=== PATIENT | male | born 1935 | race Caucasian/White ===

== ENCOUNTER 2017-02-01 16:59 | Inpatient (IN) | payer OTHER, MEDICARE ==
[~2017-02-01] VITALS: Ht 172.7 cm; Wt 64.2 kg
[~2017-02-01 16:59] MED LIST: ALPR2TAB3 PO; ASPI81TA82 PO; ESCI10TA PO; HYDR12.56 PO; LISI2.5T55 PO; LOVA40TA PO; OMEG5CAP PO; PANT40IN3 PO; TAB-TAB PO; XALA0.00 EACH EYE
[2017-02-01 17:02] VITALS: BP 124/71; PULSE 69; RESP 16; TEMP 98.2; O2SAT 98
[2017-02-01] MEDS ORDERED: LISI2.5T3 PO (17:36)
[2017-02-01] MEDS ORDERED: LOVA40TA PO (17:36)
[2017-02-01] MEDS ORDERED: METO25TA3 PO (17:36)
[2017-02-01] MEDS ORDERED: PANT40TA3 PO (17:36)
[2017-02-01 17:37] VITALS: RESP 18; O2SAT 98
[2017-02-01] MEDS ORDERED: SODIUM CHLORIDE 0.9% FLUSH 10 ML FLUSH IVF PRN (17:45)
--- NOTE | 2017-02-01 17:55 | PD ---
HPI Chief Complaint: Chest Pain Time Seen by Provider: 17:34 Travel History International Travel<30 days: No Contact w/Intl Traveler<30days: No Traveled to known affect area: No History of Present Illness HPI 82-year-old male patient with history of CAD status post stenting, hypertension , presents to the ER today with 4 days history of intermittent chest pains which she currently rates at a 10 out of 10. He also states that he is having some abdominal pains as well. He denies any nausea, vomiting, shortness of breath, or other symptoms. He is very hard of hearing and history is as per daughter. According to her, every time he had complained of chest pain in the past he also gets abdominal pain as well. Modifying Factors: None Associated Signs & Symptoms: Intermittent chest pains Risk Factors: Cardiac history PFSH Past Medical History Blood Disorders: No Anxiety: Yes Depression: Yes Heart Rhythm Problems: No Cancer: No Cardiac Catheterization: Yes Cardiovascular Problems: Yes High Cholesterol: Yes Chest Pain: Yes Congestive Heart Failure: Yes Diabetes: No Diminished Hearing: No Endocrine: No Gastrointestinal Disorders: Yes (acid reflux) GERD: Yes Genitourinary: No Hypertension: Yes Immune Disorder: No Musculoskeletal: Yes (arthritis) Neurologic: No Psychiatric: Yes Reproductive: No Respiratory: No Myocardial Infarction: Yes (X2) Tetanus Vaccination: > 5 Years Influenza Vaccination: Yes Past Surgical History Coronary Stent: Yes (X4 STENTS) Other Surgery: Yes Social History Alcohol Use: Yes (1-2 BEER ONCE IN A WHILE) Tobacco Use: Yes (PIPE SMOKER/ QUIT IN 1980) Substance Use: No Allergies-Medications (Allergen,Severity, Reaction): Coded Allergies: No Known Allergies (Unverified , 02/01/17) Reported Meds & Prescriptions Reported Meds & Active Scripts Active Reported Lovastatin 40 Mg Tab 40 Mg PO HS Metoprolol Tartrate 25 Mg Tab 25 Mg PO DAILY Pantoprazole (Pantoprazole Sodium) 40 Mg Tab 40 Mg PO DAILY Lisinopril 2.5 Mg Tab 2.5 Mg PO DAILY Review of Systems Except as stated in HPI: all other systems reviewed are Neg Physical Exam Narrative GENERAL: Well-developed elderly white male patient currently in mild distress at awake and oriented 3. SKIN: Focused skin assessment warm/dry. HEAD: Atraumatic. Normocephalic. EYES: Pupils equal and round. No scleral icterus. No injection or drainage. ENT: No nasal bleeding or discharge. Mucous membranes pink and moist. NECK: Trachea midline. No JVD. CARDIOVASCULAR: Regular rate and rhythm. No murmur appreciated. Pulses are present and equal bilaterally. RESPIRATORY: No accessory muscle use. Clear to auscultation. Breath sounds equal bilaterally. GASTROINTESTINAL: Abdomen soft, epigastric and periumbilical tenderness without guarding or rebound, nondistended. Hepatic and splenic margins not palpable. MUSCULOSKELETAL: No obvious deformities. No clubbing. No cyanosis. No edema. NEUROLOGICAL: Awake and alert. No obvious cranial nerve deficits. Motor grossly within normal limits. Normal speech. PSYCHIATRIC: Appropriate mood and affect; insight and judgment normal. Data Data Last Documented VS Vital Signs Date Time Temp Pulse Resp B/P (MAP) Pulse Ox O2 Delivery O2 Flow Rate FiO2 02/01/17 17:37 18 98 Room Air 02/01/17 17:30 70 02/01/17 17:02 98.2 Orders Orders Electrocardiogram (02/01/17 17:34) Ckmb (Isoenzyme) Profile (02/01/17 17:34) Complete Blood Count With Diff (02/01/17 17:34) Comprehensive Metabolic Panel (02/01/17 17:34) Magnesium (Mg) (02/01/17 17:34) Prothrombin Time / Inr (Pt) (02/01/17 17:34) Act Partial Throm Time (Ptt) (02/01/17 17:34) Troponin I (02/01/17 17:34) Lipase (02/01/17 17:34) Chest, Single Ap (02/01/17 17:34) Ecg Monitoring (02/01/17 17:34) Bilateral Bp Monitoring (02/01/17 17:34) Iv Access Insert/Monitor (02/01/17 17:34) Oximetry (02/01/17 17:34) Oxygen Administration (02/01/17 17:34) Sodium Chloride 0.9% Flush (Ns Flush) (02/01/17 17:45) Cta Thor Abd Aorta W Iv C W3d (02/01/17 17:34) Morphine Inj (Morphine Inj) (02/01/17 18:00) Ondansetron Inj (Zofran Inj) (02/01/17 18:00) CKMB (02/01/17 17:44) CKMB% (02/01/17 17:44) Urinalysis - C+S If Indicated (02/01/17 19:05) Labs Laboratory Tests Test 02/01/17 17:44 White Blood Count 16.1 TH/MM3 Red Blood Count 3.73 MIL/MM3 Hemoglobin 12.2 GM/DL Hematocrit 36.0 % Mean Corpuscular Volume 96.4 FL Mean Corpuscular Hemoglobin 32.7 PG Mean Corpuscular Hemoglobin Concent 33.9 % Red Cell Distribution Width 13.9 % Platelet Count 273 TH/MM3 Mean Platelet Volume 7.9 FL Neutrophils (%) (Auto) 84.6 % Lymphocytes (%) (Auto) 7.4 % Monocytes (%) (Auto) 7.0 % Eosinophils (%) (Auto) 0.4 % Basophils (%) (Auto) 0.6 % Neutrophils # (Auto) 13.6 TH/MM3 Lymphocytes # (Auto) 1.2 TH/MM3 Monocytes # (Auto) 1.1 TH/MM3 Eosinophils # (Auto) 0.1 TH/MM3 Basophils # (Auto) 0.1 TH/MM3 CBC Comment DIFF FINAL Differential Comment Prothrombin Time 11.4 SEC Prothromb Time International Ratio 1.0 RATIO Activated Partial Thromboplast Time 29.7 SEC Blood Urea Nitrogen 18 MG/DL Creatinine 1.23 MG/DL Random Glucose 108 MG/DL Total Protein 7.9 GM/DL Albumin 3.3 GM/DL Calcium Level 9.5 MG/DL Magnesium Level 2.7 MG/DL Alkaline Phosphatase 343 U/L Aspartate Amino Transf (AST/SGOT) 128 U/L Alanine Aminotransferase (ALT/SGPT) 129 U/L Total Bilirubin 2.7 MG/DL Sodium Level 136 MEQ/L Potassium Level 4.4 MEQ/L Chloride Level 101 MEQ/L Carbon Dioxide Level 26.5 MEQ/L Anion Gap 9 MEQ/L Estimat Glomerular Filtration Rate 56 ML/MIN Total Creatine Kinase 205 U/L Creatine Kinase MB 4.8 NG/ML Troponin I 0.08 NG/ML Lipase 105 U/L MDM Medical Decision Making Medical Screen Exam Complete: Yes Emergency Medical Condition: Yes Medical Record Reviewed: Yes Interpretation(s) EKG shows NSR with a first-degree AV block, no ST elevation or depression, and no arrhythmias. No significant T-wave inversions. Laboratory Tests Test 02/01/17 17:44 White Blood Count 16.1 TH/MM3 (4.0-11.0) Red Blood Count 3.73 MIL/MM3 (4.50-5.90) Hemoglobin 12.2 GM/DL (13.0-17.0) Hematocrit 36.0 % (39.0-51.0) Neutrophils (%) (Auto) 84.6 % (16.0-70.0) Lymphocytes (%) (Auto) 7.4 % (9.0-44.0) Neutrophils # (Auto) 13.6 TH/MM3 (1.8-7.7) Monocytes # (Auto) 1.1 TH/MM3 (0-0.9) Random Glucose 108 MG/DL (74-106) Albumin 3.3 GM/DL (3.4-5.0) Magnesium Level 2.7 MG/DL (1.5-2.5) Alkaline Phosphatase 343 U/L (45-117) Aspartate Amino Transf (AST/SGOT) 128 U/L (15-37) Alanine Aminotransferase (ALT/SGPT) 129 U/L (12-78) Total Bilirubin 2.7 MG/DL (0.2-1.0) Estimat Glomerular Filtration Rate 56 ML/MIN (>89) Creatine Kinase MB 4.8 NG/ML (0.5-3.6) Troponin I 0.08 NG/ML (0.02-0.05) Differential Diagnosis Chest pains and abdominal pains: ACS versus dissection versus aortic aneurysm versus gastritis/GERD Narrative Course Lab work and CAT scan was ordered for the patient. Initial chest x-ray shows interstitial lung disease but did not show any signs of other acute processes. His lab work shows a leukocytosis of uncertain etiology. CTA was ordered for further evaluation of chest and abdominal pain to rule out dissection or other acute processes. Physician Communication Physician Communication Case is signed out to Dr. Henriquez at 7 PM pending CTA with plans for admission. Disposition based on CTA. Diagnosis Primary Impression: Chest pain Admitting Information Admitting Physician Requests: Admit Ivory Fall MD Feb 01, 2017 17:55
[2017-02-01] MEDS ORDERED: MORPHINE SULFATE 4 MG/ML INJ IV PUSH ONE (18:00)
[2017-02-01] MEDS ORDERED: ONDANSETRON HCL 4 MG/2 ML VIAL IV PUSH ONE (18:00)
[2017-02-01 18:04] LABS: AUTOMATED NEUTROPHIL # 13.6 TH/MM3 (1.8-7.7); BASOPHIL # 0.1 TH/MM3 (0-0.2); BASOPHIL % 0.6 % (0.0-2.0); EOSINOPHIL # 0.1 TH/MM3 (0-0.4); EOSINOPHIL % 0.4 % (0.0-4.0); HEMO FLAGS DIFF FINAL; LYMPH % 7.4 % (9.0-44.0); LYMPHOCYTE # 1.2 TH/MM3 (1.0-4.8); MEAN CELL VOLUME 96.4 FL (80.0-100.0); MEAN CORPUSCULAR HEMOGLOBIN 32.7 PG (27.0-34.0); MEAN CORPUSCULAR HGB CONC 33.9 % (32.0-36.0); NEUT % 84.6 % (16.0-70.0); PLATELET COUNT 273 TH/MM3 (150-450); RED BLOOD COUNT 3.73 MIL/MM3 (4.50-5.90); RED CELL DISTRIBUTION WIDTH 13.9 % (11.6-17.2); WHITE BLOOD COUNT 16.1 TH/MM3 (4.0-11.0)
--- NOTE | 2017-02-01 18:08 | RADRPT ---
EXAM DATE/TIME: 02/01/2017 17:56 [facility] COMPARISON: CHEST SINGLE AP, May 03, 2016, 15:05. INDICATIONS : Chest pain. MEDICAL HISTORY : Hypertension. SURGICAL HISTORY : Cardiac stents. ENCOUNTER: Initial ACUITY: 1 day PAIN SCORE: 2/10 LOCATION: Bilateral chest FINDINGS: Chronic interstitial opacities are again seen diffusely in both lungs. There is some associated volum e loss on the right, unchanged. No acute infiltrates seen. No pleural effusion or pneumothorax. Heart size stable, within normal limits. Tortuous thoracic aorta again seen. CONCLUSION: Chronic interstitial lung disease. No acute process demonstrated. Dom Lemus MD on February 01, 2017 at 18:06 Board Certified Radiologist. This report was verified electronically.
[2017-02-01 18:14] LABS: APTT (PATIENT) 29.7 SEC (24.3-30.1); PROTHROMBIN TIME - PATIENT 11.4 SEC (9.8-11.6)
[2017-02-01 18:32] LABS: ALT (GPT) 129 U/L (12-78); ANION GAP 9 MEQ/L (5-15); AST (GOT) 128 U/L (15-37); BICARBONATE 26.5 MEQ/L (21.0-32.0); BLOOD UREA NITROGEN 18 MG/DL (7-18); CHLORIDE 101 MEQ/L (98-107); GLOMERULAR FILTRATION RATE 56 ML/MIN (>89); MAGNESIUM 2.7 MG/DL (1.5-2.5); POTASSIUM 4.4 MEQ/L (3.5-5.1); SODIUM (NA) 136 MEQ/L (136-145)
[2017-02-01 18:35] LABS: ALKALINE PHOSPHATASE 343 U/L (45-117); CREATINE KINASE 205 U/L (39-308); TOTAL BILIRUBIN ADULT 2.7 MG/DL (0.2-1.0)
[2017-02-01 18:47] LABS: CKMB 4.8 NG/ML (0.5-3.6)
[2017-02-01] MEDS ORDERED: IOHEXOL 350 MG/ML 10 ML VIAL (for RAD DIAG) IVCONTRAST ONE (19:00)
--- NOTE | 2017-02-01 19:19 | PD ---
Physical Exam Narrative General: The patient is a well-developed, thin appearing male in no acute distress. Head and Neck exam: Head is normocephalic atraumatic. Eyes: EOMI, pupils are equal round and reactive to light. Nose: Midline septum with pink mucous membranes Mouth: Dentition unremarkable. Moist mucus membranes. Posterior oropharynx is not erythematous. No tonsillar hypertrophy. Uvula midline. Airway patent. Neck: No palpable lymphadenopathy. No nuchal rigidity. No thyromegaly. Cardiovascular: Regular rate and rhythm without murmurs, gallops, or rubs. Lungs: Clear to auscultation bilaterally. No wheezes, rhonchi, or rales. Abdomen: Soft, with midepigastric abdominal discomfort on palpation, no other tenderness on palpation of the other quadrants of the abdomen. No tenderness on palpation of McBurney's point. No guarding, rebound, or rigidity. Negative Post's sign. Extremities: No clubbing, cyanosis, or edema. 2+ pulses in all 4 extremities. No calf tenderness on palpation. Neurologic Exam: Grossly nonfocal Skin Exam: No rash noted. Intact skin that is warm and dry. The patient is slightly jaundiced appearing. Data Data Last Documented VS Vital Signs Date Time Temp Pulse Resp B/P (MAP) Pulse Ox O2 Delivery O2 Flow Rate FiO2 02/01/17 19:45 66 18 159/66 (97) 99 Room Air 02/01/17 17:02 98.2 Orders Orders Electrocardiogram (02/01/17 17:34) Ckmb (Isoenzyme) Profile (02/01/17 17:34) Complete Blood Count With Diff (02/01/17 17:34) Comprehensive Metabolic Panel (02/01/17 17:34) Magnesium (Mg) (02/01/17 17:34) Prothrombin Time / Inr (Pt) (02/01/17 17:34) Act Partial Throm Time (Ptt) (02/01/17 17:34) Troponin I (02/01/17 17:34) Lipase (02/01/17 17:34) Chest, Single Ap (02/01/17 17:34) Ecg Monitoring (02/01/17 17:34) Bilateral Bp Monitoring (02/01/17 17:34) Iv Access Insert/Monitor (02/01/17 17:34) Oximetry (02/01/17 17:34) Oxygen Administration (02/01/17 17:34) Sodium Chloride 0.9% Flush (Ns Flush) (02/01/17 17:45) Cta Thor Abd Aorta W Iv C W3d (02/01/17 17:34) Morphine Inj (Morphine Inj) (02/01/17 18:00) Ondansetron Inj (Zofran Inj) (02/01/17 18:00) CKMB (02/01/17 17:44) CKMB% (02/01/17 17:44) Urinalysis - C+S If Indicated (02/01/17 19:05) Us Abdomen Gallbladder (02/01/17 19:40) Lactic Acid Sepsis Protocol (02/01/17 19:41) Blood Culture (02/01/17 19:41) Piperacil-Tazo 3.375 Gm Premix (Zosyn 3. (02/01/17 19:45) Vancomycin Inj (Vancomycin Inj) (02/01/17 19:45) Aspirin Chew (Aspirin Chew) (02/01/17 19:45) Nitroglycerin 2% Oint (Nitroglycerin 2% (02/01/17 19:45) B-Type Natriuretic Peptide (02/01/17 19:41) Sodium Chlorid 0.9% 500 Ml Inj (Ns 500 M (02/01/17 19:45) Iohexol 350 Inj (Omnipaque 350 Inj) (02/01/17 19:00) Admit Order (Ed Use Only) (02/01/17 20:08) Labs Laboratory Tests Test 02/01/17 17:44 02/01/17 20:10 White Blood Count 16.1 TH/MM3 Red Blood Count 3.73 MIL/MM3 Hemoglobin 12.2 GM/DL Hematocrit 36.0 % Mean Corpuscular Volume 96.4 FL Mean Corpuscular Hemoglobin 32.7 PG Mean Corpuscular Hemoglobin Concent 33.9 % Red Cell Distribution Width 13.9 % Platelet Count 273 TH/MM3 Mean Platelet Volume 7.9 FL Neutrophils (%) (Auto) 84.6 % Lymphocytes (%) (Auto) 7.4 % Monocytes (%) (Auto) 7.0 % Eosinophils (%) (Auto) 0.4 % Basophils (%) (Auto) 0.6 % Neutrophils # (Auto) 13.6 TH/MM3 Lymphocytes # (Auto) 1.2 TH/MM3 Monocytes # (Auto) 1.1 TH/MM3 Eosinophils # (Auto) 0.1 TH/MM3 Basophils # (Auto) 0.1 TH/MM3 CBC Comment DIFF FINAL Differential Comment Prothrombin Time 11.4 SEC Prothromb Time International Ratio 1.0 RATIO Activated Partial Thromboplast Time 29.7 SEC Blood Urea Nitrogen 18 MG/DL Creatinine 1.23 MG/DL Random Glucose 108 MG/DL Total Protein 7.9 GM/DL Albumin 3.3 GM/DL Calcium Level 9.5 MG/DL Magnesium Level 2.7 MG/DL Alkaline Phosphatase 343 U/L Aspartate Amino Transf (AST/SGOT) 128 U/L Alanine Aminotransferase (ALT/SGPT) 129 U/L Total Bilirubin 2.7 MG/DL Sodium Level 136 MEQ/L Potassium Level 4.4 MEQ/L Chloride Level 101 MEQ/L Carbon Dioxide Level 26.5 MEQ/L Anion Gap 9 MEQ/L Estimat Glomerular Filtration Rate 56 ML/MIN Total Creatine Kinase 205 U/L Creatine Kinase MB 4.8 NG/ML Troponin I 0.08 NG/ML B-Type Natriuretic Peptide 246 PG/ML Lipase 105 U/L Lactic Acid Level 1.5 mmol/L [facility] Medical Record Reviewed: Yes Supervised Visit with CIARA: No Interpretation(s) Last Impressions Gall Bladder Ultrasound 02/01/171939 Signed Impressions: Service Date/Time: Wednesday, February 01, 2017 20:02 - CONCLUSION: 1. Dilated common bile duct. Distal common duct not well visualized. No stones identified within the gallbladder. Jason Yu MD Chest X-Ray 02/01/[id number] Signed Impressions: Service Date/Time: Wednesday, February 01, 2017 17:56 - CONCLUSION: Chronic interstitial lung disease. No acute process demonstrated. Dom Lemus MD Aorta CTA 02/01/[id number] Signed Impressions: Service Date/Time: Wednesday, February 01, 2017 19:31 - CONCLUSION: 1. Negative for aortic dissection or aneurysm. 2. Gallstone in distal common duct measured up to 14 mm in diameter with biliary ductal dilatation up to about 2 cm. Jason Yu MD Narrative Course During the course of the patients emergency department visit, the patients history, examination, and differential diagnosis were reviewed with the patient. The patient had IV access obtained and blood work sent for analysis. The patient was placed on a clean up person with oximetry and blood pressure monitoring. The patient was initially provided morphine 2 mg IV for pain, Zofran 4 mg IV. The patients laboratory studies were reviewed and remarkable for a white count of 16.1, hemoglobin 12.2, platelets 273 with 84.6 neutrophils, lymphocytes 7.4. CMP is remarkable for glucose of 108, magnesium 2.7, total bilirubin 2.7, AST 128, ALT 129, alkaline phosphatase 343, CPK 205, CK-MB 4.8, troponin I 0.08, lipase 105. PT 11.4, PTT 29.7. Radiology studies were reviewed and remarkable for a chest x-ray that shows chronic interstitial lung disease, no acute process otherwise demonstrated. A urinalysis was added to his blood work given his elevated white blood cell count. An ultrasound was added to his evaluation due to his elevated liver function tests which is new since November. He denies drinking alcohol on a regular basis. He has not reportedly had a cholecystectomy. Due to the elevated white blood cell count blood cultures 2 were added, lactic acid was added to his workup. The patient was started on broad-spectrum antibiotic given his abdominal pain to include Zosyn 3.375 g IV, vancomycin 1 g IV. Given the patient's slightly elevated troponin the patient was given nitroglycerin 1 inch the chest wall, aspirin 162 mg by mouth 1. A BNP was added to his blood work. The patient was gently hydrated with normal saline a 500 mL bolus. CTA of the aorta shows no evidence of aortic dissection, however the patient is noted to have a common bile duct stone with biliary duct dilatation. A call was placed out to the GI specialist injection molding operator. I spoke to Dr. Ruiz regarding this patient's case. He will be seeing the patient in consultation. The patients results were discussed with the patient, including the plan of care. I explained that further testing and/ or monitoring is indicated based on the patients history, examination, and/ or laboratory findings. Therefore, I recommended admission for additional evaluation. The patient expressed understanding and was agreeable with this plan. The patient was admitted to the hospital in stable condition and sent to a bed under the care of the [facility] service. Sepsis Criteria SIRS Criteria (2 or more): WBC > 46867, < 4000 or > 10% bands Physician Communication Physician Communication The patient's case will be discussed with the [facility] service for admission. I spoke to Dr. العراقي regarding this patient's case. She did agree to admit the patient for further evaluation and treatment at this time. I spoke to Dr. Ruiz regarding this patient's case, the radioisotope technician on-call. He did agree to see this patient in consultation. Diagnosis Primary Impression: Abdominal pain Qualified Codes: R10.13 - Epigastric pain Additional Impressions: Elevated liver function tests Choledocholithiasis Chest pain, rule out acute myocardial infarction Admitting Information Admitting Physician Requests: Admit Natasha Henriquez MD Feb 01, 2017 19:19
[2017-02-01 19:45] VITALS: BP 159/66; PULSE 66; RESP 18; O2SAT 99
[2017-02-01] MEDS ORDERED: ASPIRIN 81 MG CHEW TAB CHEW ONE (19:45)
[2017-02-01] MEDS ORDERED: SODIUM CHLORID 0.9% 500 ML INJ 500 ML IV ONE (19:45)
[2017-02-01] MEDS ORDERED: NITROGLYCERIN 2% OINT 1 GM PACKET TOPICAL ONE (19:45)
[2017-02-01] MEDS ORDERED: VANCOMYCIN INJ 1,000 MG in SODIUM CHLOR 0.9% 250 ML INJ 250 ML IV ONE (19:45)
[2017-02-01] MEDS ORDERED: PIPERACIL-TAZO 3.375 GM PREMIX 50 ML IV ONE (19:45)
--- NOTE | 2017-02-01 20:23 | RADRPT ---
EXAM DATE/TIME: 02/01/2017 19:31 [facility] COMPARISON: No previous studies available for comparison. INDICATIONS : Chest and back pain. Evaluate for dissection. IV CONTRAST: 75 cc Omnipaque 350 (iohexol) IV RADIATION DOSE: 22.27 CTDIvol (mGy) MEDICAL HISTORY : Cardiovascular disease. Hypertension. SURGICAL HISTORY : IVC Filter placement. Coronary artery stent. ENCOUNTER: initial ACUITY: Acute PAIN SCALE: Unknown LOCATION: Abdominal TECHNIQUE: Volumetric scanning was performed using a multi-row detector CT scanner. The data was post processed with a variety of visualization algorithms including full volume maximum intensity projection, multi -planar sliding thin slab reformation, curved planar reformation, and surface rendering techniques. Using automated exposure control and adjustment of the mA and/or kV according to patient size, radiat ion dose was kept as low as reasonably achievable to obtain optimal diagnostic quality images. DICOM format image data is available electronically for review and comparison. FINDINGS: There is no aortic dissection or aneurysm. There is moderate atherosclerotic change in the aorta. There is intrahepatic and extra hepatic ductal dilatation with common bile duct measuring up to about 2 cm in diameter. There is a gallstone the distal common bile duct that measures up to about 14 mm i n diameter. Spleen, adrenals, kidneys and pancreas demonstrate no acute findings. Inferior vena cava filter is pr esent. Mild constipation. No free air or free fluid. CONCLUSION: 1. Negative for aortic dissection or aneurysm. 2. Gallstone in distal common duct measured up to 14 mm in diameter with biliary ductal dilatation up to about 2 cm. Jason Yu MD on February 01, 2017 at 20:16 Board Certified Radiologist. This report was verified electronically.
[2017-02-01 20:54] VITALS: BP 136/63; PULSE 73; RESP 20; O2SAT 95
[2017-02-01] MEDS: SODIUM CHLORIDE 0.9% FLUSH 10 ML FLUSH IV FLUSH SCH (21:00)
[2017-02-01] MEDS ORDERED: NALOXONE HCL 0.4 MG/ML AMP IV PRN (21:00)
[2017-02-01] MEDS ORDERED: SODIUM CHLORIDE 0.9% FLUSH 10 ML FLUSH IV FLUSH PRN (21:00)
--- NOTE | 2017-02-01 21:01 | RADRPT ---
EXAM DATE/TIME: 02/01/2017 20:02 [facility] COMPARISON: No previous studies available for comparison. INDICATIONS : Right upper quadrant pain. MEDICAL HISTORY : Hypercholesterolemia. Gastroesophageal reflux disease. Hypertension. Myocardial infarction. Congestiv e heart failure. Arthritis. Depression. Anxiety. Blood transfusion. SURGICAL HISTORY : Coronary stent. Right leg compoud fracture repair. ENCOUNTER: Initial ACUITY: 1 day PAIN SCORE: 4/10 LOCATION: Right upper quadrant MEASUREMENTS: LIVER: 12.9 cm length COMMON DUCT: 12 mm RIGHT KIDNEY: 10.0 x 5.1 x 4.3 cm FINDINGS: Common bile duct is enlarged, of a 12 mm. Liver normal in size. Portal venous flow normal direction. Pancreas not well-visualized. No gallstones identified within the abdomen. CONCLUSION: 1. Dilated common bile duct. Distal common duct not well visualized. No stones identified within the gallbladder. Jason Yu MD on February 01, 2017 at 20:58 Board Certified Radiologist. This report was verified electronically.
[2017-02-01 21:41] LABS: BLOOD, URINE NEG (NEG); COMMENT (UR) CULT NOT INDICATED; CULTURE IF INDICATED CULT NOT INDICATED; GLUCOSE,URINE NEG (NEG); KETONE, URINE 10 mg/dL (NEG); MUCUS URINE FEW /lpf (OCC); NITRITE,URINE NEG (NEG); SQUAMOUS EPITHELIAL CELL URINE <1 /hpf (0-5); URINE COLOR DARK-YELLOW (YELLW/STRAW)
--- NOTE | 2017-02-01 22:09 | PD.CONS ---
HPI History of Present Illness This is a 82 year old male patient with one year of off and on chest and abdominal pain. The pain is at times severe, sharp and dull. No associated SOB. No fever reported. last few days he has been worse and has not eaten anything. He also suffers from constipation and uses warm water enemas at times. Never had colonoscopy. History of CAD with stents. Workup in ED showed CBD stone and dilated CBD. LFTs are also elevated. Bilirubin is elevated. US shows no stones in gallbladder. He reports having metal shard in his thumb ad a young man. He has never had an MRI. ROS: denies headache earache, sore throat, vomiting. No hematemesis or melena. No brbpr. Otherwise complete ros is negative. PFSH Past Medical History CAD stents [place] x 2 HTN Past Surgical History Never had colonoscopy Coded Allergies: No Known Allergies (Unverified , 02/01/17) Medications Current Medications Medications (Trade) Dose Ordered Sig/Radha Route Start Time Stop Time Status Last Admin (NS Flush) 2 ml UNSCH PRN IV FLUSH 02/01/17 21:00 (NS Flush) 2 ml BID IV FLUSH 02/01/17 21:00 (Narcan Inj) 0.4 mg UNSCH PRN IV 02/01/17 21:00 Piperacillin Sod/ Tazobactam Sod 100 ml @ 200 mls/hr Q6H IV 02/02/17 02:00 Family History Non contributory Social History Smoked a pipe No alcohol or drugs GI Exam Vitals I&O Vital Signs Date Time Temp Pulse Resp B/P (MAP) Pulse Ox O2 Delivery O2 Flow Rate FiO2 02/01/17 20:54 73 20 136/63 (87) 95 Room Air 02/01/17 19:45 66 18 159/66 (97) 99 Room Air 02/01/17 17:37 18 98 Room Air 02/01/17 17:37 98 Room Air 02/01/17 17:30 70 20 98 Room Air 02/01/17 17:02 98.2 69 16 124/71 (88) 98 Laboratory Test 02/01/17 17:44 02/01/17 20:10 02/01/17 20:52 White Blood Count 16.1 TH/MM3 Red Blood Count 3.73 MIL/MM3 Hemoglobin 12.2 GM/DL Hematocrit 36.0 % Mean Corpuscular Volume 96.4 FL Mean Corpuscular Hemoglobin 32.7 PG Mean Corpuscular Hemoglobin Concent 33.9 % Red Cell Distribution Width 13.9 % Platelet Count 273 TH/MM3 Mean Platelet Volume 7.9 FL Neutrophils (%) (Auto) 84.6 % Lymphocytes (%) (Auto) 7.4 % Monocytes (%) (Auto) 7.0 % Eosinophils (%) (Auto) 0.4 % Basophils (%) (Auto) 0.6 % Neutrophils # (Auto) 13.6 TH/MM3 Lymphocytes # (Auto) 1.2 TH/MM3 Monocytes # (Auto) 1.1 TH/MM3 Eosinophils # (Auto) 0.1 TH/MM3 Basophils # (Auto) 0.1 TH/MM3 CBC Comment DIFF FINAL Differential Comment Prothrombin Time 11.4 SEC Prothromb Time International Ratio 1.0 RATIO Activated Partial Thromboplast Time 29.7 SEC Blood Urea Nitrogen 18 MG/DL Creatinine 1.23 MG/DL Random Glucose 108 MG/DL Total Protein 7.9 GM/DL Albumin 3.3 GM/DL Calcium Level 9.5 MG/DL Magnesium Level 2.7 MG/DL Alkaline Phosphatase 343 U/L Aspartate Amino Transf (AST/SGOT) 128 U/L Alanine Aminotransferase (ALT/SGPT) 129 U/L Total Bilirubin 2.7 MG/DL Sodium Level 136 MEQ/L Potassium Level 4.4 MEQ/L Chloride Level 101 MEQ/L Carbon Dioxide Level 26.5 MEQ/L Anion Gap 9 MEQ/L Estimat Glomerular Filtration Rate 56 ML/MIN Total Creatine Kinase 205 U/L Creatine Kinase MB 4.8 NG/ML Troponin I 0.08 NG/ML Lipase 105 U/L Lactic Acid Level 1.5 mmol/L Urine Color DARK-YELLOW Urine Turbidity CLEAR Urine pH 6.0 Urine Specific [place] GREATER THAN 1.050 Urine Protein TRACE mg/dL Urine Glucose (UA) NEG mg/dL Urine Ketones 10 mg/dL Urine Occult Blood NEG Urine Nitrite NEG Urine Bilirubin SMALL Urine Urobilinogen 2.0 MG/DL Urine Leukocyte Esterase NEG Urine RBC 2 /hpf Urine WBC 4 /hpf Urine Squamous Epithelial Cells <1 /hpf Urine Mucus FEW /lpf Microscopic Urinalysis Comment CULT NOT INDICATED Date/Time Source Procedure Growth Status 02/01/17 20:10 Blood Peripheral Aerobic Blood Culture Pending Received 02/01/17 20:10 Blood Peripheral Anaerobic Blood Culture Pending Received Physical Examination HEENT: Pupils round and reactive to light; normocephalic; atraumatic; mild jaundice Throat is clear. He is thin NECK: Neck is supple, no JVD, no lymphadenopathy. CHEST: Chest is clear to auscultation and percussion. CARDIAC: Regular rate and rhythm with no murmur gallop or rubs. ABDOMEN: Soft, nondistended, nontender; no hepatosplenomegaly; bowel sounds are present in all four quadrants. EXTREMITIES: No clubbing, cyanosis, or edema. SKIN: dry and warm REVENUE FIELD AUDITOR: No focal deficits; alert and oriented times three. Assessment and Plan Plan Imp: Epigastric and abdominal pain consistent with biliary colic Elevated WBC count Weight loss probably from not eating due to the pain Constipation, never had colonoscopy and does not want one. CBD stone with bile duct dilatation seen on CT for chest Plan: ERCP will be done tomorrow. IV antibiotics Miralax 17gm po bid for constipation NPO after midnight. Further recommendation as the case develops Brandon Ruiz MD Feb 01, 2017 22:09
[2017-02-01 22:23] VITALS: BP 105/57; PULSE 75; RESP 19; O2SAT 96
--- NOTE | 2017-02-01 23:01 | HHI.HP ---
[facility] Jethro Mckoy MD Admission Diagnosis Chest pain, h/o CAD, abdominal pain, elevated lfts, leukocytosis Diagnoses: Chief Complaint: cough with body aches Travel History International Travel<30 Days: No Contact w/Intl Traveler <30 Da: No Traveled to Known Affected Are: No History of Present Illness Written by Sheri Wyman, acting as scribe for Dr. العراقي on 02/01/17 at 22:49. Frequent cough with heavy, dwyer sputum accompanied by all over body aches. Symptom duration: 2 weeks. Reports poor appetite over the past couple of days. Complains of abdominal and back pain without nausea or vomiting but with constipation. Denies diarrhea. Uses a warm water enema for constipation at home. Denies fever, chills, black or red stool, hematuria, falls, chest pain, or shortness of breath. (chest pain reported to ED physician) Review of Systems Except as stated in HPI: all other systems reviewed are Neg Past Family Social History Past Medical History CAD stents x 4 [place] x 2 Previous right lower leg compound fracture Denies hypertension, diabetes mellitus, CHF, irregular heart rhythms including atrial fibrillation, COPD, asthma, emphysema, liver problems, kidney problems, DVT, PE, CVA, seizures, cancer, prostate problems, or thyroid problems. Past Surgical History Right lower extremity fracture repair 1993 Cardiac catheterization with stent placement . Reported Medications Reported Meds & Active Scripts Active Reported Lovastatin 40 Mg Tab 40 Mg PO HS Metoprolol Tartrate 25 Mg Tab 25 Mg PO DAILY Pantoprazole (Pantoprazole Sodium) 40 Mg Tab 40 Mg PO DAILY Lisinopril 2.5 Mg Tab 2.5 Mg PO DAILY . Allergies: Coded Allergies: No Known Allergies (Unverified , 02/01/17) Active Ordered Medications Current Medications Sodium Chloride (NS Flush) 2 ml UNSCH PRN IVF FLUSH AFTER USING IV ACCESS; Start 02/01/17 at 17:45; Stop 02/01/17 at 21:22; Status DC Morphine Sulfate (Morphine Inj) 2 mg ONCE ONCE IV PUSH Last administered on t 18:01; Start 02/01/17 at 18:00; Stop 02/01/17 at 18:01; Status DC Ondansetron HCl (Zofran Inj) 4 mg ONCE ONCE IV PUSH Last administered on 18:01; Start 02/01/17 at 18:00; Stop 02/01/17 at 18:01; Status DC Piperacillin Sod/ Tazobactam Sod 50 ml @ 100 mls/hr ONCE ONCE IV Last administered on 02/01/17 20:35; Start 02/01/17 at 19:45; Stop 02/01/17 at 20:14; Status DC Vancomycin HCl 1000 mg/Sodium Chloride 250 ml @ 250 mls/hr ONCE ONCE IV Last administered on 02/01/17 20:57; Start 02/01/17 at 19:45; Stop 02/01/17 at 20:44; Status DC Aspirin (Aspirin Chew) 162 mg ONCE ONCE CHEW Last administered on 02/01/17 20: 34; Start 02/01/17 at 19:45; Stop 02/01/17 at 19:46; Status DC Nitroglycerin (Nitroglycerin 2% Oint) 1 inch ONCE ONCE TOPICAL Last administered on 02/01/17 20:35; Start 02/01/17 at 19:45; Stop 02/01/17 at 19:46; Status DC Sodium Chloride 500 ml @ 500 mls/hr BOLUS ONCE IV Last administered on 20:34; Start 02/01/17 at 19:45; Stop 02/01/17 at 20:44; Status DC Iohexol (Omnipaque 350 Inj) 75 ml STK-MED ONCE IVCONTRAST Last administered on 02/01/17 19:00; Start 02/01/17 at 19:00; Stop 02/01/17 at 20:00; Status DC Sodium Chloride (NS Flush) 2 ml UNSCH PRN IV FLUSH FLUSH AFTER USING IV ACCESS ; Start 02/01/17 at 21:00 Sodium Chloride (NS Flush) 2 ml BID IV FLUSH ; Start 02/01/17 at 21:00 Naloxone HCl (Narcan Inj) 0.4 mg UNSCH PRN IV SEE LABEL COMMENTS; Start at 21:00 Piperacillin Sod/ Tazobactam Sod 100 ml @ 200 mls/hr Q6H IV ; Start 02/02/17 at 02:00 . Family History Mother from [place] age 74 y/o Father lived until age 87 y/o - from complications related to aging Youngest child of 15, only surviving sibling Has two daughters . Social History Tobacco: Smoked a pipe; quit 1980 Alcohol: denies Illicit Drugs: denies Lives with son-in-law Uses a cane at times for ambulation Still drives Physical Exam Vital Signs Vital Signs Date Time Temp Pulse Resp B/P (MAP) Pulse Ox O2 Delivery O2 Flow Rate FiO2 02/01/17 22:23 75 19 105/57 (73) 96 Room Air 02/01/17 20:54 73 20 136/63 (87) 95 Room Air 02/01/17 19:45 66 18 159/66 (97) 99 Room Air 02/01/17 17:37 18 98 Room Air 02/01/17 17:37 98 Room Air 02/01/17 17:30 70 20 98 Room Air 02/01/17 17:02 98.2 69 16 124/71 (88) 98 Physical Exam GENERAL: This is a pale elderly male patient, in no apparent distress. SKIN: No rashes, ecchymoses or lesions. Cool and dry. HEAD: Atraumatic. Normocephalic. EYES: Pupils equal round and reactive. No injection or drainage. ENT: Nose without bleeding, purulent drainage or septal hematoma. NECK: Trachea midline. No JVD. CARDIOVASCULAR: Regular rate and rhythm without murmurs, gallops, or rubs. RESPIRATORY: Clear to auscultation. Breath sounds equal bilaterally. No wheezes , rales, or rhonchi. GASTROINTESTINAL: Abdomen soft, non-tender, nondistended. No guarding. MUSCULOSKELETAL: Extremities without clubbing, cyanosis, or edema. No calf tenderness. NEUROLOGICAL: Awake and alert. Motor and sensory grossly within normal limits. Normal speech. Mild memory impairment. . Laboratory Laboratory Tests Test 02/01/17 17:44 02/01/17 20:10 02/01/17 20:52 White Blood Count 16.1 Red Blood Count 3.73 Hemoglobin 12.2 Hematocrit 36.0 Mean Corpuscular Volume 96.4 Mean Corpuscular Hemoglobin 32.7 Mean Corpuscular Hemoglobin Concent 33.9 Red Cell Distribution Width 13.9 Platelet Count 273 Mean Platelet Volume 7.9 Neutrophils (%) (Auto) 84.6 Lymphocytes (%) (Auto) 7.4 Monocytes (%) (Auto) 7.0 Eosinophils (%) (Auto) 0.4 Basophils (%) (Auto) 0.6 Neutrophils # (Auto) 13.6 Lymphocytes # (Auto) 1.2 Monocytes # (Auto) 1.1 Eosinophils # (Auto) 0.1 Basophils # (Auto) 0.1 CBC Comment DIFF FINAL Differential Comment Prothrombin Time 11.4 Prothromb Time International Ratio 1.0 Activated Partial Thromboplast Time 29.7 Blood Urea Nitrogen 18 Creatinine 1.23 Random Glucose 108 Total Protein 7.9 Albumin 3.3 Calcium Level 9.5 Magnesium Level 2.7 Alkaline Phosphatase 343 Aspartate Amino Transf (AST/SGOT) 128 Alanine Aminotransferase (ALT/SGPT) 129 Total Bilirubin 2.7 Sodium Level 136 Potassium Level 4.4 Chloride Level 101 Carbon Dioxide Level 26.5 Anion Gap 9 Estimat Glomerular Filtration Rate 56 Total Creatine Kinase 205 Creatine Kinase MB 4.8 Troponin I 0.08 B-Type Natriuretic Peptide 246 Lipase 105 Lactic Acid Level 1.5 Urine Color DARK-YELLOW Urine Turbidity CLEAR Urine pH 6.0 Urine Specific [place] GREATER THAN 1.050 Urine Protein TRACE Urine Glucose (UA) NEG Urine Ketones 10 Urine Occult Blood NEG Urine Nitrite NEG Urine Bilirubin SMALL Urine Urobilinogen 2.0 Urine Leukocyte Esterase NEG Urine RBC 2 Urine WBC 4 Urine Squamous Epithelial Cells <1 Urine Mucus FEW Microscopic Urinalysis Comment CULT NOT INDICATED Date/Time Source Procedure Growth Status 02/01/17 20:10 Blood Peripheral Aerobic Blood Culture Pending Received 02/01/17 20:10 Blood Peripheral Anaerobic Blood Culture Pending Received Result Diagram: 02/01/17 1744 02/01/171743 Imaging Last Impressions Gall Bladder Ultrasound 02/01/171939 Signed Impressions: Service Date/Time: Wednesday, February 01, 2017 20:02 - CONCLUSION: 1. Dilated common bile duct. Distal common duct not well visualized. No stones identified within the gallbladder. Jason Yu MD Chest X-Ray 02/01/171733 Signed Impressions: Service Date/Time: Wednesday, February 01, 2017 17:56 - CONCLUSION: Chronic interstitial lung disease. No acute process demonstrated. Dom Lemus MD Aorta CTA 02/01/171733 Signed Impressions: Service Date/Time: Wednesday, February 01, 2017 19:31 - CONCLUSION: 1. Negative for aortic dissection or aneurysm. 2. Gallstone in distal common duct measured up to 14 mm in diameter with biliary ductal dilatation up to about 2 cm. Jason Yu MD . [place] VTE Risk Assessment [place] VTE Risk Assessment: Mod/High Risk (score >= 2) VTE Pharm Contraindication: ERCP in a.m. Caprini Risk Assessment Model Point Value = 1 Point Value = 2 Point Value = 3 Point Value = 5 Age 41-60 Minor surgery BMI > 25 kg/m2 Swollen legs Varicose veins or History of unexplained or recurrent spontaneous Oral contraceptives or hormone replacement Sepsis (< 1 month) Serious lung disease, including pneumonia (< 1 month) Abnormal pulmonary function Acute myocardial infarction Congestive heart failure (< 1 month) History of inflammatory bowel disease Medical patient at bed rest Age 61-74 Arthroscopic surgery Major open surgery (> 45 min) Laparoscopic surgery (> 45 min) Malignancy Confined to bed (> 72 hours) Immobilizing plaster cast Central venous access Age >= 75 History of VTE Family history of VTE Factor V Leiden Prothrombin [id number] Lupus anticoagulant Anticardiolipin antibodies Elevated serum homocysteine Heparin-induced thrombocytopenia Other congenital or acquired thrombophilia Stroke (< 1 month) Elective arthroplasty Hip, pelvis, or leg fracture Acute spinal cord injury (< 1 month) Prophylaxis Regimen Total Risk Factor Score Risk Level Prophylaxis Regimen 0-1 Low Early ambulation 2 Moderate Order ONE of the following: *Sequential Compression Device (SCD) *Heparin 5000 units SQ BID 3-4 Higher Order ONE of the following medications: *Heparin 5000 units SQ TID *Enoxaparin/Lovenox 40 mg SQ daily (WT < 150 kg, CrCl > 30 mL/min) *Enoxaparin/Lovenox 30 mg SQ daily (WT < 150 kg, CrCl > 10-29 mL/min) *Enoxaparin/Lovenox 30 mg SQ BID (WT < 150 kg, CrCl > 30 mL/min) AND/OR *Sequential Compression Device (SCD) 5 or more Highest Order ONE of the following medications: *Heparin 5000 units SQ TID (Preferred with Epidurals) *Enoxaparin/Lovenox 40 mg SQ daily (WT < 150 kg, CrCl > 30 mL/min) *Enoxaparin/Lovenox 30 mg SQ daily (WT < 150 kg, CrCl > 10-29 mL/min) *Enoxaparin/Lovenox 30 mg SQ BID (WT < 150 kg, CrCl > 30 mL/min) AND *Sequential Compression Device (SCD) Assessment and Plan Problem List: (1) Common bile duct dilation ICD Code: K83.8 - Other specified diseases of biliary tract (2) Elevated liver function tests ICD Code: R79.89 - Other specified abnormal findings of blood chemistry Status: Acute (3) Chest pain ICD Code: R07.9 - Chest pain, unspecified Status: Acute (4) Leukocytosis ICD Code: D72.829 - Elevated white blood cell count, unspecified Assessment and Plan 82 y/o male presented with productive cough and reporting chest pain to ER physician on 02/01/17: Choledocholithiasis - Dilated common bile duct with stone on imaging with elevated liver enzymes - Gastroenterology consulted - ERCP planned in a.m. - NPO after midnight - Morphine 2 mg IV q6h PRN pain Chest pain reported to ED physician - serial cardiac enzymes and EKGs to r/o ACS - initial troponin I 0.08, will trend - continuous cardiac telemetry to monitor for arrhythmias Leukocytosis choledocholithiasis vs pneumonia - WBC 16.1 with neutrophilia - Antibiotic: Zosyn 4.5 gm every 6 hours IV - repeat CBC in a.m. and follow results DVT prophylaxis - SCDs/TEDs . This note was transcribed by mikaela [Sheri Wyman]. I, Dr. Claudine العراقي personally performed the history, physical exam, and medical decision making; and confirmed the accuracy of the information in the transcribed note. Authenticated by Dr. Claudine العراقي on 02/01/17 at 22:49. Discussed Condition With ER physician and patient . Physician Certification 2 Midnight Certification Type: Admission for Inpatient Services Order for Inpatient Services The services are ordered in accordance with Medicare regulations or non- Medicare payer requirements, as applicable. In the case of services not specified as inpatient-only, they are appropriately provided as inpatient services in accordance with the 2-midnight benchmark. Estimated LOS (days): 3 days is the estimated time the patient will need to remain in the hospital, assuming treatment plan goals are met and no additional complications. Post-Hospital Plan: Not yet determined Problem Qualifiers (1) Chest pain: Qualified Codes: R07.9 - Chest pain, unspecified Sheri Wyman Feb 01, 2017 23:01 Claudine العراقي MD Feb 02, 2017 00:48
[2017-02-01] MEDS ORDERED: MORPHINE SULFATE 4 MG/ML INJ IV PUSH PRN (23:15)
[2017-02-02] VITALS (20 sets, daily range): BP systolic 110–134; BP diastolic 54–94; PULSE 40–70; RESP 18–20; TEMP 97.6–98.2; O2SAT 96–100
[2017-02-02] MEDS: PIPERACIL-TAZO 4.5 GM PREMIX 100 ML IV SCH ×3 (02:51→20:04)
[2017-02-02 07:10] LABS: AUTOMATED NEUTROPHIL # 6.5 TH/MM3 (1.8-7.7); BASOPHIL % 0.3 % (0.0-2.0); EOSINOPHIL % 0.4 % (0.0-4.0); HEMATOCRIT 29.3 % (39.0-51.0); HEMO FLAGS DIFF FINAL; LYMPH % 15.6 % (9.0-44.0); LYMPHOCYTE # 1.4 TH/MM3 (1.0-4.8); MEAN CELL VOLUME 95.7 FL (80.0-100.0); MEAN CORPUSCULAR HEMOGLOBIN 32.3 PG (27.0-34.0); MEAN CORPUSCULAR HGB CONC 33.7 % (32.0-36.0); MONO % 10.7 % (0.0-8.0); PLATELET COUNT 240 TH/MM3 (150-450); RED BLOOD COUNT 3.06 MIL/MM3 (4.50-5.90); RED CELL DISTRIBUTION WIDTH 13.6 % (11.6-17.2); WHITE BLOOD COUNT 8.9 TH/MM3 (4.0-11.0)
[2017-02-02 07:40] LABS: BICARBONATE 30.5 MEQ/L (21.0-32.0); POTASSIUM 4.8 MEQ/L (3.5-5.1)
--- NOTE | 2017-02-02 08:25 | HHI.GIFU ---
Subjective Remarks Resting in bed. Denies any nausea/vomiting/abdominal pain. Denies any fevers. Objective Vitals I&O Vital Signs Date Time Temp Pulse Resp B/P (MAP) Pulse Ox O2 Delivery O2 Flow Rate FiO2 02/02/17 06:16 53 18 120/56 (77) 99 Room Air 02/02/17 03:50 70 19 118/78 (91) 96 Room Air 02/02/17 01:40 59 18 110/61 (77) 98 Room Air 02/02/17 00:03 68 19 115/56 (75) 98 Room Air 02/01/17 22:23 75 19 105/57 (73) 96 Room Air 02/01/17 20:54 73 20 136/63 (87) 95 Room Air 02/01/17 19:45 66 18 159/66 (97) 99 Room Air 02/01/17 19:30 18 02/01/17 17:37 18 98 Room Air 02/01/17 17:37 98 Room Air 02/01/17 17:30 70 20 98 Room Air 02/01/17 17:02 98.2 69 16 124/71 (88) 98 Laboratory Laboratory Tests Test 02/01/17 17:44 02/01/17 20:10 02/01/17 20:52 02/01/17 23:59 White Blood Count 16.1 Red Blood Count 3.73 Hemoglobin 12.2 Hematocrit 36.0 Mean Corpuscular Volume 96.4 Mean Corpuscular Hemoglobin 32.7 Mean Corpuscular Hemoglobin Concent 33.9 Red Cell Distribution Width 13.9 Platelet Count 273 Mean Platelet Volume 7.9 Neutrophils (%) (Auto) 84.6 Lymphocytes (%) (Auto) 7.4 Monocytes (%) (Auto) 7.0 Eosinophils (%) (Auto) 0.4 Basophils (%) (Auto) 0.6 Neutrophils # (Auto) 13.6 Lymphocytes # (Auto) 1.2 Monocytes # (Auto) 1.1 Eosinophils # (Auto) 0.1 Basophils # (Auto) 0.1 CBC Comment DIFF FINAL Differential Comment Prothrombin Time 11.4 Prothromb Time International Ratio 1.0 Activated Partial Thromboplast Time 29.7 Blood Urea Nitrogen 18 Creatinine 1.23 Random Glucose 108 Total Protein 7.9 Albumin 3.3 Calcium Level 9.5 Magnesium Level 2.7 Alkaline Phosphatase 343 Aspartate Amino Transf (AST/SGOT) 128 Alanine Aminotransferase (ALT/SGPT) 129 Total Bilirubin 2.7 Sodium Level 136 Potassium Level 4.4 Chloride Level 101 Carbon Dioxide Level 26.5 Anion Gap 9 Estimat Glomerular Filtration Rate 56 Total Creatine Kinase 205 115 Creatine Kinase MB 4.8 Troponin I 0.08 0.09 B-Type Natriuretic Peptide 246 Lipase 105 Lactic Acid Level 1.5 Urine Color DARK-YELLOW Urine Turbidity CLEAR Urine pH 6.0 Urine Specific [place] GREATER THAN 1.050 Urine Protein TRACE Urine Glucose (UA) NEG Urine Ketones 10 Urine Occult Blood NEG Urine Nitrite NEG Urine Bilirubin SMALL Urine Urobilinogen 2.0 Urine Leukocyte Esterase NEG Urine RBC 2 Urine WBC 4 Urine Squamous Epithelial Cells <1 Urine Mucus FEW Microscopic Urinalysis Comment CULT NOT INDICATED Test 02/02/17 06:05 White Blood Count 8.9 Red Blood Count 3.06 Hemoglobin 9.9 Hematocrit 29.3 Mean Corpuscular Volume 95.7 Mean Corpuscular Hemoglobin 32.3 Mean Corpuscular Hemoglobin Concent 33.7 Red Cell Distribution Width 13.6 Platelet Count 240 Mean Platelet Volume 7.7 Neutrophils (%) (Auto) 73.0 Lymphocytes (%) (Auto) 15.6 Monocytes (%) (Auto) 10.7 Eosinophils (%) (Auto) 0.4 Basophils (%) (Auto) 0.3 Neutrophils # (Auto) 6.5 Lymphocytes # (Auto) 1.4 Monocytes # (Auto) 0.9 Eosinophils # (Auto) 0.0 Basophils # (Auto) 0.0 CBC Comment DIFF FINAL Differential Comment Blood Urea Nitrogen 14 Creatinine 0.99 Random Glucose 86 Calcium Level 8.8 Sodium Level 138 Potassium Level 4.8 Chloride Level 102 Carbon Dioxide Level 30.5 Anion Gap 6 Estimat Glomerular Filtration Rate 72 Total Creatine Kinase 92 Troponin I 0.08 Date/Time Source Procedure Growth Status 02/01/17 20:10 Blood Peripheral Aerobic Blood Culture Pending Received 02/01/17 20:10 Blood Peripheral Anaerobic Blood Culture Pending Received Imaging Last Impressions Gall Bladder Ultrasound 02/01/171939 Signed Impressions: Service Date/Time: Wednesday, February 01, 2017 20:02 - CONCLUSION: 1. Dilated common bile duct. Distal common duct not well visualized. No stones identified within the gallbladder. Jason Yu MD Chest X-Ray 02/01/17 [id number] Signed Impressions: Service Date/Time: Wednesday, February 01, 2017 17:56 - CONCLUSION: Chronic interstitial lung disease. No acute process demonstrated. Dom Lemus MD Aorta CTA 02/01/17 1734 Signed Impressions: Service Date/Time: Wednesday, February 01, 2017 19:31 - CONCLUSION: 1. Negative for aortic dissection or aneurysm. 2. Gallstone in distal common duct measured up to 14 mm in diameter with biliary ductal dilatation up to about 2 cm. Jason Yu MD Physical Exam HEENT: Normocephalic; atraumatic; no jaundice. CHEST: CTA CARDIAC: RRR ABDOMEN: Soft, nondistended, nontender; no hepatosplenomegaly; bowel sounds are present in all four quadrants. EXTREMITIES: No clubbing, cyanosis, or edema. SKIN: Normal; no rash; no jaundice. MEDIA EXECUTIVE: No focal deficits; alert and oriented times three. Assessment and Plan Plan ASSESSMENT: - Abdominal pain with elevated LFTs and dilated CBD on US. GB US (02/01/17)----> Dilated common bile duct. Distal common duct not well visualized. No stones identified within the gallbladder. Of note, Aorta CTA (02/01/17)---- -> negative for aortic dissection. Gallstone in distal common duct measured up to 14 mm in diameter with biliary ductal dilatation up to 2cm. Zosyn. - Leukocytosis. Zosyn. - Anemia. 9.9/29.3. - Abnormal weight loss. Never had colonoscopy, does not want one. - Constipation. Add Miralax - CAD, HTN per attending. Plan: - NPO - LFT today - Miralax - MRCP vs. ERCP- will d/w Dr. Terrazas - Supportive care - Further recommendations to follow based on results of above - Pt seen and examined by Dr. Ruiz and myself and this note is written on his behalf Aggie Crowe Feb 02, 2017 08:25
--- NOTE | 2017-02-02 08:46 | HHI.PR ---
Subjective Remarks Primary Care Physician Jethro Mckoy MD Admission Diagnosis Chest pain, h/o CAD, abdominal pain, elevated LFTs and Leukocytosis This is a pleasant 82 y/o Male who came to ER with productive cough, for the last two weeks, abdominal pain no nausea, vomit or diarrhea, but has Constipation, he uses a warm water enema for constipation, he has CAD status post PCI with stent placement x 4, status post two previous SC, Hypertension, Hyperlipidemia, found with dilated CBD on US from 02/01/17, Dilated common bile duct, Distal common duct not well visualized , No stones identified, No stones identified within the gallbladder. Of note, Aorta CTA (02/01/17)-----> negative for aortic dissection. Gallstone in distal common duct measured up to 14 mm in diameter with biliary ductal dilatation up to 2cm. Zosyn. recommended to continue NPO, follow LFTs today, MRCP vs ERCP today. on Empiric management with Zosyn due to Leukocytosis now improved. following anemia, seen in his bedroom in the presence of nurse Miss Julian and with his Daughter Miss Alexa Henriquez. No nausea, vomit or diarrhea, no pain Objective Vital Signs Date Time Temp Pulse Resp B/P (MAP) Pulse Ox O2 Delivery O2 Flow Rate FiO2 02/02/17 06:16 53 18 120/56 (77) 99 Room Air 02/02/17 03:50 70 19 118/78 (91) 96 Room Air 02/02/17 01:40 59 18 110/61 (77) 98 Room Air 02/02/17 00:03 68 19 115/56 (75) 98 Room Air 02/01/17 22:23 75 19 105/57 (73) 96 Room Air 02/01/17 20:54 73 20 136/63 (87) 95 Room Air 02/01/17 19:45 66 18 159/66 (97) 99 Room Air 02/01/17 19:30 18 02/01/17 17:37 18 98 Room Air 02/01/17 17:37 98 Room Air 02/01/17 17:30 70 20 98 Room Air 02/01/17 17:02 98.2 69 16 124/71 (88) 98 Result Diagram: 02/02/1760402/02/17604 Imaging Last Impressions Gall Bladder Ultrasound 02/01/171939 Signed Impressions: Service Date/Time: Wednesday, February 01, 2017 20:02 - CONCLUSION: 1. Dilated common bile duct. Distal common duct not well visualized. No stones identified within the gallbladder. Jason Yu MD Chest X-Ray 02/01/171733 Signed Impressions: Service Date/Time: Wednesday, February 01, 2017 17:56 - CONCLUSION: Chronic interstitial lung disease. No acute process demonstrated. Dom Lemus MD Aorta CTA 02/01/171733 Signed Impressions: Service Date/Time: Wednesday, February 01, 2017 19:31 - CONCLUSION: 1. Negative for aortic dissection or aneurysm. 2. Gallstone in distal common duct measured up to 14 mm in diameter with biliary ductal dilatation up to about 2 cm. Jason Yu MD Procedures None Other Results Laboratory Tests Test 02/01/17 17:44 02/01/17 20:10 02/01/17 20:52 02/02/17 06:05 Prothrombin Time 11.4 SEC Prothromb Time International Ratio 1.0 RATIO Activated Partial Thromboplast Time 29.7 SEC Blood Urea Nitrogen 18 MG/DL 14 MG/DL Creatinine 1.23 MG/DL 0.99 MG/DL Random Glucose 108 MG/DL 86 MG/DL Total Protein 7.9 GM/DL Albumin 3.3 GM/DL Calcium Level 9.5 MG/DL 8.8 MG/DL Magnesium Level 2.7 MG/DL Alkaline Phosphatase 343 U/L Aspartate Amino Transf (AST/SGOT) 128 U/L Alanine Aminotransferase (ALT/SGPT) 129 U/L Total Bilirubin 2.7 MG/DL Sodium Level 136 MEQ/L 138 MEQ/L Potassium Level 4.4 MEQ/L 4.8 MEQ/L Chloride Level 101 MEQ/L 102 MEQ/L Carbon Dioxide Level 26.5 MEQ/L 30.5 MEQ/L Creatine Kinase MB 4.8 NG/ML B-Type Natriuretic Peptide 246 PG/ML Lipase 105 U/L Lactic Acid Level 1.5 mmol/L Urine Color DARK-YELLOW Urine Turbidity CLEAR Urine pH 6.0 Urine Specific [place] GREATER THAN 1.050 Urine Protein TRACE mg/dL Urine Glucose (UA) NEG mg/dL Urine Ketones 10 mg/dL Urine Occult Blood NEG Urine Nitrite NEG Urine Bilirubin SMALL Urine Urobilinogen 2.0 MG/DL Urine Leukocyte Esterase NEG Urine RBC 2 /hpf Urine WBC 4 /hpf Urine Squamous Epithelial Cells <1 /hpf Urine Mucus FEW /lpf Microscopic Urinalysis Comment CULT NOT INDICATED White Blood Count 8.9 TH/MM3 Red Blood Count 3.06 MIL/MM3 Hemoglobin 9.9 GM/DL Hematocrit 29.3 % Mean Corpuscular Volume 95.7 FL Mean Corpuscular Hemoglobin 32.3 PG Mean Corpuscular Hemoglobin Concent 33.7 % Red Cell Distribution Width 13.6 % Platelet Count 240 TH/MM3 Mean Platelet Volume 7.7 FL Neutrophils (%) (Auto) 73.0 % Lymphocytes (%) (Auto) 15.6 % Monocytes (%) (Auto) 10.7 % Eosinophils (%) (Auto) 0.4 % Basophils (%) (Auto) 0.3 % Neutrophils # (Auto) 6.5 TH/MM3 Lymphocytes # (Auto) 1.4 TH/MM3 Monocytes # (Auto) 0.9 TH/MM3 Eosinophils # (Auto) 0.0 TH/MM3 Basophils # (Auto) 0.0 TH/MM3 CBC Comment DIFF FINAL Differential Comment Anion Gap 6 MEQ/L Estimat Glomerular Filtration Rate 72 ML/MIN Total Creatine Kinase 92 U/L Troponin I 0.08 NG/ML Objective Remarks GENERAL: This is a pale elderly male patient, in no apparent distress. SKIN: No rashes, ecchymoses or lesions. Cool and dry. HEAD: Atraumatic. Normocephalic. EYES: Pupils equal round and reactive. No injection or drainage. ENT: Nose without bleeding, purulent drainage or septal hematoma. NECK: Trachea midline. No JVD. CARDIOVASCULAR: Regular rate and rhythm without murmurs, gallops, or rubs. RESPIRATORY: Clear to auscultation. Breath sounds equal bilaterally. No wheezes , rales, or rhonchi. GASTROINTESTINAL: Abdomen soft, non-tender, nondistended. No guarding. MUSCULOSKELETAL: Extremities without clubbing, cyanosis, or edema. No calf tenderness. NEUROLOGICAL: Awake and alert. Motor and sensory grossly within normal limits. Normal speech. Mild memory impairment. Medications and IVs Current Medications Medications (Trade) Dose Ordered Sig/Radha Route Start Time Stop Time Status Last Admin (NS Flush) 2 ml UNSCH PRN IV FLUSH 02/01/17 21:00 (NS Flush) 2 ml BID IV FLUSH 02/01/17 21:00 9/5/17 21:00 (Narcan Inj) 0.4 mg UNSCH PRN IV 02/01/17 21:00 Piperacillin Sod/ Tazobactam Sod 100 ml @ 200 mls/hr Q6H IV 02/02/17 02:00 02/02/17 02:51 (Morphine Inj) 2 mg Q6H PRN IV PUSH 02/01/17 23:15 A/P Assessment and Plan 82 y/o male presented with productive cough and reporting chest pain to ER physician on 02/01/17: Choledocholithiasis - Dilated common bile duct with stone on imaging with elevated liver enzymes - Gastroenterology consulted - ERCP vs MRCP not yet performed by GI - continue Pain medicine and started on Liquid diet by GI specialist. Chest pain reported to ED physician - serial cardiac enzymes and EKGs to r/o ACS - initial troponin I 0.08, will trend - continuous cardiac telemetry to monitor for arrhythmias -found with some Bradycardia asked for Cardiology consult, giving I Fluids. Leukocytosis choledocholithiasis vs pneumonia - Improved. will continue Empiric Zosyn but no signs of infection so far following blood cultures. Hypertension on hold antihypertensives due to Bradycardia and maintain good blood pressure giving IV fluids and started on Liquid diet by GI specialist Glaucoma started his home medicine Hyperlipidemia on hold Statins DVT prophylaxis - SCDs/TEDs . Discussed Condition With Patient, nurse Miss Julian and with his Daughter Miss Alexa Henriquez, all questions answered to the best of my abilities. Discharge Planning Once cleared by specialists. Julián Atkins MD Feb 02, 2017 08:46
[2017-02-02] MEDS ORDERED: METOPROLOL TARTRATE 25 MG TAB PO SCH (09:00)
[2017-02-02] MEDS ORDERED: LISINOPRIL 5 MG TAB PO SCH (09:00)
[2017-02-02] MEDS ORDERED: PILL SPLITTER OTHER PRN (09:00)
[2017-02-02] MEDS: SODIUM CHLORIDE 0.9% FLUSH 10 ML FLUSH IV FLUSH SCH ×2 (13:12→20:04)
[2017-02-02] MEDS ORDERED: SODIUM CHLOR 0.9% 250 ML INJ 250 ML IV ONE (13:45)
[2017-02-02] MEDS: SODIUM CHLOR 0.9% 1000 ML INJ 1,000 ML IV SCH (13:45)
[2017-02-02 14:03] LABS: INDIRECT BILIRUBIN 0.7 MG/DL (0.0-0.8); TOTAL BILIRUBIN ADULT 3.5 MG/DL (0.2-1.0)
--- NOTE | 2017-02-02 14:33 | EKG ---
Date Performed: 02/01/2017 Time Performed: 17:39:20 PTAGE: 82 years EKG: Sinus rhythm WITH FIRST DEGREE AV BLOCK INTRAVENTRICULAR CONDUCTION DELAY ABNORMAL ECG Compared to prior tracing no significant change PREVIOUS TRACING : 05/03/2016 16.48 DOCTOR: Eligio Henriquez Interpretating Date/Time 02/02/2017 14:30:43
--- NOTE | 2017-02-02 14:33 | EKG ---
Date Performed: 02/01/2017 Time Performed: 23:57:54 PTAGE: 82 years EKG: Sinus rhythm WITH FIRST DEGREE AV BLOCK WITH FREQUENT SUPRAVENTRICULAR PREMATURE COMPLEXES INTRAVENTRICULAR CONDU CTION DELAY ABNORMAL ECG Compared to prior tracing no significant change PREVIOUS TRACING : 02/01/2017 17.39 DOCTOR: Eligio Henriquez Interpretating Date/Time 02/02/2017 14:30:52
--- NOTE | 2017-02-02 14:33 | EKG ---
Date Performed: 02/02/2017 Time Performed: 06:25:31 PTAGE: 82 years EKG: SINUS BRADYCARDIA WITH FIRST DEGREE AV BLOCK INTRAVENTRICULAR CONDUCTION DELAY ABNORMAL ECG Compared to prior tracing no significant change PREVIOUS TRACING : 02/01/2017 23.57 DOCTOR: Eligio Henriquez Interpretating Date/Time 02/02/2017 14:31:00
--- NOTE | 2017-02-02 15:05 | MB ---
cc: TABITHA LOYA DATE OF CONSULTATION: 02/02/2017 DATE OF : 1935 REASON FOR CONSULTATION Bradycardia. HISTORY OF PRESENT ILLNESS 82-year-old male with past medical history of CAD status post PCI x 4, hypertension, hyperlipidemia, that presented to the emergency department with a productive cough for the last 2 weeks, abdominal pain and constipation. He was found to have a dilated common bile on ultrasound. He has been evaluated by GI and started on IV antibiotics. Cardiology has been consulted because of sinus bradycardia in the EKG. The patient denies chest pain, shortness of breath, palpitation, syncope or near syncope. He mostly complains of abdominal pain at times that comes and goes. Denies nausea, vomiting, diarrhea, fever, chills, palpitations, PND, syncope. PAST MEDICAL HISTORY 1. CAD. 2. Hypertension. 3. Hyperlipidemia. ALLERGIES No known drug allergies. MEDICATIONS Home medications: 1. Lisinopril 2.5 mg p.o. daily. 2. Lovastatin 40 mg p.o. daily. 3. Metoprolol 25 mg p.o. daily. 4. Protonix 40 mg p.o. daily. FAMILY HISTORY Noncontributory. SOCIAL HISTORY He denies illicit drug use, alcohol abuse or tobacco abuse. PHYSICAL EXAMINATION VITAL SIGNS: Temperature 97.6, respiratory rate 20, heart rate 50, blood pressure 118/54. O2 sat is 100% on room air. GENERAL: Awake, alert and oriented x3, in no acute distress. NECK: No JVD. No carotid bruits. HEART: Regular rate and rhythm. No murmurs, rubs or gallops. LUNGS: Clear to auscultation bilaterally. ABDOMEN: Benign. EXTREMITIES: No cyanosis or edema. Pulses throughout. LABORATORY Hemoglobin 9.9, hematocrit 29, platelet count 240. INR 1. Sodium 138, potassium 4.8, BUN 14, creatinine 0.99. Total bilirubin 3.5, direct bilirubin 2.8, AST 125, ALT 118, alkaline phosphatase 302. Troponin 0.08, 0.09 and 0.08. BNP 246. IMAGING Gallbladder ultrasound with dilated common bile duct. CTA negative for aortic dissection. Chest x-ray with chronic interstitial lung disease. No acute cardiopulmonary process. EKG sinus rhythm with intraventricular conduction delay, nonspecific ST changes. ASSESSMENT 82-year-old male with known coronary artery disease status post stents admitted with abdominal pain, found to have a dilated common bile duct, being followed by GI, awaiting an ERCP in the next couple of days. He remains fairly hemodynamically stable. Leukocytosis is trending down. He denies any cardiovascular complaints such as chest pain, shortness of breath on exertion, PND, syncope or edema. He is not followed by a soil checker. Troponins are barely elevated, however, not suggestive of an acute coronary syndrome. At this point I would not recommend an ischemic cardiac work-up. Chest pain atypical. His main complaint is abdominal pain that can be explained with dilated common bile duct. 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 RECOMMENDATIONS 1. Continue telemetry monitoring. 2. Hold metoprolol for heart rate less than 50. 3. Will get a 2-D echocardiogram to assess LV systolic function. 4. Continue lisinopril and statin. Thank you for the opportunity to take part in the care of this patient. Will be available on a p.r.n. basis for any other questions or concerns. MD JANINA Dexter/MAXIMINO /2:36 PM /2:47 PM [email or web address]
[2017-02-02] MEDS: LATANOPROST 0.005% OPHT SOLN 2.5 ML BTL EACH EYE SCH (20:04)
[2017-02-03] VITALS (22 sets, daily range): BP systolic 110–158; BP diastolic 53–73; PULSE 48–83; RESP 18–19; TEMP 98.1–98.3; O2SAT 93–97
[2017-02-03] MEDS: PIPERACIL-TAZO 4.5 GM PREMIX 100 ML IV SCH ×4 (02:26→21:06)
[2017-02-03] MEDS: SODIUM CHLOR 0.9% 1000 ML INJ 1,000 ML IV SCH ×2 (02:26→13:35)
[2017-02-03] MEDS: SODIUM CHLORIDE 0.9% FLUSH 10 ML FLUSH IV FLUSH SCH ×2 (10:00→21:06)
[2017-02-03] MEDS ORDERED: GLUCAGON 1 MG/ML VIAL IV ONE (12:00)
[2017-02-03] MEDS ORDERED: IOHEXOL 300 MG/ML 100 ML BTL (for Rad CT) OTHER ONE (12:00)
[2017-02-03] MEDS ORDERED: SODIUM CHLORID 0.9% 500 ML INJ 500 ML IV ONE (12:00)
[2017-02-03] MEDS ORDERED: PROPOFOL 200 MG/20 ML AMP IV ONE (12:46)
--- NOTE | 2017-02-03 12:59 | HHI.GIFU ---
Subjective Remarks Patient laying in bed comfortably, cleared by cardiology for ERCP, MRCP showed large common bile duct stone Objective Vitals I&O Vital Signs Date Time Temp Pulse Resp B/P (MAP) Pulse Ox O2 Delivery O2 Flow Rate FiO2 02/03/17 11:00 55 02/03/17 10:00 50 02/03/17 09:00 68 02/03/17 08:00 48 02/03/17 07:00 50 18 124/61 (82) 97 02/03/17 07:00 52 02/03/17 06:00 50 02/03/17 05:00 56 02/03/17 04:00 50 02/03/17 04:00 98.2 68 18 110/53 (72) 93 02/03/17 03:00 49 02/03/17 02:00 50 02/03/17 01:00 54 02/03/17 00:00 50 02/03/17 00:00 98.2 63 18 133/63 (86) 94 02/02/17 23:00 52 02/02/17 22:00 56 02/02/17 21:00 60 02/02/17 20:00 64 02/02/17 20:00 98.2 70 20 134/94 (107) 99 02/02/17 19:00 58 02/02/17 18:00 64 02/02/17 17:00 52 02/02/17 16:00 54 02/02/17 15:00 60 02/02/17 15:00 97.9 60 20 128/65 (86) 100 02/02/17 15:00 97.7 60 20 128/65 (86) 100 02/02/17 14:00 64 02/02/17 13:00 60 I/O 02/02/17 02/02/17 02/02/17 02/03/17 02/03/17 02/03/17 07:00 15:00 23:00 07:00 15:00 23:00 Intake Total 420 ml 300 ml Output Total 500 ml 300 ml Balance -80 ml 0 ml Intake Oral 420 ml 300 ml Output Urine Total 500 ml 300 ml # Bowel Movements 2 Laboratory Laboratory Tests Test 02/02/17 13:32 Total Bilirubin 3.5 Direct Bilirubin 2.8 Indirect Bilirubin 0.7 Aspartate Amino Transf (AST/SGOT) 125 Alanine Aminotransferase (ALT/SGPT) 118 Alkaline Phosphatase 302 Total Protein 6.4 Albumin 2.6 Date/Time Source Procedure Growth Status 02/01/17 20:10 Blood Peripheral Aerobic Blood Culture - Preliminary NO GROWTH IN 2 DAYS Resulted 02/01/17 20:10 Blood Peripheral Anaerobic Blood Culture - Preliminary NO GROWTH IN 2 DAYS Resulted Physical Exam HEENT: Normocephalic; atraumatic; no jaundice. CHEST: CTA CARDIAC: RRR ABDOMEN: Soft, nondistended, nontender; no hepatosplenomegaly; bowel sounds are present in all four quadrants. EXTREMITIES: No clubbing, cyanosis, or edema. SKIN: Normal; no rash; no jaundice. INVENTORY AND PRICING ASSOCIATE: No focal deficits; alert and oriented times three. Assessment and Plan Plan ASSESSMENT: - Abdominal pain with elevated LFTs and dilated CBD on US. GB US (02/01/17)----> Dilated common bile duct. Distal common duct not well visualized. No stones identified within the gallbladder. Of note, Aorta CTA (02/01/17)---- -> negative for aortic dissection. Gallstone in distal common duct measured up to 14 mm in diameter with biliary ductal dilatation up to 2cm. Zosyn. - Leukocytosis. Zosyn. - Anemia. 9.9/29.3. - Abnormal weight loss. Never had colonoscopy, does not want one. - Constipation. Add Miralax - CAD, HTN per attending. 02/03/2017 patient had cardiac evaluation he was cleared for ERCP, ERCP was performed which showed dilated common bile duct with large filling defect consistent with stone, sphincterotomy was performed and sweeping of the duct revealed a stone and which was removed, also sweeping the duct with basket did not reveal any stone, common bile duct was emptying freely at the end of the case Plan: - NPO until a.m. then advance diet as tolerated - LFT in a.m. - Miralax - Supportive care - Further recommendations to follow based on results of above - Pt seen and examined by Dr. Ruiz and myself and this note is written on his behalf Melisa Terrazas MD Feb 03, 2017 12:59
--- NOTE | 2017-02-03 13:31 | RADRPT ---
EXAM DATE/TIME: 02/03/2017 12:40 [facility] COMPARISON: No previous studies available for comparison. INDICATIONS : Obstruction, sphicterotomy. FLUORO TIME: 3.24 minutes IMAGE COUNT: 2 CONTRAST: Instilled by Ordering Physician MEDICAL HISTORY : Hypercholesterolemia. Gastroesophageal reflux disease. Hypertension. Myocardial SURGICAL HISTORY : Coronary artery stent. ENCOUNTER: Initial ACUITY: 1 day PAIN SCORE: Non-responsive. LOCATION: Right lower quadrant FINDINGS: An ERCP was performed by the ordering physician. The images demonstrate wire in place and partial visualization of the common bile duct. CONCLUSION: ERCP as above. Alice Zeng MD on February 03, 2017 at 13:29 Board Certified Radiologist. This report was verified electronically.
[2017-02-03] MEDS ORDERED: DO NOT ADM ANY ANTICOAGULANT DRUGS PRN (14:15)
--- NOTE | 2017-02-03 14:37 | HHI.PR ---
Subjective Remarks Primary Care Physician Jethro Mckoy MD Admission Diagnosis Chest pain, h/o CAD, abdominal pain, elevated LFTs and Leukocytosis This is a pleasant 82 y/o Male who came to ER with productive cough, for the last two weeks, abdominal pain no nausea, vomit or diarrhea, but has Constipation, he uses a warm water enema for constipation, he has CAD status post PCI with stent placement x 4, status post two previous [place], Hypertension, Hyperlipidemia, found with dilated CBD on US from 02/01/17, Dilated common bile duct, Distal common duct not well visualized , No stones identified, No stones identified within the gallbladder. Of note, Aorta CTA (02/01/17)-----> negative for aortic dissection. Gallstone in distal common duct measured up to 14 mm in diameter with biliary ductal dilatation up to 2cm. Zosyn. recommended to continue NPO, follow LFTs today, MRCP vs ERCP today. on Empiric management with Zosyn due to Leukocytosis now improved. following anemia, seen in his bedroom in the presence of nurse Miss Julian and with his Daughter Miss Alexa Henriquez. No nausea, vomit or diarrhea, no pain 02/03: Seen in his bedroom in the presence of nurse Miss Camejo and his Daughter in the room Miss Alexa Henriquez patient stable no complain, status post ERCP and stone extraction, no nausea, vomit or diarrhea. Objective Vital Signs Date Time Temp Pulse Resp B/P (MAP) Pulse Ox O2 Delivery O2 Flow Rate FiO2 02/03/17 13:45 64 20 152/76 (101) 100 Nasal Cannula 2 02/03/17 13:30 67 20 142/68 (92) 100 Nasal Cannula 2 02/03/17 13:15 71 20 129/64 (85) 99 Nasal Cannula 2 02/03/17 13:03 98.1 80 20 121/60 (80) 94 Nasal Cannula 2 02/03/17 11:00 55 02/03/17 10:00 50 02/03/17 09:00 68 02/03/17 08:00 48 02/03/17 07:00 50 18 124/61 (82) 97 02/03/17 07:00 52 02/03/17 06:00 50 02/03/17 05:00 56 02/03/17 04:00 50 02/03/17 04:00 98.2 68 18 110/53 (72) 93 02/03/17 03:00 49 02/03/17 02:00 50 02/03/17 01:00 54 02/03/17 00:00 50 02/03/17 00:00 98.2 63 18 133/63 (86) 94 02/02/17 23:00 52 02/02/17 22:00 56 02/02/17 21:00 60 02/02/17 20:00 64 02/02/17 20:00 98.2 70 20 134/94 (107) 99 02/02/17 19:00 58 02/02/17 18:00 64 02/02/17 17:00 52 02/02/17 16:00 54 02/02/17 15:00 60 02/02/17 15:00 97.9 60 20 128/65 (86) 100 02/02/17 15:00 97.7 60 20 128/65 (86) 100 I/O 02/02/17 02/02/17 02/02/17 02/03/17 02/03/17 02/03/17 06:59 14:59 22:59 06:59 14:59 22:59 Intake Total 420 ml 300 ml Output Total 500 ml 300 ml Balance -80 ml 0 ml Intake Oral 420 ml 300 ml Output Urine Total 500 ml 300 ml # Bowel Movements 2 Result Diagram: 02/02/17 0605 02/02/17 0605 Imaging Last Impressions GI Procedure 02/03/17 0000 Signed Impressions: Service Date/Time: January 12:40 - CONCLUSION: ERCP as above. K. Raj Zeng MD Gall Bladder Ultrasound 02/01/171939 Signed Impressions: Service Date/Time: Wednesday, February 01, 2017 20:02 - CONCLUSION: 1. Dilated common bile duct. Distal common duct not well visualized. No stones identified within the gallbladder. Jason Yu MD Chest X-Ray 02/01/[id number] Signed Impressions: Service Date/Time: Wednesday, February 01, 2017 17:56 - CONCLUSION: Chronic interstitial lung disease. No acute process demonstrated. Dom Lemus MD Aorta CTA [id number]/01/[id number] Signed Impressions: Service Date/Time: Wednesday, February 01, 2017 19:31 - CONCLUSION: 1. Negative for aortic dissection or aneurysm. 2. Gallstone in distal common duct measured up to 14 mm in diameter with biliary ductal dilatation up to about 2 cm. Jason Yu MD Procedures ERCP 02/03/17 Other Results Laboratory Tests Test 02/01/17 17:44 02/01/17 20:10 02/01/17 20:52 02/02/17 06:05 Prothrombin Time 11.4 SEC Prothromb Time International Ratio 1.0 RATIO Activated Partial Thromboplast Time 29.7 SEC Blood Urea Nitrogen 18 MG/DL 14 MG/DL Creatinine 1.23 MG/DL 0.99 MG/DL Random Glucose 108 MG/DL 86 MG/DL Total Protein 7.9 GM/DL Albumin 3.3 GM/DL Calcium Level 9.5 MG/DL 8.8 MG/DL Magnesium Level 2.7 MG/DL Alkaline Phosphatase 343 U/L Aspartate Amino Transf (AST/SGOT) 128 U/L Alanine Aminotransferase (ALT/SGPT) 129 U/L Total Bilirubin 2.7 MG/DL Sodium Level 136 MEQ/L 138 MEQ/L Potassium Level 4.4 MEQ/L 4.8 MEQ/L Chloride Level 101 MEQ/L 102 MEQ/L Carbon Dioxide Level 26.5 MEQ/L 30.5 MEQ/L Creatine Kinase MB 4.8 NG/ML B-Type Natriuretic Peptide 246 PG/ML Lipase 105 U/L Lactic Acid Level 1.5 mmol/L Urine Color DARK-YELLOW Urine Turbidity CLEAR Urine pH 6.0 Urine Specific [place] GREATER THAN 1.050 Urine Protein TRACE mg/dL Urine Glucose (UA) NEG mg/dL Urine Ketones 10 mg/dL Urine Occult Blood NEG Urine Nitrite NEG Urine Bilirubin SMALL Urine Urobilinogen 2.0 MG/DL Urine Leukocyte Esterase NEG Urine RBC 2 /hpf Urine WBC 4 /hpf Urine Squamous Epithelial Cells <1 /hpf Urine Mucus FEW /lpf Microscopic Urinalysis Comment CULT NOT INDICATED White Blood Count 8.9 TH/MM3 Red Blood Count 3.06 MIL/MM3 Hemoglobin 9.9 GM/DL Hematocrit 29.3 % Mean Corpuscular Volume 95.7 FL Mean Corpuscular Hemoglobin 32.3 PG Mean Corpuscular Hemoglobin Concent 33.7 % Red Cell Distribution Width 13.6 % Platelet Count 240 TH/MM3 Mean Platelet Volume 7.7 FL Neutrophils (%) (Auto) 73.0 % Lymphocytes (%) (Auto) 15.6 % Monocytes (%) (Auto) 10.7 % Eosinophils (%) (Auto) 0.4 % Basophils (%) (Auto) 0.3 % Neutrophils # (Auto) 6.5 TH/MM3 Lymphocytes # (Auto) 1.4 TH/MM3 Monocytes # (Auto) 0.9 TH/MM3 Eosinophils # (Auto) 0.0 TH/MM3 Basophils # (Auto) 0.0 TH/MM3 CBC Comment DIFF FINAL Differential Comment Anion Gap 6 MEQ/L Estimat Glomerular Filtration Rate 72 ML/MIN Total Creatine Kinase 92 U/L Troponin I 0.08 NG/ML Test 02/02/17 13:32 Total Bilirubin 3.5 MG/DL Direct Bilirubin 2.8 MG/DL Indirect Bilirubin 0.7 MG/DL Aspartate Amino Transf (AST/SGOT) 125 U/L Alanine Aminotransferase (ALT/SGPT) 118 U/L Alkaline Phosphatase 302 U/L Total Protein 6.4 GM/DL Albumin 2.6 GM/DL Objective Remarks GENERAL: This is a pale elderly male patient, in no apparent distress. SKIN: No rashes, ecchymoses or lesions. Cool and dry. HEAD: Atraumatic. Normocephalic. EYES: Pupils equal round and reactive. No injection or drainage. ENT: Nose without bleeding, purulent drainage or septal hematoma. NECK: Trachea midline. No JVD. CARDIOVASCULAR: Regular rate and rhythm without murmurs, gallops, or rubs. RESPIRATORY: Clear to auscultation. Breath sounds equal bilaterally. No wheezes , rales, or rhonchi. GASTROINTESTINAL: Abdomen soft, non-tender, nondistended. No guarding. MUSCULOSKELETAL: Extremities without clubbing, cyanosis, or edema. No calf tenderness. NEUROLOGICAL: Awake and alert. Motor and sensory grossly within normal limits. Normal speech. Mild memory impairment. Medications and IVs Current Medications Medications (Trade) Dose Ordered Sig/Radha Route Start Time Stop Time Status Last Admin (NS Flush) 2 ml UNSCH PRN IV FLUSH 02/01/17 21:00 (NS Flush) 2 ml BID IV FLUSH 02/01/17 21:00 02/02/17 20:04 (Narcan Inj) 0.4 mg UNSCH PRN IV 02/01/17 21:00 Piperacillin Sod/ Tazobactam Sod 100 ml @ 200 mls/hr Q6H IV 02/02/17 02:00 02/03/17 14:23 (Morphine Inj) 2 mg Q6H PRN IV PUSH 02/01/17 23:15 (Lopressor) 25 mg DAILY PO 02/02/17 09:00 Future Hold (Prinivil) 2.5 mg DAILY PO 02/02/17 09:00 Future Hold (Pill Splitter) 1 ea UNSCH PRN OTHER 02/02/17 09:00 Sodium Chloride 1,000 ml @ 84 mls/hr [id number] IV 02/02/17 13:45 02/03/17 13:35 (Xalatan 0.005% Opth Soln) 1 drop HS EACH EYE 02/02/17 21:00 02/02/17 20:04 Miscellaneous Information ALL NURSING DEPARTME... UNSCH PRN .XX 02/03/17 14:15 02/04/17 14:14 A/P Assessment and Plan 82 y/o male presented with productive cough and reporting chest pain to ER physician on 02/01/17: Choledocholithiasis - Dilated common bile duct with stone on imaging with elevated liver enzymes - GI specialist following, status post ERCP and Stone extraction. started Liquid diet by specialist. Chest pain reported to ED physician - serial cardiac enzymes and EKGs to r/o ACS - initial troponin I 0.08, will trend - continuous cardiac telemetry to monitor for arrhythmias -found with some Bradycardia, Cardiology following on hold Beta Blockers. Leukocytosis choledocholithiasis vs pneumonia - Improved. will continue Empiric Zosyn but no signs of infection so far following blood cultures. Hypertension continue antihypertensives on hold. Glaucoma started his home medicine Hyperlipidemia on hold Statins DVT prophylaxis - SCDs/TEDs . Discussed Condition With Patient, nurse Miss Camejo and with his Daughter Miss Alexa Henriquez, all questions answered to the best of my abilities. Discharge Planning Once cleared by specialists. Julián Atkins MD Feb 03, 2017 14:37
--- NOTE | 2017-02-03 17:57 | MR ---
cc: DIANA VERGARA M.D. DATE: 02/03/2017 DATE OF : [birth year] [address] Watson PROCEDURE ERCP with sphincterotomy and stone removal. INDICATION 82-year-old male who had common bile duct stone on Imaging studies. PROCEDURE After informing the patient of procedure and complication consent was signed. The patient was placed on his abdomen in a prone position. Next, adequate sedation was achieved by propofol administered by anesthesia. The scope was placed in the mouth advanced under video guidance down the second portion of the duodenum. The ampulla was identified which was prominent next cannulation was performed. Next, angiogram showed large filling defect in the distal duct consistent with common bile duct stone, sphincterotomy was performed and sweeping the duct with balloon size 15 meters revealed a stone with significant amount of sludge. The common bile duct with a large so I swept the duct also with basket that did not reveal any stones. The bile duct was draining completely at the end of the case without any filling defect scope drawn back without immediate complication. FINDINGS 1. Esophagogastroduodenoscopy limited exam normal. 2. The common bile duct negative for stone at the end of the procedure, the stone was removed as above. 3. Pancreatic duct was not seen. 4. The patient tolerated procedure well without immediate complication. RECOMMENDATIONS 1. N.p.o. Until a.m. except sips of water 2. Liver function tests in the morning. 3. We will follow up with you. MD KEYONNA Augustin/kelton /1:01 PM /5:48 PM
[2017-02-03] MEDS: LATANOPROST 0.005% OPHT SOLN 2.5 ML BTL EACH EYE SCH (21:06)
[2017-02-04] VITALS (21 sets, daily range): BP systolic 110–156; BP diastolic 54–70; PULSE 51–101; RESP 18–20; TEMP 98–98.5; O2SAT 93–97
[2017-02-04] MEDS: SODIUM CHLOR 0.9% 1000 ML INJ 1,000 ML IV SCH ×3 (01:30→21:35)
[2017-02-04] MEDS: PIPERACIL-TAZO 4.5 GM PREMIX 100 ML IV SCH ×4 (01:41→21:32)
[2017-02-04 08:01] LABS: INDIRECT BILIRUBIN 0.6 MG/DL (0.0-0.8); TOTAL BILIRUBIN ADULT 1.5 MG/DL (0.2-1.0)
[2017-02-04] MEDS: SODIUM CHLORIDE 0.9% FLUSH 10 ML FLUSH IV FLUSH SCH ×2 (08:48→21:35)
--- NOTE | 2017-02-04 10:53 | HHI.PR ---
Subjective Remarks Primary Care Physician Jethro Mckoy MD Admission Diagnosis Chest pain, h/o CAD, abdominal pain, elevated LFTs and Leukocytosis This is a pleasant 82 y/o Male who came to ER with productive cough, for the last two weeks, abdominal pain no nausea, vomit or diarrhea, but has Constipation, he uses a warm water enema for constipation, he has CAD status post PCI with stent placement x 4, status post two previous [place], Hypertension, Hyperlipidemia, found with dilated CBD on US from 02/01/17, Dilated common bile duct, Distal common duct not well visualized , No stones identified, No stones identified within the gallbladder. Of note, Aorta CTA (02/01/17)-----> negative for aortic dissection. Gallstone in distal common duct measured up to 14 mm in diameter with biliary ductal dilatation up to 2cm. Zosyn. recommended to continue NPO, follow LFTs today, MRCP vs ERCP today. on Empiric management with Zosyn due to Leukocytosis now improved. following anemia, seen in his bedroom in the presence of nurse Miss Julian and with his Daughter Miss Alexa Henriquez. No nausea, vomit or diarrhea, no pain 02/03: Seen in his bedroom in the presence of nurse Miss Camejo and his Daughter in the room Miss Alexa Henriquez patient stable no complain, status post ERCP and stone extraction, no nausea, vomit or diarrhea. 02/04: Stable seen in his bedroom, at this time no complaint, discussed with nurse Miss Camejo she states the patient had Nausea and vomited during the night but now stable, Objective Vital Signs Date Time Temp Pulse Resp B/P (MAP) Pulse Ox O2 Delivery O2 Flow Rate FiO2 02/04/17 07:15 98.2 64 19 110/54 (72) 94 02/04/17 07:15 60 02/04/17 06:00 75 02/04/17 05:00 59 02/04/17 04:00 76 02/04/17 03:00 98.5 63 18 145/70 (95) 97 02/04/17 03:00 68 02/04/17 02:00 65 02/04/17 01:00 59 02/04/17 00:00 58 02/03/17 23:14 98.3 63 18 148/66 (93) 97 02/03/17 23:00 83 02/03/17 22:00 68 02/03/17 21:00 64 02/03/17 20:00 98.1 64 18 158/73 (101) 93 02/03/17 20:00 64 02/03/17 19:00 68 02/03/17 18:00 61 02/03/17 17:00 62 02/03/17 16:00 59 02/03/17 15:00 60 02/03/17 15:00 61 19 121/72 (88) 97 02/03/17 13:45 64 20 152/76 (101) 100 Nasal Cannula 2 02/03/17 13:30 67 20 142/68 (92) 100 Nasal Cannula 2 02/03/17 13:15 71 20 129/64 (85) 99 Nasal Cannula 2 02/03/17 13:03 98.1 80 20 121/60 (80) 94 Nasal Cannula 2 02/03/17 11:00 55 I/O 02/03/17 02/03/17 02/03/17 02/04/17 02/04/17 02/04/17 07:00 15:00 23:00 07:00 15:00 23:00 Intake Total 300 ml 400 ml 340 ml 240 ml Output Total 300 ml 200 ml 450 ml Balance 0 ml 400 ml 140 ml -210 ml Intake Oral 300 ml 240 ml 240 ml IV Total 100 ml Other 400 ml Output Urine Total 300 ml 200 ml 350 ml Emesis 100 ml # Voids 3 # Bowel Movements 2 Result Diagram: 02/02/17 0605 02/02/17 0605 Imaging Last Impressions GI Procedure 02/03/17 0000 Signed Impressions: Service Date/Time: January 12:40 - CONCLUSION: ERCP as above. Alice Zeng MD Gall Bladder Ultrasound 02/01/17 194 Signed Impressions: Service Date/Time: Wednesday, February 01, 2017 20:02 - CONCLUSION: 1. Dilated common bile duct. Distal common duct not well visualized. No stones identified within the gallbladder. Jason Yu MD Chest X-Ray 02/01/17 840 Signed Impressions: Service Date/Time: Wednesday, February 01, 2017 17:56 - CONCLUSION: Chronic interstitial lung disease. No acute process demonstrated. Dom Lemus MD Aorta CTA 02/01/17 486 Signed Impressions: Service Date/Time: Wednesday, February 01, 2017 19:31 - CONCLUSION: 1. Negative for aortic dissection or aneurysm. 2. Gallstone in distal common duct measured up to 14 mm in diameter with biliary ductal dilatation up to about 2 cm. Jason Yu MD Procedures ERCP 02/03/17 Other Results Laboratory Tests Test 02/01/17 17:44 02/01/17 20:10 02/01/17 20:52 02/02/17 06:05 Prothrombin Time 11.4 SEC Prothromb Time International Ratio 1.0 RATIO Activated Partial Thromboplast Time 29.7 SEC Blood Urea Nitrogen 18 MG/DL 14 MG/DL Creatinine 1.23 MG/DL 0.99 MG/DL Random Glucose 108 MG/DL 86 MG/DL Total Protein 7.9 GM/DL Albumin 3.3 GM/DL Calcium Level 9.5 MG/DL 8.8 MG/DL Magnesium Level 2.7 MG/DL Alkaline Phosphatase 343 U/L Aspartate Amino Transf (AST/SGOT) 128 U/L Alanine Aminotransferase (ALT/SGPT) 129 U/L Total Bilirubin 2.7 MG/DL Sodium Level 136 MEQ/L 138 MEQ/L Potassium Level 4.4 MEQ/L 4.8 MEQ/L Chloride Level 101 MEQ/L 102 MEQ/L Carbon Dioxide Level 26.5 MEQ/L 30.5 MEQ/L Creatine Kinase MB 4.8 NG/ML B-Type Natriuretic Peptide 246 PG/ML Lipase 105 U/L Lactic Acid Level 1.5 mmol/L Urine Color DARK-YELLOW Urine Turbidity CLEAR Urine pH 6.0 Urine Specific [place] GREATER THAN 1.050 Urine Protein TRACE mg/dL Urine Glucose (UA) NEG mg/dL Urine Ketones 10 mg/dL Urine Occult Blood NEG Urine Nitrite NEG Urine Bilirubin SMALL Urine Urobilinogen 2.0 MG/DL Urine Leukocyte Esterase NEG Urine RBC 2 /hpf Urine WBC 4 /hpf Urine Squamous Epithelial Cells <1 /hpf Urine Mucus FEW /lpf Microscopic Urinalysis Comment CULT NOT INDICATED White Blood Count 8.9 TH/MM3 Red Blood Count 3.06 MIL/MM3 Hemoglobin 9.9 GM/DL Hematocrit 29.3 % Mean Corpuscular Volume 95.7 FL Mean Corpuscular Hemoglobin 32.3 PG Mean Corpuscular Hemoglobin Concent 33.7 % Red Cell Distribution Width 13.6 % Platelet Count 240 TH/MM3 Mean Platelet Volume 7.7 FL Neutrophils (%) (Auto) 73.0 % Lymphocytes (%) (Auto) 15.6 % Monocytes (%) (Auto) 10.7 % Eosinophils (%) (Auto) 0.4 % Basophils (%) (Auto) 0.3 % Neutrophils # (Auto) 6.5 TH/MM3 Lymphocytes # (Auto) 1.4 TH/MM3 Monocytes # (Auto) 0.9 TH/MM3 Eosinophils # (Auto) 0.0 TH/MM3 Basophils # (Auto) 0.0 TH/MM3 CBC Comment DIFF FINAL Differential Comment Anion Gap 6 MEQ/L Estimat Glomerular Filtration Rate 72 ML/MIN Total Creatine Kinase 92 U/L Troponin I 0.08 NG/ML Test 02/04/17 05:24 Total Bilirubin 1.5 MG/DL Direct Bilirubin 0.9 MG/DL Indirect Bilirubin 0.6 MG/DL Aspartate Amino Transf (AST/SGOT) 77 U/L Alanine Aminotransferase (ALT/SGPT) 95 U/L Alkaline Phosphatase 273 U/L Total Protein 7.1 GM/DL Albumin 2.7 GM/DL Objective Remarks GENERAL: This is a pale elderly male patient, in no apparent distress. SKIN: No rashes, ecchymoses or lesions. Cool and dry. HEAD: Atraumatic. Normocephalic. EYES: Pupils equal round and reactive. No injection or drainage. ENT: Nose without bleeding, purulent drainage or septal hematoma. NECK: Trachea midline. No JVD. CARDIOVASCULAR: Regular rate and rhythm without murmurs, gallops, or rubs. RESPIRATORY: Clear to auscultation. Breath sounds equal bilaterally. No wheezes , rales, or rhonchi. GASTROINTESTINAL: Abdomen soft, non-tender, nondistended. No guarding. MUSCULOSKELETAL: Extremities without clubbing, cyanosis, or edema. No calf tenderness. NEUROLOGICAL: Awake and alert. Motor and sensory grossly within normal limits. Normal speech. Mild memory impairment. Medications and IVs Current Medications Medications (Trade) Dose Ordered Sig/Radha Route Start Time Stop Time Status Last Admin (NS Flush) 2 ml UNSCH PRN IV FLUSH 02/01/17 21:00 (NS Flush) 2 ml BID IV FLUSH 02/01/17 21:00 02/03/17 21:06 (Narcan Inj) 0.4 mg UNSCH PRN IV 02/01/17 21:00 Piperacillin Sod/ Tazobactam Sod 100 ml @ 200 mls/hr Q6H IV 02/02/17 02:00 02/04/17 07:40 (Morphine Inj) 2 mg Q6H PRN IV PUSH 02/01/17 23:15 (Lopressor) 25 mg DAILY PO 02/02/17 09:00 Future Hold (Prinivil) 2.5 mg DAILY PO 02/02/17 09:00 Future Hold (Pill Splitter) 1 ea UNSCH PRN OTHER 02/02/17 09:00 Sodium Chloride 1,000 ml @ 84 mls/hr [id number] IV 02/02/17 13:45 02/04/17 07:40 (Xalatan 0.005% Opth Soln) 1 drop HS EACH EYE 02/02/17 21:00 02/03/17 21:06 Miscellaneous Information ALL NURSING DEPARTME... UNSCH PRN .XX 02/03/17 14:15 02/04/17 14:14 A/P Assessment and Plan 82 y/o male presented with productive cough and reporting chest pain to ER physician on 02/01/17: Choledocholithiasis - Dilated common bile duct with stone on imaging with elevated liver enzymes - GI specialist following, status post ERCP and Stone extraction. started Liquid diet by specialist. had an episode of Nausea and vomit during the night, improving Liver enzymes after procedure. Chest pain reported to ED physician - serial cardiac enzymes and EKGs to r/o ACS - initial troponin I 0.08, will trend - continuous cardiac telemetry to monitor for arrhythmias -found with some Bradycardia, Cardiology following on hold Beta Blockers. Leukocytosis choledocholithiasis vs pneumonia - Improved. will continue Empiric Zosyn but no signs of infection, Negative blood cultures Hypertension controlled. Glaucoma started his home medicine Hyperlipidemia on hold Statins DVT prophylaxis - SCDs/TEDs . Discussed Condition With Patient, nurse Miss Camejo, all questions answered to the best of my abilities. Discharge Planning Once cleared by specialists. Julián Atkins MD Feb 04, 2017 10:53
--- NOTE | 2017-02-04 16:35 | HHI.GIFU ---
Subjective Remarks Pt resting at bed, family at bedside. Had some n/v last night but none today. Says he is a little tender in epigastric region but less than before. Ordering dinner. (Kelly Clement) Objective Vitals I&O Vital Signs Date Time Temp Pulse Resp B/P (MAP) Pulse Ox O2 Delivery O2 Flow Rate FiO2 02/04/17 16:00 78 02/04/17 15:00 69 02/04/17 15:00 76 18 120/63 (82) 93 02/04/17 14:00 51 02/04/17 13:00 60 02/04/17 12:00 63 02/04/17 11:00 98.0 51 20 127/68 (87) 95 02/04/17 11:00 57 02/04/17 10:00 72 02/04/17 09:00 66 02/04/17 08:00 68 02/04/17 07:15 98.2 64 19 110/54 (72) 94 02/04/17 07:15 60 02/04/17 06:00 75 02/04/17 05:00 59 02/04/17 04:00 76 02/04/17 03:00 98.5 63 18 145/70 (95) 97 02/04/17 03:00 68 02/04/17 02:00 65 02/04/17 01:00 59 02/04/17 00:00 58 02/03/17 23:14 98.3 63 18 148/66 (93) 97 02/03/17 23:00 83 02/03/17 22:00 68 02/03/17 21:00 64 02/03/17 20:00 98.1 64 18 158/73 (101) 93 02/03/17 20:00 64 02/03/17 19:00 68 02/03/17 18:00 61 02/03/17 17:00 62 I/O 02/03/17 02/03/17 02/03/17 02/04/17 02/04/17 02/04/17 07:00 15:00 23:00 07:00 15:00 23:00 Intake Total 300 ml 400 ml 340 ml 240 ml Output Total 300 ml 200 ml 450 ml Balance 0 ml 400 ml 140 ml -210 ml Intake Oral 300 ml 240 ml 240 ml IV Total 100 ml Other 400 ml Output Urine Total 300 ml 200 ml 350 ml Emesis 100 ml # Voids 3 # Bowel Movements 2 Laboratory Laboratory Tests Test 02/04/17 05:24 Total Bilirubin 1.5 Direct Bilirubin 0.9 Indirect Bilirubin 0.6 Aspartate Amino Transf (AST/SGOT) 77 Alanine Aminotransferase (ALT/SGPT) 95 Alkaline Phosphatase 273 Total Protein 7.1 Albumin 2.7 Date/Time Source Procedure Growth Status 02/01/17 20:10 Blood Peripheral Aerobic Blood Culture - Preliminary NO GROWTH IN 3 DAYS Resulted 02/01/17 20:10 Blood Peripheral Anaerobic Blood Culture - Preliminary NO GROWTH IN 3 DAYS Resulted Physical Exam HEENT: Normocephalic; atraumatic; no jaundice. CHEST: CTA CARDIAC: RRR ABDOMEN: Soft, nondistended, nontender; no hepatosplenomegaly; bowel sounds are present in all four quadrants. EXTREMITIES: No clubbing, cyanosis, or edema. SKIN: Normal; no rash; no jaundice. [employer]ING [employer]ER: No focal deficits; alert and oriented times three. (Kelly Clement) Assessment and Plan Plan ASSESSMENT: - Abdominal pain with elevated LFTs and dilated CBD on US. GB US (02/01/17)----> Dilated common bile duct. Distal common duct not well visualized. No stones identified within the gallbladder. Of note, Aorta CTA (02/01/17)---- -> negative for aortic dissection. Gallstone in distal common duct measured up to 14 mm in diameter with biliary ductal dilatation up to 2cm. Zosyn. LFTs down after ERCP - Leukocytosis. Zosyn. - Anemia. 9.9/29.3. on 02/02 - Abnormal weight loss. Never had colonoscopy, does not want one. - Constipation. Add Miralax - CAD, HTN per attending. 02/03/2017 patient had cardiac evaluation he was cleared for ERCP, ERCP was performed which showed dilated common bile duct with large filling defect consistent with stone, sphincterotomy was performed and sweeping of the duct revealed a stone and which was removed, also sweeping the duct with basket did not reveal any stone, common bile duct was emptying freely at the end of the case Plan: - AMANDA - Miralax - Supportive care - Pt seen and examined by Dr. Terrazas and myself and this note is written on his behalf (Kelly Clement) Plan Patient was seen and examined, agree with the above note, status post ERCP with stone removal. Liver function test improved significantly since yesterday, patient tolerating diet, continue current care we will sign off at this time and follow as needed (Melisa Terrazas MD) Kelly Clement Feb 04, 2017 16:35 Melisa Terrazas MD Feb 04, 2017 21:54
[2017-02-04] MEDS: LATANOPROST 0.005% OPHT SOLN 2.5 ML BTL EACH EYE SCH (21:32)
[2017-02-05] VITALS (21 sets, daily range): BP systolic 132–153; BP diastolic 67–78; PULSE 53–77; RESP 17–20; TEMP 97.6–98.5; O2SAT 93–96
[2017-02-05] MEDS: PIPERACIL-TAZO 4.5 GM PREMIX 100 ML IV SCH ×4 (03:07→20:20)
[2017-02-05] MEDS: SODIUM CHLORIDE 0.9% FLUSH 10 ML FLUSH IV FLUSH SCH ×2 (08:48→20:20)
[2017-02-05] MEDS: SODIUM CHLOR 0.9% 1000 ML INJ 1,000 ML IV SCH (13:10)
--- NOTE | 2017-02-05 13:20 | HHI.PR ---
Subjective Remarks Primary Care Physician Jethro Mckoy MD Admission Diagnosis Chest pain, h/o CAD, abdominal pain, elevated LFTs and Leukocytosis This is a pleasant 82 y/o Male who came to ER with productive cough, for the last two weeks, abdominal pain no nausea, vomit or diarrhea, but has Constipation, he uses a warm water enema for constipation, he has CAD status post PCI with stent placement x 4, status post two previous [place], Hypertension, Hyperlipidemia, found with dilated CBD on US from 02/01/17, Dilated common bile duct, Distal common duct not well visualized , No stones identified, No stones identified within the gallbladder. Of note, Aorta CTA (02/01/17)-----> negative for aortic dissection. Gallstone in distal common duct measured up to 14 mm in diameter with biliary ductal dilatation up to 2cm. Zosyn. recommended to continue NPO, follow LFTs today, MRCP vs ERCP today. on Empiric management with Zosyn due to Leukocytosis now improved. following anemia, seen in his bedroom in the presence of nurse Miss Julian and with his Daughter Miss Alexa Henriquez. No nausea, vomit or diarrhea, no pain 02/03: Seen in his bedroom in the presence of nurse Miss Camejo and his Daughter in the room Miss Alexa Henriquez patient stable no complain, status post ERCP and stone extraction, no nausea, vomit or diarrhea. 02/04: Stable seen in his bedroom, at this time no complaint, discussed with nurse Miss Camejo she states the patient had Nausea and vomited during the night but now stable, 02/05: Seen in his bedroom in the presence of nurse Miss Jo, has constipation, at this time Vascular team placing a Peripheral IV line, His daughter present. no nausea, or vomit. Objective Vital Signs Date Time Temp Pulse Resp B/P (MAP) Pulse Ox O2 Delivery O2 Flow Rate FiO2 02/05/17 09:00 60 02/05/17 08:00 56 02/05/17 08:00 98.2 58 20 143/73 (96) 93 02/05/17 07:00 53 02/05/17 06:16 57 02/05/17 05:00 58 02/05/17 04:00 57 02/05/17 04:00 98.5 60 20 145/74 (97) 96 02/05/17 03:00 56 02/05/17 00:00 98.5 63 20 153/74 (100) 96 02/04/17 23:00 56 02/04/17 20:00 98.3 55 18 156/70 (98) 95 02/04/17 18:05 55 02/04/17 17:00 57 02/04/17 16:00 78 02/04/17 15:00 69 02/04/17 15:00 76 18 120/63 (82) 93 02/04/17 14:00 51 I/O 02/04/17 02/04/17 02/04/17 02/05/17 02/05/17 02/05/17 07:00 15:00 23:00 07:00 15:00 23:00 Intake Total 240 ml 1720 ml 360 ml Output Total 450 ml 250 ml 200 ml Balance -210 ml 1470 ml 160 ml Intake Oral 240 ml 720 ml 360 ml IV Total 1000 ml Output Urine Total 350 ml 250 ml 200 ml Emesis 100 ml Result Diagram: 02/02/17 0602/02/17 06 Imaging Last Impressions GI Procedure 02/03/17 0000 Signed Impressions: Service Date/Time: January 12:40 - CONCLUSION: ERCP as above. KKelechi Zeng MD Gall Bladder Ultrasound 02/01/171939 Signed Impressions: Service Date/Time: Wednesday, February 01, 2017 20:02 - CONCLUSION: 1. Dilated common bile duct. Distal common duct not well visualized. No stones identified within the gallbladder. Jason Yu MD Chest X-Ray 02/01/171733 Signed Impressions: Service Date/Time: Wednesday, February 01, 2017 17:56 - CONCLUSION: Chronic interstitial lung disease. No acute process demonstrated. Dom Lemus MD Aorta CTA 02/01/171733 Signed Impressions: Service Date/Time: Wednesday, February 01, 2017 19:31 - CONCLUSION: 1. Negative for aortic dissection or aneurysm. 2. Gallstone in distal common duct measured up to 14 mm in diameter with biliary ductal dilatation up to about 2 cm. Jason Yu MD Procedures ERCP 02/03/17 Other Results Laboratory Tests Test 02/01/17 17:44 02/01/17 20:10 02/01/17 20:52 02/02/17 06:05 Prothrombin Time 11.4 SEC Prothromb Time International Ratio 1.0 RATIO Activated Partial Thromboplast Time 29.7 SEC Blood Urea Nitrogen 18 MG/DL 14 MG/DL Creatinine 1.23 MG/DL 0.99 MG/DL Random Glucose 108 MG/DL 86 MG/DL Total Protein 7.9 GM/DL Albumin 3.3 GM/DL Calcium Level 9.5 MG/DL 8.8 MG/DL Magnesium Level 2.7 MG/DL Alkaline Phosphatase 343 U/L Aspartate Amino Transf (AST/SGOT) 128 U/L Alanine Aminotransferase (ALT/SGPT) 129 U/L Total Bilirubin 2.7 MG/DL Sodium Level 136 MEQ/L 138 MEQ/L Potassium Level 4.4 MEQ/L 4.8 MEQ/L Chloride Level 101 MEQ/L 102 MEQ/L Carbon Dioxide Level 26.5 MEQ/L 30.5 MEQ/L Creatine Kinase MB 4.8 NG/ML B-Type Natriuretic Peptide 246 PG/ML Lipase 105 U/L Lactic Acid Level 1.5 mmol/L Urine Color DARK-YELLOW Urine Turbidity CLEAR Urine pH 6.0 Urine Specific [place] GREATER THAN 1.050 Urine Protein TRACE mg/dL Urine Glucose (UA) NEG mg/dL Urine Ketones 10 mg/dL Urine Occult Blood NEG Urine Nitrite NEG Urine Bilirubin SMALL Urine Urobilinogen 2.0 MG/DL Urine Leukocyte Esterase NEG Urine RBC 2 /hpf Urine WBC 4 /hpf Urine Squamous Epithelial Cells <1 /hpf Urine Mucus FEW /lpf Microscopic Urinalysis Comment CULT NOT INDICATED White Blood Count 8.9 TH/MM3 Red Blood Count 3.06 MIL/MM3 Hemoglobin 9.9 GM/DL Hematocrit 29.3 % Mean Corpuscular Volume 95.7 FL Mean Corpuscular Hemoglobin 32.3 PG Mean Corpuscular Hemoglobin Concent 33.7 % Red Cell Distribution Width 13.6 % Platelet Count 240 TH/MM3 Mean Platelet Volume 7.7 FL Neutrophils (%) (Auto) 73.0 % Lymphocytes (%) (Auto) 15.6 % Monocytes (%) (Auto) 10.7 % Eosinophils (%) (Auto) 0.4 % Basophils (%) (Auto) 0.3 % Neutrophils # (Auto) 6.5 TH/MM3 Lymphocytes # (Auto) 1.4 TH/MM3 Monocytes # (Auto) 0.9 TH/MM3 Eosinophils # (Auto) 0.0 TH/MM3 Basophils # (Auto) 0.0 TH/MM3 CBC Comment DIFF FINAL Differential Comment Anion Gap 6 MEQ/L Estimat Glomerular Filtration Rate 72 ML/MIN Total Creatine Kinase 92 U/L Troponin I 0.08 NG/ML Test 02/04/17 05:24 Total Bilirubin 1.5 MG/DL Direct Bilirubin 0.9 MG/DL Indirect Bilirubin 0.6 MG/DL Aspartate Amino Transf (AST/SGOT) 77 U/L Alanine Aminotransferase (ALT/SGPT) 95 U/L Alkaline Phosphatase 273 U/L Total Protein 7.1 GM/DL Albumin 2.7 GM/DL Objective Remarks GENERAL: This is a pale elderly male patient, in no apparent distress. SKIN: No rashes, ecchymoses or lesions. Cool and dry. HEAD: Atraumatic. Normocephalic. EYES: Pupils equal round and reactive. No injection or drainage. ENT: Nose without bleeding, purulent drainage or septal hematoma. NECK: Trachea midline. No JVD. CARDIOVASCULAR: Regular rate and rhythm without murmurs, gallops, or rubs. RESPIRATORY: Clear to auscultation. Breath sounds equal bilaterally. No wheezes , rales, or rhonchi. GASTROINTESTINAL: Abdomen soft, non-tender, nondistended. No guarding. MUSCULOSKELETAL: Extremities without clubbing, cyanosis, or edema. No calf tenderness. NEUROLOGICAL: Awake and alert. Motor and sensory grossly within normal limits. Normal speech. Mild memory impairment. Medications and IVs Current Medications Medications (Trade) Dose Ordered Sig/Radha Route Start Time Stop Time Status Last Admin (NS Flush) 2 ml UNSCH PRN IV FLUSH 02/01/17 21:00 (NS Flush) 2 ml BID IV FLUSH 02/01/17 21:00 02/05/17 08:48 (Narcan Inj) 0.4 mg UNSCH PRN IV 02/01/17 21:00 Piperacillin Sod/ Tazobactam Sod 100 ml @ 200 mls/hr Q6H IV 02/02/17 02:00 02/05/17 08:47 (Morphine Inj) 2 mg Q6H PRN IV PUSH 02/01/17 23:15 (Lopressor) 25 mg DAILY PO 02/02/17 09:00 Future Hold (Prinivil) 2.5 mg DAILY PO 02/02/17 09:00 Future Hold (Pill Splitter) 1 ea UNSCH PRN OTHER 02/02/17 09:00 Sodium Chloride 1,000 ml @ 84 mls/hr [id number] IV 02/02/17 13:45 02/05/17 13:10 (Xalatan 0.005% Opth Soln) 1 drop HS EACH EYE 02/02/17 21:00 02/04/17 21:32 A/P Assessment and Plan 82 y/o male presented with productive cough and reporting chest pain to ER physician on 02/01/17: Choledocholithiasis - Dilated common bile duct with stone on imaging with elevated liver enzymes - GI specialist following, status post ERCP and Stone extraction. started Liquid diet by specialist. had an episode of Nausea and vomit during the night, improving Liver enzymes after procedure. Chest pain reported to ED physician - serial cardiac enzymes and EKGs to r/o ACS - initial troponin I 0.08, will trend - continuous cardiac telemetry to monitor for arrhythmias -found with some Bradycardia, Cardiology following on hold Beta Blockers. Leukocytosis choledocholithiasis vs pneumonia - Improved. will continue Empiric Zosyn but no signs of infection, Negative blood cultures Hypertension controlled. Glaucoma started his home medicine Hyperlipidemia on hold Statins Constipation added Lactulose. DVT prophylaxis - SCDs/TEDs . Discussed Condition With Patient his Daughter Mrs. Alexa Henriquez with nurse Miss Jo, all questions answered to the best of my abilities. Discharge Planning Once cleared by specialists. Julián Atkins MD Feb 05, 2017 1:20 pm
[2017-02-05] MEDS ORDERED: LACTULOSE SYRUP 20 GM/30 ML CUP PO ONE (13:30)
--- NOTE | 2017-02-05 14:03 | RADRPT ---
EXAM DATE/TIME: 02/05/2017 13:18 [facility] COMPARISON: No previous studies available for comparison. INDICATIONS : Abdominal pain. MEDICAL HISTORY : Cardiovascular disease. Hypertension SURGICAL HISTORY : IVC filter placement. Coronary artery stent. ENCOUNTER: Subsequent ACUITY: 3 days PAIN SCORE: Non-responsive. LOCATION: Right Abdomen FINDINGS: 2 AP views of the abdomen. Diffuse air-filled colonic distention measuring 11 cm at the proximal cheung sverse colon and 11 cm at the cecum. Gas is seen in the rectum. Moderate bony degenerative findings o f the lumbar spine. No abnormal abdominal calcification. CONCLUSION: Nonspecific gas filled distention of the colon. Ileus is most likely etiology. Shane Thibodeaux MD on February 05, 2017 at 14:01 Board Certified Radiologist. This report was verified electronically.
--- NOTE | 2017-02-05 16:24 | HHI.GIFU ---
GI Follow-up Note Consult Follow-up Subjective: Patient laying in bed comfortably, did not have a bowel movement since admission.States this is normal for him,, usually takes enemas every few days .May agree on a colonoscopy.Abdominal x-ray noted.discussed with daughter bed side Objective: PHYSICAL EXAMINATION: Vitals signs stable No fever Vital Signs Date Time Temp Pulse Resp B/P (MAP) Pulse Ox O2 Delivery O2 Flow Rate FiO2 02/05/17 12:00 98.0 59 20 151/67 (95) 93 02/05/17 09:00 60 HEENT: Pupils round and reactive to light; normocephalic; atraumatic; no jaundice. Throat is clear. NECK: Neck is supple, no JVD, no lymphadenopathy. CHEST: Chest is clear to auscultation and percussion. CARDIAC: Regular rate and rhythm with no murmur gallop or rubs. ABDOMEN: Soft, distended, epigastric tenderness ; no hepatosplenomegaly; bowel sounds are present in all four quadrants. EXTREMITIES: No clubbing, cyanosis, or edema. SKIN: Normal; no rash; no jaundice. PSYCHOLOGIST CLINICAL: No focal deficits; alert and oriented times three. Available Data (labs, X- Rays, Procedues) : Laboratory Tests Test 02/04/17 05:24 Total Bilirubin 1.5 MG/DL Direct Bilirubin 0.9 MG/DL Indirect Bilirubin 0.6 MG/DL Aspartate Amino Transf (AST/SGOT) 77 U/L Alanine Aminotransferase (ALT/SGPT) 95 U/L Alkaline Phosphatase 273 U/L Total Protein 7.1 GM/DL Albumin 2.7 GM/DL ASSESSMENT/PLAN: cbd stone s/p ercp with stone removal-clinically better , lfts improving constipation, ileus weight loss -discussed about colonoscopy-will think about it Recommendations Dulcolax supp/fleet enema continue Lactulose clear liquid diet if agrees consider colonoscopy before dc It was a pleasure seeing Nilay Tyler Thank you for this consult. Entered by: Sophie Smith MD Feb 05, 2017 16:24
[2017-02-05] MEDS ORDERED: BISACODYL 10 MG SUPP RECTAL ONE ×2 (16:30→22:45)
[2017-02-05] MEDS ORDERED: SOD PHOSPHATE/SOD BIPHOSPHATE (ADULT) ENEMA 133ML RECTAL ONE (16:30)
[2017-02-05] MEDS: LATANOPROST 0.005% OPHT SOLN 2.5 ML BTL EACH EYE SCH (20:20)
[2017-02-06] VITALS (26 sets, daily range): BP systolic 119–149; BP diastolic 64–78; PULSE 60–88; RESP 17–20; TEMP 97.9–98.7; O2SAT 93–95
[2017-02-06] MEDS: SODIUM CHLOR 0.9% 1000 ML INJ 1,000 ML IV SCH (01:56)
[2017-02-06] MEDS: PIPERACIL-TAZO 4.5 GM PREMIX 100 ML IV SCH ×4 (01:56→20:44)
[2017-02-06] MEDS: ONDANSETRON HCL 4 MG/2 ML VIAL IV PUSH PRN (05:36)
[2017-02-06 08:23] LABS: AUTOMATED NEUTROPHIL # 10.9 TH/MM3 (1.8-7.7); BASOPHIL # 0.1 TH/MM3 (0-0.2); BASOPHIL % 0.4 % (0.0-2.0); EOSINOPHIL % 0.1 % (0.0-4.0); HEMATOCRIT 32.7 % (39.0-51.0); HEMO FLAGS DIFF FINAL; MEAN CELL VOLUME 95.5 FL (80.0-100.0); MEAN CORPUSCULAR HGB CONC 34.5 % (32.0-36.0); MONO % 7.4 % (0.0-8.0); NEUT % 84.1 % (16.0-70.0); PLATELET COUNT 271 TH/MM3 (150-450); RED BLOOD COUNT 3.43 MIL/MM3 (4.50-5.90); RED CELL DISTRIBUTION WIDTH 13.8 % (11.6-17.2); WHITE BLOOD COUNT 12.9 TH/MM3 (4.0-11.0)
[2017-02-06] MEDS: SODIUM CHLORIDE 0.9% FLUSH 10 ML FLUSH IV FLUSH SCH ×2 (08:45→21:08)
[2017-02-06 08:50] LABS: ALT (GPT) 58 U/L (12-78); ANION GAP 9 MEQ/L (5-15); AST (GOT) 43 U/L (15-37); BICARBONATE 27.9 MEQ/L (21.0-32.0); BLOOD UREA NITROGEN 14 MG/DL (7-18); CHLORIDE 104 MEQ/L (98-107); GLOMERULAR FILTRATION RATE 80 ML/MIN (>89); MAGNESIUM 2.3 MG/DL (1.5-2.5); POTASSIUM 3.3 MEQ/L (3.5-5.1); SODIUM (NA) 141 MEQ/L (136-145)
[2017-02-06 08:53] LABS: ALKALINE PHOSPHATASE 166 U/L (45-117); TOTAL BILIRUBIN ADULT 0.9 MG/DL (0.2-1.0)
--- NOTE | 2017-02-06 09:05 | RADRPT ---
EXAM DATE/TIME: 02/06/2017 08:35 [facility] COMPARISON: CTA THORACIC ABDOMINAL AORTA W 3D RECON, February 01, 2017, 19:31. ABDOMEN SINGLE VIEW, January, 13:18. INDICATIONS : Abdominal Distention and Pain MEDICAL HISTORY : Cardiovascular disease. Hypertension SURGICAL HISTORY : IVC filter placement. Coronary artery stent. ENCOUNTER: Subsequent ACUITY: 2 days PAIN SCORE: 5/10 LOCATION: Bilateral abdomen FINDINGS: Single supine frontal view of the abdomen demonstrates dilated air-filled small bowel and colon exten ding to the distal transverse colon region. There is minimal gas in the descending and sigmoid colon. Small bowel dilatation is increased from yesterday's study. No abnormal mass effect is appreciated. IVC filter is present. Bones demonstrate no acute finding. There is facet or calcification. CONCLUSION: Dilatation of the small bowel and colon in a pattern favoring ileus. Although the transition point is at the splenic flexure, no mass or obstructing process was visualized in this area on CT from 5 days ago again favoring ileus as etiology. Since the small bowel distention has increased, suggest contin ued attention to this on followup imaging. Dom Guthrie MD on February 06, 2017 at 9:01 Board Certified Radiologist. This report was verified electronically.
[2017-02-06] MEDS ORDERED: POTASSIUM CHLORIDE 25 MEQ EFFERVESCENT TAB PO ONE (10:30)
[2017-02-06] MEDS ORDERED: SOD PHOSPHATE/SOD BIPHOSPHATE (ADULT) ENEMA 133ML RECTAL ONE (10:45)
--- NOTE | 2017-02-06 10:50 | HHI.PR ---
Subjective Remarks The patient's family was at the bedside. The patient was not interested in having an NG tube placed. He has not been passing gas, but has been burping. He complains of itching in his right lower leg, an area where he had a chronic injury. Objective Vitals Vital Signs Date Time Temp Pulse Resp B/P (MAP) Pulse Ox O2 Delivery O2 Flow Rate FiO2 02/06/17 09:00 64 02/06/17 08:00 98.5 64 20 119/64 (82) 93 02/06/17 08:00 60 02/06/17 07:00 63 02/06/17 06:17 75 02/06/17 05:52 79 02/06/17 04:26 75 02/06/17 03:30 98.2 63 19 133/71 (91) 93 02/06/17 03:17 69 02/06/17 02:15 87 02/06/17 01:17 71 02/06/17 00:00 75 02/05/17 23:56 97.6 77 18 132/74 (93) 94 02/05/17 23:56 71 02/05/17 21:59 70 02/05/17 20:20 69 02/05/17 19:30 97.9 59 17 149/78 (101) 94 02/05/17 19:30 64 02/05/17 18:00 64 02/05/17 17:00 62 02/05/17 16:00 62 02/05/17 15:00 98.4 62 20 139/74 (95) 93 02/05/17 15:00 62 02/05/17 14:00 56 02/05/17 13:00 60 02/05/17 12:00 60 02/05/17 12:00 98.0 59 20 151/67 (95) 93 02/05/17 11:00 70 I/O 02/05/17 02/05/17 02/05/17 02/06/17 02/06/17 02/06/17 07:00 15:00 23:00 07:00 15:00 23:00 Intake Total 360 ml 1100 ml 1454 ml Output Total 200 ml 225 ml Balance 160 ml 1100 ml 1229 ml Intake Oral 360 ml 600 ml 480 ml IV Total 500 ml 974 ml Output Urine Total 200 ml Emesis 225 ml # Voids 3 2 # Bowel Movements 1 2 Result Diagram: 02/06/17 0800 02/06/17 0800 Imaging Last Impressions Abdomen X-Ray 02/06/17819 Signed Impressions: Service Date/Time: Monday, February 06, 2017 08:35 - CONCLUSION: Dilatation of the small bowel and colon in a pattern favoring ileus. Although the transition point is at the splenic flexure, no mass or obstructing process was visualized in this area on CT from 5 days ago again favoring ileus as etiology. Since the small bowel distention has increased, suggest continued attention to this on followup imaging. Dom Guthrie MD GI Procedure 02/03/17 0000 Signed Impressions: Service Date/Time: January 12:40 - CONCLUSION: ERCP as above. Alice Zeng MD Gall Bladder Ultrasound 02/01/171939 Signed Impressions: Service Date/Time: Wednesday, February 01, 2017 20:02 - CONCLUSION: 1. Dilated common bile duct. Distal common duct not well visualized. No stones identified within the gallbladder. Jason Yu MD Chest X-Ray 02/01/171733 Signed Impressions: Service Date/Time: Wednesday, February 01, 2017 17:56 - CONCLUSION: Chronic interstitial lung disease. No acute process demonstrated. Dom Lemus MD Aorta CTA 02/01/171733 Signed Impressions: Service Date/Time: Wednesday, February 01, 2017 19:31 - CONCLUSION: 1. Negative for aortic dissection or aneurysm. 2. Gallstone in distal common duct measured up to 14 mm in diameter with biliary ductal dilatation up to about 2 cm. Jason Yu MD Objective Remarks GENERAL: This is a pale elderly male patient, in no apparent distress. SKIN: No rashes, ecchymoses or lesions. Cool and dry. HEAD: Atraumatic. Normocephalic. EYES: Pupils equal round and reactive. No injection or drainage. ENT: Nose without bleeding, purulent drainage or septal hematoma. NECK: Trachea midline. No JVD. CARDIOVASCULAR: Regular rate and rhythm with grade 2 systolic murmur appreciated. RESPIRATORY: Clear to auscultation. Breath sounds equal bilaterally. No wheezes , rales, or rhonchi. GASTROINTESTINAL: Abdomen soft, non-tender, nondistended. No guarding. No bowel sounds appreciated. MUSCULOSKELETAL: Extremities without clubbing, cyanosis, or edema. No calf tenderness. NEUROLOGICAL: Awake and alert. Motor and sensory grossly within normal limits. Normal speech. Medications and IVs Current Medications Medications (Trade) Dose Ordered Sig/Radha Route Start Time Stop Time Status Last Admin (NS Flush) 2 ml UNSCH PRN IV FLUSH 02/01/17 21:00 (NS Flush) 2 ml BID IV FLUSH 02/01/17 21:00 02/06/17 08:45 (Narcan Inj) 0.4 mg UNSCH PRN IV 02/01/17 21:00 Piperacillin Sod/ Tazobactam Sod 100 ml @ 200 mls/hr Q6H IV 02/02/17 02:00 02/06/17 08:00 (Morphine Inj) 2 mg Q6H PRN IV PUSH 02/01/17 23:15 (Lopressor) 25 mg DAILY PO 02/02/17 09:00 Future Hold (Prinivil) 2.5 mg DAILY PO 02/02/17 09:00 Future Hold (Pill Splitter) 1 ea UNSCH PRN OTHER 02/02/17 09:00 (Xalatan 0.005% Opth Soln) 1 drop HS EACH EYE 02/02/17 21:00 02/05/17 20:20 (Zofran Inj) 4 mg Q6HR PRN IV PUSH 02/05/17 22:45 02/06/17 05:36 (Fleets Enema (Adult)) 133 ml ONCE ONCE RECTAL 02/06/17 10:45 02/06/17 10:46 (Reglan Inj) 5 mg Q8HR IM 02/06/17 14:00 (Benadryl 2% Cream) 1 applic TID PRN TOPICAL 02/06/17 10:45 UNV (Benadryl 2% Cream) 1 applic ONCE ONCE TOPICAL 02/06/17 10:45 02/06/17 10:46 UNV A/P Problem List: (1) Common bile duct dilation ICD Code: K83.8 - Other specified diseases of biliary tract (2) Elevated liver function tests ICD Code: R79.89 - Other specified abnormal findings of blood chemistry Status: Acute (3) Chest pain ICD Code: R07.9 - Chest pain, unspecified Status: Acute (4) Leukocytosis ICD Code: D72.829 - Elevated white blood cell count, unspecified Assessment and Plan 82 y/o male presented with productive cough and reporting chest pain to ER physician on 02/01/17: Choledocholithiasis Dilated common bile duct with stone on imaging with elevated liver enzymes - GI specialist following, status post ERCP and Stone extraction. Started Liquid diet by specialist. - s/p Zosyn. Chest pain reported to ED physician - serial cardiac enzymes and EKGs to r/o ACS - initial troponin I 0.08, will trend - continuous cardiac telemetry to monitor for arrhythmias -found with some Bradycardia, Cardiology following. Hold Beta Blockers. Ileus The pt has been constipated and nauseous. CT indicative of ileus. - NGT recommended by GI. Pt refusing. - bowel regimen per GI. Right leg itching Chronic. - Benadryl cream added. Leukocytosis Associated fever. - Continue to monitor. - Status post Zosyn. Weight loss The patient is not interested in colonoscopy at this point. - Follow up with GI. Hypokalemia Likely secondary to ileus. - Replete and monitor. DVT prophylaxis: SCDs/TEDs Problem Qualifiers (1) Chest pain: Qualified Codes: R07.9 - Chest pain, unspecified Sunil Hanks DO Feb 06, 2017 10:50
--- NOTE | 2017-02-06 11:18 | HHI.GIFU ---
Subjective Remarks Resting in bed. Had nausea/vomiting- 300cc bilious material. Refusing NGT. Pt c/o abdominal pain. Had small partially formed stool with liquid stool after enema. Daughter at bedside. Long discussion regarding today's Xray findings, plans for reglan, enemas, encourage mobility and ngt to liws if further nausea/ vomiting. She is hoping that this will get him going to the bathroom and that he will be able to undergo colonoscopy on Tuesday. (Aggie Crowe) Objective Vitals I&O Vital Signs Date Time Temp Pulse Resp B/P (MAP) Pulse Ox O2 Delivery O2 Flow Rate FiO2 02/06/17 09:00 64 02/06/17 08:00 98.5 64 20 119/64 (82) 93 02/06/17 08:00 60 02/06/17 07:00 63 02/06/17 06:17 75 02/06/17 05:52 79 02/06/17 04:26 75 02/06/17 03:30 98.2 63 19 133/71 (91) 93 02/06/17 03:17 69 02/06/17 02:15 87 02/06/17 01:17 71 02/06/17 00:00 75 02/05/17 23:56 97.6 77 18 132/74 (93) 94 02/05/17 23:56 71 02/05/17 21:59 70 02/05/17 20:20 69 02/05/17 19:30 97.9 59 17 149/78 (101) 94 02/05/17 19:30 64 02/05/17 18:00 64 02/05/17 17:00 62 02/05/17 16:00 62 02/05/17 15:00 98.4 62 20 139/74 (95) 93 02/05/17 15:00 62 02/05/17 14:00 56 02/05/17 13:00 60 02/05/17 12:00 60 02/05/17 12:00 98.0 59 20 151/67 (95) 93 I/O 02/05/17 02/05/17 02/05/17 02/06/17 02/06/17 02/06/17 06:59 14:59 22:59 06:59 14:59 22:59 Intake Total 360 ml 1100 ml 1454 ml Output Total 200 ml 225 ml Balance 160 ml 1100 ml 1229 ml Intake Oral 360 ml 600 ml 480 ml IV Total 500 ml 974 ml Output Urine Total 200 ml Emesis 225 ml # Voids 3 2 # Bowel Movements 1 2 Laboratory Laboratory Tests Test 02/06/17 08:00 White Blood Count 12.9 Red Blood Count 3.43 Hemoglobin 11.3 Hematocrit 32.7 Mean Corpuscular Volume 95.5 Mean Corpuscular Hemoglobin 33.0 Mean Corpuscular Hemoglobin Concent 34.5 Red Cell Distribution Width 13.8 Platelet Count 271 Mean Platelet Volume 7.9 Neutrophils (%) (Auto) 84.1 Lymphocytes (%) (Auto) 8.0 Monocytes (%) (Auto) 7.4 Eosinophils (%) (Auto) 0.1 Basophils (%) (Auto) 0.4 Neutrophils # (Auto) 10.9 Lymphocytes # (Auto) 1.0 Monocytes # (Auto) 1.0 Eosinophils # (Auto) 0.0 Basophils # (Auto) 0.1 CBC Comment DIFF FINAL Differential Comment Blood Urea Nitrogen 14 Creatinine 0.90 Random Glucose 115 Total Protein 5.6 Albumin 2.2 Calcium Level 8.8 Magnesium Level 2.3 Alkaline Phosphatase 166 Aspartate Amino Transf (AST/SGOT) 43 Alanine Aminotransferase (ALT/SGPT) 58 Total Bilirubin 0.9 Sodium Level 141 Potassium Level 3.3 Chloride Level 104 Carbon Dioxide Level 27.9 Anion Gap 9 Estimat Glomerular Filtration Rate 80 Date/Time Source Procedure Growth Status 02/01/17 20:10 Blood Peripheral Aerobic Blood Culture - Final NO GROWTH IN 5 DAYS Complete 02/01/17 20:10 Blood Peripheral Anaerobic Blood Culture - Final NO GROWTH IN 5 DAYS Complete Imaging Last Impressions Abdomen X-Ray 02/06/17 0820 Signed Impressions: Service Date/Time: Monday, February 06, 2017 08:35 - CONCLUSION: Dilatation of the small bowel and colon in a pattern favoring ileus. Although the transition point is at the splenic flexure, no mass or obstructing process was visualized in this area on CT from 5 days ago again favoring ileus as etiology. Since the small bowel distention has increased, suggest continued attention to this on followup imaging. Dom Guthrie MD GI Procedure 02/03/17 0000 Signed Impressions: Service Date/Time: January 12:40 - CONCLUSION: ERCP as above. Alice Zeng MD Gall Bladder Ultrasound 02/01/17 194 Signed Impressions: Service Date/Time: Wednesday, February 01, 2017 20:02 - CONCLUSION: 1. Dilated common bile duct. Distal common duct not well visualized. No stones identified within the gallbladder. Jason Yu MD Chest X-Ray 02/01/174 Signed Impressions: Service Date/Time: Wednesday, February 01, 2017 17:56 - CONCLUSION: Chronic interstitial lung disease. No acute process demonstrated. Dom Lemus MD Aorta CTA 02/01/171733 Signed Impressions: Service Date/Time: Wednesday, February 01, 2017 19:31 - CONCLUSION: 1. Negative for aortic dissection or aneurysm. 2. Gallstone in distal common duct measured up to 14 mm in diameter with biliary ductal dilatation up to about 2 cm. Jason Yu MD Physical Exam HEENT: Normocephalic; atraumatic; no jaundice. CHEST: CTA CARDIAC: RRR ABDOMEN: Soft, distended, diffuse tenderness; no hepatosplenomegaly; bowel sounds are present in all four quadrants. EXTREMITIES: No clubbing, cyanosis, or edema. SKIN: Normal; no rash; no jaundice. AIR POLLUTION ANALYST: No focal deficits; alert and oriented to self and place (Aggie Crowe) Assessment and Plan Plan ASSESSMENT: - Constipation, Ileus. KUB (02/06/17)----> dilatation of the small bowel and colon in a pattern favoring ileus. Although the transition point is at the splenic flexure, no mass or obstructing process was visualized in this area on CT from 5 days ago again favoring ileus as etiology. Since the small bowel distention has increased, suggest continued attention to this on follow-up imaging. S/P enema (small amount of partially formed stool and liquid). N/V with 300cc bilious material. Refusing NGT. Long d/w patient and daughter findings, recommendations. They want to avoid NGT if possible. Will try reglan, enemas, oob to chair to encourage mobility. They are hoping this helps and would like to proceed with colonoscopy on Tuesday if able. D/W patient/daughter need for NGT to LIWS if any further n/v. Possible CT vs. Gastrografin enema if no improvement with above plan. Questions answered. - Choledocholithiasis with elevated LFTs and dilated CBD on US. GB US (02/01/17)- ---> Dilated common bile duct. Distal common duct not well visualized. No stones identified within the gallbladder. Of note, Aorta CTA (02/01/17)---- -> negative for aortic dissection. Gallstone in distal common duct measured up to 14 mm in diameter with biliary ductal dilatation up to 2cm. S /P ERCP with sphincterotomy and stone removal (02/03/17)-----> EGD limited exam normal, common bile duct stone, s/p extraction with balloon sweep, the common bile duct negative for stone at the end of the procedure stone was removed. pancreatic duct was not seen. LFTs improved. T. Bili 0.9, AST 43 , ALT 58, Alk Phosph 166. - Leukocytosis. Zosyn. WBC 12.9. - Anemia. 11.3/32.7. - Abnormal weight loss. Possible colonoscopy Tuesday. - CAD, HTN per attending. Plan: - NPO - Reglan 5mg IV q8h - SSE enema q8h x 2 - OOB to chair - KUB in am - If further n/v, insert NGT to LIWS - If no improvement with above, then consider CT scan abdomen and pelvis - Possible colonoscopy on Tuesday, depending on results of above - Pt seen and examined by Dr. Mars and myself and this note is written on her behalf (Aggie Crowe) Physician Comments seen, examined agree with above (Sophie Mars MD) Aggie Crowe Feb 06, 2017 11:18 Sophie Mars MD Feb 06, 2017 19:56
[2017-02-06] MEDS ORDERED: diphenhydrAMINE HCL 2%/ZINC ACETATE 0.1% CREAM 30 APPLIC/30 GM TUBE TOPICAL ONE (12:00)
[2017-02-06] MEDS: METOCLOPRAMIDE HCL 10 MG/2 ML VIAL IM SCH ×2 (14:16→21:14)
[2017-02-06] MEDS: diphenhydrAMINE HCL 2%/ZINC ACETATE 0.1% CREAM 30 APPLIC/30 GM TUBE TOPICAL PRN (14:17)
[2017-02-06] MEDS: LATANOPROST 0.005% OPHT SOLN 2.5 ML BTL EACH EYE SCH (21:09)
[2017-02-07] VITALS (26 sets, daily range): BP systolic 129–157; BP diastolic 69–84; PULSE 60–80; RESP 17–19; TEMP 97.4–98.2; O2SAT 93–97
[2017-02-07] MEDS: PIPERACIL-TAZO 4.5 GM PREMIX 100 ML IV SCH ×2 (02:45→08:20)
--- NOTE | 2017-02-07 03:57 | RADRPT ---
EXAM DATE/TIME: 02/07/2017 03:16 [facility] COMPARISON: ABDOMEN SINGLE VIEW, February 06, 2017, 8:35. INDICATIONS : Abdominal pain. MEDICAL HISTORY : Cardiovascular disease. Hypertension SURGICAL HISTORY : IVC filter placement. Coronary artery stent. ENCOUNTER: Subsequent ACUITY: 3 days PAIN SCORE: 7/10 LOCATION: Bilateral Abdomen FINDINGS: Supine view of the abdomen was performed. The abdominal bowel gas pattern is distended, but small an d large bowel. Inferior vena cava filter present. No free air. CONCLUSION: 1. Stable gaseous distention of small and large bowel compared with February 06. Jason Yu MD on February 07, 2017 at 3:54 Board Certified Radiologist. This report was verified electronically.
[2017-02-07 05:51] LABS: HEMATOCRIT 34.5 % (39.0-51.0); MEAN CELL VOLUME 96.8 FL (80.0-100.0); MEAN CORPUSCULAR HEMOGLOBIN 32.3 PG (27.0-34.0); MEAN CORPUSCULAR HGB CONC 33.3 % (32.0-36.0); PLATELET COUNT 307 TH/MM3 (150-450); RED BLOOD COUNT 3.57 MIL/MM3 (4.50-5.90); RED CELL DISTRIBUTION WIDTH 13.8 % (11.6-17.2); REVIEW FLAG FINAL; WHITE BLOOD COUNT 16.1 TH/MM3 (4.0-11.0)
[2017-02-07] MEDS: METOCLOPRAMIDE HCL 10 MG/2 ML VIAL IM SCH ×3 (05:57→21:17)
[2017-02-07 06:09] LABS: BICARBONATE 28.8 MEQ/L (21.0-32.0); MAGNESIUM 2.7 MG/DL (1.5-2.5); POTASSIUM 3.4 MEQ/L (3.5-5.1)
[2017-02-07] MEDS: SODIUM CHLORIDE 0.9% FLUSH 10 ML FLUSH IV FLUSH SCH ×2 (08:21→21:00)
--- NOTE | 2017-02-07 10:09 | HHI.PR ---
Subjective Remarks The patient had no complaints. He said he has been passing gas. He has been spitting up some white phlegm. His family was at the bedside and their questions were answered. Discussed with nursing. Objective Vitals Vital Signs Date Time Temp Pulse Resp B/P (MAP) Pulse Ox O2 Delivery O2 Flow Rate FiO2 02/07/17 09:00 66 02/07/17 08:00 70 02/07/17 08:00 98.1 68 18 129/72 (91) 96 02/07/17 07:00 74 02/07/17 06:29 75 02/07/17 05:29 66 02/07/17 04:00 64 02/07/17 03:42 98.0 70 19 138/74 (95) 93 02/07/17 03:07 74 02/07/17 02:08 78 02/07/17 01:13 80 02/07/17 00:59 72 02/06/17 23:31 64 02/06/17 23:29 98.2 70 18 138/77 (97) 94 02/06/17 22:00 88 02/06/17 21:00 68 02/06/17 20:00 88 02/06/17 19:45 98.4 67 17 149/76 (100) 93 02/06/17 19:45 67 02/06/17 18:00 68 02/06/17 17:00 66 02/06/17 16:00 66 02/06/17 16:00 98.7 65 20 139/78 (98) 95 02/06/17 15:00 64 02/06/17 14:00 66 02/06/17 13:00 66 02/06/17 12:00 76 02/06/17 12:00 97.9 73 20 137/76 (96) 94 02/06/17 11:00 69 I/O 02/06/17 02/06/17 02/06/17 02/07/17 02/07/17 02/07/17 07:00 15:00 23:00 07:00 15:00 23:00 Intake Total 1454 ml 1020 ml 190 ml Output Total 225 ml Balance 1229 ml 1020 ml 190 ml Intake Oral 480 ml 120 ml IV Total 974 ml 900 ml 190 ml Emesis 225 ml # Voids 2 3 1 # Bowel Movements 2 1 Result Diagram: 02/07/1751602/07/17 0517 Imaging Last Impressions Abdomen X-Ray 02/07/17 0600 Signed Impressions: Service Date/Time: Tuesday, February 07, 2017 03:16 - CONCLUSION: 1. Stable gaseous distention of small and large bowel compared with February 06. Jason Yu MD GI Procedure 02/03/17 0000 Signed Impressions: Service Date/Time: January 12:40 - CONCLUSION: ERCP as above. Alice Zeng MD Gall Bladder Ultrasound 02/01/17 1940 Signed Impressions: Service Date/Time: Wednesday, February 01, 2017 20:02 - CONCLUSION: 1. Dilated common bile duct. Distal common duct not well visualized. No stones identified within the gallbladder. Jason Yu MD Chest X-Ray 02/01/174 Signed Impressions: Service Date/Time: Wednesday, February 01, 2017 17:56 - CONCLUSION: Chronic interstitial lung disease. No acute process demonstrated. Dom Lemus MD Aorta CTA 02/01/171733 Signed Impressions: Service Date/Time: Wednesday, February 01, 2017 19:31 - CONCLUSION: 1. Negative for aortic dissection or aneurysm. 2. Gallstone in distal common duct measured up to 14 mm in diameter with biliary ductal dilatation up to about 2 cm. Jason Yu MD Objective Remarks GENERAL: This is a pale elderly male patient, in no apparent distress. SKIN: No rashes, ecchymoses or lesions. Cool and dry. HEAD: Atraumatic. Normocephalic. EYES: Pupils equal round and reactive. No injection or drainage. ENT: Nose without bleeding, purulent drainage or septal hematoma. NECK: Trachea midline. No JVD. CARDIOVASCULAR: Regular rate and rhythm with grade 2 systolic murmur appreciated. RESPIRATORY: Clear to auscultation. Breath sounds equal bilaterally. No wheezes , rales, or rhonchi. GASTROINTESTINAL: Abdomen soft, non-tender, nondistended. No guarding. No bowel sounds appreciated. MUSCULOSKELETAL: Extremities without clubbing, cyanosis, or edema. No calf tenderness. NEUROLOGICAL: Awake and alert. Motor and sensory grossly within normal limits. Normal speech. PSYCH: Calm. Medications and IVs Current Medications Medications (Trade) Dose Ordered Sig/Radha Route Start Time Stop Time Status Last Admin (NS Flush) 2 ml UNSCH PRN IV FLUSH 02/01/17 21:00 (NS Flush) 2 ml BID IV FLUSH 02/01/17 21:00 02/07/17 08:21 (Narcan Inj) 0.4 mg UNSCH PRN IV 02/01/17 21:00 Piperacillin Sod/ Tazobactam Sod 100 ml @ 200 mls/hr Q6H IV 02/02/17 02:00 02/07/17 08:20 (Morphine Inj) 2 mg Q6H PRN IV PUSH 02/01/17 23:15 (Lopressor) 25 mg DAILY PO 02/02/17 09:00 Future Hold (Prinivil) 2.5 mg DAILY PO 02/02/17 09:00 Future Hold (Pill Splitter) 1 ea UNSCH PRN OTHER 02/02/17 09:00 (Xalatan 0.005% Opth Soln) 1 drop HS EACH EYE 02/02/17 21:00 02/06/17 21:09 (Zofran Inj) 4 mg Q6HR PRN IV PUSH 02/05/17 22:45 02/06/17 05:36 (Reglan Inj) 5 mg Q8HR IM 02/06/17 14:00 02/07/17 05:57 (Benadryl 2% Cream) 1 applic TID PRN TOPICAL 02/06/17 10:45 (K-Lyte Cl Eff) 50 meq ONCE ONCE PO 02/07/17 09:45 02/07/17 09:46 UNV Dextrose/Sodium Chloride 1,000 ml @ 75 mls/hr [id number] IV 02/07/17 09:45 02/08/17 12:24 UNV A/P Problem List: (1) Common bile duct dilation ICD Code: K83.8 - Other specified diseases of biliary tract (2) Elevated liver function tests ICD Code: R79.89 - Other specified abnormal findings of blood chemistry Status: Acute (3) Chest pain ICD Code: R07.9 - Chest pain, unspecified Status: Acute (4) Leukocytosis ICD Code: D72.829 - Elevated white blood cell count, unspecified Assessment and Plan 82 y/o male presented with productive cough and reporting chest pain to ER physician on 02/01/17: Choledocholithiasis Dilated common bile duct with stone on imaging with elevated liver enzymes - GI specialist following, status post ERCP and Stone extraction. - s/p Zosyn. Chest pain Reported to ED physician. Trop peaked at 0.09. S/p cardiology evaluation. - continuous cardiac telemetry to monitor for arrhythmias. - continue cardiac regimen. - echo recommended by cardiology. Will order. Ileus The pt has been constipated and nauseous. CT indicative of ileus. - NGT recommended by GI. Pt refusing. - bowel regimen per GI. Gastrografin enema pending. Possible colonoscopy in next day or 2. Right leg itching Chronic. - Benadryl cream added. Leukocytosis Status post Zosyn. - Continue to monitor. - Check a UA and chest x-ray. Weight loss Colonoscopy recommended by GI. - Follow up with GI. Hypokalemia Likely secondary to ileus. - Replete and monitor. DVT prophylaxis: SCDs/TEDs Problem Qualifiers (1) Chest pain: Qualified Codes: R07.9 - Chest pain, unspecified Sunil Hanks DO Feb 07, 2017 10:09
[2017-02-07] MEDS: DEXT 5%-NACL 0.9% 1000 ML INJ 1,000 ML IV SCH (10:30)
[2017-02-07] MEDS ORDERED: POTASSIUM CHLORIDE 25 MEQ EFFERVESCENT TAB PO ONE (10:30)
--- NOTE | 2017-02-07 10:48 | RADRPT ---
EXAM DATE/TIME: 02/07/2017 10:30 [facility] COMPARISON: CHEST SINGLE AP, February 01, 2017, 17:56. INDICATIONS : Pneumonia. MEDICAL HISTORY : Cardiovascular disease. Hypertension SURGICAL HISTORY : IVC filter placement. Coronary artery stent. ENCOUNTER: Subsequent ACUITY: 1 week PAIN SCORE: 0/10 LOCATION: Bilateral chest FINDINGS: A single view of the chest demonstrates minimal basilar density most characteristic of atelectasis or scarring. No focal dense consolidation. No significant effusion. Mildly elevated right hemidiaphragm . Mild interstitial prominence likely representing pulmonary fibrosis. CONCLUSION: 1. Basilar and dependent atelectasis with underlying pulmonary fibrotic changes. No focal dense conso lidation or effusion. Jason Yu MD on February 07, 2017 at 10:43 Board Certified Radiologist. This report was verified electronically.
[2017-02-07] MEDS: ONDANSETRON HCL 4 MG/2 ML VIAL IV PUSH PRN (11:36)
--- NOTE | 2017-02-07 11:45 | ECHRPT ---
Indication: CHEST PAIN CONCLUSIONS The left ventricular systolic function is severely reduced with an estimated ejection fraction in th e range of 25-30%. Normal left ventricular size. Wall thickness is normal. There is global left ventricular dysfunction. Moderate mitral annular calcification. Moderate mitral valve regurgitation. The aortic valve is not well visualized. Moderate aortic valve regurgitation. There is mild tricuspid valve regurgitation. The estimated pulmonary arterial pressure is 37 mmHg. The pulmonary valve is not well visualized. A possible moderate left sided pleural effusion is noted. with questionable fibrinous mass No pericardial effusion. BP: / HR: Rhythm: Sinus MEASUREMENTS (Male / Female) Normal Values Technical Quality:Fair 2D ECHO LV Diastolic Diameter PLAX 3.6 cm 4.2 - 5.9 / 3.9 - 5.3 cm LV Systolic Diameter PLAX 3.2 cm IVS Diastolic Thickness 0.9 cm 0.6 - 1.0 / 0.6 - 0.9 cm LVPW Diastolic Thickness 1.0 cm 0.6 - 1.0 / 0.6 - 0.9 cm LV Relative Wall Thickness 0.5 LVOT Diameter 1.9 cm LV Ejection Fraction MOD 4C 37.9 % LV Ejection Fraction 4C AL 35.0 % M-MODE Aortic Root Diameter MM 3.4 cm AV Cusp Separation MM 2.0 cm DOPPLER AV Peak Velocity 162.0 cm/s AV Peak Gradient 10.5 mmHg AI Peak Velocity 390.0 cm/s AI Peak Gradient 60.8 mmHg AI Pressure Half Time 812.0 ms LVOT Peak Velocity 103.0 cm/s LVOT Peak Gradient 4.2 mmHg AV Area Cont Eq pk 1.8 cm MV Area PHT 4.9 cm Mitral E Point Velocity 105.0 cm/s Mitral A Point Velocity 80.0 cm/s Mitral E to A Ratio 1.3 LV E' Lateral Velocity 7.3 cm/s Mitral E to LV E' Lateral Ratio 14.4 TR Peak Velocity 262.0 cm/s TR Peak Gradient 27.5 mmHg FINDINGS LEFT VENTRICLE The left ventricular systolic function is severely reduced with an estimated ejection fraction in th e range of 25-30%. Normal left ventricular size. Wall thickness is normal. There is global left ventricular dysfunction. RIGHT VENTRICLE Normal right ventricular size and systolic function. LEFT ATRIUM The left atrial size is normal. RIGHT ATRIUM The right atrial size is normal. ATRIAL SEPTUM Normal atrial septal thickness without atrial level shunting by limited color doppler interrogation. AORTA The aortic root and proximal ascending aorta are normal in size on limited imaging. MITRAL VALVE Moderate mitral annular calcification. Moderate mitral valve regurgitation. AORTIC VALVE The aortic valve is not well visualized. Moderate aortic valve regurgitation. TRICUSPID VALVE There is mild tricuspid valve regurgitation. The estimated pulmonary arterial pressure is 37 mmHg. PULMONARY VALVE The pulmonary valve is not well visualized. VESSELS The inferior vena cava is normal in size. PERICARDIUM A possible moderate left sided pleural effusion is noted. with questionable fibrinous mass No pericardial effusion. Mohit Celestin MD, FACC, FRCP (Electronically Signed) Final Date:07 February 2017 11:43
--- NOTE | 2017-02-07 13:42 | HHI.GIFU ---
GI Follow-up Note Consult Follow-up Subjective: Patient laying in bed comfortably, passing gas, no further nausea, vomiting . Abdominal X-ray noted . Will agree with a Gastrografin enema , possible colonoscopy if needed . Still refusing NGT Objective: PHYSICAL EXAMINATION: Vitals signs stable No fever HEENT: Pupils round and reactive to light; normocephalic; atraumatic; no jaundice. Throat is clear. NECK: Neck is supple, no JVD, no lymphadenopathy. CHEST: Chest is clear to auscultation and percussion. CARDIAC: Regular rate and rhythm with no murmur gallop or rubs. ABDOMEN: Soft, distended, nontender; no hepatosplenomegaly; bowel sounds are present in all four quadrants. EXTREMITIES: No clubbing, cyanosis, or edema. SKIN: Normal; no rash; no jaundice. [employer] ATTORNEY: No focal deficits; alert and oriented times three. Available Data (labs, X- Rays, Procedues) : Laboratory Tests Test 02/06/17 08:00 02/07/17 05:17 White Blood Count 12.9 TH/MM3 16.1 TH/MM3 Red Blood Count 3.43 MIL/MM3 3.57 MIL/MM3 Hemoglobin 11.3 GM/DL 11.5 GM/DL Hematocrit 32.7 % 34.5 % Mean Corpuscular Volume 95.5 FL 96.8 FL Mean Corpuscular Hemoglobin 33.0 PG 32.3 PG Mean Corpuscular Hemoglobin Concent 34.5 % 33.3 % Red Cell Distribution Width 13.8 % 13.8 % Platelet Count 271 TH/MM3 307 TH/MM3 Mean Platelet Volume 7.9 FL 7.9 FL Neutrophils (%) (Auto) 84.1 % Lymphocytes (%) (Auto) 8.0 % Monocytes (%) (Auto) 7.4 % Eosinophils (%) (Auto) 0.1 % Basophils (%) (Auto) 0.4 % Neutrophils # (Auto) 10.9 TH/MM3 Lymphocytes # (Auto) 1.0 TH/MM3 Monocytes # (Auto) 1.0 TH/MM3 Eosinophils # (Auto) 0.0 TH/MM3 Basophils # (Auto) 0.1 TH/MM3 CBC Comment DIFF FINAL Differential Comment Blood Urea Nitrogen 14 MG/DL 21 MG/DL Creatinine 0.90 MG/DL 1.08 MG/DL Random Glucose 115 MG/DL 104 MG/DL Total Protein 5.6 GM/DL Albumin 2.2 GM/DL Calcium Level 8.8 MG/DL 9.1 MG/DL Magnesium Level 2.3 MG/DL 2.7 MG/DL Alkaline Phosphatase 166 U/L Aspartate Amino Transf (AST/SGOT) 43 U/L Alanine Aminotransferase (ALT/SGPT) 58 U/L Total Bilirubin 0.9 MG/DL Sodium Level 141 MEQ/L 141 MEQ/L Potassium Level 3.3 MEQ/L 3.4 MEQ/L Chloride Level 104 MEQ/L 104 MEQ/L Carbon Dioxide Level 27.9 MEQ/L 28.8 MEQ/L Anion Gap 9 MEQ/L 8 MEQ/L Estimat Glomerular Filtration Rate 80 ML/MIN 65 ML/MIN ASSESSMENT/PLAN: ileus , less likely obstruction- CBD stone s/p ERCP with stent chronic constipation-may need colonoscopy Recommendations Gastrografin enema colonoscopy if agrees ngt if refused continue Reglan It was a pleasure seeing Nilay Tyler Thank you for this consult. Entered by: Sophie Smith MD Feb 07, 2017 13:42
[2017-02-07] MEDS: LATANOPROST 0.005% OPHT SOLN 2.5 ML BTL EACH EYE SCH (21:17)
[2017-02-07] MEDS: diphenhydrAMINE HCL 2%/ZINC ACETATE 0.1% CREAM 30 APPLIC/30 GM TUBE TOPICAL PRN (21:26)
[2017-02-08] VITALS (23 sets, daily range): BP systolic 132–154; BP diastolic 70–85; PULSE 61–100; RESP 16–20; TEMP 97.9–98.7; O2SAT 93–94
[2017-02-08] MEDS: DEXT 5%-NACL 0.9% 1000 ML INJ 1,000 ML IV SCH (00:20)
[2017-02-08] MEDS: METOCLOPRAMIDE HCL 10 MG/2 ML VIAL IM SCH ×2 (06:16→14:00)
[2017-02-08 06:58] LABS: HEMATOCRIT 32.8 % (39.0-51.0); MEAN CELL VOLUME 96.8 FL (80.0-100.0); MEAN CORPUSCULAR HEMOGLOBIN 32.8 PG (27.0-34.0); MEAN CORPUSCULAR HGB CONC 33.9 % (32.0-36.0); PLATELET COUNT 303 TH/MM3 (150-450); RED BLOOD COUNT 3.39 MIL/MM3 (4.50-5.90); RED CELL DISTRIBUTION WIDTH 14.4 % (11.6-17.2); REVIEW FLAG FINAL; WHITE BLOOD COUNT 13.1 TH/MM3 (4.0-11.0)
[2017-02-08] MEDS: SODIUM CHLORIDE 0.9% FLUSH 10 ML FLUSH IV FLUSH SCH ×2 (07:05→21:38)
[2017-02-08 07:08] LABS: BICARBONATE 29.8 MEQ/L (21.0-32.0); MAGNESIUM 2.6 MG/DL (1.5-2.5); POTASSIUM 3.3 MEQ/L (3.5-5.1)
[2017-02-08] MEDS: ONDANSETRON HCL 4 MG/2 ML VIAL IV PUSH PRN (10:24)
[2017-02-08] MEDS ORDERED: POTASSIUM CHLORIDE 25 MEQ EFFERVESCENT TAB PO ONE (10:30)
--- NOTE | 2017-02-08 10:51 | HHI.PR ---
Subjective Remarks The pt says he has worsening abdominal pain. He said he is passing a small amount of gas. He said he was gagging earlier. Will now consider NGT placement after Barium enema. Discussed with nursing. Objective Vitals Vital Signs Date Time Temp Pulse Resp B/P (MAP) Pulse Ox O2 Delivery O2 Flow Rate FiO2 02/08/17 08:00 97.9 66 16 154/77 (102) 94 02/08/17 08:00 69 02/08/17 07:00 72 02/08/17 06:07 65 02/08/17 05:15 68 02/08/17 04:07 67 02/08/17 03:25 98.1 68 16 132/78 (96) 93 02/08/17 03:25 67 02/08/17 02:44 61 02/08/17 01:17 69 02/08/17 00:03 67 02/07/17 23:49 66 02/07/17 23:49 98.2 63 17 150/69 (96) 94 02/07/17 22:13 60 02/07/17 21:55 71 02/07/17 20:00 72 02/07/17 19:30 65 02/07/17 19:30 98.2 64 18 134/72 (92) 94 02/07/17 18:00 62 02/07/17 17:00 60 02/07/17 16:00 66 02/07/17 16:00 98.1 66 18 143/72 (95) 97 02/07/17 15:00 62 02/07/17 14:00 66 02/07/17 13:00 64 02/07/17 12:00 66 02/07/17 11:45 97.4 70 18 157/84 (108) 94 02/07/17 11:00 65 I/O 02/07/17 02/07/17 02/07/17 02/08/17 02/08/17 02/08/17 07:00 15:00 23:00 07:00 15:00 23:00 Intake Total 190 ml 740 ml 829 ml 1000 ml Balance 190 ml 740 ml 829 ml 1000 ml Intake Oral 240 ml IV Total 190 ml 500 ml 829 ml 1000 ml # Voids 1 2 2 Result Diagram: 02/08/1762402/08/17624 Imaging Last Impressions Abdomen X-Ray 02/07/17 0600 Signed Impressions: Service Date/Time: Tuesday, February 07, 2017 03:16 - CONCLUSION: 1. Stable gaseous distention of small and large bowel compared with February 06. Jason Yu MD Chest X-Ray 02/07/17 0000 Signed Impressions: Service Date/Time: Tuesday, February 07, 2017 10:30 - CONCLUSION: 1. Basilar and dependent atelectasis with underlying pulmonary fibrotic changes. No focal dense consolidation or effusion. Jason Yu MD GI Procedure 02/03/17 0000 Signed Impressions: Service Date/Time: January 12:40 - CONCLUSION: ERCP as above. Alice Zeng MD Gall Bladder Ultrasound 02/01/17 1940 Signed Impressions: Service Date/Time: Wednesday, February 01, 2017 20:02 - CONCLUSION: 1. Dilated common bile duct. Distal common duct not well visualized. No stones identified within the gallbladder. Jason Yu MD Aorta CTA 02/01/17 9804 Signed Impressions: Service Date/Time: Wednesday, February 01, 2017 19:31 - CONCLUSION: 1. Negative for aortic dissection or aneurysm. 2. Gallstone in distal common duct measured up to 14 mm in diameter with biliary ductal dilatation up to about 2 cm. Jason Yu MD Objective Remarks GENERAL: This is a pale elderly male patient, in no apparent distress. SKIN: No rashes, ecchymoses or lesions. Cool and dry. HEAD: Atraumatic. Normocephalic. EYES: Pupils equal round and reactive. No injection or drainage. ENT: Nose without bleeding, purulent drainage or septal hematoma. NECK: Trachea midline. No JVD. CARDIOVASCULAR: Regular rate and rhythm with grade 2 systolic murmur appreciated. RESPIRATORY: Clear to auscultation. Breath sounds equal bilaterally. No wheezes , rales, or rhonchi. GASTROINTESTINAL: Abdomen soft, tender, distended. No guarding. No bowel sounds appreciated. MUSCULOSKELETAL: Extremities without clubbing, cyanosis, or edema. No calf tenderness. NEUROLOGICAL: Awake and alert. Motor and sensory grossly within normal limits. Normal speech. PSYCH: Calm. Medications and IVs Current Medications Medications (Trade) Dose Ordered Sig/Radha Route Start Time Stop Time Status Last Admin (NS Flush) 2 ml UNSCH PRN IV FLUSH 02/01/17 21:00 (NS Flush) 2 ml BID IV FLUSH 02/01/17 21:00 02/07/17 08:21 (Narcan Inj) 0.4 mg UNSCH PRN IV 02/01/17 21:00 (Morphine Inj) 2 mg Q6H PRN IV PUSH 02/01/17 23:15 (Lopressor) 25 mg DAILY PO 02/02/17 09:00 Future Hold (Prinivil) 2.5 mg DAILY PO 02/02/17 09:00 Future Hold (Pill Splitter) 1 ea UNSCH PRN OTHER 02/02/17 09:00 (Xalatan 0.005% Opth Soln) 1 drop HS EACH EYE 02/02/17 21:00 02/07/17 21:17 (Zofran Inj) 4 mg Q6HR PRN IV PUSH 02/05/17 22:45 02/08/17 10:24 (Reglan Inj) 5 mg Q8HR IM 02/06/17 14:00 02/08/17 06:16 (Benadryl 2% Cream) 1 applic TID PRN TOPICAL 02/06/17 10:45 02/07/17 21:26 A/P Problem List: (1) Common bile duct dilation ICD Code: K83.8 - Other specified diseases of biliary tract (2) Elevated liver function tests ICD Code: R79.89 - Other specified abnormal findings of blood chemistry Status: Acute (3) Chest pain ICD Code: R07.9 - Chest pain, unspecified Status: Acute (4) Leukocytosis ICD Code: D72.829 - Elevated white blood cell count, unspecified Assessment and Plan 82 y/o male presented with productive cough and reporting chest pain to ER physician on 02/01/17: Choledocholithiasis Dilated common bile duct with stone on imaging with elevated liver enzymes - GI specialist following, status post ERCP and Stone extraction. - s/p Zosyn. Chest pain/ CHF Reported to ED physician. Trop peaked at 0.09. S/p cardiology evaluation. Echo with severely reduced EF. - continuous cardiac telemetry to monitor for arrhythmias. - continue cardiac regimen. - reconsulting cardiology as echo shows severely reduced EF. Ileus The pt has been constipated and nauseous. CT indicative of ileus. KUB with stability. Pt with increasing pain. - NGT recommended by GI. Pt refusing. May be agreeable 02/08. - bowel regimen per GI. Gastrografin enema scheduled for 02/08. Possible colonoscopy in next day or 2. Right leg itching Chronic. - Benadryl cream added. Leukocytosis Status post Zosyn. UA negative. CXR unremarkable. - Continue to monitor. Weight loss Colonoscopy recommended by GI. - Follow up with GI. Hypokalemia Likely secondary to ileus. - Replete and monitor. DVT prophylaxis: SCDs/TEDs Problem Qualifiers (1) Chest pain: Qualified Codes: R07.9 - Chest pain, unspecified Sunil Hanks DO Feb 08, 2017 10:51
[2017-02-08] MEDS ORDERED: DIATRIZOATE MEGLUM/DIATRIZOATE SOD 120 ML BTL (for RAD DIAG) RECTAL ONE (11:15)
--- NOTE | 2017-02-08 12:24 | RADRPT ---
EXAM DATE/TIME: 02/08/2017 10:58 [facility] COMPARISON: No previous studies available for comparison. INDICATIONS : Constipation. Abdominal pain.. FLUORO TIME: 3.0 minutes IMAGE COUNT: 19 CONTRAST: 1. [facility] MEDICAL HISTORY : Cardiovascular disease. Hypertension. SURGICAL HISTORY : None. coronary artery stent, IVC filter ENCOUNTER: Initial ACUITY: 1 week PAIN SCORE: Non-responsive. LOCATION: Bilateral abdomen FINDINGS: The preliminary medical safety director film demonstrates several loops of nondilated air-containing small bowel in the midabdomen. There is a prominent loop of bowel upper abdomen measuring up to 11 cm. Under fluoroscopic guidance a Gastrografin enema was performed with free flow of contrast to the leve l of the occipital to mid transverse colon. There is a 5 cm obstructing mass like area which was pers istent despite repeated maneuvering of the patient an additional installation of Gastrografin. Residu al stool is noted in the left side of the colon. Multiple diverticula are present in the sigmoid colo n. CONCLUSION: Focal obstruction at the level of the proximal transverse colon with ill-defined masslike structure measuring up to at least 5 cm. This is of concern for colon cancer. Sunil Reich MD on February 08, 2017 at 12:19 Board Certified Radiologist. This report was verified electronically.
[2017-02-08] MEDS: D5-1/2 NS + KCL 30 MEQ INJ 1,000 ML IV SCH (16:00)
[2017-02-08] MEDS ORDERED: metroNIDAZOLE 500 MG INJ 100 ML IV ONE (16:00)
--- NOTE | 2017-02-08 16:19 | HHI.GIFU ---
Subjective Remarks Up in chair. Still with abdominal discomfort, distention. Multiple bowel movements after gastrografin enema (Aggie Crowe) Objective Vitals I&O Vital Signs Date Time Temp Pulse Resp B/P (MAP) Pulse Ox O2 Delivery O2 Flow Rate FiO2 02/08/17 16:00 85 02/08/17 15:00 100 02/08/17 14:00 88 02/08/17 13:00 82 02/08/17 12:00 98.2 93 18 146/85 (105) 94 02/08/17 12:00 71 02/08/17 11:00 64 02/08/17 10:00 68 02/08/17 09:00 62 02/08/17 08:00 97.9 66 16 154/77 (102) 94 02/08/17 08:00 69 02/08/17 07:00 72 02/08/17 07:00 66 02/08/17 06:07 65 02/08/17 05:15 68 02/08/17 04:07 67 02/08/17 03:25 98.1 68 16 132/78 (96) 93 02/08/17 03:25 67 02/08/17 02:44 61 02/08/17 01:17 69 02/08/17 00:03 67 02/07/17 23:49 66 02/07/17 23:49 98.2 63 17 150/69 (96) 94 02/07/17 22:13 60 02/07/17 21:55 71 02/07/17 20:00 72 02/07/17 19:30 65 02/07/17 19:30 98.2 64 18 134/72 (92) 94 02/07/17 18:00 62 02/07/17 17:00 60 I/O 02/07/17 02/07/17 02/07/17 02/08/17 02/08/17 02/08/17 07:00 15:00 23:00 07:00 15:00 23:00 Intake Total 190 ml 740 ml 829 ml 1000 ml Balance 190 ml 740 ml 829 ml 1000 ml Intake Oral 240 ml IV Total 190 ml 500 ml 829 ml 1000 ml # Voids 1 2 2 Laboratory Laboratory Tests Test 02/08/17 06:25 White Blood Count 13.1 Red Blood Count 3.39 Hemoglobin 11.1 Hematocrit 32.8 Mean Corpuscular Volume 96.8 Mean Corpuscular Hemoglobin 32.8 Mean Corpuscular Hemoglobin Concent 33.9 Red Cell Distribution Width 14.4 Platelet Count 303 Mean Platelet Volume 7.8 Blood Urea Nitrogen 21 Creatinine 0.92 Random Glucose 114 Calcium Level 8.6 Magnesium Level 2.6 Sodium Level 146 Potassium Level 3.3 Chloride Level 110 Carbon Dioxide Level 29.8 Anion Gap 6 Estimat Glomerular Filtration Rate 78 Date/Time Source Procedure Growth Status 02/01/17 20:10 Blood Peripheral Aerobic Blood Culture - Final NO GROWTH IN 5 DAYS Complete 02/01/17 20:10 Blood Peripheral Anaerobic Blood Culture - Final NO GROWTH IN 5 DAYS Complete Imaging Last Impressions Enema w/Water Soluble 02/08/17 0000 Signed Impressions: Service Date/Time: Wednesday, February 08, 2017 10:58 - CONCLUSION: Focal obstruction at the level of the proximal transverse colon with ill-defined masslike structure measuring up to at least 5 cm. This is of concern for colon cancer. Sunil Reich MD Abdomen X-Ray 02/07/17 0600 Signed Impressions: Service Date/Time: Tuesday, February 07, 2017 03:16 - CONCLUSION: 1. Stable gaseous distention of small and large bowel compared with February 06. Jason Yu MD Chest X-Ray 02/07/17 0000 Signed Impressions: Service Date/Time: Tuesday, February 07, 2017 10:30 - CONCLUSION: 1. Basilar and dependent atelectasis with underlying pulmonary fibrotic changes. No focal dense consolidation or effusion. Jason Yu MD GI Procedure 02/03/17 0000 Signed Impressions: Service Date/Time: January 12:40 - CONCLUSION: ERCP as above. Alice Zeng MD Gall Bladder Ultrasound 02/01/17 1940 Signed Impressions: Service Date/Time: Wednesday, February 01, 2017 20:02 - CONCLUSION: 1. Dilated common bile duct. Distal common duct not well visualized. No stones identified within the gallbladder. Jason Yu MD Aorta CTA 02/01/17 7992 Signed Impressions: Service Date/Time: Wednesday, February 01, 2017 19:31 - CONCLUSION: 1. Negative for aortic dissection or aneurysm. 2. Gallstone in distal common duct measured up to 14 mm in diameter with biliary ductal dilatation up to about 2 cm. Jason Yu MD Physical Exam HEENT: Normocephalic; atraumatic; no jaundice. CHEST: CTA CARDIAC: RRR ABDOMEN: Soft, distended, diffuse tenderness; no hepatosplenomegaly; bowel sounds are present in all four quadrants. EXTREMITIES: No clubbing, cyanosis, or edema. SKIN: Normal; no rash; no jaundice. COMPUTER NETWORK SPECIALIST: No focal deficits; alert and oriented to self and place (Aggie Crowe) Assessment and Plan Plan ASSESSMENT: - Constipation, Ileus. KUB (02/06/17)----> dilatation of the small bowel and colon in a pattern favoring ileus. Although the transition point is at the splenic flexure, no mass or obstructing process was visualized in this area on CT from 5 days ago again favoring ileus as etiology. Since the small bowel distention has increased, suggest continued attention to this on follow-up imaging. S/P enema (small amount of partially formed stool and liquid). N/V with 300cc bilious material. Refusing NGT. KUB (02/07/17)--> Stable gaseous distention of small and large bowel compared with February 06. Gastrografin enema (02/08/17)---> focal obstruction at the level of the proximal transverse colon with ill-defined masslike structure measuring up to at least 5 cm. This is concern of colon cancer. CRS consulted. - Choledocholithiasis with elevated LFTs and dilated CBD on US. GB US (02/01/17)- ---> Dilated common bile duct. Distal common duct not well visualized. No stones identified within the gallbladder. Of note, Aorta CTA (02/01/17)---- -> negative for aortic dissection. Gallstone in distal common duct measured up to 14 mm in diameter with biliary ductal dilatation up to 2cm. S /P ERCP with sphincterotomy and stone removal (02/03/17)-----> EGD limited exam normal, common bile duct stone, s/p extraction with balloon sweep, the common bile duct negative for stone at the end of the procedure stone was removed. pancreatic duct was not seen. LFTs improved. - Leukocytosis. WBC 13.1, Ancef, Flagyl - Anemia. 11.32.8. - Abnormal weight loss. Abn. gastrografin enema concerning for obstructive colon cancer. CRS consulted. - CAD, HTN per attending. Plan: - NPO - Cont. Abx - Monitor labs - CRS consulted - Further recommendations to follow based on results of above - Pt seen and examined by Dr. Mars and myself and this note is written on her behalf (Aggie Crowe) Physician Comments seen, examined agree with above (Sophie Mars MD) Aggie Crowe Feb 08, 2017 16:19 Sophie Mars MD Feb 08, 2017 18:53
[2017-02-08] MEDS: LATANOPROST 0.005% OPHT SOLN 2.5 ML BTL EACH EYE SCH (21:38)
--- NOTE | 2017-02-08 23:05 | PD.CONS ---
HPI Service Consult dictated more than 12 hours ago, still not transcribed. Echo reviewed, agree with EF 25-30% though segmental wall motion abnormality noted. Recommend outpatient f/u with Dr. Yu, consider nuclear stress test then. Consult Requested By Primary Care Physician Jethro Mckoy MD Past Family Social History Allergies: Coded Allergies: No Known Allergies (Unverified , 02/01/17) Reported Medications Reported Meds & Active Scripts Active Reported Lovastatin 40 Mg Tab 40 Mg PO HS Metoprolol Tartrate 25 Mg Tab 25 Mg PO DAILY Pantoprazole (Pantoprazole Sodium) 40 Mg Tab 40 Mg PO DAILY Lisinopril 2.5 Mg Tab 2.5 Mg PO DAILY Active Ordered Medications Current Medications Medications (Trade) Dose Ordered Sig/Radha Route Start Time Stop Time Status Last Admin (NS Flush) 2 ml UNSCH PRN IV FLUSH 02/01/17 21:00 (NS Flush) 2 ml BID IV FLUSH 02/01/17 21:00 02/08/17 21:38 (Narcan Inj) 0.4 mg UNSCH PRN IV 02/01/17 21:00 (Morphine Inj) 2 mg Q6H PRN IV PUSH 02/01/17 23:15 (Lopressor) 25 mg DAILY PO 02/02/17 09:00 Future Hold (Prinivil) 2.5 mg DAILY PO 02/02/17 09:00 Future Hold (Pill Splitter) 1 ea UNSCH PRN OTHER 02/02/17 09:00 (Xalatan 0.005% Opth Soln) 1 drop HS EACH EYE 02/02/17 21:00 02/08/17 21:38 (Zofran Inj) 4 mg Q6HR PRN IV PUSH 02/05/17 22:45 02/08/17 10:24 (Benadryl 2% Cream) 1 applic TID PRN TOPICAL 02/06/17 10:45 02/07/17 21:26 Potassium Chloride/Dextrose/ Sod Cl 1,000 ml @ 75 mls/hr [id number] IV 02/08/17 16:00 02/08/17 16:00 Cefazolin Sodium 1000 mg/Sodium Chloride 100 ml @ 200 mls/hr REVIEW APPRAISER IV 02/08/17 16:00 02/11/17 15:59 Physical Exam Vital Signs Vital Signs Date Time Temp Pulse Resp B/P (MAP) Pulse Ox O2 Delivery O2 Flow Rate FiO2 02/08/17 22:00 85 02/08/17 21:00 80 02/08/17 20:00 74 02/08/17 20:00 98.2 74 20 137/70 (92) 93 02/08/17 18:00 78 02/08/17 17:00 90 02/08/17 16:00 98.7 90 18 140/74 (96) 94 02/08/17 16:00 85 02/08/17 15:00 100 02/08/17 14:00 88 02/08/17 13:00 82 02/08/17 12:00 98.2 93 18 146/85 (105) 94 02/08/17 12:00 71 02/08/17 11:00 64 02/08/17 10:00 68 02/08/17 09:00 62 02/08/17 08:00 97.9 66 16 154/77 (102) 94 02/08/17 08:00 69 02/08/17 07:00 72 02/08/17 07:00 66 02/08/17 06:07 65 02/08/17 05:15 68 02/08/17 04:07 67 02/08/17 03:25 98.1 68 16 132/78 (96) 93 02/08/17 03:25 67 02/08/17 02:44 61 02/08/17 01:17 69 02/08/17 00:03 67 02/07/17 23:49 66 02/07/17 23:49 98.2 63 17 150/69 (96) 94 Laboratory Laboratory Tests Test 02/08/17 06:25 02/08/17 17:13 White Blood Count 13.1 Red Blood Count 3.39 Hemoglobin 11.1 Hematocrit 32.8 Mean Corpuscular Volume 96.8 Mean Corpuscular Hemoglobin 32.8 Mean Corpuscular Hemoglobin Concent 33.9 Red Cell Distribution Width 14.4 Platelet Count 303 Mean Platelet Volume 7.8 Blood Urea Nitrogen 21 Creatinine 0.92 Random Glucose 114 Calcium Level 8.6 Magnesium Level 2.6 Sodium Level 146 Potassium Level 3.3 Chloride Level 110 Carbon Dioxide Level 29.8 Anion Gap 6 Estimat Glomerular Filtration Rate 78 Tumor Marker Alpha Fetoprotein 1.1 Carcinoembryonic Antigen 1.7 CA 19-9 Antigen 6.0 Date/Time Source Procedure Growth Status 02/01/17 20:10 Blood Peripheral Aerobic Blood Culture - Final NO GROWTH IN 5 DAYS Complete 02/01/17 20:10 Blood Peripheral Anaerobic Blood Culture - Final NO GROWTH IN 5 DAYS Complete Result Diagram: 02/08/17 0625 02/08/17 0625 Sam Jaime MD Feb 08, 2017 23:05
[2017-02-09] VITALS (16 sets, daily range): BP systolic 97–145; BP diastolic 50–89; PULSE 66–84; RESP 18; TEMP 97.8–99; O2SAT 93–100
[2017-02-09] MEDS: D5-1/2 NS + KCL 30 MEQ INJ 1,000 ML IV SCH (05:20)
[2017-02-09 05:33] LABS: BLOOD, URINE SMALL (NEG); GLUCOSE,URINE NEG (NEG); KETONE, URINE NEG (NEG); MUCUS URINE MANY /lpf (OCC); NITRITE,URINE NEG (NEG); SQUAMOUS EPITHELIAL CELL URINE 1 /hpf (0-5); URINE COLOR DARK-YELLOW (YELLW/STRAW)
[2017-02-09 05:35] LABS: COMMENT (UR) CULT NOT INDICATED; CULTURE IF INDICATED CULT NOT INDICATED
[2017-02-09 07:13] LABS: MEAN CELL VOLUME 97.2 FL (80.0-100.0); MEAN CORPUSCULAR HEMOGLOBIN 32.6 PG (27.0-34.0); MEAN CORPUSCULAR HGB CONC 33.5 % (32.0-36.0); PLATELET COUNT 279 TH/MM3 (150-450); RED BLOOD COUNT 3.29 MIL/MM3 (4.50-5.90); REVIEW FLAG FINAL; WHITE BLOOD COUNT 20.5 TH/MM3 (4.0-11.0)
[2017-02-09] MEDS: SODIUM CHLORIDE 0.9% FLUSH 10 ML FLUSH IV FLUSH SCH ×2 (07:35→19:49)
[2017-02-09 07:42] LABS: BICARBONATE 27.7 MEQ/L (21.0-32.0); MAGNESIUM 2.4 MG/DL (1.5-2.5); POTASSIUM 3.4 MEQ/L (3.5-5.1)
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
[2017-02-09] MEDS ORDERED: BENZONATATE 100 MG CAP PO PRN (09:00)
[2017-02-09] MEDS ORDERED: POTASSIUM CHLORIDE 25 MEQ EFFERVESCENT TAB PO ONE (11:15)
[2017-02-09] MEDS ORDERED: DEXTROSE 5% IN WATE 1000ML INJ 1,000 ML IV SCH (11:15)
--- NOTE | 2017-02-09 11:23 | HHI.PR ---
Subjective Remarks The patient was complaining of some pain in his lower back. He wanted to know the results of his study yesterday and wanted to know if he was going downstairs for further evaluation. He said his abdominal pain and nausea were improved. Discussed with nursing. Objective Vitals Vital Signs Date Time Temp Pulse Resp B/P (MAP) Pulse Ox O2 Delivery O2 Flow Rate FiO2 02/09/17 08:00 77 02/09/17 08:00 99.0 84 18 135/69 (91) 93 02/09/17 06:00 72 02/09/17 05:00 73 02/09/17 04:00 79 02/09/17 04:00 98.0 79 18 137/70 (92) 96 02/09/17 03:00 76 02/09/17 02:00 81 02/09/17 01:00 72 02/09/17 00:00 98.1 70 18 145/63 (90) 96 02/09/17 00:00 70 02/08/17 23:00 76 02/08/17 22:00 85 02/08/17 21:00 80 02/08/17 20:00 74 02/08/17 20:00 98.2 74 20 137/70 (92) 93 02/08/17 18:00 78 02/08/17 17:00 90 02/08/17 16:00 98.7 90 18 140/74 (96) 94 02/08/17 16:00 85 02/08/17 15:00 100 02/08/17 14:00 88 02/08/17 13:00 82 02/08/17 12:00 98.2 93 18 146/85 (105) 94 02/08/17 12:00 71 I/O 02/08/17 02/08/17 02/08/17 02/09/17 02/09/17 02/09/17 07:00 15:00 23:00 07:00 15:00 23:00 Intake Total 829 ml 1000 ml 590 ml 750 ml Output Total 500 ml Balance 829 ml 1000 ml 590 ml 250 ml Intake Oral 240 ml 0 ml IV Total 829 ml 1000 ml 350 ml 750 ml Output Urine Total 500 ml # Voids 2 3 # Bowel Movements 4 2 Result Diagram: 02/09/17 0635 02/09/17 0635 Imaging Last Impressions Enema w/Water Soluble 02/08/17 0000 Signed Impressions: Service Date/Time: Wednesday, February 08, 2017 10:58 - CONCLUSION: Focal obstruction at the level of the proximal transverse colon with ill-defined masslike structure measuring up to at least 5 cm. This is of concern for colon cancer. Sunil Reich MD Abdomen X-Ray 02/07/17 0600 Signed Impressions: Service Date/Time: Tuesday, February 07, 2017 03:16 - CONCLUSION: 1. Stable gaseous distention of small and large bowel compared with February 06. Jason Yu MD Chest X-Ray 02/07/17 0000 Signed Impressions: Service Date/Time: Tuesday, February 07, 2017 10:30 - CONCLUSION: 1. Basilar and dependent atelectasis with underlying pulmonary fibrotic changes. No focal dense consolidation or effusion. Jason Yu MD GI Procedure 02/03/17 0000 Signed Impressions: Service Date/Time: January 12:40 - CONCLUSION: ERCP as above. Alice Zeng MD Gall Bladder Ultrasound 02/01/17 1940 Signed Impressions: Service Date/Time: Wednesday, February 01, 2017 20:02 - CONCLUSION: 1. Dilated common bile duct. Distal common duct not well visualized. No stones identified within the gallbladder. Jason Yu MD Aorta CTA 02/01/17 3704 Signed Impressions: Service Date/Time: Wednesday, February 01, 2017 19:31 - CONCLUSION: 1. Negative for aortic dissection or aneurysm. 2. Gallstone in distal common duct measured up to 14 mm in diameter with biliary ductal dilatation up to about 2 cm. Jason Yu MD Objective Remarks GENERAL: This is a pale elderly male patient, in no apparent distress. SKIN: No rashes, ecchymoses or lesions. Cool and dry. HEAD: Atraumatic. Normocephalic. EYES: Pupils equal round and reactive. No injection or drainage. ENT: Nose without bleeding, purulent drainage or septal hematoma. NECK: Trachea midline. No JVD. CARDIOVASCULAR: Regular rate and rhythm with grade 2 systolic murmur appreciated. RESPIRATORY: Clear to auscultation. Breath sounds equal bilaterally. No wheezes , rales, or rhonchi. GASTROINTESTINAL: Abdomen soft, tender, distended. No guarding. No bowel sounds appreciated. MUSCULOSKELETAL: Extremities without clubbing, cyanosis, or edema. No back tenderness to palpation. NEUROLOGICAL: Awake and alert. Motor and sensory grossly within normal limits. Normal speech. PSYCH: Calm. Medications and IVs Current Medications Medications (Trade) Dose Ordered Sig/Radha Route Start Time Stop Time Status Last Admin (NS Flush) 2 ml UNSCH PRN IV FLUSH 02/01/17 21:00 (NS Flush) 2 ml BID IV FLUSH 02/01/17 21:00 02/08/17 21:38 (Narcan Inj) 0.4 mg UNSCH PRN IV 02/01/17 21:00 (Lopressor) 25 mg DAILY PO 02/02/17 09:00 Future Hold (Prinivil) 2.5 mg DAILY PO 02/02/17 09:00 Future Hold (Pill Splitter) 1 ea UNSCH PRN OTHER 02/02/17 09:00 (Xalatan 0.005% Opth Soln) 1 drop HS EACH EYE 02/02/17 21:00 02/08/17 21:38 (Zofran Inj) 4 mg Q6HR PRN IV PUSH 02/05/17 22:45 02/08/17 10:24 (Benadryl 2% Cream) 1 applic TID PRN TOPICAL 02/06/17 10:45 02/07/17 21:26 Cefazolin Sodium 1000 mg/Sodium Chloride 100 ml @ 200 mls/hr CUSTOMER OPERATIONS MANAGER IV 02/08/17 16:00 02/11/17 15:59 (Tessalon) 100 mg TID PRN PO 02/09/17 09:00 (Ultram) 50 mg Q6H PRN PO 02/09/17 10:45 Dextrose 1,000 ml @ 75 mls/hr [id number] IV 02/09/17 11:15 UNV (K-Lyte Cl Eff) 25 meq ONCE ONCE PO 02/09/17 11:15 02/09/17 11:16 UNV A/P Problem List: (1) Common bile duct dilation ICD Code: K83.8 - Other specified diseases of biliary tract (2) Elevated liver function tests ICD Code: R79.89 - Other specified abnormal findings of blood chemistry Status: Acute (3) Chest pain ICD Code: R07.9 - Chest pain, unspecified Status: Acute (4) Leukocytosis ICD Code: D72.829 - Elevated white blood cell count, unspecified Assessment and Plan 82 y/o male presented with productive cough and reporting chest pain to ER physician on 02/01/17: Choledocholithiasis Dilated common bile duct with stone on imaging with elevated liver enzyme. GI specialist following, status post ERCP and Stone extraction. S/p Zosyn. - resume Zosyn as pt with worsening leukocytosis. Ileus/ Colon mass The pt has been constipated and nauseous. CT indicative of ileus. KUB with stability. Pt with increasing pain. NGT recommended by GI. Pt refusing. Barium study showed: Focal obstruction at the level of the proximal transverse colon with ill-defined, masslike structure measuring up to at least 5 cm; This is of concern for colon cancer. Colorectal surgery was consulted. - further management per CRS. - follow up with GI. Chest pain/ CHF Reported to ED physician. Trop peaked at 0.09. S/p cardiology evaluation. Echo with severely reduced EF. Appreciate cardiology follow-up. - continuous cardiac telemetry to monitor for arrhythmias. - continue cardiac regimen. - outpt follow-up with cardiology. Right leg itching Chronic. - Benadryl cream added. Seems resolved. Weight loss Colonoscopy recommended by GI. - Follow up with GI. Hypokalemia Likely secondary to ileus. - Replete and monitor. Hypernatremia The pt has not been eating much lately. - change fluids to D5W and monitor. DVT prophylaxis: SCDs/TEDs Discharge Planning And colorectal surgery evaluation Problem Qualifiers (1) Chest pain: Qualified Codes: R07.9 - Chest pain, unspecified Sunil Hanks DO Feb 09, 2017 11:23
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
[2017-02-09] MEDS ORDERED: ROCURONIUM INJ 50 MG/5 ML SYRINGE IV PUSH ONE (12:12)
[2017-02-09] MEDS ORDERED: SUCCINYLCHOLINE CHLORIDE 100 MG/5 ML SYRINGE IV PUSH ONE (12:12)
[2017-02-09] MEDS ORDERED: NEOSTIGMINE 3 MG/3 ML SYR IV ONE (12:12)
[2017-02-09] MEDS ORDERED: GLYCOPYRROLATE 1 MG/5 ML SYRINGE IV PUSH ONE (12:12)
[2017-02-09] MEDS ORDERED: ONDANSETRON HCL 4 MG/2 ML VIAL IV PUSH ONE (12:12)
[2017-02-09] MEDS ORDERED: PROPOFOL 200 MG/20 ML AMP IV ONE (12:12)
[2017-02-09] MEDS ORDERED: MIDAZOLAM HCL 2 MG/2 ML VIAL IV ONE (12:12)
[2017-02-09] MEDS ORDERED: hydrALAZINE HCL 20 MG/ML VIAL IV ONE (12:12)
[2017-02-09] MEDS ORDERED: NORMOSOL R INJ 1,000 ML IV ONE (12:12)
[2017-02-09] MEDS ORDERED: DEXAMETHASONE SOD PHOS 4 MG/ML VIAL IV ONE (12:12)
[2017-02-09] MEDS ORDERED: ACETAMINOPHEN 1000 MG/100 ML 100 ML IV ONE (12:58)
[2017-02-09] MEDS ORDERED: FAMOTIDINE 20 MG/2 ML VIAL ONE (13:13)
[2017-02-09] MEDS ORDERED: KETAMINE HCL 500 MG/5 ML VIAL ONE (13:18)
[2017-02-09] MEDS ORDERED: metroNIDAZOLE 500 MG INJ 100 ML IV ONE (13:57)
[2017-02-09] MEDS: PIPERACIL-TAZO 4.5 GM PREMIX 100 ML IV SCH ×2 (14:00→19:48)
[2017-02-09] MEDS ORDERED: HYDROmorphone HCL PF 2 MG/ML VIAL ONE (14:11)
[2017-02-09] MEDS ORDERED: SUGAMMADEX SODIUM 200 MG/2 ML VIAL IV PUSH ONE ×2 (15:29)
[2017-02-09] MEDS ORDERED: POTASSIUM CHLOR 40 MEQ PREMIX 100 ML IV PRN (16:15)
[2017-02-09] MEDS ORDERED: ACETAMINOPHEN 325 MG TAB PO PRN (16:15)
[2017-02-09] MEDS ORDERED: ACETAMINOPHEN/HYDROcodone 325 MG/5 MG TAB PO PRN ×2 (16:15)
[2017-02-09] MEDS ORDERED: NALOXONE HCL 0.4 MG/ML AMP IV PRN (16:15)
[2017-02-09] MEDS ORDERED: MORPHINE SULFATE 30 MG/30 ML PCA IV SCH (16:15)
[2017-02-09] MEDS ORDERED: ENALAPRILAT 1.25 MG/ML VIAL IV PRN (16:15)
[2017-02-09] MEDS ORDERED: SODIUM CHLORIDE 0.9% FLUSH 5 ML FLUSH IVF PRN (16:15)
[2017-02-09] MEDS ORDERED: Post-op Orders (for Pharmacy) MISC XX ONE (16:15)
[2017-02-09] MEDS ORDERED: ONDANSETRON HCL 4 MG/2 ML VIAL IV PRN (16:15)
[2017-02-09] MEDS ORDERED: ENALAPRILAT 2.5 MG/2 ML VIAL IV PRN (16:15)
[2017-02-09] MEDS ORDERED: KETOROLAC TROMETHAMINE 30 MG/ML (IVP) VIAL IVP PRN (16:15)
--- NOTE | 2017-02-09 16:15 | HHI.PR ---
Immediate Post Op Note Procedure Date: Feb 09, 2017 Pre Op Diagnosis: Colon cancer, obstructing, splenic flexure Post Op Diagnosis: same Surgeon: Gustavo Farfan Flipping Machine Operator(s): Mati Procedure: Expl lap + asc/transv colecteomy Findings: obstructing ca splenic flexure, liver nl, GB nl vessels hard Complications: none Specimen(s) removed: asc/transvers colon Estimated blood loss: 100cc Anesthesia: General Drains: None IVF Patient to: PACU Patient Condition: Good Gustavo Farfan MD Feb 09, 2017 16:15
[2017-02-09] MEDS ORDERED: DO NOT ADM ANY ANTICOAGULANT DRUGS PRN (16:42)
[2017-02-09] MEDS: D5-NS + KCL 20 MEQ INJ 1,000 ML IV SCH ×2 (17:00→22:40)
[2017-02-09] MEDS: POTASSIUM CHLOR 20 MEQ PREMIX 100 ML IV PRN (19:47)
[2017-02-09] MEDS: LATANOPROST 0.005% OPHT SOLN 2.5 ML BTL EACH EYE SCH (19:48)
[2017-02-09] MEDS: METOCLOPRAMIDE HCL 10 MG/2 ML VIAL IVS SCH (19:48)
[2017-02-09] MEDS: SODIUM CHLORIDE 0.9% FLUSH 5 ML FLUSH IVF SCH (19:49)
[2017-02-09] MEDS: PCA - TOTAL MG MORPHINE DELIVERED PER SHIFT SCH (22:00)
[2017-02-09] MEDS: metroNIDAZOLE 500 MG INJ 100 ML IV SCH (22:39)
[2017-02-10] VITALS (20 sets, daily range): BP systolic 105–158; BP diastolic 43–68; PULSE 68–113; RESP 16–20; TEMP 96.8–97.9; O2SAT 95–100
[2017-02-10] MEDS: PIPERACIL-TAZO 4.5 GM PREMIX 100 ML IV SCH ×4 (01:16→20:03)
[2017-02-10] MEDS: D5-NS + KCL 20 MEQ INJ 1,000 ML IV SCH (03:55)
[2017-02-10] MEDS: PCA - TOTAL MG MORPHINE DELIVERED PER SHIFT SCH ×3 (06:00→22:00)
[2017-02-10 07:41] LABS: AUTOMATED NEUTROPHIL # 15.5 TH/MM3 (1.8-7.7); BASOPHIL # 0.1 TH/MM3 (0-0.2); BASOPHIL % 0.4 % (0.0-2.0); EOSINOPHIL % 0.1 % (0.0-4.0); HEMATOCRIT 35.9 % (39.0-51.0); HEMO FLAGS DIFF FINAL; LYMPH % 5.2 % (9.0-44.0); LYMPHOCYTE # 0.9 TH/MM3 (1.0-4.8); MEAN CELL VOLUME 99.1 FL (80.0-100.0); MEAN CORPUSCULAR HEMOGLOBIN 31.2 PG (27.0-34.0); MEAN CORPUSCULAR HGB CONC 31.5 % (32.0-36.0); MONO % 4.6 % (0.0-8.0); NEUT % 89.7 % (16.0-70.0); PLATELET COUNT 292 TH/MM3 (150-450); RED BLOOD COUNT 3.62 MIL/MM3 (4.50-5.90); WHITE BLOOD COUNT 17.3 TH/MM3 (4.0-11.0)
[2017-02-10 08:12] LABS: BICARBONATE 27.3 MEQ/L (21.0-32.0); MAGNESIUM 2.3 MG/DL (1.5-2.5); POTASSIUM 4.1 MEQ/L (3.5-5.1)
[2017-02-10] MEDS: SODIUM CHLORIDE 0.9% FLUSH 5 ML FLUSH IVF SCH ×2 (09:00→21:00)
[2017-02-10] MEDS: PANTOPRAZOLE SOD 40 MG DELAYED RELEASE TAB PO SCH (09:00)
[2017-02-10] MEDS: PANTOPRAZOLE SODIUM 40 MG VIAL IVP SCH (09:01)
[2017-02-10] MEDS: METOCLOPRAMIDE HCL 10 MG/2 ML VIAL IVS SCH ×2 (09:03→20:02)
[2017-02-10] MEDS: SODIUM CHLORIDE 0.9% FLUSH 10 ML FLUSH IV FLUSH SCH ×2 (09:05→21:00)
[2017-02-10] MEDS: metroNIDAZOLE 500 MG INJ 100 ML IV SCH ×2 (09:06→16:37)
[2017-02-10] MEDS ORDERED: DEXT 5%-NACL 0.45% 1000 ML INJ 1,000 ML IV SCH (10:15)
--- NOTE | 2017-02-10 10:55 | HHI.PR ---
Subjective Remarks C/R Surg POD #1 afebrile, VSS UO good Objective - Vital Signs Date Time Temp Pulse Resp B/P (MAP) Pulse Ox O2 Delivery O2 Flow Rate FiO2 02/10/17 10:02 88 02/10/17 04:00 97.9 18 131/66 (87) 100 02/09/17 17:45 Nasal Cannula 2 02/09/17 16:47 35 Result Diagram: 02/10/17 0723 02/10/17 0723 Other Results PE alert Abd - soft, wound dry A/P Assessment and Plan Imp: stable post-op OOB resp tx decr Na, IVF Gustavo Farfan MD Feb 10, 2017 10:55
--- NOTE | 2017-02-10 13:39 | HHI.GIFU ---
Subjective Remarks Up in chair. Lethargic, but arousable and follows commands. Pain controlled with CARDIOVASCULAR OR NURSE. Took some clears earlier today. (Aggie Crowe) Objective Vitals I&O Vital Signs Date Time Temp Pulse Resp B/P (MAP) Pulse Ox O2 Delivery O2 Flow Rate FiO2 02/10/17 12:00 96 02/10/17 11:34 97.3 100 19 116/43 (67) 100 02/10/17 11:34 96 02/10/17 10:02 88 02/10/17 09:00 86 02/10/17 08:00 88 02/10/17 07:00 78 02/10/17 04:00 80 02/10/17 04:00 97.9 80 18 131/66 (87) 100 02/10/17 03:00 77 02/10/17 02:00 75 02/10/17 01:00 68 02/10/17 00:00 97.8 70 18 105/58 (74) 100 02/10/17 00:00 70 02/09/17 23:00 71 02/09/17 22:00 72 02/09/17 22:00 16 02/09/17 21:00 70 02/09/17 20:00 66 02/09/17 20:00 98.0 66 18 97/50 (66) 99 02/09/17 18:44 76 02/09/17 17:45 78 14 119/58 (78) 100 Nasal Cannula 2 02/09/17 17:30 79 14 144/64 (90) 100 Nasal Cannula 2 02/09/17 17:21 16 02/09/17 17:15 91 14 128/59 (82) 100 Nasal Cannula 2 02/09/17 17:00 86 14 124/59 (80) 100 Nasal Cannula 2 02/09/17 17:00 80 02/09/17 16:47 100 35 02/09/17 16:30 95 14 151/66 (94) 100 Mechanical Ventilator 35 02/09/17 16:27 96.8 91 14 139/66 (90) 99 Mechanical Ventilator 35 I/O 02/09/17 02/09/17 02/09/17 02/10/17 02/10/17 02/10/17 07:00 15:00 23:00 07:00 15:00 23:00 Intake Total 750 ml 2100 ml 0 ml 100 ml Output Total 500 ml 300 ml 300 ml Balance 250 ml 1800 ml -300 ml 100 ml Intake Oral 0 ml 0 ml IV Total 750 ml 100 ml Other 2100 ml Output Urine Total 500 ml 200 ml 300 ml Estimated Blood Loss 100 ml # Bowel Movements 2 0 Laboratory Laboratory Tests Test 02/10/17 07:23 White Blood Count 17.3 Red Blood Count 3.62 Hemoglobin 11.3 Hematocrit 35.9 Mean Corpuscular Volume 99.1 Mean Corpuscular Hemoglobin 31.2 Mean Corpuscular Hemoglobin Concent 31.5 Red Cell Distribution Width 15.0 Platelet Count 292 Mean Platelet Volume 7.4 Neutrophils (%) (Auto) 89.7 Lymphocytes (%) (Auto) 5.2 Monocytes (%) (Auto) 4.6 Eosinophils (%) (Auto) 0.1 Basophils (%) (Auto) 0.4 Neutrophils # (Auto) 15.5 Lymphocytes # (Auto) 0.9 Monocytes # (Auto) 0.8 Eosinophils # (Auto) 0.0 Basophils # (Auto) 0.1 CBC Comment DIFF FINAL Differential Comment Blood Urea Nitrogen 16 Creatinine 0.88 Random Glucose 150 Calcium Level 8.1 Magnesium Level 2.3 Sodium Level 150 Potassium Level 4.1 Chloride Level 119 Carbon Dioxide Level 27.3 Anion Gap 4 Estimat Glomerular Filtration Rate 83 Date/Time Source Procedure Growth Status 02/01/17 20:10 Blood Peripheral Aerobic Blood Culture - Final NO GROWTH IN 5 DAYS Complete 02/01/17 20:10 Blood Peripheral Anaerobic Blood Culture - Final NO GROWTH IN 5 DAYS Complete Imaging Last Impressions Enema w/Water Soluble 02/08/17 0000 Signed Impressions: Service Date/Time: Wednesday, February 08, 2017 10:58 - CONCLUSION: Focal obstruction at the level of the proximal transverse colon with ill-defined masslike structure measuring up to at least 5 cm. This is of concern for colon cancer. Sunil Reich MD Abdomen X-Ray 02/07/17 0600 Signed Impressions: Service Date/Time: Tuesday, February 07, 2017 03:16 - CONCLUSION: 1. Stable gaseous distention of small and large bowel compared with February 06. Jason Yu MD Chest X-Ray 02/07/17 0000 Signed Impressions: Service Date/Time: Tuesday, February 07, 2017 10:30 - CONCLUSION: 1. Basilar and dependent atelectasis with underlying pulmonary fibrotic changes. No focal dense consolidation or effusion. Jason Yu MD GI Procedure 02/03/17 0000 Signed Impressions: Service Date/Time: January 12:40 - CONCLUSION: ERCP as above. Alice Zeng MD Gall Bladder Ultrasound 02/01/17 1940 Signed Impressions: Service Date/Time: Wednesday, February 01, 2017 20:02 - CONCLUSION: 1. Dilated common bile duct. Distal common duct not well visualized. No stones identified within the gallbladder. Jason Yu MD Aorta CTA 02/01/17 1734 Signed Impressions: Service Date/Time: Wednesday, February 01, 2017 19:31 - CONCLUSION: 1. Negative for aortic dissection or aneurysm. 2. Gallstone in distal common duct measured up to 14 mm in diameter with biliary ductal dilatation up to about 2 cm. Jason Yu MD Physical Exam HEENT: Normocephalic; atraumatic; no jaundice. CHEST: CTA, diminished CARDIAC: RRR ABDOMEN: Soft, mildly distended, diffuse tenderness; transverse abdominal drsg d/i, no hepatosplenomegaly; bowel sounds are present in all four quadrants. EXTREMITIES: No clubbing, cyanosis, or edema. SKIN: Normal; no rash; no jaundice. SAVE ALL OPERATOR: Lethargic. Follows commands. (Aggie Crowe) Assessment and Plan Plan ASSESSMENT: - Colonic obstruction. KUB (02/06/17)----> dilatation of the small bowel and colon in a pattern favoring ileus. Although the transition point is at the splenic flexure, no mass or obstructing process was visualized in this area on CT from 5 days ago again favoring ileus as etiology. Since the small bowel distention has increased, suggest continued attention to this on follow-up imaging. S/P enema (small amount of partially formed stool and liquid). N/V with 300cc bilious material. Refusing NGT. KUB (02/07/17)--> Stable gaseous distention of small and large bowel compared with February 06. Gastrografin enema (02/08/17)---> focal obstruction at the level of the proximal transverse colon with ill-defined masslike structure measuring up to at least 5 cm. This is concern of colon cancer. CRS following. S/P Exploratory laparotomy with ascending/transverse colectomy POD #[address] Farfan. He is taking clears. Drsg d/i. CARDIOVASCULAR OR NURSE pump per CRS. - Choledocholithiasis with elevated LFTs and dilated CBD on US. GB US (02/01/17)- ---> Dilated common bile duct. Distal common duct not well visualized. No stones identified within the gallbladder. Of note, Aorta CTA (02/01/17)---- -> negative for aortic dissection. Gallstone in distal common duct measured up to 14 mm in diameter with biliary ductal dilatation up to 2cm. S /P ERCP with sphincterotomy and stone removal (02/03/17)-----> EGD limited exam normal, common bile duct stone, s/p extraction with balloon sweep, the common bile duct negative for stone at the end of the procedure stone was removed. pancreatic duct was not seen. LFTs improved. - Leukocytosis. WBC 17.3. Flagyl, Zosyn. - Anemia. 11.3/35.9 - Abnormal weight loss. Abn. gastrografin enema concerning for obstructive colon cancer. CRS consulted. - CAD, HTN per attending. Plan: - Diet per CRS - Cont. Abx - Monitor labs - CRS following, S/P Exploratory Laparotomy, ascending/transverse colectomy (). - Further recommendations to follow based on results of above - Pt seen and examined by Dr. Mars and myself and this note is written on her behalf (Aggie Crowe) Physician Comments agree with above (Sophie Mars MD) Aggie Crowe Feb 10, 2017 13:39 Sophie Mars MD Feb 10, 2017 16:35
--- NOTE | 2017-02-10 15:56 | HHI.PR ---
Subjective Remarks The pt was upset. He kept saying that he's dying. His daughter was at the bedside. He was being taught to use an incentive spirometer. Objective Vitals Vital Signs Date Time Temp Pulse Resp B/P (MAP) Pulse Ox O2 Delivery O2 Flow Rate FiO2 02/10/17 15:13 97.8 96 16 125/67 (86) 96 02/10/17 14:00 18 02/10/17 13:46 90 02/10/17 12:00 96 02/10/17 11:34 97.3 100 19 116/43 (67) 100 02/10/17 11:34 96 02/10/17 10:02 88 02/10/17 09:00 86 02/10/17 08:00 88 02/10/17 07:00 78 02/10/17 07:00 97.8 87 20 125/59 (81) 100 02/10/17 04:00 80 02/10/17 04:00 97.9 80 18 131/66 (87) 100 02/10/17 03:00 77 02/10/17 02:00 75 02/10/17 01:00 68 02/10/17 00:00 97.8 70 18 105/58 (74) 100 02/10/17 00:00 70 02/09/17 23:00 71 02/09/17 22:00 72 02/09/17 22:00 16 02/09/17 21:00 70 02/09/17 20:00 66 02/09/17 20:00 98.0 66 18 97/50 (66) 99 02/09/17 18:44 76 02/09/17 17:45 78 14 119/58 (78) 100 Nasal Cannula 2 02/09/17 17:30 79 14 144/64 (90) 100 Nasal Cannula 2 02/09/17 17:21 16 02/09/17 17:15 91 14 128/59 (82) 100 Nasal Cannula 2 02/09/17 17:00 86 14 124/59 (80) 100 Nasal Cannula 2 02/09/17 17:00 80 02/09/17 16:47 100 35 02/09/17 16:30 95 14 151/66 (94) 100 Mechanical Ventilator 35 02/09/17 16:27 96.8 91 14 139/66 (90) 99 Mechanical Ventilator 35 I/O 02/09/17 02/09/17 02/09/17 02/10/17 02/10/17 02/10/17 07:00 15:00 23:00 07:00 15:00 23:00 Intake Total 750 ml 2100 ml 0 ml 200 ml Output Total 500 ml 300 ml 300 ml Balance 250 ml 1800 ml -300 ml 200 ml Intake Oral 0 ml 0 ml IV Total 750 ml 200 ml Other 2100 ml Output Urine Total 500 ml 200 ml 300 ml Estimated Blood Loss 100 ml # Bowel Movements 2 0 Result Diagram: 02/10/17 0723 02/10/17 0723 Imaging Last Impressions Enema w/Water Soluble 02/08/17 0000 Signed Impressions: Service Date/Time: Wednesday, February 08, 2017 10:58 - CONCLUSION: Focal obstruction at the level of the proximal transverse colon with ill-defined masslike structure measuring up to at least 5 cm. This is of concern for colon cancer. Sunil Reich MD Abdomen X-Ray 02/07/17 0600 Signed Impressions: Service Date/Time: Tuesday, February 07, 2017 03:16 - CONCLUSION: 1. Stable gaseous distention of small and large bowel compared with February 06. Jason Yu MD Chest X-Ray 02/07/17 0000 Signed Impressions: Service Date/Time: Tuesday, February 07, 2017 10:30 - CONCLUSION: 1. Basilar and dependent atelectasis with underlying pulmonary fibrotic changes. No focal dense consolidation or effusion. Jason Yu MD GI Procedure 02/03/17 0000 Signed Impressions: Service Date/Time: January 12:40 - CONCLUSION: ERCP as above. Alice Zeng MD Gall Bladder Ultrasound 02/01/17 194 Signed Impressions: Service Date/Time: Wednesday, February 01, 2017 20:02 - CONCLUSION: 1. Dilated common bile duct. Distal common duct not well visualized. No stones identified within the gallbladder. Jason Yu MD Aorta CTA 02/01/17 1724 Signed Impressions: Service Date/Time: Wednesday, February 01, 2017 19:31 - CONCLUSION: 1. Negative for aortic dissection or aneurysm. 2. Gallstone in distal common duct measured up to 14 mm in diameter with biliary ductal dilatation up to about 2 cm. Jason Yu MD Objective Remarks GENERAL: This is a pale elderly male patient, in no apparent distress. SKIN: No rashes, ecchymoses or lesions. Cool and dry. HEAD: Atraumatic. Normocephalic. EYES: Pupils equal round and reactive. No injection or drainage. ENT: Nose without bleeding, purulent drainage or septal hematoma. NECK: Trachea midline. No JVD. CARDIOVASCULAR: Regular rate and rhythm with grade 2 systolic murmur appreciated. RESPIRATORY: Clear to auscultation. Breath sounds equal bilaterally. No wheezes , rales, or rhonchi. GASTROINTESTINAL: Abdomen soft, tender, dressing in place. No guarding. MUSCULOSKELETAL: Extremities without clubbing, cyanosis, or edema. No back tenderness to palpation. NEUROLOGICAL: Awake and alert. Motor and sensory grossly within normal limits. Normal speech. PSYCH: Agitated. Procedures Exploratory laparotomy, ascending/transverse colectomy (02/09/17). Medications and IVs Current Medications Medications (Trade) Dose Ordered Sig/Radha Route Start Time Stop Time Status Last Admin (NS Flush) 2 ml UNSCH PRN IV FLUSH 02/01/17 21:00 (NS Flush) 2 ml BID IV FLUSH 02/01/17 21:00 02/10/17 09:05 (Narcan Inj) 0.4 mg UNSCH PRN IV 02/01/17 21:00 (Lopressor) 25 mg DAILY PO 02/02/17 09:00 Future Hold (Prinivil) 2.5 mg DAILY PO 02/02/17 09:00 Future Hold (Pill Splitter) 1 ea UNSCH PRN OTHER 02/02/17 09:00 (Xalatan 0.005% Opth Soln) 1 drop HS EACH EYE 02/02/17 21:00 02/08/17 21:38 (Zofran Inj) 4 mg Q6HR PRN IV PUSH 02/05/17 22:45 02/08/17 10:24 (Benadryl 2% Cream) 1 applic TID PRN TOPICAL 02/06/17 10:45 02/07/17 21:26 Cefazolin Sodium 1000 mg/Sodium Chloride 100 ml @ 200 mls/hr S[employer]IOR [employer]AM LEAD IV 02/08/17 16:00 02/11/17 15:59 02/09/17 12:46 (Tessalon) 100 mg TID PRN PO 02/09/17 09:00 (Ultram) 50 mg Q6H PRN PO 02/09/17 10:45 Piperacillin Sod/ Tazobactam Sod 100 ml @ 200 mls/hr Q6H IV 02/09/17 14:00 02/10/17 14:36 (NS Flush) 2 ml UNSCH PRN IVF 02/09/17 16:15 (NS Flush) 2 ml BID IVF 02/09/17 21:00 Metronidazole 100 ml @ 200 mls/hr Q8H IV 02/10/17 00:00 02/10/17 16:29 02/10/17 09:06 ([place] 5-325 Mg) 1 tab Q4H PRN PO 02/09/17 16:15 ([place] 5-325 Mg) 2 tab Q4H PRN PO 02/09/17 16:15 (Toradol Inj) 30 mg Q6H PRN IVP 02/09/17 16:15 02/12/17 16:14 02/09/17 17:21 (Tylenol) 650 mg Q4H PRN PO 02/09/17 16:15 (Protonix Inj) 40 mg DAILY IVP 02/10/17 09:00 02/10/17 09:01 (Protonix) 40 mg DAILY PO 02/10/17 09:00 (Reglan Inj) 10 mg Q12HR IVS 02/09/17 21:00 02/10/17 09:03 (Zofran Inj) 4 mg Q6H PRN IV 02/09/17 16:15 (Vasotec Inj) 1.25 mg Q4H PRN IV 02/09/17 16:15 (Vasotec Inj) 2.5 mg Q6H PRN IV 02/09/17 16:15 (Chloraseptic Jeanna) 1 lozenge UNSCH PRN BUCCAL 02/09/17 16:15 Potassium Chloride 100 ml @ 50 mls/hr UNSCH PRN IV 02/09/17 16:15 02/09/17 19:47 Potassium Chloride 100 ml @ 25 mls/hr UNSCH PRN IV 02/09/17 16:15 (Narcan Inj) 0.4 mg UNSCH PRN IV 02/09/17 16:15 (Morphine 1 Mg/ ml KEY WORKER) 30 mg UNSCH IV 02/09/17 16:15 02/09/17 17:21 KEY WORKER Dosage Infused (Pha) 1 Q8HR .XX 02/09/17 16:15 02/10/17 14:00 Miscellaneous Information ALL NURSING DEPARTME... UNSCH PRN .XX 02/09/17 16:42 02/10/17 16:41 Dextrose 1,000 ml @ 100 mls/hr Q10H IV 02/10/17 15:30 A/P Problem List: (1) Common bile duct dilation ICD Code: K83.8 - Other specified diseases of biliary tract (2) Elevated liver function tests ICD Code: R79.89 - Other specified abnormal findings of blood chemistry Status: Acute (3) Chest pain ICD Code: R07.9 - Chest pain, unspecified Status: Acute (4) Leukocytosis ICD Code: D72.829 - Elevated white blood cell count, unspecified Assessment and Plan 82 y/o male presented with productive cough and reporting chest pain to ER physician on 02/01/17: Choledocholithiasis Dilated common bile duct with stone on imaging with elevated liver enzyme. GI specialist following, status post ERCP and Stone extraction. S/p Zosyn. - resume Zosyn as pt with worsening leukocytosis. Ileus/ Colon mass The pt has been constipated and nauseous. CT indicative of ileus. KUB with stability. Pt with increasing pain. NGT recommended by GI. Pt refusing. Barium study showed: Focal obstruction at the level of the proximal transverse colon with ill-defined, masslike structure measuring up to at least 5 cm; This is of concern for colon cancer. Colorectal surgery was consulted. S/p exploratory laparotomy of the ascending/transverse colectomy 02/09/17. - further management per CRS. - follow up with GI. - pain control. - incentive spirometry. Chest pain/ CHF Reported to ED physician. Trop peaked at 0.09. S/p cardiology evaluation. Echo with severely reduced EF. Appreciate cardiology follow-up. - continuous cardiac telemetry to monitor for arrhythmias. - continue cardiac regimen. - outpt follow-up with cardiology. Right leg itching Chronic. - Benadryl cream added. Seems resolved. Weight loss Colonoscopy recommended by GI. - Follow up with GI. Hypokalemia Likely secondary to ileus. - Replete and monitor. Hypernatremia The pt has not been eating much lately. - change fluids to D5W and monitor. DVT prophylaxis: SCDs/TEDs Discharge Planning Awaiting improvement Problem Qualifiers (1) Chest pain: Qualified Codes: R07.9 - Chest pain, unspecified Sunil Hanks DO Feb 10, 2017 15:56
[2017-02-10] MEDS: DEXTROSE 5% IN WATE 1000ML INJ 1,000 ML IV SCH (16:47)
[2017-02-10] MEDS: LATANOPROST 0.005% OPHT SOLN 2.5 ML BTL EACH EYE SCH (20:00)
[2017-02-11] VITALS (16 sets, daily range): BP systolic 128–162; BP diastolic 68–82; PULSE 51–104; RESP 18; TEMP 96.4–98.1; O2SAT 97
[2017-02-11] MEDS: PIPERACIL-TAZO 4.5 GM PREMIX 100 ML IV SCH ×4 (02:23→21:03)
[2017-02-11] MEDS: DEXTROSE 5% IN WATE 1000ML INJ 1,000 ML IV SCH ×2 (02:30→12:19)
[2017-02-11] MEDS: PCA - TOTAL MG MORPHINE DELIVERED PER SHIFT SCH (06:30)
[2017-02-11 08:01] LABS: BICARBONATE 26.2 MEQ/L (21.0-32.0); MAGNESIUM 2.3 MG/DL (1.5-2.5); POTASSIUM 3.5 MEQ/L (3.5-5.1)
[2017-02-11 08:05] LABS: AUTOMATED NEUTROPHIL # 14.4 TH/MM3 (1.8-7.7); BASOPHIL % 0.2 % (0.0-2.0); EOSINOPHIL # 0.1 TH/MM3 (0-0.4); EOSINOPHIL % 0.7 % (0.0-4.0); HEMATOCRIT 30.6 % (39.0-51.0); HEMO FLAGS DIFF FINAL; LYMPH % 6.2 % (9.0-44.0); MEAN CELL VOLUME 98.4 FL (80.0-100.0); MEAN CORPUSCULAR HEMOGLOBIN 32.4 PG (27.0-34.0); MONO % 7.4 % (0.0-8.0); NEUT % 85.5 % (16.0-70.0); PLATELET COUNT 229 TH/MM3 (150-450); RED BLOOD COUNT 3.11 MIL/MM3 (4.50-5.90); RED CELL DISTRIBUTION WIDTH 15.5 % (11.6-17.2); WHITE BLOOD COUNT 16.8 TH/MM3 (4.0-11.0)
[2017-02-11] MEDS: SODIUM CHLORIDE 0.9% FLUSH 5 ML FLUSH IVF SCH ×2 (08:56→21:00)
[2017-02-11] MEDS: SODIUM CHLORIDE 0.9% FLUSH 10 ML FLUSH IV FLUSH SCH ×3 (08:56→21:11)
[2017-02-11] MEDS: PANTOPRAZOLE SOD 40 MG DELAYED RELEASE TAB PO SCH (08:57)
[2017-02-11] MEDS: PANTOPRAZOLE SODIUM 40 MG VIAL IVP SCH (08:57)
[2017-02-11] MEDS: METOCLOPRAMIDE HCL 10 MG/2 ML VIAL IVS SCH ×2 (08:58→21:12)
[2017-02-11] MEDS ORDERED: LORazepam 2 MG/ML VIAL IV PUSH PRN (10:00)
--- NOTE | 2017-02-11 10:10 | HHI.PR ---
Subjective Remarks C/R Surg POD #2 afebrile, VSS UO good agitated at times Objective - Vital Signs Date Time Temp Pulse Resp B/P (MAP) Pulse Ox O2 Delivery O2 Flow Rate FiO2 02/11/17 06:30 18 02/11/17 04:52 97.7 102 153/82 (105) 97 02/09/17 17:45 Nasal Cannula 2 02/09/17 16:47 35 Result Diagram: 02/11/17 0554 02/11/17 0554 Objective Remarks PE alert Abd - soft, wound clean, dry A/P Assessment and Plan Imp: OOB resp tx decr Na, IVF start PO Gustavo Farfan MD Feb 11, 2017 10:10
[2017-02-11] MEDS: FUROSEMIDE 20 MG/2 ML VIAL IV PUSH SCH ×2 (11:01→21:11)
[2017-02-11] MEDS: ACETAMINOPHEN 1000 MG/100 ML 100 ML IV SCH ×3 (11:01→21:04)
[2017-02-11] MEDS ORDERED: POTASSIUM CHLORIDE 25 MEQ EFFERVESCENT TAB PO ONE (11:15)
--- NOTE | 2017-02-11 12:07 | HHI.PR ---
Subjective Remarks The patient was resting in bed. His family was at the bedside. The patient said that his pain at the moment was nonexistent. He did not want me to check his belly. Questions were answered. Discussed with nursing. Objective Vitals Vital Signs Date Time Temp Pulse Resp B/P (MAP) Pulse Ox O2 Delivery O2 Flow Rate FiO2 02/11/17 11:42 12 02/11/17 10:00 88 02/11/17 09:00 89 02/11/17 08:00 104 02/11/17 06:30 18 02/11/17 04:52 97.7 102 18 153/82 (105) 97 02/11/17 04:00 89 02/11/17 00:03 88 02/10/17 23:35 97.6 98 16 124/64 (84) 95 02/10/17 22:00 16 02/10/17 20:00 96.8 101 16 158/68 (98) 96 02/10/17 20:00 98 02/10/17 18:00 103 02/10/17 17:00 104 02/10/17 16:00 113 02/10/17 15:13 97.8 96 16 125/67 (86) 96 02/10/17 15:00 110 02/10/17 14:00 90 02/10/17 14:00 18 02/10/17 13:46 90 02/10/17 12:00 96 I/O 02/10/17 02/10/17 02/10/17 02/11/17 02/11/17 02/11/17 07:00 15:00 23:00 07:00 15:00 23:00 Intake Total 0 ml 200 ml 1955 ml 100 ml Output Total 300 ml 350 ml 350 ml Balance -300 ml 200 ml 1605 ml -350 ml 100 ml Intake Oral 0 ml 30 ml IV Total 200 ml 1925 ml 100 ml Output Urine Total 300 ml 350 ml 350 ml # Bowel Movements 0 Result Diagram: 02/11/17 0554 02/11/17 0554 Imaging Last Impressions Enema w/Water Soluble 02/08/17 0000 Signed Impressions: Service Date/Time: Wednesday, February 08, 2017 10:58 - CONCLUSION: Focal obstruction at the level of the proximal transverse colon with ill-defined masslike structure measuring up to at least 5 cm. This is of concern for colon cancer. Sunil Reich MD Abdomen X-Ray 02/07/17 0600 Signed Impressions: Service Date/Time: Tuesday, February 07, 2017 03:16 - CONCLUSION: 1. Stable gaseous distention of small and large bowel compared with February 06. Jason Yu MD Chest X-Ray 02/07/17 0000 Signed Impressions: Service Date/Time: Tuesday, February 07, 2017 10:30 - CONCLUSION: 1. Basilar and dependent atelectasis with underlying pulmonary fibrotic changes. No focal dense consolidation or effusion. Jason Yu MD GI Procedure 02/03/17 0000 Signed Impressions: Service Date/Time: January 12:40 - CONCLUSION: ERCP as above. Alice Zeng MD Gall Bladder Ultrasound 02/01/17 1940 Signed Impressions: Service Date/Time: Wednesday, February 01, 2017 20:02 - CONCLUSION: 1. Dilated common bile duct. Distal common duct not well visualized. No stones identified within the gallbladder. Jason Yu MD Aorta CTA 02/01/17 1734 Signed Impressions: Service Date/Time: Wednesday, February 01, 2017 19:31 - CONCLUSION: 1. Negative for aortic dissection or aneurysm. 2. Gallstone in distal common duct measured up to 14 mm in diameter with biliary ductal dilatation up to about 2 cm. Jason Yu MD Objective Remarks GENERAL: This is a pale elderly male patient, in no apparent distress. SKIN: No rashes, ecchymoses or lesions. Cool and dry. HEAD: Atraumatic. Normocephalic. EYES: Pupils equal round and reactive. No injection or drainage. ENT: Nose without bleeding, purulent drainage or septal hematoma. NECK: Trachea midline. No JVD. CARDIOVASCULAR: Regular rate and rhythm with grade 2 systolic murmur appreciated. RESPIRATORY: Clear to auscultation. Breath sounds equal bilaterally. No wheezes , rales, or rhonchi. GASTROINTESTINAL: Abdomen soft, tender, dressing in place. No guarding. MUSCULOSKELETAL: Extremities without clubbing, cyanosis, or edema. No back tenderness to palpation. NEUROLOGICAL: Awake and alert. Motor and sensory grossly within normal limits. Normal speech. PSYCH: Calm. Procedures Exploratory laparotomy, ascending/transverse colectomy (02/09/17). Medications and IVs Current Medications Medications (Trade) Dose Ordered Sig/Radha Route Start Time Stop Time Status Last Admin (NS Flush) 2 ml UNSCH PRN IV FLUSH 02/01/17 21:00 (NS Flush) 2 ml BID IV FLUSH 02/01/17 21:00 02/11/17 08:56 (Narcan Inj) 0.4 mg UNSCH PRN IV 02/01/17 21:00 (Lopressor) 25 mg DAILY PO 02/02/17 09:00 Future Hold (Prinivil) 2.5 mg DAILY PO 02/02/17 09:00 Future Hold (Pill Splitter) 1 ea UNSCH PRN OTHER 02/02/17 09:00 (Xalatan 0.005% Opth Soln) 1 drop HS EACH EYE 02/02/17 21:00 02/08/17 21:38 (Zofran Inj) 4 mg Q6HR PRN IV PUSH 02/05/17 22:45 02/08/17 10:24 (Benadryl 2% Cream) 1 applic TID PRN TOPICAL 02/06/17 10:45 02/07/17 21:26 Cefazolin Sodium 1000 mg/Sodium Chloride 100 ml @ 200 mls/hr EX CHEF IV 02/08/17 16:00 02/11/17 15:59 02/09/17 12:46 (Tessalon) 100 mg TID PRN PO 02/09/17 09:00 (Ultram) 50 mg Q6H PRN PO 02/09/17 10:45 Piperacillin Sod/ Tazobactam Sod 100 ml @ 200 mls/hr Q6H IV 02/09/17 14:00 02/11/17 20:00 02/11/17 08:56 (NS Flush) 2 ml UNSCH PRN IVF 02/09/17 16:15 (NS Flush) 2 ml BID IVF 02/09/17 21:00 ([place] 5-325 Mg) 1 tab Q4H PRN PO 02/09/17 16:15 (Toradol Inj) 30 mg Q6H PRN IVP 02/09/17 16:15 02/12/17 16:14 02/09/17 17:21 (Tylenol) 650 mg Q4H PRN PO 02/09/17 16:15 (Protonix Inj) 40 mg DAILY IVP 02/10/17 09:00 02/11/17 08:57 (Protonix) 40 mg DAILY PO 02/10/17 09:00 (Reglan Inj) 10 mg Q12HR IVS 02/09/17 21:00 02/11/17 08:58 (Zofran Inj) 4 mg Q6H PRN IV 02/09/17 16:15 (Vasotec Inj) 1.25 mg Q4H PRN IV 02/09/17 16:15 (Vasotec Inj) 2.5 mg Q6H PRN IV 02/09/17 16:15 (Chloraseptic Jeanna) 1 lozenge UNSCH PRN BUCCAL 02/09/17 16:15 Potassium Chloride 100 ml @ 50 mls/hr UNSCH PRN IV 02/09/17 16:15 02/09/17 19:47 Potassium Chloride 100 ml @ 25 mls/hr UNSCH PRN IV 02/09/17 16:15 Dextrose 1,000 ml @ 75 mls/hr [id number] IV 02/10/17 15:30 02/11/17 02:30 (Lasix Inj) 10 mg Q12HR IV PUSH 02/11/17 10:30 02/11/17 11:01 Acetaminophen 100 ml @ 400 mls/hr Q6H IV 02/11/17 10:00 02/11/17 11:01 (Ativan Inj) 0.5 mg Q6HR PRN IV PUSH 02/11/17 10:00 (K-Lyte Cl Eff) 50 meq ONCE ONCE PO 02/11/17 11:15 02/11/17 11:16 UNV A/P Problem List: (1) Common bile duct dilation ICD Code: K83.8 - Other specified diseases of biliary tract (2) Elevated liver function tests ICD Code: R79.89 - Other specified abnormal findings of blood chemistry Status: Acute (3) Chest pain ICD Code: R07.9 - Chest pain, unspecified Status: Acute (4) Leukocytosis ICD Code: D72.829 - Elevated white blood cell count, unspecified Assessment and Plan Ileus/ Colon mass The pt has been constipated and nauseous. CT indicative of ileus. KUB with stability. Pt with increasing pain. NGT recommended by GI. Pt refusing. Barium study showed: Focal obstruction at the level of the proximal transverse colon with ill-defined, masslike structure measuring up to at least 5 cm; This is of concern for colon cancer. Colorectal surgery was consulted. S/p exploratory laparotomy of the ascending/transverse colectomy 02/09/17. - further management per CRS. - follow up with GI. - pain control. - incentive spirometry. - PT. - clear liquid diet started 02/11. Choledocholithiasis Dilated common bile duct with stone on imaging with elevated liver enzyme. GI specialist following, status post ERCP and stone extraction. S/p Zosyn. - continue Zosyn per GI. Chest pain/ CHF Reported to ED physician. Trop peaked at 0.09. S/p cardiology evaluation. Echo with severely reduced EF. Appreciate cardiology follow-up. - continuous cardiac telemetry to monitor for arrhythmias. - continue cardiac regimen. - outpt follow-up with cardiology. Right leg itching Chronic. - Benadryl cream added. Seems resolved. Weight loss Colonoscopy recommended by GI. - Follow up with GI as an outpt. Hypokalemia Likely secondary to ileus. - Replete and monitor. Hypernatremia The pt has not been eating much lately. - change fluids to D5W and monitor. Improving. DVT prophylaxis: SCDs/TEDs Discharge Planning Awaiting CRS/ GI clearance, also improvement in sodium. Case management to assist with SNF/ rehab placement. Problem Qualifiers (1) Chest pain: Qualified Codes: R07.9 - Chest pain, unspecified Sunil Hanks DO Feb 11, 2017 12:07
--- NOTE | 2017-02-11 17:18 | HHI.GIFU ---
Subjective Remarks Up in chair. Tolerating clear liquids. Lethargic/drowsy, slightly confused today. 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 (Aggie Crowe) Objective Vitals I&O Vital Signs Date Time Temp Pulse Resp B/P (MAP) Pulse Ox O2 Delivery O2 Flow Rate FiO2 02/11/17 15:00 89 02/11/17 14:00 86 02/11/17 13:00 88 02/11/17 12:00 98.0 88 18 128/68 (88) 97 02/11/17 12:00 86 02/11/17 11:42 12 02/11/17 11:00 89 02/11/17 10:00 88 02/11/17 09:00 89 02/11/17 08:00 97.7 102 18 135/80 (98) 97 02/11/17 08:00 104 02/11/17 06:30 18 02/11/17 04:52 97.7 102 18 153/82 (105) 97 02/11/17 04:00 89 02/11/17 00:03 88 02/10/17 23:35 97.6 98 16 124/64 (84) 95 02/10/17 22:00 16 02/10/17 20:00 96.8 101 16 158/68 (98) 96 02/10/17 20:00 98 02/10/17 18:00 103 I/O 02/10/17 02/10/17 02/10/17 02/11/17 02/11/17 02/11/17 07:00 15:00 23:00 07:00 15:00 23:00 Intake Total 0 ml 200 ml 1955 ml 100 ml Output Total 300 ml 350 ml 350 ml Balance -300 ml 200 ml 1605 ml -350 ml 100 ml Intake Oral 0 ml 30 ml IV Total 200 ml 1925 ml 100 ml Output Urine Total 300 ml 350 ml 350 ml # Bowel Movements 0 Laboratory Laboratory Tests Test 02/11/17 05:54 White Blood Count 16.8 Red Blood Count 3.11 Hemoglobin 10.1 Hematocrit 30.6 Mean Corpuscular Volume 98.4 Mean Corpuscular Hemoglobin 32.4 Mean Corpuscular Hemoglobin Concent 33.0 Red Cell Distribution Width 15.5 Platelet Count 229 Mean Platelet Volume 8.2 Neutrophils (%) (Auto) 85.5 Lymphocytes (%) (Auto) 6.2 Monocytes (%) (Auto) 7.4 Eosinophils (%) (Auto) 0.7 Basophils (%) (Auto) 0.2 Neutrophils # (Auto) 14.4 Lymphocytes # (Auto) 1.0 Monocytes # (Auto) 1.2 Eosinophils # (Auto) 0.1 Basophils # (Auto) 0.0 CBC Comment DIFF FINAL Differential Comment Blood Urea Nitrogen 15 Creatinine 1.02 Random Glucose 106 Calcium Level 7.9 Magnesium Level 2.3 Sodium Level 148 Potassium Level 3.5 Chloride Level 115 Carbon Dioxide Level 26.2 Anion Gap 7 Estimat Glomerular Filtration Rate 70 Date/Time Source Procedure Growth Status 02/01/17 20:10 Blood Peripheral Aerobic Blood Culture - Final NO GROWTH IN 5 DAYS Complete 02/01/17 20:10 Blood Peripheral Anaerobic Blood Culture - Final NO GROWTH IN 5 DAYS Complete Imaging Last Impressions Enema w/Water Soluble 02/08/17 0000 Signed Impressions: Service Date/Time: Wednesday, February 08, 2017 10:58 - CONCLUSION: Focal obstruction at the level of the proximal transverse colon with ill-defined masslike structure measuring up to at least 5 cm. This is of concern for colon cancer. Sunil Reich MD Abdomen X-Ray 02/07/17 0600 Signed Impressions: Service Date/Time: Tuesday, February 07, 2017 03:16 - CONCLUSION: 1. Stable gaseous distention of small and large bowel compared with February 06. Jason Yu MD Chest X-Ray 02/07/17 0000 Signed Impressions: Service Date/Time: Tuesday, February 07, 2017 10:30 - CONCLUSION: 1. Basilar and dependent atelectasis with underlying pulmonary fibrotic changes. No focal dense consolidation or effusion. Jason Yu MD GI Procedure 02/03/17 0000 Signed Impressions: Service Date/Time: January 12:40 - CONCLUSION: ERCP as above. Alice Zeng MD Gall Bladder Ultrasound 02/01/17 1940 Signed Impressions: Service Date/Time: Wednesday, February 01, 2017 20:02 - CONCLUSION: 1. Dilated common bile duct. Distal common duct not well visualized. No stones identified within the gallbladder. Jason Yu MD Aorta CTA 02/01/17 7554 Signed Impressions: Service Date/Time: Wednesday, February 01, 2017 19:31 - CONCLUSION: 1. Negative for aortic dissection or aneurysm. 2. Gallstone in distal common duct measured up to 14 mm in diameter with biliary ductal dilatation up to about 2 cm. Jason Yu MD Physical Exam HEENT: Normocephalic; atraumatic; no jaundice. CHEST: CTA, diminished CARDIAC: RRR ABDOMEN: Soft, mildly distended, diffuse tenderness; transverse abdominal drsg d/i, no hepatosplenomegaly; bowel sounds are present in all four quadrants. EXTREMITIES: No clubbing, cyanosis, or edema. SKIN: Normal; no rash; no jaundice. COFFEE BREWER: Lethargic, oriented to self. Follows commands. (Aggie Crowe) Assessment and Plan Plan ASSESSMENT: - Obstructive colon cancer. CRS following. S/P Exploratory laparotomy with ascending/transverse colectomy POD #[address] Farfan. Tolerating clears. 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 PT4, pN0, pMX. - Choledocholithiasis with elevated LFTs and dilated CBD on US. GB US (02/01/17)- ---> Dilated common bile duct. Distal common duct not well visualized. No stones identified within the gallbladder. Of note, Aorta CTA (02/01/17)---- -> negative for aortic dissection. Gallstone in distal common duct measured up to 14 mm in diameter with biliary ductal dilatation up to 2cm. S /P ERCP with sphincterotomy and stone removal (02/03/17)-----> EGD limited exam normal, common bile duct stone, s/p extraction with balloon sweep, the common bile duct negative for stone at the end of the procedure stone was removed. pancreatic duct was not seen. LFTs improved. - Leukocytosis. WBC 16.8. Zosyn. - Anemia. 10.1/30.6. - Abnormal weight loss. Abn. gastrografin enema concerning for obstructive colon cancer. CRS consulted. - CAD, HTN per attending. Plan: - Diet per CRS - Cont. Abx - Monitor labs - CRS following, S/P Exploratory Laparotomy, ascending/transverse colectomy (). - GI will sign off, please reconsult as needed - Pt seen and examined by Dr. Mars and myself and this note is written on her behalf (Aggie Crowe) Aggie Crowe Feb 11, 2017 17:18 Sophie Mars MD Feb 11, 2017 20:11
[2017-02-11] MEDS: LATANOPROST 0.005% OPHT SOLN 2.5 ML BTL EACH EYE SCH (21:03)
[2017-02-12] VITALS (8 sets, daily range): BP systolic 96–142; BP diastolic 54–69; PULSE 18–96; RESP 17–25; TEMP 95.8–97.7; O2SAT 95–100
[2017-02-12] MEDS: ACETAMINOPHEN 1000 MG/100 ML 100 ML IV SCH ×4 (03:02→21:51)
[2017-02-12] MEDS: PIPERACIL-TAZO 4.5 GM PREMIX 100 ML IV SCH ×2 (03:02→09:38)
[2017-02-12] MEDS: DEXTROSE 5% IN WATE 1000ML INJ 1,000 ML IV SCH ×2 (03:03→10:27)
[2017-02-12 04:52] LABS: HEMATOCRIT 27.4 % (39.0-51.0); MEAN CELL VOLUME 97.4 FL (80.0-100.0); MEAN CORPUSCULAR HEMOGLOBIN 32.9 PG (27.0-34.0); MEAN CORPUSCULAR HGB CONC 33.8 % (32.0-36.0); PLATELET COUNT 201 TH/MM3 (150-450); RED BLOOD COUNT 2.81 MIL/MM3 (4.50-5.90); RED CELL DISTRIBUTION WIDTH 14.7 % (11.6-17.2); REVIEW FLAG FINAL; WHITE BLOOD COUNT 13.2 TH/MM3 (4.0-11.0)
[2017-02-12 05:14] LABS: BICARBONATE 27.3 MEQ/L (21.0-32.0); MAGNESIUM 2.1 MG/DL (1.5-2.5); POTASSIUM 3.4 MEQ/L (3.5-5.1)
--- NOTE | 2017-02-12 08:30 | MP ---
cc: KURT ROONEY M.D. DATE OF SURGERY: 02/09/2017 PREOPERATIVE DIAGNOSIS: Chronic obstruction, carcinoma of the splenic flexure. PROCEDURE: Exploratory laparotomy with extended right hemicolectomy. POSTOPERATIVE DIAGNOSIS: Obstructing carcinoma of the splenic flexure. SURGEON: Kurt Rooney MD BUSINESS PROJECT ANALYST: Emeterio Thorne MD. PROCEDURE The patient was placed in the supine position. After adequate general anesthesia his legs were placed in [place] stirrups and supported appropriately. The abdomen, perineum were then prepped with Betadine solution and draped in the usual sterile fashion. The abdomen was opened through a transverse incision dividing the rectus muscles with electrocautery. Exploration revealed a extremely distended. The right colon and transverse colon with a obstructing cancer just proximal to the splenic flexure. The descending and the rectosigmoid colon was decompressed and appeared to be fairly normal. The small bowel was gently distended with mostly liquid stool and gas. Stomach was decompressed with a nasogastric tube. Liver was palpated and had no masses. The gallbladder was unremarkable. The great vessels were heavily calcified but of normal caliber. First the right colon was mobilized medially by dividing along the white line of Toldt. The right ureter was identified and carefully preserved. Dissection then proceeded up the right gutter taking down attachments the hepatic flexure entering the lesser sac and dividing the gastrocolic omentum which was relatively atrophic. The left colon in the retroperitoneum were then mobilized by dividing along the left white line of Toldt again identifying the left ureter and preserving it. Dissection then proceeded up taking down the splenic flexure entering the lesser sac from the left side and dividing the gastrocolic omentum to stay with the area of the tumor. After complete mobilization. The bowel divided in the terminal ileum and the major vascular pedicles taken between Daisy's obtaining hemostasis with Vicryl ties. The left colic vessels were able to be left in the bowel finally divided in the proximal descending colon again using the KIRILL stapling device and the specimen was removed. Bowel continuity was then restored by firing the KIRILL stapler across the antimesenteric ends of the bowel, decompressing the small bowel through the enterotomy prior to closing with a TA 60 stapler. Mesenteric defect was closed with a running 3-0 Vicryl suture, 3-0 Vicryl crotch suture was placed as well. The abdomen was then irrigated copiously with normal saline. Adequate hemostasis was achieved. The transverse incision was closed anatomically in two layers using #1 PDS sutures to reapproximate the respective fascial layers. The Subcu tissues irrigated in the skin closed with a row of surgical clips. Wound area washed with normal saline and dried, sterile dressing of Telfa and gauze applied. The patient tolerated the procedure quite well and was brought to recovery room in stable condition. Sponge and needle counts were correct at the end of the procedure. MD MARKELL Miles/kelton /10:29 AM /7:05 AM
[2017-02-12] MEDS: PANTOPRAZOLE SODIUM 40 MG VIAL IVP SCH (09:00)
[2017-02-12] MEDS: SODIUM CHLORIDE 0.9% FLUSH 5 ML FLUSH IVF SCH ×2 (09:00→21:00)
[2017-02-12] MEDS: PANTOPRAZOLE SOD 40 MG DELAYED RELEASE TAB PO SCH (09:32)
[2017-02-12] MEDS: METOCLOPRAMIDE HCL 10 MG/2 ML VIAL IVS SCH ×2 (09:35→21:52)
[2017-02-12] MEDS: FUROSEMIDE 20 MG/2 ML VIAL IV PUSH SCH ×3 (09:45→21:51)
--- NOTE | 2017-02-12 10:53 | HHI.PR ---
Subjective Remarks Pt cantankerous. Daughter says that she can take him home with her with hopital bed and walker if he returns to ambulation. Objective Vital Signs Date Time Temp Pulse Resp B/P (MAP) Pulse Ox O2 Delivery O2 Flow Rate FiO2 02/12/17 08:00 97.5 91 17 123/68 (86) 97 02/12/17 04:00 81 18 129/69 (89) 97 02/12/17 00:00 97.1 18 18 130/57 (81) 97 02/11/17 21:40 88 02/11/17 20:00 96.4 51 18 162/69 (100) 02/11/17 18:00 84 02/11/17 17:00 84 02/11/17 16:00 98.1 88 18 138/76 (96) 97 02/11/17 16:00 89 02/11/17 15:00 89 02/11/17 14:00 86 02/11/17 13:00 88 02/11/17 12:00 98.0 88 18 128/68 (88) 97 02/11/17 12:00 86 02/11/17 11:42 12 02/11/17 11:00 89 I/O 02/11/17 02/11/17 02/11/17 02/12/17 02/12/17 02/12/17 07:00 15:00 23:00 07:00 15:00 23:00 Intake Total 100 ml 1380 ml 1085 ml Output Total 350 ml 675 ml 650 ml Balance -350 ml 100 ml 705 ml 435 ml Intake Oral 480 ml IV Total 100 ml 900 ml 1085 ml Output Urine Total 350 ml 675 ml 650 ml # Bowel Movements 0 Result Diagram: 02/12/17 0353 02/12/17 0353 Procedures ERCP 02/03/17 Objective Remarks VS-S Abd: soft,wound clean. Assessment and Plan Assessment and Plan Stable POD#3 Decreased IVs, D/C Zosyn, AMBULATE. Regular diet. Dom Thorne MD Feb 12, 2017 10:53
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
[2017-02-12] MEDS ORDERED: DEXAMETHASONE SOD PHOS 4 MG/ML VIAL IV ONE (12:28)
[2017-02-12] MEDS ORDERED: GLYCOPYRROLATE 1 MG/5 ML SYRINGE IV PUSH ONE (12:28)
[2017-02-12] MEDS ORDERED: PHENYLEPH/NS 1000 MCG/10 ML SYR IV ONE (12:28)
[2017-02-12] MEDS ORDERED: ceFAZolin 1 GM ADDVANTAGE VIAL IV ONE (12:28)
[2017-02-12] MEDS ORDERED: NEOSTIGMINE 3 MG/3 ML SYR IV ONE (12:28)
[2017-02-12] MEDS ORDERED: ONDANSETRON HCL 4 MG/2 ML VIAL IV PUSH ONE (12:28)
[2017-02-12] MEDS ORDERED: NORMOSOL R INJ 1,000 ML IV ONE (12:36)
[2017-02-12] MEDS ORDERED: IOHEXOL 350 MG/ML 10 ML VIAL (for RAD DIAG) IV PUSH ONE (12:46)
--- NOTE | 2017-02-12 14:22 | RADRPT ---
EXAM DATE/TIME: 02/12/2017 12:23 [place] COMPARISON: GASTROGRAFIN ENEMA, February 08, 2017, 10:58. CTA THORACIC ABDOMINAL AORTA W 3D RECON, January, 19:31. INDICATIONS : Left leg pain and unable to palpate pulse. IV CONTRAST: 100 cc Omnipaque 350 (iohexol) IV RADIATION DOSE: 5.1 CTDIvol (mGy) MEDICAL HISTORY : Cardiovascular disease. Congestive heart failure. Hypertension. SURGICAL HISTORY : None. ENCOUNTER: Initial ACUITY: 1 day PAIN SCALE: 4/10 LOCATION: Left lower leg TECHNIQUE: Volumetric scanning was performed using a multi-row detector CT scanner. The data was post processed with a variety of visualization algorithms including full volume maximum intensity projection, multi -planar sliding thin slab reformation, curved planar reformation, and surface rendering techniques. Using automated exposure control and adjustment of the mA and/or kV according to patient size, radiat ion dose was kept as low as reasonably achievable to obtain optimal diagnostic quality images. DICO M format image data is available electronically for review and comparison. FINDINGS: AORTA: Moderate atherosclerotic calcifications involving the infrarenal abdominal aorta. No significant flow -limiting stenosis or aneurysm. VISCERAL ARTERIES: Single bilateral renal arteries which are widely patent. Celiac, SMA, and CECELIA are widely patent. 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 There is moderate mixed pl aque at the origin with resultant mild to moderate stenosis. Internal iliac is patent. External iliac is patent. Common femoral artery is patent. OUTFLOW: Profunda is patent. Diffusely calcified SFA with mild tendon stenoses in the mid to distal thigh. RUNOFF: Heavily calcified bifurcation vessels. 3 vessel runoff to the foot with tandem [id number] steno ses of the anterior tibial and posterior tibial arteries in the proximal calf. LEFT LEG: INFLOW: Moderate atherosclerotic calcifications with mild stenosis of the common iliac artery origin. Interna l iliac artery is patent. External iliac artery is patent. Common femoral artery is occluded distally at the femoral bifurcation. OUTFLOW: Profunda reconstitutes to near the origin. SFA is occluded to the mid thigh. There is reconstitution of the SFA in the mid thigh. Mid to distal SFA are patent. General paucity of collaterals in the thig h. Posterior artery is patent. RUNOFF: Small caliber heavily calcified trifurcation vessels. The anterior tibial artery is heavily calcified in the proximal to mid calf and likely occluded. Posterior tibial artery extends to the plantar arch . GENERAL FINDINGS: Small to moderate bilateral, left greater than right, pleural effusions with associated airspace dise ase in the visualized lung bases. Evaluation of the abdominal viscera is limited due to arterial phas e technique. Liver is grossly unremarkable with pneumobilia in the left intrahepatic bile ducts. Ther e is also air noted throughout the common bile duct extending to the ampulla. This is likely due to t he interval sphincterotomy. Postsurgical features of recent laparotomy and probable right hemicolecto my with moderate amount of free air. There is also small amount of ascites with fluid primarily along the inferior hepatic margin and in the pelvis. Dense contrast is seen throughout the colon from rece nt contrast Gastrografin enema examination. Numerous loops of minimally distended fluid filled small bowel consistent with a adynamic ileus. No gross pneumatosis. There is an IVC filter in place. Bladder is mildly distended and contains a small amount of air likely from recent Simeon catheter plac ement. Prostate is mildly enlarged. Remainder of exam is unchanged. CONCLUSION: 1. No significant aortic occlusive disease or aneurysm. 2. Occlusion of the distal left common femoral artery extending to the origin of the profunda and SFA . Profunda reconstitutes near the origin and SFA reconstitutes in the mid thigh. 3. Mildly aneurysmal right common iliac artery with moderate amount of mixed plaque at the origin wit h resultant moderate stenosis. 4. No significant outflow stenosis on the right. 5. Heavily calcified runoff vessels bilaterally. There is likely limited two-vessel runoff on the lef t with occlusion of the anterior tibial artery in the proximal calf. 6. Postsurgical features of probable recent right hemicolectomy with moderate amount of free intraper itoneal air. 7. Findings consistent with mild adynamic ileus. 8. Pneumobilia likely secondary to recent sphincterotomy. 9. Small amount of ascites. Yemi Simons MD on February 12, 2017 at 13:55 Board Certified Radiologist. This report was verified electronically.
--- NOTE | 2017-02-12 17:03 | PD.CAR.PN ---
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 Patient did well until this morning when he started complaining about pain in his left leg On exam patient has left palpable femoral pulse very weak popliteal pulse by Doppler in no pulses beyond this. Dorsalis pedis and posterior tibial arteries on the left cannot be detected either by palpation or Doppler Foot is cold and pale and pulseless without capillary refill and with decreased sensation over the dorsum and plantar surfaces. 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 Nonetheless something happened in the last 24 hours that occluded his blood flow and it may be the combination of previous vascular occlusive disease and low cardiac output, so everything came to grinding halt Likely an acute occlusion superimposed on previous chronic vasculo-occlusive changes. I have discussed this with patient and family and explained the fairly significant risk of any additional surgery as well as the risk of losing the leg if no procedure is undertaken Family therefore understands the risks and benefits as explained to them and patient will be taken to the operating room for revascularization of the left leg emergently Full consult to hilaria Ricketts Objective: Vital Signs Date Time Temp Pulse Resp B/P (MAP) Pulse Ox O2 Delivery O2 Flow Rate FiO2 02/12/17 16:00 96.1 80 17 110/57 (74) 96 02/12/17 12:00 95.8 74 17 123/64 (83) 96 02/12/17 08:00 97.5 91 17 123/68 (86) 97 02/12/17 04:00 81 18 129/69 (89) 97 02/12/17 00:00 97.1 18 18 130/57 (81) 97 02/11/17 21:40 88 02/11/17 20:00 96.4 51 18 162/69 (100) 02/11/17 18:00 84 02/11/17 17:00 84 Result Diagram: 02/12/17 0353 02/12/17 0353 Rupert Stahl MD Feb 12, 2017 17:03
[2017-02-12] MEDS ORDERED: HEPARIN SODIUM - IV 10,000 UNITS/10 ML VIAL ONE ×3 (17:07→17:47)
[2017-02-12] MEDS ORDERED: HEPARIN SODIUM - SQ 10,000 UNITS/ML VIAL ONE (17:10)
[2017-02-12] MEDS ORDERED: PROTAMINE SULFATE 50 MG/5 ML VIAL ONE (17:10)
[2017-02-12] MEDS ORDERED: ceFAZolin 2 GM PREMIX 50 ML IV SCH (17:15)
[2017-02-12] MEDS ORDERED: DO NOT ADM ANY ANTICOAGULANT DRUGS PRN (20:12)
[2017-02-12] MEDS: LATANOPROST 0.005% OPHT SOLN 2.5 ML BTL EACH EYE SCH (21:00)
[2017-02-12] MEDS: SODIUM CHLORIDE 0.9% FLUSH 10 ML FLUSH IV FLUSH SCH (21:00)
--- NOTE | 2017-02-12 21:13 | PD.CONS ---
[facility] Service Critical Care Medicine Consult Requested By Dr. Stahl Reason for Consult S/p left CARTON REPAIRER thrombectomy and Fem-Pop Bypass 02/12/17 Primary Care Physician Jethro Mckoy MD History of Present Illness Patient is 82 year old male patient with history of coronary artery disease who was admitted to the hospitalist service on 02/01/17 with probable sepsis choledocholithiasis and pneumonia. He was placed on broad-spectrum antibiotics with Zosyn and gastroenterology was consulted. He underwent Aorta CTA 02/01/17 for chest pain- negative for aortic dissection but showed gallstone in distal common duct. S/P ERCP with sphincterotomy and stone removal 02/03/17. For evaluation of abnormal weight loss (apparently patient refused colonoscopy) he underwent Gastrografin enema -findings concerning for obstructive colon cancer. CRS consulted. S/P Exploratory Laparotomy, ascending/transverse colectomy 02/[address] Farfan. 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 Echo from 02/07/17 EF of 25-30% , moderate LV dysfunction, moderate MR and moderate AR Patient developed pain in his left leg today 02/12/17, and exam showed very weak popliteal pulse by Doppler in no pulses beyond this. Foot cold and pale and pulseless. CTA with runoff showed occlusion of the left distal CARTON REPAIRER. Dr. 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 Now there is acute on chronic occlusion from his recent acute illness, recent major surgery and low cardiac output. Patient underwent left thrombectomy and left femoropopliteal bypass today by Dr. Ricketts. Post op placed on Plavix and ordered to receive 1 unit of blood. I evaluated the patient in the ICU. At this time he remains hemodynamically stable. L DP pulse can be felt by Doppler and left foot is warm. Review of Systems ROS Limitations: Other (as per [facility]) Past Family Social History Allergies: Coded Allergies: No Known Allergies (Unverified , 02/01/17) Past Medical History CAD stents x 4 Previous [place] Past Surgical History Right lower extremity fracture 1992 Cardiac catheterization with stent placement Reported Medications Lovastatin 40 Mg Tab 40 Mg PO HS Metoprolol Tartrate 25 Mg Tab 25 Mg PO DAILY Pantoprazole (Pantoprazole Sodium) 40 Mg Tab 40 Mg PO DAILY Lisinopril 2.5 Mg Tab 2.5 Mg PO DAILY Active Ordered Medications Reviewed Family History Mother from [place] age 74 Social History Smoked a pipe quit 1980 No Alcohol Physical Exam Vital Signs Vital Signs Date Time Temp Pulse Resp B/P (MAP) Pulse Ox O2 Delivery O2 Flow Rate FiO2 02/12/17 20:41 97.4 90 20 142/54 100 02/12/17 16:00 96.1 80 17 110/57 (74) 96 02/12/17 12:00 95.8 74 17 123/64 (83) 96 02/12/17 08:00 97.5 91 17 123/68 (86) 97 02/12/17 04:00 81 18 129/69 (89) 97 02/12/17 00:00 97.1 18 18 130/57 (81) 97 02/11/17 21:40 88 Physical Exam GENERAL: Well-developed elderly white male patient currently lying in bed SKIN: Focused skin assessment warm/dry. HEAD: Atraumatic. Normocephalic. EYES: Pupils equal and round. No scleral icterus. ENT: No nasal bleeding or discharge. Mucous membranes pink and moist. NECK: Trachea midline. No JVD. CARDIOVASCULAR: Regular rate and rhythm. No murmur appreciated. RESPIRATORY: No accessory muscle use. Clear to auscultation. Breath sounds equal bilaterally. GASTROINTESTINAL: Abdomen soft, mild diffuse tenderness. Horizontal upper abdominal incision CDI MUSCULOSKELETAL: No obvious deformities. L DP pulse positive with Doppler skin warm. L going incision with dressing intact NEUROLOGICAL: Awake and alert. No obvious cranial nerve deficits. Motor grossly within normal limits. Laboratory Laboratory Tests Test 02/12/17 03:53 White Blood Count 13.2 Red Blood Count 2.81 Hemoglobin 9.2 Hematocrit 27.4 Mean Corpuscular Volume 97.4 Mean Corpuscular Hemoglobin 32.9 Mean Corpuscular Hemoglobin Concent 33.8 Red Cell Distribution Width 14.7 Platelet Count 201 Mean Platelet Volume 8.3 Blood Urea Nitrogen 14 Creatinine 0.98 Random Glucose 86 Total Protein 4.4 Calcium Level 7.4 Magnesium Level 2.1 Sodium Level 143 Potassium Level 3.4 Chloride Level 110 Carbon Dioxide Level 27.3 Anion Gap 6 Estimat Glomerular Filtration Rate 73 Protein Corrected Calcium 9.0 Date/Time Source Procedure Growth Status 02/01/17 20:10 Blood Peripheral Aerobic Blood Culture - Final NO GROWTH IN 5 DAYS Complete 02/01/17 20:10 Blood Peripheral Anaerobic Blood Culture - Final NO GROWTH IN 5 DAYS Complete Result Diagram: 02/12/17 0353 02/12/17 0353 Imaging CTA with run off: L CARTON REPAIRER occlusion Assessment and Plan Assessment and Plan ASSESSMENT: Acute on chronic occlusion Left CARTON REPAIRER with with acute left LE ischemia S/p left CARTON REPAIRER thrombectomy and Fem-Pop Bypass Choledocholithiasis s/p ERCP with sphincterotomy and stone removal 02/03/17 Recently diagnosed colon cancer status post exploratory Laparotomy, ascending/ transverse colectomy 02/09/17 Sepsis improving Ischemic cardiomyopathy with EF 25-30% Moderate mitral regurgitation, moderate aortic regurgitation History of coronary artery disease Hypertension PLAN: NEURO: - Tylenol for pain control - And IV morphine if needed for breakthrough pain RESP: - Incentive spirometry, DuoNeb every 6 hours when necessary if needed CV: - S/p left CARTON REPAIRER thrombectomy and Fem-Pop Bypass-post op mangement per Dr. Ricketts - Continue Plavix and subcutaneous heparin. Left DP pulse felt by Doppler - Continue beta fabrice and PASCUAL inhibitor - Resume statin - EF 25-30%. Moderate MR, AR. Continue Lasix GI: - Choledocholithiasis s/p ERCP with sphincterotomy and stone removal 02/03/17-GI following - Colon cancer status post exploratory Laparotomy, ascending/transverse colectomy 02/09/17-Dr. Farfan - Pathology -adenocarcinoma with mucinous features - Diet when cleared by Dr Ricketts - Protonix /Endo: - Monitor renal function closely. Simeon catheter. Urine output adequate - Electrolyte replacement per protocol ID: - Perioperative cefazolin - Completed Zosyn course HEME: - Postoperative anemia transfusing 1 unit PRBC PROPH: - Start subcutaneous heparin, IV Protonix Level 2 consult Code Status Full Discussed Condition With Dr. Ricketts, Bedside RN Gemma Fernandes MD Feb 12, 2017 21:13
[2017-02-12] MEDS ORDERED: SODIUM CHLORID 0.9% 500 ML INJ 500 ML IV ONE (21:15)
[2017-02-12] MEDS ORDERED: POTASSIUM PHOSPHATE MONOBASIC 500 MG TAB PO PRN (21:45)
[2017-02-12] MEDS ORDERED: SODIUM PHOSPHATE INJ 30 MMOL in SODIUM CHLOR 0.9% 250 ML INJ 240 ML IV PRN (21:45)
[2017-02-12] MEDS ORDERED: MAGNESIUM SULFATE INJ 2 GM in SODIUM CHLORIDE 0.9% INJ 96 ML IV PRN (21:45)
[2017-02-12] MEDS ORDERED: POTASSIUM PHOSPHATE INJ 30 MMOL in SODIUM CHLOR 0.9% 250 ML INJ 250 ML IV PRN (21:45)
[2017-02-12] MEDS ORDERED: MAGNESIUM OXIDE 400 MG TAB PO PRN (21:45)
[2017-02-12] MEDS ORDERED: MAGNESIUM SULFATE INJ 4 GM in SODIUM CHLORIDE 0.9% INJ 92 ML IV PRN (21:45)
[2017-02-12] MEDS ORDERED: POTASSIUM CHLORIDE 25 MEQ EFFERVESCENT TAB PO PRN (21:45)
[2017-02-12] MEDS ORDERED: POTASSIUM PHOSPHATE MONOBASIC 500 MG TAB PO/TUBE PRN (21:45)
[2017-02-12] MEDS ORDERED: POTASSIUM CHLOR 20 MEQ PREMIX 100 ML IV PRN ×2 (21:45)
[2017-02-12] MEDS ORDERED: POTASSIUM CHLOR 40 MEQ PREMIX 100 ML IV PRN ×2 (21:45)
[2017-02-12] MEDS: HEPARIN SODIUM - SQ 10,000 UNITS/ML VIAL SQ SCH (21:52)
[2017-02-12] MEDS: POTASSIUM CHLOR 20 MEQ PREMIX 100 ML IV PRN (21:56)
[2017-02-12] MEDS ORDERED: RESP: ALBUTEROL 2.5 MG/IPRATROPIUM 0.5 MG NEB (PRN) NEB (22:30)
[2017-02-13] VITALS (8 sets, daily range): BP systolic 113–151; BP diastolic 52–72; PULSE 73–96; RESP 23–26; TEMP 97.5–98.5; O2SAT 95–100
[2017-02-13 04:22] LABS: AUTOMATED NEUTROPHIL # 13.3 TH/MM3 (1.8-7.7); BASOPHIL % 0.3 % (0.0-2.0); HEMATOCRIT 28.9 % (39.0-51.0); HEMO FLAGS DIFF FINAL; LYMPH % 4.1 % (9.0-44.0); LYMPHOCYTE # 0.6 TH/MM3 (1.0-4.8); MEAN CELL VOLUME 92.4 FL (80.0-100.0); MEAN CORPUSCULAR HGB CONC 33.6 % (32.0-36.0); MONO % 5.8 % (0.0-8.0); NEUT % 89.8 % (16.0-70.0); PLATELET COUNT 221 TH/MM3 (150-450); RED BLOOD COUNT 3.12 MIL/MM3 (4.50-5.90); RED CELL DISTRIBUTION WIDTH 15.2 % (11.6-17.2); WHITE BLOOD COUNT 14.8 TH/MM3 (4.0-11.0)
[2017-02-13 04:52] LABS: BICARBONATE 26.1 MEQ/L (21.0-32.0); POTASSIUM 3.9 MEQ/L (3.5-5.1)
[2017-02-13] MEDS: HEPARIN SODIUM - SQ 10,000 UNITS/ML VIAL SQ SCH ×3 (05:06→21:23)
[2017-02-13] MEDS: ACETAMINOPHEN 1000 MG/100 ML 100 ML IV SCH ×4 (05:06→21:22)
[2017-02-13 05:19] LABS: CALCIUM-PROTEIN CORRECTED 8.7 MG/DL (8.5-10.1)
[2017-02-13] MEDS: CLOPIDOGREL 75 MG TAB PO SCH (08:09)
[2017-02-13] MEDS: PANTOPRAZOLE SOD 40 MG DELAYED RELEASE TAB PO SCH (08:09)
[2017-02-13] MEDS: FUROSEMIDE 20 MG/2 ML VIAL IV PUSH SCH ×2 (08:10→20:04)
[2017-02-13] MEDS: METOCLOPRAMIDE HCL 10 MG/2 ML VIAL IVS SCH ×2 (08:10→20:04)
[2017-02-13] MEDS: SODIUM CHLORIDE 0.9% FLUSH 5 ML FLUSH IVF SCH ×2 (09:00→20:04)
[2017-02-13] MEDS: SODIUM CHLORIDE 0.9% FLUSH 10 ML FLUSH IV FLUSH SCH ×2 (09:00→20:04)
[2017-02-13] MEDS: PANTOPRAZOLE SODIUM 40 MG VIAL IVP SCH (09:00)
--- NOTE | 2017-02-13 10:24 | PD.CAR.PN ---
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 Patient did well until this morning when he started complaining about pain in his left leg On exam patient has left palpable femoral pulse very weak popliteal pulse by Doppler in no pulses beyond this. Dorsalis pedis and posterior tibial arteries on the left cannot be detected either by palpation or Doppler Foot is cold and pale and pulseless without capillary refill and with decreased sensation over the dorsum and plantar surfaces. 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 Nonetheless something happened in the last 24 hours that occluded his blood flow and it may be the combination of previous vascular occlusive disease and low cardiac output, so everything came to grinding halt I have discussed this with patient and family and explained the fairly significant risk of any additional surgery as well as the risk of losing the leg if no procedure is undertaken Family therefore understands the risks and benefits as explained to them and patient will be taken to the operating room for revascularization of the left leg emergently Full consult to hilaria Fuller J 02/13/17 Status post left femoral-popliteal bypass and endarterectomy. Incisions are clean and dry and patient has bounding distal pulses Both feet are warm with normal capillary refill Abdominal incision is clean and dry and abdomen is soft Patient can be restarted on soft diet and transferred to the floor Objective: Vital Signs Date Time Temp Pulse Resp B/P (MAP) Pulse Ox O2 Delivery O2 Flow Rate FiO2 02/13/17 08:00 75 02/13/17 08:00 98.5 75 25 151/52 (85) 97 02/13/17 07:00 97 Nasal Cannula 3.00 02/13/17 04:00 78 02/13/17 03:00 97.5 80 23 113/59 (77) 100 02/13/17 00:00 96 02/13/17 00:00 95 Nasal Cannula 3.00 02/12/17 23:00 97.7 96 25 96/57 (70) 95 02/12/17 21:00 97.4 91 22 140/58 (85) 100 02/12/17 21:00 91 02/12/17 20:45 92 28 155/62 (93) 92 Nasal Cannula 2 02/12/17 20:41 97.4 90 20 142/54 100 02/12/17 20:30 89 25 134/52 (79) 100 Nasal Cannula 3 02/12/17 20:18 97.4 90 20 117/56 (76) 100 Nasal Cannula 3 02/12/17 16:00 96.1 80 17 110/57 (74) 96 02/12/17 12:00 95.8 74 17 123/64 (83) 96 Labs: Laboratory Tests Test 02/13/17 04:08 White Blood Count 14.8 TH/MM3 (4.0-11.0) Red Blood Count 3.12 MIL/MM3 (4.50-5.90) Hemoglobin 9.7 GM/DL (13.0-17.0) Hematocrit 28.9 % (39.0-51.0) Mean Corpuscular Volume 92.4 FL (80.0-100.0) Mean Corpuscular Hemoglobin 31.0 PG (27.0-34.0) Mean Corpuscular Hemoglobin Concent 33.6 % (32.0-36.0) Red Cell Distribution Width 15.2 % (11.6-17.2) Platelet Count 221 TH/MM3 (150-450) Mean Platelet Volume 7.7 FL (7.0-11.0) Neutrophils (%) (Auto) 89.8 % (16.0-70.0) Lymphocytes (%) (Auto) 4.1 % (9.0-44.0) Monocytes (%) (Auto) 5.8 % (0.0-8.0) Eosinophils (%) (Auto) 0.0 % (0.0-4.0) Basophils (%) (Auto) 0.3 % (0.0-2.0) Neutrophils # (Auto) 13.3 TH/MM3 (1.8-7.7) Lymphocytes # (Auto) 0.6 TH/MM3 (1.0-4.8) Monocytes # (Auto) 0.9 TH/MM3 (0-0.9) Eosinophils # (Auto) 0.0 TH/MM3 (0-0.4) Basophils # (Auto) 0.0 TH/MM3 (0-0.2) CBC Comment DIFF FINAL Differential Comment Blood Urea Nitrogen 14 MG/DL (7-18) Creatinine 0.93 MG/DL (0.60-1.30) Random Glucose 126 MG/DL (74-106) Total Protein 4.1 GM/DL (6.4-8.2) Calcium Level 7.0 MG/DL (8.5-10.1) Phosphorus Level 2.6 MG/DL (2.5-4.9) Sodium Level 138 MEQ/L (136-145) Potassium Level 3.9 MEQ/L (3.5-5.1) Chloride Level 106 MEQ/L (98-107) Carbon Dioxide Level 26.1 MEQ/L (21.0-32.0) Anion Gap 6 MEQ/L (5-15) Estimat Glomerular Filtration Rate 77 ML/MIN (>89) Protein Corrected Calcium 8.7 MG/DL (8.5-10.1) Result Diagram: 02/13/17 0408 02/13/17 0408 Rupert Stahl MD Feb 13, 2017 10:24
[2017-02-13] MEDS: DEXTROSE 5% IN WATE 1000ML INJ 1,000 ML IV SCH ×2 (10:59→20:03)
[2017-02-13] MEDS ORDERED: ENOXAPARIN SODIUM 30 MG/0.3 ML SYRINGE SQ SCH (11:00)
--- NOTE | 2017-02-13 11:03 | HHI.PR ---
Subjective Remarks Resting calmly. Did well with fem-pop. No N or V Objective Vital Signs Date Time Temp Pulse Resp B/P (MAP) Pulse Ox O2 Delivery O2 Flow Rate FiO2 02/13/17 08:00 75 02/13/17 08:00 98.5 75 25 151/52 (85) 97 02/13/17 07:00 97 Nasal Cannula 3.00 02/13/17 04:00 78 02/13/17 03:00 97.5 80 23 113/59 (77) 100 02/13/17 00:00 96 02/13/17 00:00 95 Nasal Cannula 3.00 02/12/17 23:00 97.7 96 25 96/57 (70) 95 02/12/17 21:00 97.4 91 22 140/58 (85) 100 02/12/17 21:00 91 02/12/17 20:45 92 28 155/62 (93) 92 Nasal Cannula 2 02/12/17 20:41 97.4 90 20 142/54 100 02/12/17 20:30 89 25 134/52 (79) 100 Nasal Cannula 3 02/12/17 20:18 97.4 90 20 117/56 (76) 100 Nasal Cannula 3 02/12/17 16:00 96.1 80 17 110/57 (74) 96 02/12/17 12:00 95.8 74 17 123/64 (83) 96 I/O 02/12/17 02/12/17 02/12/17 02/13/17 02/13/17 02/13/17 07:00 15:00 23:00 07:00 15:00 23:00 Intake Total 1085 ml 1175 ml 2361 ml 702 ml 200 ml Output Total 650 ml 700 ml Balance 435 ml 1175 ml 1661 ml 702 ml 200 ml IV Total 1085 ml 1175 ml 561 ml 702 ml 200 ml Packed Cells 250 ml Blood Product IV Normal Saline Flush 50 ml Other 1500 ml Output Urine Total 650 ml 400 ml Estimated Blood Loss 300 ml Result Diagram: 02/13/178 02/13/17 0408 Procedures ERCP 02/03/17 Objective Remarks VS-S Abd: soft,wound clean.Flat Ext: Legs warm; left edematous due to surgery Assessment and Plan Assessment and Plan Stable POD#4-Colectomy Decreased IVs, AMBULATE. Regular diet. Cheshire,Dom Shane MD Feb 13, 2017 11:03
--- NOTE | 2017-02-13 11:54 | HHI.CCPN ---
Subjective Remarks/Hospital Course Patient is 82 year old male patient with history of coronary artery disease who was admitted to the hospitalist service on 02/01/17 with probable sepsis choledocholithiasis and pneumonia. He was placed on broad-spectrum antibiotics with Zosyn and gastroenterology was consulted. He underwent Aorta CTA 02/01/17 for chest pain- negative for aortic dissection but showed gallstone in distal common duct. S/P ERCP with sphincterotomy and stone removal 02/03/17. For evaluation of abnormal weight loss (apparently patient refused colonoscopy) he underwent Gastrografin enema -findings concerning for obstructive colon cancer. CRS consulted. S/P Exploratory Laparotomy, ascending/transverse colectomy 02/[address] Farfan. 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 Echo from 02/07/17 EF of 25-30% , moderate LV dysfunction, moderate MR and moderate AR Patient developed pain in his left leg today 02/12/17, and exam showed very weak popliteal pulse by Doppler in no pulses beyond this. Foot cold and pale and pulseless. CTA with runoff showed occlusion of the left distal COMPOSITE MECHANIC. Dr. 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 Now there is acute on chronic occlusion from his recent acute illness, recent major surgery and low cardiac output. Patient underwent left thrombectomy and left femoropopliteal bypass today by Dr. Ricketts. Post op placed on Plavix and ordered to receive 1 unit of blood. I evaluated the patient in the ICU. At this time he remains hemodynamically stable. L DP pulse can be felt by Doppler and left foot is warm. 02/13: Breathing comfortably. Warm, well perfused extremities. Urine output acceptable. Weight prbably not accurate. Fluid balance appears about right. Objective Vital Signs Date Time Temp Pulse Resp B/P (MAP) Pulse Ox O2 Delivery O2 Flow Rate FiO2 02/13/17 08:00 75 02/13/17 08:00 98.5 25 151/52 (85) 97 02/13/17 07:00 Nasal Cannula 3.00 02/09/17 16:47 35 Intake and Output 02/13/17 02/13/17 02/14/17 08:00 16:00 00:00 Intake Total 702 ml 200 ml Balance 702 ml 200 ml Result Diagram: 02/13/1740702/13/17407 Imaging CTA with run off: L COMPOSITE MECHANIC occlusion Objective Remarks GENERAL: Elderly white male. SKIN: Warm/dry. HEAD: Atraumatic. Normocephalic. EYES: Pupils equal and round. No scleral icterus. ENT: No nasal bleeding or discharge. Mucous membranes pink and moist. NECK: Trachea midline. Airway widely patent. CARDIOVASCULAR: Regular rate and rhythm. No murmur appreciated. No JVD. RESPIRATORY: No accessory muscle use. Clear to auscultation. Breath sounds equal bilaterally. Normal excursions. GASTROINTESTINAL: Abdomen soft, mild diffuse tenderness. Horizontal upper abdominal incision, clean, dry. BS active. MUSCULOSKELETAL: Left foot warm, well perfused. Other 3 limbs warm, well perfused. NEUROLOGICAL: Awake and alert. Conversant. No obvious cranial nerve deficits. Motor grossly within normal limits. Procedures Exploratory laparotomy, ascending/transverse colectomy (02/09/17). A/P Assessment and Plan ASSESSMENT: Acute on chronic occlusion Left COMPOSITE MECHANIC with with acute left LE ischemia S/p left COMPOSITE MECHANIC thrombectomy and Fem-Pop Bypass Choledocholithiasis s/p ERCP with sphincterotomy and stone removal 02/03/17 Recently diagnosed colon cancer status post exploratory Laparotomy, ascending/ transverse colectomy 02/09/17 Sepsis improving Ischemic cardiomyopathy with EF 25-30% Moderate mitral regurgitation, moderate aortic regurgitation History of coronary artery disease Hypertension PLAN: NEURO: - Tylenol for pain control - And IV morphine if needed for breakthrough pain RESP: - Incentive spirometry, DuoNeb every 6 hours when necessary if needed CV: - S/p left COMPOSITE MECHANIC thrombectomy and Fem-Pop Bypass-post op mangement per Dr. Ricketts - Continue Plavix and subcutaneous heparin. Left DP pulse felt by Doppler - Continue beta fabrice and PASCUAL inhibitor - Resume statin - EF 25-30%. Moderate MR, AR. Continue Lasix GI: - Choledocholithiasis s/p ERCP with sphincterotomy and stone removal 02/03/17-GI following - Colon cancer status post exploratory Laparotomy, ascending/transverse colectomy 02/09/17-Dr. Farfan - Pathology -adenocarcinoma with mucinous features - Diet when cleared by Dr Ricketts - Protonix /Endo: - Monitor renal function closely. Simeon catheter. Urine output adequate - Electrolyte replacement per protocol ID: - Perioperative cefazolin - Completed Zosyn course HEME: - Postoperative anemia transfusing 1 unit PRBC PROPH: - Start subcutaneous heparin, IV Protonix Overall impression: Stable respiratory and hemodynamic status. Kan Colvin MD Feb 13, 2017 11:54
--- NOTE | 2017-02-13 12:16 | MB ---
cc: RUPERT ONOFRE RE-DICTATION DATE OF CONSULTATION: 02/12/2017 REASON FOR CONSULTATION: Ischemia of the left leg. HISTORY OF PRESENT DISEASE: This unfortunate 82 year-old gentleman with known coronary artery disease, with low ejection fraction, was admitted to the hospital for abnormal weight loss. 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 PAST MEDICAL HISTORY: 1. Coronary artery disease and stenting with myocardial infarction. 2. Low ejection fraction. 3. Ischemic cardiomyopathy. 4. CHF. 5. Hypertension. PAST SURGICAL HISTORY: The above noted stenting. Right leg fracture in 1992. MEDICATIONS: Can be found in the records. SOCIAL HISTORY: The patient smoked a pipe in the younger days, does not drink. PHYSICAL EXAMINATION: Reveals a pleasant 82 year-old gentleman, somewhat cognitively impaired/demented. Head: Normocephalic. No trauma to the head. Pupils equal and reactive. Extraocular muscles intact. Neck: Bilateral carotid pulses. Bilateral faint carotid bruits. Chest: Bilateral breath sound. Heart: Regular rhythm. Atrophy of the chest wall musculature. The patient is very thin and started to appear cachectic. Abdomen: Soft, hyperactive bowel sounds. Transverse incision healing nicely. Extremities: The patient has bounding bilateral femoral pulses and in the right leg palpable popliteal pulse and strong doppler with dorsalis pedis, posterior tibial. On the left side, the patient has very faint popliteal pulses which is by reconstitution and then no distal pulses whatsoever. Left leg is pale, pulseless and with decreased sensitivity over the dorsal and plantar surface of the foot. Motoric function is still preserved. There is no capillary refill, of course. IMPRESSION The patient with acute ischemia of the left leg. This is an acute occlusion, superimposed on chronic degenerative changes. The patient has fairly extensive collateral flow visible on the CTA, denoting that it is a chronic occlusion but this is an acute event that is on top of it. 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 He will need exploration and possible fem-pop bypass. The patient will be taken to the operating room immediately. Critical care time: 40 minutes. Rupert KNOTT /10:35 AM /12:03 PM
--- NOTE | 2017-02-13 12:36 | HHI.PR ---
Subjective Remarks Follow-up postop Patient has no complaints. Denied any abdominal pain, nausea or vomiting. Denied any lower extremity pain. His daughter is at the bedside and is thankful that surgery was done quickly. Patient is a poor historian so most of history is taken from the daughter. She stated that patient has been doing well since surgery. Objective Vitals Vital Signs Date Time Temp Pulse Resp B/P (MAP) Pulse Ox O2 Delivery O2 Flow Rate FiO2 02/13/17 08:00 75 02/13/17 08:00 98.5 75 25 151/52 (85) 97 02/13/17 07:00 97 Nasal Cannula 3.00 02/13/17 04:00 78 02/13/17 03:00 97.5 80 23 113/59 (77) 100 02/13/17 00:00 96 02/13/17 00:00 95 Nasal Cannula 3.00 02/12/17 23:00 97.7 96 25 96/57 (70) 95 02/12/17 21:00 97.4 91 22 140/58 (85) 100 02/12/17 21:00 91 02/12/17 20:45 92 28 155/62 (93) 92 Nasal Cannula 2 02/12/17 20:41 97.4 90 20 142/54 100 02/12/17 20:30 89 25 134/52 (79) 100 Nasal Cannula 3 02/12/17 20:18 97.4 90 20 117/56 (76) 100 Nasal Cannula 3 02/12/17 16:00 96.1 80 17 110/57 (74) 96 I/O 02/12/17 02/12/17 02/12/17 02/13/17 02/13/17 02/13/17 07:00 15:00 23:00 07:00 15:00 23:00 Intake Total 1085 ml 1175 ml 2361 ml 702 ml 200 ml Output Total 650 ml 700 ml Balance 435 ml 1175 ml 1661 ml 702 ml 200 ml IV Total 1085 ml 1175 ml 561 ml 702 ml 200 ml Packed Cells 250 ml Blood Product IV Normal Saline Flush 50 ml Other 1500 ml Output Urine Total 650 ml 400 ml Estimated Blood Loss 300 ml Result Diagram: 02/13/17 0408 02/13/17 0408 Imaging Last Impressions Aorta w/Runoff CTA 02/12/17 0000 Signed Impressions: Service Date/Time: Sunday, February 12, 2017 12:23 - CONCLUSION: 1. No significant aortic occlusive disease or aneurysm. 2. Occlusion of the distal left common femoral artery extending to the origin of the profunda and SFA. Profunda reconstitutes near the origin and SFA reconstitutes in the mid thigh. 3. 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 4. No significant outflow stenosis on the right. 5. Heavily calcified runoff vessels bilaterally. There is likely limited two-vessel runoff on the left with occlusion of the anterior tibial artery in the proximal calf. 6. Postsurgical features of probable recent right hemicolectomy with moderate amount of free intraperitoneal air. 7. Findings consistent with mild adynamic ileus. 8. Pneumobilia likely secondary to recent sphincterotomy. 9. Small amount of ascites. Yemi Simons MD Enema w/Water Soluble 02/08/17 0000 Signed Impressions: Service Date/Time: Wednesday, February 08, 2017 10:58 - CONCLUSION: Focal obstruction at the level of the proximal transverse colon with ill-defined masslike structure measuring up to at least 5 cm. This is of concern for colon cancer. Sunil Reich MD Abdomen X-Ray 02/07/17 0600 Signed Impressions: Service Date/Time: Tuesday, February 07, 2017 03:16 - CONCLUSION: 1. Stable gaseous distention of small and large bowel compared with February 06. Jason Yu MD Chest X-Ray 02/07/17 0000 Signed Impressions: Service Date/Time: Tuesday, February 07, 2017 10:30 - CONCLUSION: 1. Basilar and dependent atelectasis with underlying pulmonary fibrotic changes. No focal dense consolidation or effusion. Jason Yu MD GI Procedure 02/03/17 0000 Signed Impressions: Service Date/Time: January 12:40 - CONCLUSION: ERCP as above. Alice Zeng MD Gall Bladder Ultrasound 02/01/171939 Signed Impressions: Service Date/Time: Wednesday, February 01, 2017 20:02 - CONCLUSION: 1. Dilated common bile duct. Distal common duct not well visualized. No stones identified within the gallbladder. Jason Yu MD Aorta CTA 02/01/17 998 Signed Impressions: Service Date/Time: Wednesday, February 01, 2017 19:31 - CONCLUSION: 1. Negative for aortic dissection or aneurysm. 2. Gallstone in distal common duct measured up to 14 mm in diameter with biliary ductal dilatation up to about 2 cm. Jason Yu MD Objective Remarks GENERAL:in NAD CARDIOVASCULAR: Regular rate and rhythm without murmurs, gallops, or rubs. RESPIRATORY: Breath sounds equal bilaterally. No accessory muscle use. GASTROINTESTINAL: Abdomen soft, non-tender, nondistended. MUSCULOSKELETAL: Bilateral leg warm. +2 DP pulses bilaterally. Left leg wound incision dry clean and intact. Procedures Exploratory laparotomy, ascending/transverse colectomy (02/09/17). Medications and IVs Current Medications Sodium Chloride (NS Flush) 2 ml UNSCH PRN IVF FLUSH AFTER USING IV ACCESS; Start 02/01/17 at 17:45; Stop 02/01/17 at 21:22; Status DC Morphine Sulfate (Morphine Inj) 2 mg ONCE ONCE IV PUSH Last administered on 18:01; Start 02/01/17 at 18:00; Stop 02/01/17 at 18:01; Status DC Ondansetron HCl (Zofran Inj) 4 mg ONCE ONCE IV PUSH Last administered on 18:01; Start 02/01/17 at 18:00; Stop 02/01/17 at 18:01; Status DC Piperacillin Sod/ Tazobactam Sod 50 ml @ 100 mls/hr ONCE ONCE IV Last administered on 02/01/17 20:35; Start 02/01/17 at 19:45; Stop 02/01/17 at 20:14; Status DC Vancomycin HCl 1000 mg/Sodium Chloride 250 ml @ 250 mls/hr ONCE ONCE IV Last administered on 02/01/17 20:57; Start 02/01/17 at 19:45; Stop 02/01/17 at 20:44; Status DC Aspirin (Aspirin Chew) 162 mg ONCE ONCE CHEW Last administered on 02/01/17 20: 34; Start 02/01/17 at 19:45; Stop 02/01/17 at 19:46; Status DC Nitroglycerin (Nitroglycerin 2% Oint) 1 inch ONCE ONCE TOPICAL Last administered on 02/01/17 20:35; Start 02/01/17 at 19:45; Stop 02/01/17 at 19:46; Status DC Sodium Chloride 500 ml @ 500 mls/hr BOLUS ONCE IV Last administered on 20:34; Start 02/01/17 at 19:45; Stop 02/01/17 at 20:44; Status DC Iohexol (Omnipaque 350 Inj) 75 ml STK-MED ONCE IVCONTRAST Last administered on 02/01/17 19:00; Start 02/01/17 at 19:00; Stop 02/01/17 at 20:00; Status DC Sodium Chloride (NS Flush) 2 ml UNSCH PRN IV FLUSH FLUSH AFTER USING IV ACCESS Last administered on 02/11/17 21:11; Start 02/01/17 at 21:00 Sodium Chloride (NS Flush) 2 ml BID IV FLUSH Last administered on 02/13/17 09: 00; Start 02/01/17 at 21:00 Naloxone HCl (Narcan Inj) 0.4 mg UNSCH PRN IV SEE LABEL COMMENTS; Start at 21:00 Piperacillin Sod/ Tazobactam Sod 100 ml @ 200 mls/hr Q6H IV Last administered on 02/07/17 08:20; Start 02/02/17 at 02:00; Stop 02/07/17 at 10:04; Status DC Morphine Sulfate (Morphine Inj) 2 mg Q6H PRN IV PUSH pain >5; Start 02/01/17 at 23:15; Stop 02/09/17 at 10:35; Status DC Metoprolol Tartrate (Lopressor) 25 mg DAILY PO ; Start 02/02/17 at 09:00; Status Future Hold Lisinopril (Prinivil) 2.5 mg DAILY PO ; Start 02/02/17 at 09:00; Status Future Hold Miscellaneous (Pill Splitter) 1 ea UNSCH PRN OTHER SEE LABEL COMMENTS; Start at 09:00 Sodium Chloride 250 ml @ 250 mls/hr BOLUS ONCE IV Last administered on 13:45; Start 02/02/17 at 13:45; Stop 02/02/17 at 14:44; Status DC Sodium Chloride 1,000 ml @ 84 mls/hr [id number] IV Last administered on 01:56; Start 02/02/17 at 13:45; Stop 02/06/17 at 10:29; Status DC Latanoprost (Xalatan 0.005% Opth Soln) 1 drop HS EACH EYE Last administered on 02/11/17 21:03; Start 02/02/17 at 21:00 Miscellaneous Information ALL NURSING DEPARTME... UNSCH PRN .XX SEE LABEL COMMENTS; Start 02/03/17 at 14:15; Stop 02/04/17 at 14:14; Status DC Propofol (Diprivan 200 Mg/20 ml Inj) 300 mg STK-MED ONCE IV ; Start 02/03/17 at 12:46; Stop 02/03/17 at 15:06; Status DC Glucagon (Glucagon Inj) 0.4 mg STK-MED ONCE IV ; Start 02/03/17 at 12:00; Stop at 10:38; Status DC Sodium Chloride 500 ml @ As Directed STK-MED ONCE IV ; Start 02/03/17 at 12:00; Stop 02/04/17 at 10:38; Status DC Iohexol (OMNIPAQUE 300 INJ (Rad CT)) 100 ml STK-MED ONCE OTHER ; Start 02/03/17 at 12:00; Stop 02/04/17 at 10:43; Status DC Lactulose (Lactulose Liq) 30 ml ONCE ONCE PO Last administered on 02/05/17 14: 04; Start 02/05/17 at 13:30; Stop 02/05/17 at 13:31; Status DC Sodium Biphosphate/ Sodium Phosphate (Fleets Enema (Adult)) 133 ml ONCE ONCE RECTAL Last administered on 02/05/17 16:30; Start 02/05/17 at 16:30; Stop at 16:31; Status DC Bisacodyl (Dulcolax Supp) 10 mg ONCE ONCE RECTAL ; Start 02/05/17 at 16:30; Stop 02/05/17 at 16:31; Status DC Ondansetron HCl (Zofran Inj) 4 mg Q6HR PRN IV PUSH NAUSEA OR VOMITING Last administered on 02/08/17 10:24; Start 02/05/17 at 22:45 Bisacodyl (Dulcolax Supp) 10 mg ONCE ONCE RECTAL Last administered on 23:35; Start 02/05/17 at 22:45; Stop 02/05/17 at 22:53; Status DC Potassium Bicarb/ Potassium Chloride (K-Lyte Cl Eff) 50 meq ONCE ONCE PO Last administered on 02/06/17 10:30; Start 02/06/17 at 10:30; Stop 02/06/17 at 10:31; Status DC Sodium Biphosphate/ Sodium Phosphate (Fleets Enema (Adult)) 133 ml ONCE ONCE RECTAL Last administered on 02/06/17 10:45; Start 02/06/17 at 10:45; Stop 03/15 at 10:46; Status DC Metoclopramide HCl (Reglan Inj) 5 mg Q8HR IM Last administered on 02/08/17 14: 00; Start 02/06/17 at 14:00; Stop 02/08/17 at 16:01; Status DC Diphenhydramine HCl (Benadryl 2% Cream) 1 applic TID PRN TOPICAL ITCHING Last administered on 02/07/17 21:26; Start 02/06/17 at 10:45 Diphenhydramine HCl (Benadryl 2% Cream) 1 applic ONCE ONCE TOPICAL Last administered on 02/06/17 12:00; Start 02/06/17 at 12:00; Stop 02/06/17 at 12:01 ; Status DC Potassium Bicarb/ Potassium Chloride (K-Lyte Cl Eff) 50 meq ONCE ONCE PO Last administered on 02/07/17 10:30; Start 02/07/17 at 10:30; Stop 02/07/17 at 10:31; Status DC Dextrose/Sodium Chloride 1,000 ml @ 75 mls/hr [id number] IV Last administered on 02/08/17 00:20; Start 02/07/17 at 10:30; Stop 02/08/17 at 10:20; Status DC Potassium Bicarb/ Potassium Chloride (K-Lyte Cl Eff) 50 meq ONCE ONCE PO Last administered on 02/08/17 10:30; Start 02/08/17 at 10:30; Stop 02/08/17 at 10:31; Status DC Diatrizoate Meglum/ Diatrizoate Sod ( Gastroview Liq) 960 ml STK-MED ONCE RECTAL Last administered on 02/08/17 11:15; Start 02/08/17 at 11:15; Stop 05/15 at 11:57; Status DC Potassium Chloride/Dextrose/ Sod Cl 1,000 ml @ 75 mls/hr [id number] IV Last administered on 02/08/17 16:00; Start 02/08/17 at 16:00; Stop 02/09/17 at 11:12 ; Status DC Cefazolin Sodium 1000 mg/Sodium Chloride 100 ml @ 200 mls/hr ENVIRONMENTAL SERVICES AIDE IV Last administered on 02/09/17 12:46; Start 02/08/17 at 16:00; Stop 02/11/17 at 15:59 ; Status DC Metronidazole 100 ml @ 100 mls/hr ONCE ONCE IV Last administered on 16:00; Start 02/08/17 at 16:00; Stop 02/08/17 at 16:59; Status DC Benzonatate (Tessalon) 100 mg TID PRN PO cough; Start 02/09/17 at 09:00 Tramadol HCl (Ultram) 50 mg Q6H PRN PO pain 6-10; Start 02/09/17 at 10:45 Dextrose 1,000 ml @ 75 mls/hr [id number] IV ; Start 02/09/17 at 11:15; Stop at 16:22; Status DC Potassium Bicarb/ Potassium Chloride (K-Lyte Cl Eff) 25 meq ONCE ONCE PO ; Start 02/09/17 at 11:15; Stop 02/09/17 at 11:16; Status DC Piperacillin Sod/ Tazobactam Sod 100 ml @ 200 mls/hr Q6H IV Last administered on 02/11/17 08:56; Start 02/09/17 at 14:00; Stop 02/11/17 at 12:04; Status DC Acetaminophen 100 ml @ As Directed STK-MED ONCE IV ; Start 02/09/17 at 12:58; Stop 02/09/17 at 12:59; Status DC Famotidine (Pepcid Inj) 20 mg STK-MED ONCE .ROUTE Last administered on 13:11; Start 02/09/17 at 13:13; Stop 02/09/17 at 13:14; Status DC Ketamine HCl (Ketalar Inj) 500 mg STK-MED ONCE .ROUTE ; Start 02/09/17 at 13:18 ; Stop 02/09/17 at 13:19; Status DC Metronidazole 100 ml @ As Directed STK-MED ONCE IV Last administered on 13:55; Start 02/09/17 at 13:57; Stop 02/09/17 at 13:58; Status DC Hydromorphone HCl (Dilaudid Pf Inj) 2 mg STK-MED ONCE .ROUTE ; Start 02/09/17 at 14:11; Stop 02/09/17 at 14:12; Status DC Sugammadex Sodium (Bridion Inj) 200 mg STK-MED ONCE IV PUSH ; Start 02/09/17 at 15:29; Stop 02/09/17 at 15:30; Status DC Potassium Chloride/Dextrose/ Sod Cl 1,000 ml @ 175 mls/hr [id number] IV Last administered on 02/10/17 03:55; Start 02/09/17 at 16:15; Stop 02/10/17 at 10:05 ; Status DC IV Flush (NS Flush) 2 ml UNSCH PRN IVF FLUSH AFTER USING IV ACCESS; Start 02/09 at 16:15 IV Flush (NS Flush) 2 ml BID IVF Last administered on 02/13/17 09:00; Start at 21:00 Cefazolin Sodium 1000 mg/Sodium Chloride 100 ml @ 200 mls/hr Q8H IV Last administered on 02/10/17 12:35; Start 02/09/17 at 20:00; Stop 02/10/17 at 12:29 ; Status DC Metronidazole 100 ml @ 200 mls/hr Q8H IV Last administered on 02/10/17 16:37 ; Start 02/10/17 at 00:00; Stop 02/10/17 at 16:29; Status DC Miscellaneous Information (Post-op Orders (for Pharmacy)) STAT ONCE XX ; Start 02/09/17 at 16:15; Stop 02/09/17 at 16:58; Status DC Acetaminophen/ Hydrocodone Bitart ([place] 5-325 Mg) 1 tab Q4H PRN PO PAIN SCALE 1 TO 4 Last administered on 02/13/17 01:11; Start 02/09/17 at 16:15 Acetaminophen/ Hydrocodone Bitart ([place] 5-325 Mg) 2 tab Q4H PRN PO PAIN SCALE 5 TO 10; Start 02/09/17 at 16:15; Stop 02/10/17 at 15:52; Status DC Ketorolac Tromethamine (Toradol Inj) 30 mg Q6H PRN IVP PAIN SCALE 1 TO 10 Last administered on 02/09/17 17:21; Start 02/09/17 at 16:15; Stop 02/12/17 at 16:14 ; Status DC Acetaminophen (Tylenol) 650 mg Q4H PRN PO Pain > 3 or Temperature > 101F; Start 02/09/17 at 16:15 Pantoprazole Sodium (Protonix Inj) 40 mg DAILY IVP Last administered on 08:57; Start 02/10/17 at 09:00 Pantoprazole Sodium (Protonix) 40 mg DAILY PO Last administered on 02/13/17 08 :09; Start 02/10/17 at 09:00 Metoclopramide HCl (Reglan Inj) 10 mg Q12HR IVS Last administered on 02/13/17 08:10; Start 02/09/17 at 21:00 Ondansetron HCl (Zofran Inj) 4 mg Q6H PRN IV NAUSEA; Start 02/09/17 at 16:15 Enalaprilat (Vasotec Inj) 1.25 mg Q4H PRN IV SYS BP GREATER THAN 160 MMHG; Start 02/09/17 at 16:15 Enalaprilat (Vasotec Inj) 2.5 mg Q6H PRN IV SYS BP GREATER THAN 160 MMHG; Start 02/09/17 at 16:15 Benzocaine/Menthol (Chloraseptic Jeanna) 1 lozenge UNSCH PRN BUCCAL SORE THROAT; Start 02/09/17 at 16:15 Potassium Chloride 100 ml @ 50 mls/hr UNSCH PRN IV POTASSIUM 3 TO 3.5 Last administered on 02/12/17 21:56; Start 02/09/17 at 16:15 Potassium Chloride 100 ml @ 25 mls/hr UNSCH PRN IV POTASSIUM LESS THAN 3; Start 02/09/17 at 16:15 Miscellaneous Information 1 ONCE ONCE XX ; Start 02/09/17 at 16:15; Stop at 16:56; Status DC Naloxone HCl (Narcan Inj) 0.4 mg UNSCH PRN IV RESPIRATORY RATE LESS THAN 10; Start 02/09/17 at 16:15; Stop 02/11/17 at 09:50; Status DC Morphine Sulfate (Morphine 1 Mg/ ml DATA REVIEW SPECIALIST) 30 mg UNSCH IV Last administered on 17:21; Start 02/09/17 at 16:15; Stop 02/11/17 at 09:50; Status DC DATA REVIEW SPECIALIST Dosage Infused (Pha) 1 Q8HR .XX Last administered on 02/11/17 06:30; Start 02/09/17 at 16:15; Stop 02/11/17 at 09:50; Status DC Miscellaneous Information ALL NURSING DEPARTME... UNSCH PRN .XX SEE LABEL COMMENTS; Start 02/09/17 at 16:42; Stop 02/10/17 at 16:41; Status DC Dextrose/Sodium Chloride 1,000 ml @ 100 mls/hr Q10H IV Last administered on 11:28; Start 02/10/17 at 10:15; Stop 02/10/17 at 15:31; Status DC Dextrose 1,000 ml @ 50 mls/hr Q20H IV Last administered on 02/12/17 10:27; Start 02/10/17 at 15:30 Furosemide (Lasix Inj) 10 mg Q12HR IV PUSH Last administered on 02/13/17 08:10 ; Start 02/11/17 at 10:30 Acetaminophen 100 ml @ 400 mls/hr Q6H IV Last administered on 02/13/17 09:41 ; Start 02/11/17 at 10:00 Lorazepam (Ativan Inj) 0.5 mg Q6HR PRN IV PUSH AGITATION AND/OR HALLUCINATION; Start 02/11/17 at 10:00 Potassium Bicarb/ Potassium Chloride (K-Lyte Cl Eff) 50 meq ONCE ONCE PO Last administered on 02/11/17 16:00; Start 02/11/17 at 11:15; Stop 02/11/17 at 13:08; Status DC Piperacillin Sod/ Tazobactam Sod 100 ml @ 200 mls/hr Q6H IV Last administered on 02/12/17 09:38; Start 02/11/17 at 15:00; Stop 02/12/17 at 10:46; Status DC Iohexol (Omnipaque 350 Inj) 100 ml STK-MED ONCE IV PUSH Last administered on 12:46; Start 02/12/17 at 12:46; Stop 02/12/17 at 12:47; Status DC Cefazolin Sodium/ Dextrose 50 ml @ 100 mls/hr ENVIRONMENTAL SERVICES AIDE IV ; Start 02/12/17 at 17:15; Stop 02/15/17 at 17:14 Heparin Sodium (Porcine) (Heparin Inj) 10,000 units STK-MED ONCE .ROUTE ; Start 02/12/17 at 17:07; Stop 02/12/17 at 17:08; Status DC Heparin Sodium (Porcine) (Heparin Inj) 10,000 units STK-MED ONCE .ROUTE ; Start 02/12/17 at 17:10; Stop 02/12/17 at 17:11; Status DC Heparin Sodium (Porcine) (Heparin Inj) 10,000 units STK-MED ONCE .ROUTE ; Start 02/12/17 at 17:10; Stop 02/12/17 at 17:11; Status DC Protamine Sulfate (Protamine Sulfate Inj) 50 mg STK-MED ONCE .ROUTE ; Start at 17:10; Stop 02/12/17 at 17:11; Status DC Heparin Sodium (Porcine) (Heparin Inj) 10,000 units STK-MED ONCE .ROUTE ; Start 02/12/17 at 17:47; Stop 02/12/17 at 17:48; Status DC Miscellaneous Information ALL NURSING DEPARTME... UNSCH PRN .XX SEE LABEL COMMENTS; Start 02/12/17 at 20:12; Stop 02/13/17 at 20:11 Clopidogrel Bisulfate (Plavix) 75 mg DAILY PO Last administered on 02/13/17 08 :09; Start 02/13/17 at 09:00 Cefazolin Sodium 1000 mg/Sodium Chloride 100 ml @ 200 mls/hr Q8H IV Last administered on 02/13/17 09:41; Start 02/13/17 at 02:00; Stop 02/13/17 at 18:29 Sodium Chloride 500 ml @ 0 mls/hr UNSCH ONCE IV Last administered on 9/16/ 17at 21:15; Start 02/12/17 at 21:15; Stop 02/12/17 at 21:16; Status DC Potassium Chloride 100 ml @ 50 mls/hr Q2H PRN IV For Potassium 2.8 - 3.2 mEq/L ; Start 02/12/17 at 21:45 Potassium Chloride 100 ml @ 50 mls/hr Q2H PRN IV For Potassium 2.8 - 3.2 mEq/L ; Start 02/12/17 at 21:45 Potassium Bicarb/ Potassium Chloride (K-Lyte Cl Eff) 50 meq UNSCH PRN PO For Potassium 3.3 - 3.5 mEq/L; Start 02/12/17 at 21:45 Potassium Chloride 100 ml @ 25 mls/hr UNSCH PRN IV For Potassium 3.3 - 3.5 mEq /L; Start 02/12/17 at 21:45 Potassium Chloride 100 ml @ 50 mls/hr Q2H PRN IV For Potassium 3.3 - 3.5 mEq/L ; Start 02/12/17 at 21:45 Magnesium Sulfate 4 gm/Sodium Chloride 100 ml @ 50 mls/hr UNSCH PRN IV For Magnesium 0.9 - 1.1 mg/dL; Start 02/12/17 at 21:45 Magnesium Oxide (Mag-Ox) 800 mg UNSCH PRN PO For Magnesium 1.2 - 1.6 mg/dL; Start 02/12/17 at 21:45 Magnesium Sulfate 2 gm/Sodium Chloride 100 ml @ 50 mls/hr UNSCH PRN IV For Magnesium 1.2 - 1.6 mg/dL; Start 02/12/17 at 21:45 Potassium Phosphate (K-Phos) 2,000 mg Q4H PRN PO For Phosphorus < 2.5 mg/dL; Start 02/12/17 at 21:45 Sodium Phosphate 30 mmol/Sodium Chloride 250 ml @ 42 mls/hr UNSCH PRN IV For Phosphorus < 2.5 mg/dL; Start 02/12/17 at 21:45 Potassium Phosphate (K-Phos) 2,000 mg UNSCH PRN PO/TUBE SEE LABEL COMMENTS; Start 02/12/17 at 21:45 Potassium Phosphate 30 mmol/ Sodium Chloride 260 ml @ 42 mls/hr UNSCH PRN IV SEE LABEL COMMENTS; Start 02/12/17 at 21:45 Heparin Sodium (Porcine) (Heparin Inj) 5,000 units Q8HR SQ Last administered on 02/13/17t 05:06; Start 02/12/17 at 22:00 Albuterol/ Ipratropium (Duoneb Neb) 1 ampule Q6HR NEB PRN NEB SHORTNESS OF BREATH; Start 02/12/17 at 22:30 Enoxaparin Sodium (Lovenox Inj) 30 mg Q12H SQ ; Start 02/13/17 at 11:00; Stop at 11:02; Status DC A/P Problem List: (1) Common bile duct dilation ICD Code: K83.8 - Other specified diseases of biliary tract (2) Elevated liver function tests ICD Code: R79.89 - Other specified abnormal findings of blood chemistry Status: Acute (3) Chest pain ICD Code: R07.9 - Chest pain, unspecified Status: Acute (4) Leukocytosis ICD Code: D72.829 - Elevated white blood cell count, unspecified Assessment and Plan Ileus/ Colon mass The pt has been constipated and nauseous. CT indicative of ileus. KUB with stability. Pt with increasing pain. NGT recommended by GI. Pt refusing. Barium study showed: Focal obstruction at the level of the proximal transverse colon with ill-defined, masslike structure measuring up to at least 5 cm; This is of concern for colon cancer. Colorectal surgery was consulted. S/p exploratory laparotomy of the ascending/transverse colectomy 02/09/17. - further management per CRS. - follow up with GI. - pain control. - incentive spirometry. - PT. - Advance diet per colorectal. Zosyn was discontinued today. Peripheral arterial disease with occlusion of the distal left femoral artery -CTA runoff showed occlusion of the distal left femoral artery. Consulted vascular surgeon Dr. Stahl. -Status post left femoral-popliteal bypass and endarterectomy on 02/12/2017. -Continue management per vascular surgeon. Choledocholithiasis Dilated common bile duct with stone on imaging with elevated liver enzyme. GI specialist following, status post ERCP and stone extraction. S/p Zosyn. - Zosyn discontinued today. Chest pain/ CHF Reported to ED physician. Trop peaked at 0.09. S/p cardiology evaluation. Echo with severely reduced EF. Appreciate cardiology follow-up. - continuous cardiac telemetry to monitor for arrhythmias. - continue cardiac regimen. - outpt follow-up with cardiology. Right leg itching Chronic. - Benadryl cream added. Seems resolved. Weight loss Colonoscopy recommended by GI. - Follow up with GI as an outpt. Hypokalemia Likely secondary to ileus. - Replete and monitor. Hypernatremia The pt has not been eating much lately. -Resolved. Once patient able to tolerate oral intake better will discontinue IV fluids. DVT prophylaxis: SCDs/TEDs Discharge Planning Patient can be transferred to Med/Surg. Problem Qualifiers (1) Chest pain: Qualified Codes: R07.9 - Chest pain, unspecified Eli Nguyen MD Feb 13, 2017 12:36
--- NOTE | 2017-02-13 12:50 | EKG ---
Date Performed: 02/12/2017 Time Performed: 22:21:30 PTAGE: 82 years EKG: Sinus rhythm WITH OCCASIONAL SUPRAVENTRICULAR PREMATURE COMPLEXES INTRAVENTRICULAR CONDUCTION DELAY NONSPECIFIC T WAVE ABNORMALITY DIFFUSELY ABNORMAL ECG PREVIOUS TRACING : 02/02/2017 06.25 Compared to previous tracing, T wave inversion in V2-V5 is no longer evident, heart rate has increased. DOCTOR: Sam Jaime Interpretating Date/Time 02/13/2017 12:48:37
--- NOTE | 2017-02-13 17:56 | MB ---
cc: JESSIE NEELY M.D. DATE OF CONSULTATION: 02/13/2017. REASON FOR CONSULTATION: Re-consult. BRIEF HISTORY: A consult was put in by Dr. Nguyen for management of atrial fibrillation. The consult was put in without her seeing the rhythm or EKG. The nurse had seen P waves on the monitor but the EKG read it as atrial fibrillation and thus the consult was put in. I did go up to the floor and the EKG clearly showed P waves and what appeared to be sinus rhythm with premature atrial contractions. I spoke with Dr. Nguyen who stated she would cancel the consultation at this point in time. MD BECKY SantoG/PAULINA /5:11 PM /5:51 PM
--- NOTE | 2017-02-13 19:16 | EKG ---
Date Performed: 02/13/2017 Time Performed: 13:15:26 PTAGE: 82 years EKG: Atrial fibrillation. Nonspecific intraventricular conduction delay Extensive ST-T changes a re nonspecific Low QRS voltages in precordial leads Abnormal ECG PREVIOUS TRACING : 02/12/2017 22.21 No significant change from previous tracing noted. DOCTOR: Sam Jaime Interpretating Date/Time 02/13/2017 19:16:00
[2017-02-13] MEDS: LATANOPROST 0.005% OPHT SOLN 2.5 ML BTL EACH EYE SCH (20:04)
[2017-02-14] VITALS (8 sets, daily range): BP systolic 123–145; BP diastolic 62–94; PULSE 72–88; RESP 22–26; TEMP 97.6–98.4; O2SAT 96–98
[2017-02-14] MEDS: ACETAMINOPHEN 1000 MG/100 ML 100 ML IV SCH ×4 (04:22→21:43)
[2017-02-14] MEDS: DEXTROSE 5% IN WATE 1000ML INJ 1,000 ML IV SCH (05:22)
[2017-02-14] MEDS: HEPARIN SODIUM - SQ 10,000 UNITS/ML VIAL SQ SCH ×3 (05:22→21:43)
[2017-02-14 06:22] LABS: HEMATOCRIT 31.7 % (39.0-51.0); MEAN CELL VOLUME 94.1 FL (80.0-100.0); MEAN CORPUSCULAR HEMOGLOBIN 31.5 PG (27.0-34.0); MEAN CORPUSCULAR HGB CONC 33.5 % (32.0-36.0); PLATELET COUNT 236 TH/MM3 (150-450); RED BLOOD COUNT 3.37 MIL/MM3 (4.50-5.90); RED CELL DISTRIBUTION WIDTH 15.3 % (11.6-17.2); REVIEW FLAG FINAL
[2017-02-14 06:53] LABS: BICARBONATE 27.2 MEQ/L (21.0-32.0); POTASSIUM 3.6 MEQ/L (3.5-5.1)
[2017-02-14] MEDS: SODIUM CHLORIDE 0.9% FLUSH 10 ML FLUSH IV FLUSH SCH ×2 (08:20→21:44)
[2017-02-14] MEDS: FUROSEMIDE 20 MG/2 ML VIAL IV PUSH SCH ×2 (08:21→21:42)
[2017-02-14] MEDS: PANTOPRAZOLE SODIUM 40 MG VIAL IVP SCH (08:21)
[2017-02-14] MEDS: PANTOPRAZOLE SOD 40 MG DELAYED RELEASE TAB PO SCH (08:22)
[2017-02-14] MEDS: CLOPIDOGREL 75 MG TAB PO SCH (08:22)
[2017-02-14] MEDS: SODIUM CHLORIDE 0.9% FLUSH 5 ML FLUSH IVF SCH ×2 (08:24→21:00)
[2017-02-14] MEDS: METOCLOPRAMIDE HCL 10 MG/2 ML VIAL IVS SCH ×2 (08:29→21:42)
--- NOTE | 2017-02-14 11:02 | PD.CAR.PN ---
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 Patient did well until this morning when he started complaining about pain in his left leg On exam patient has left palpable femoral pulse very weak popliteal pulse by Doppler in no pulses beyond this. Dorsalis pedis and posterior tibial arteries on the left cannot be detected either by palpation or Doppler Foot is cold and pale and pulseless without capillary refill and with decreased sensation over the dorsum and plantar surfaces. 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 Nonetheless something happened in the last 24 hours that occluded his blood flow and it may be the combination of previous vascular occlusive disease and low cardiac output, so everything came to grinding halt Likely an acute occlusion superimposed on previous chronic vasculo-occlusive changes. I have discussed this with patient and family and explained the fairly significant risk of any additional surgery as well as the risk of losing the leg if no procedure is undertaken Family therefore understands the risks and benefits as explained to them and patient will be taken to the operating room for revascularization of the left leg emergently Full consult to follow Thanks Liliam 02/14/17 Patient doing very well at this time As noted yesterday patient is excellent femoral-popliteal dissolves pedis posterior tibial pulses bilateral and now the operated left leg pulses are stronger than on the right Incisions clean and dry Leave open to air Patient can go to the floor any time in ambulate as much as possible Patient can be discharged on Plavix from my point when okay with other medical and surgical subspecialists Objective: Vital Signs Date Time Temp Pulse Resp B/P (MAP) Pulse Ox O2 Delivery O2 Flow Rate FiO2 02/14/17 08:18 98 21 02/14/17 08:00 76 02/14/17 08:00 98.4 78 26 139/64 (89) 97 02/14/17 07:00 96 Room Air 02/14/17 04:00 98.0 73 22 127/62 (83) 96 02/14/17 04:00 72 02/14/17 00:00 98.0 88 22 123/86 (98) 96 02/14/17 00:00 74 02/13/17 20:45 97 Nasal Cannula 2.00 02/13/17 20:00 97.8 74 25 116/72 (87) 95 02/13/17 20:00 95 Room Air 02/13/17 20:00 74 02/13/17 16:00 97.7 83 26 114/56 (75) 98 02/13/17 16:00 83 02/13/17 12:00 73 02/13/17 12:00 98.2 73 24 121/58 (79) 100 Labs: Laboratory Tests Test 02/14/17 05:37 White Blood Count 15.0 TH/MM3 (4.0-11.0) Red Blood Count 3.37 MIL/MM3 (4.50-5.90) Hemoglobin 10.6 GM/DL (13.0-17.0) Hematocrit 31.7 % (39.0-51.0) Mean Corpuscular Volume 94.1 FL (80.0-100.0) Mean Corpuscular Hemoglobin 31.5 PG (27.0-34.0) Mean Corpuscular Hemoglobin Concent 33.5 % (32.0-36.0) Red Cell Distribution Width 15.3 % (11.6-17.2) Platelet Count 236 TH/MM3 (150-450) Mean Platelet Volume 8.3 FL (7.0-11.0) Blood Urea Nitrogen 17 MG/DL (7-18) Creatinine 0.98 MG/DL (0.60-1.30) Random Glucose 102 MG/DL (74-106) Calcium Level 7.5 MG/DL (8.5-10.1) Sodium Level 136 MEQ/L (136-145) Potassium Level 3.6 MEQ/L (3.5-5.1) Chloride Level 103 MEQ/L (98-107) Carbon Dioxide Level 27.2 MEQ/L (21.0-32.0) Anion Gap 6 MEQ/L (5-15) Estimat Glomerular Filtration Rate 73 ML/MIN (>89) Thyroid Stimulating Hormone 3rd Gen 2.000 uIU/ML (0.358-3.740) Result Diagram: 02/14/17 0537 02/14/17 0537 Rupert Stahl MD Feb 14, 2017 11:02
--- NOTE | 2017-02-14 12:59 | HHI.PR ---
Subjective Remarks Patient was sleepy during the interview. Patient's daughter and nurse is at the bedside during interview. Per patient's daughter he did not sleep all night so is very sleepy at the moment. The nurse stated that patient were to physical therapist this morning and they're try to get him to ambulate but he complained of pain onset in the chair. Patient stated the pain is at the left upper leg wound site. Otherwise he has no complaints. Per daughter difficulty for patient to eat due to dentures being too small since he lost a lot of weight. Objective Vitals Vital Signs Date Time Temp Pulse Resp B/P (MAP) Pulse Ox O2 Delivery O2 Flow Rate FiO2 02/14/17 08:18 98 21 02/14/17 08:00 76 02/14/17 08:00 98.4 78 26 139/64 (89) 97 02/14/17 07:00 96 Room Air 02/14/17 04:00 98.0 73 22 127/62 (83) 96 02/14/17 04:00 72 02/14/17 00:00 98.0 88 22 123/86 (98) 96 02/14/17 00:00 74 02/13/17 20:45 97 Nasal Cannula 2.00 02/13/17 20:00 97.8 74 25 116/72 (87) 95 02/13/17 20:00 95 Room Air 02/13/17 20:00 74 02/13/17 16:00 97.7 83 26 114/56 (75) 98 02/13/17 16:00 83 I/O 02/13/17 02/13/17 02/13/17 02/14/17 02/14/17 02/14/17 07:00 15:00 23:00 07:00 15:00 23:00 Intake Total 702 ml 200 ml 700 ml Output Total 400 ml 850 ml Balance 702 ml 200 ml 300 ml -850 ml Intake Oral 500 ml IV Total 702 ml 200 ml 200 ml Output Urine Total 400 ml 850 ml Result Diagram: 02/14/1737 02/14/17536 Objective Remarks GENERAL:in NAD CARDIOVASCULAR: Regular rate and rhythm without murmurs, gallops, or rubs. RESPIRATORY: Breath sounds equal bilaterally. No accessory muscle use. GASTROINTESTINAL: Abdomen soft, non-tender, nondistended. MUSCULOSKELETAL: Bilateral leg warm. +2 DP pulses bilaterally. Left leg wound incision dry clean and intact. Procedures Exploratory laparotomy, ascending/transverse colectomy (02/09/17). Medications and IVs Current Medications Sodium Chloride (NS Flush) 2 ml UNSCH PRN IVF FLUSH AFTER USING IV ACCESS; Start 02/01/17 at 17:45; Stop 02/01/17 at 21:22; Status DC Morphine Sulfate (Morphine Inj) 2 mg ONCE ONCE IV PUSH Last administered on 18:01; Start 02/01/17 at 18:00; Stop 02/01/17 at 18:01; Status DC Ondansetron HCl (Zofran Inj) 4 mg ONCE ONCE IV PUSH Last administered on 18:01; Start 02/01/17 at 18:00; Stop 02/01/17 at 18:01; Status DC Piperacillin Sod/ Tazobactam Sod 50 ml @ 100 mls/hr ONCE ONCE IV Last administered on 02/01/17 20:35; Start 02/01/17 at 19:45; Stop 02/01/17 at 20:14; Status DC Vancomycin HCl 1000 mg/Sodium Chloride 250 ml @ 250 mls/hr ONCE ONCE IV Last administered on 02/01/17 20:57; Start 02/01/17 at 19:45; Stop 02/01/17 at 20:44; Status DC Aspirin (Aspirin Chew) 162 mg ONCE ONCE CHEW Last administered on 02/01/17 20: 34; Start 02/01/17 at 19:45; Stop 02/01/17 at 19:46; Status DC Nitroglycerin (Nitroglycerin 2% Oint) 1 inch ONCE ONCE TOPICAL Last administered on 02/01/17 20:35; Start 02/01/17 at 19:45; Stop 02/01/17 at 19:46; Status DC Sodium Chloride 500 ml @ 500 mls/hr BOLUS ONCE IV Last administered on 20:34; Start 02/01/17 at 19:45; Stop 02/01/17 at 20:44; Status DC Iohexol (Omnipaque 350 Inj) 75 ml STK-MED ONCE IVCONTRAST Last administered on 02/01/17 19:00; Start 02/01/17 at 19:00; Stop 02/01/17 at 20:00; Status DC Sodium Chloride (NS Flush) 2 ml UNSCH PRN IV FLUSH FLUSH AFTER USING IV ACCESS Last administered on 02/11/17 21:11; Start 02/01/17 at 21:00 Sodium Chloride (NS Flush) 2 ml BID IV FLUSH Last administered on 02/14/17 08: 20; Start 02/01/17 at 21:00 Naloxone HCl (Narcan Inj) 0.4 mg UNSCH PRN IV SEE LABEL COMMENTS; Start at 21:00 Piperacillin Sod/ Tazobactam Sod 100 ml @ 200 mls/hr Q6H IV Last administered on 02/07/17 08:20; Start 02/02/17 at 02:00; Stop 02/07/17 at 10:04; Status DC Morphine Sulfate (Morphine Inj) 2 mg Q6H PRN IV PUSH pain >5; Start 02/01/17 at 23:15; Stop 02/09/17 at 10:35; Status DC Metoprolol Tartrate (Lopressor) 25 mg DAILY PO ; Start 02/02/17 at 09:00; Status Future Hold Lisinopril (Prinivil) 2.5 mg DAILY PO ; Start 02/02/17 at 09:00; Status Future Hold Miscellaneous (Pill Splitter) 1 ea UNSCH PRN OTHER SEE LABEL COMMENTS; Start at 09:00 Sodium Chloride 250 ml @ 250 mls/hr BOLUS ONCE IV Last administered on 13:45; Start 02/02/17 at 13:45; Stop 02/02/17 at 14:44; Status DC Sodium Chloride 1,000 ml @ 84 mls/hr [id number] IV Last administered on 01:56; Start 02/02/17 at 13:45; Stop 02/06/17 at 10:29; Status DC Latanoprost (Xalatan 0.005% Opt Soln) 1 drop HS EACH EYE Last administered on 02/13/17 20:04; Start 02/02/17 at 21:00 Miscellaneous Information ALL NURSING DEPARTME... UNSCH PRN .XX SEE LABEL COMMENTS; Start 02/03/17 at 14:15; Stop 02/04/17 at 14:14; Status DC Propofol (Diprivan 200 Mg/20 ml Inj) 300 mg STK-MED ONCE IV ; Start 02/03/17 at 12:46; Stop 02/03/17 at 15:06; Status DC Glucagon (Glucagon Inj) 0.4 mg STK-MED ONCE IV ; Start 02/03/17 at 12:00; Stop at 10:38; Status DC Sodium Chloride 500 ml @ As Directed STK-MED ONCE IV ; Start 02/03/17 at 12:00; Stop 02/04/17 at 10:38; Status DC Iohexol (OMNIPAQUE 300 INJ (Rad CT)) 100 ml STK-MED ONCE OTHER ; Start 02/03/17 at 12:00; Stop 02/04/17 at 10:43; Status DC Lactulose (Lactulose Liq) 30 ml ONCE ONCE PO Last administered on 02/05/17 14: 04; Start 02/05/17 at 13:30; Stop 02/05/17 at 13:31; Status DC Sodium Biphosphate/ Sodium Phosphate (Fleets Enema (Adult)) 133 ml ONCE ONCE RECTAL Last administered on 02/05/17 16:30; Start 02/05/17 at 16:30; Stop at 16:31; Status DC Bisacodyl (Dulcolax Supp) 10 mg ONCE ONCE RECTAL ; Start 02/05/17 at 16:30; Stop 02/05/17 at 16:31; Status DC Ondansetron HCl (Zofran Inj) 4 mg Q6HR PRN IV PUSH NAUSEA OR VOMITING Last administered on 02/08/17 10:24; Start 02/05/17 at 22:45 Bisacodyl (Dulcolax Supp) 10 mg ONCE ONCE RECTAL Last administered on 23:35; Start 02/05/17 at 22:45; Stop 02/05/17 at 22:53; Status DC Potassium Bicarb/ Potassium Chloride (K-Lyte Cl Eff) 50 meq ONCE ONCE PO Last administered on 02/06/17 10:30; Start 02/06/17 at 10:30; Stop 02/06/17 at 10:31; Status DC Sodium Biphosphate/ Sodium Phosphate (Fleets Enema (Adult)) 133 ml ONCE ONCE RECTAL Last administered on 02/06/17 10:45; Start 02/06/17 at 10:45; Stop 03/15 at 10:46; Status DC Metoclopramide HCl (Reglan Inj) 5 mg Q8HR IM Last administered on 02/08/17 14: 00; Start 02/06/17 at 14:00; Stop 02/08/17 at 16:01; Status DC Diphenhydramine HCl (Benadryl 2% Cream) 1 applic TID PRN TOPICAL ITCHING Last administered on 02/07/17 21:26; Start 02/06/17 at 10:45 Diphenhydramine HCl (Benadryl 2% Cream) 1 applic ONCE ONCE TOPICAL Last administered on 02/06/17 12:00; Start 02/06/17 at 12:00; Stop 02/06/17 at 12:01 ; Status DC Potassium Bicarb/ Potassium Chloride (K-Lyte Cl Eff) 50 meq ONCE ONCE PO Last administered on 02/07/17 10:30; Start 02/07/17 at 10:30; Stop 02/07/17 at 10:31; Status DC Dextrose/Sodium Chloride 1,000 ml @ 75 mls/hr [id number] IV Last administered on 02/08/17 00:20; Start 02/07/17 at 10:30; Stop 02/08/17 at 10:20; Status DC Potassium Bicarb/ Potassium Chloride (K-Lyte Cl Eff) 50 meq ONCE ONCE PO Last administered on 02/08/17 10:30; Start 02/08/17 at 10:30; Stop 02/08/17 at 10:31; Status DC Diatrizoate Meglum/ Diatrizoate Sod ( Gastroview Liq) 960 ml STK-MED ONCE RECTAL Last administered on 02/08/17 11:15; Start 02/08/17 at 11:15; Stop 05/15 at 11:57; Status DC Potassium Chloride/Dextrose/ Sod Cl 1,000 ml @ 75 mls/hr [id number] IV Last administered on 02/08/17 16:00; Start 02/08/17 at 16:00; Stop 02/09/17 at 11:12 ; Status DC Cefazolin Sodium 1000 mg/Sodium Chloride 100 ml @ 200 mls/hr MANAGER MILITARY IV Last administered on 02/09/17 12:46; Start 02/08/17 at 16:00; Stop 02/11/17 at 15:59 ; Status DC Metronidazole 100 ml @ 100 mls/hr ONCE ONCE IV Last administered on 16:00; Start 02/08/17 at 16:00; Stop 02/08/17 at 16:59; Status DC Benzonatate (Tessalon) 100 mg TID PRN PO cough; Start 02/09/17 at 09:00 Tramadol HCl (Ultram) 50 mg Q6H PRN PO pain 6-10; Start 02/09/17 at 10:45 Dextrose 1,000 ml @ 75 mls/hr [id number] IV ; Start 02/09/17 at 11:15; Stop at 16:22; Status DC Potassium Bicarb/ Potassium Chloride (K-Lyte Cl Eff) 25 meq ONCE ONCE PO ; Start 02/09/17 at 11:15; Stop 02/09/17 at 11:16; Status DC Piperacillin Sod/ Tazobactam Sod 100 ml @ 200 mls/hr Q6H IV Last administered on 02/11/17 08:56; Start 02/09/17 at 14:00; Stop 02/11/17 at 12:04; Status DC Acetaminophen 100 ml @ As Directed STK-MED ONCE IV ; Start 02/09/17 at 12:58; Stop 02/09/17 at 12:59; Status DC Famotidine (Pepcid Inj) 20 mg STK-MED ONCE .ROUTE Last administered on 13:11; Start 02/09/17 at 13:13; Stop 02/09/17 at 13:14; Status DC Ketamine HCl (Ketalar Inj) 500 mg STK-MED ONCE .ROUTE ; Start 02/09/17 at 13:18 ; Stop 02/09/17 at 13:19; Status DC Metronidazole 100 ml @ As Directed STK-MED ONCE IV Last administered on 13:55; Start 02/09/17 at 13:57; Stop 02/09/17 at 13:58; Status DC Hydromorphone HCl (Dilaudid Pf Inj) 2 mg STK-MED ONCE .ROUTE ; Start 02/09/17 at 14:11; Stop 02/09/17 at 14:12; Status DC Sugammadex Sodium (Bridion Inj) 200 mg STK-MED ONCE IV PUSH ; Start 02/09/17 at 15:29; Stop 02/09/17 at 15:30; Status DC Potassium Chloride/Dextrose/ Sod Cl 1,000 ml @ 175 mls/hr [id number] IV Last administered on 02/10/17 03:55; Start 02/09/17 at 16:15; Stop 02/10/17 at 10:05 ; Status DC IV Flush (NS Flush) 2 ml UNSCH PRN IVF FLUSH AFTER USING IV ACCESS; Start 02/09 at 16:15 IV Flush (NS Flush) 2 ml BID IVF Last administered on 02/13/17 20:04; Start at 21:00 Cefazolin Sodium 1000 mg/Sodium Chloride 100 ml @ 200 mls/hr Q8H IV Last administered on 02/10/17 12:35; Start 02/09/17 at 20:00; Stop 02/10/17 at 12:29 ; Status DC Metronidazole 100 ml @ 200 mls/hr Q8H IV Last administered on 02/10/17 16:37 ; Start 02/10/17 at 00:00; Stop 02/10/17 at 16:29; Status DC Miscellaneous Information (Post-op Orders (for Pharmacy)) STAT ONCE XX ; Start 02/09/17 at 16:15; Stop 02/09/17 at 16:58; Status DC Acetaminophen/ Hydrocodone Bitart ([place] 5-325 Mg) 1 tab Q4H PRN PO PAIN SCALE 1 TO 4 Last administered on 02/13/17 01:11; Start 02/09/17 at 16:15 Acetaminophen/ Hydrocodone Bitart ([place] 5-325 Mg) 2 tab Q4H PRN PO PAIN SCALE 5 TO 10; Start 02/09/17 at 16:15; Stop 02/10/17 at 15:52; Status DC Ketorolac Tromethamine (Toradol Inj) 30 mg Q6H PRN IVP PAIN SCALE 1 TO 10 Last administered on 02/09/17 17:21; Start 02/09/17 at 16:15; Stop 02/12/17 at 16:14 ; Status DC Acetaminophen (Tylenol) 650 mg Q4H PRN PO Pain > 3 or Temperature > 101F; Start 02/09/17 at 16:15 Pantoprazole Sodium (Protonix Inj) 40 mg DAILY IVP Last administered on 08:21; Start 02/10/17 at 09:00 Pantoprazole Sodium (Protonix) 40 mg DAILY PO Last administered on 02/14/17 08 :22; Start 02/10/17 at 09:00 Metoclopramide HCl (Reglan Inj) 10 mg Q12HR IVS Last administered on 02/14/17 08:29; Start 02/09/17 at 21:00 Ondansetron HCl (Zofran Inj) 4 mg Q6H PRN IV NAUSEA; Start 02/09/17 at 16:15 Enalaprilat (Vasotec Inj) 1.25 mg Q4H PRN IV SYS BP GREATER THAN 160 MMHG; Start 02/09/17 at 16:15 Enalaprilat (Vasotec Inj) 2.5 mg Q6H PRN IV SYS BP GREATER THAN 160 MMHG; Start 02/09/17 at 16:15 Benzocaine/Menthol (Chloraseptic Jeanna) 1 lozenge UNSCH PRN BUCCAL SORE THROAT; Start 02/09/17 at 16:15 Potassium Chloride 100 ml @ 50 mls/hr UNSCH PRN IV POTASSIUM 3 TO 3.5 Last administered on 02/12/17 21:56; Start 02/09/17 at 16:15 Potassium Chloride 100 ml @ 25 mls/hr UNSCH PRN IV POTASSIUM LESS THAN 3; Start 02/09/17 at 16:15 Miscellaneous Information 1 ONCE ONCE XX ; Start 02/09/17 at 16:15; Stop at 16:56; Status DC Naloxone HCl (Narcan Inj) 0.4 mg UNSCH PRN IV RESPIRATORY RATE LESS THAN 10; Start 02/09/17 at 16:15; Stop 02/11/17 at 09:50; Status DC Morphine Sulfate (Morphine 1 Mg/ ml INFECTION CONTROL PREVENTIONIST) 30 mg UNSCH IV Last administered on 17:21; Start 02/09/17 at 16:15; Stop 02/11/17 at 09:50; Status DC INFECTION CONTROL PREVENTIONIST Dosage Infused (Pha) 1 Q8HR .XX Last administered on 02/11/17 06:30; Start 02/09/17 at 16:15; Stop 02/11/17 at 09:50; Status DC Miscellaneous Information ALL NURSING DEPARTME... UNSCH PRN .XX SEE LABEL COMMENTS; Start 02/09/17 at 16:42; Stop 02/10/17 at 16:41; Status DC Dextrose/Sodium Chloride 1,000 ml @ 100 mls/hr Q10H IV Last administered on 11:28; Start 02/10/17 at 10:15; Stop 02/10/17 at 15:31; Status DC Dextrose 1,000 ml @ 50 mls/hr Q20H IV Last administered on 02/13/17 20:03; Start 02/10/17 at 15:30 Furosemide (Lasix Inj) 10 mg Q12HR IV PUSH Last administered on 02/14/17 08:21 ; Start 02/11/17 at 10:30 Acetaminophen 100 ml @ 400 mls/hr Q6H IV Last administered on 02/14/17 11:23 ; Start 02/11/17 at 10:00 Lorazepam (Ativan Inj) 0.5 mg Q6HR PRN IV PUSH AGITATION AND/OR HALLUCINATION; Start 02/11/17 at 10:00 Potassium Bicarb/ Potassium Chloride (K-Lyte Cl Eff) 50 meq ONCE ONCE PO Last administered on 02/11/17 16:00; Start 02/11/17 at 11:15; Stop 02/11/17 at 13:08; Status DC Piperacillin Sod/ Tazobactam Sod 100 ml @ 200 mls/hr Q6H IV Last administered on 02/12/17 09:38; Start 02/11/17 at 15:00; Stop 02/12/17 at 10:46; Status DC Iohexol (Omnipaque 350 Inj) 100 ml STK-MED ONCE IV PUSH Last administered on 12:46; Start 02/12/17 at 12:46; Stop 02/12/17 at 12:47; Status DC Cefazolin Sodium/ Dextrose 50 ml @ 100 mls/hr MANAGER MILITARY IV ; Start 02/12/17 at 17:15; Stop 02/15/17 at 17:14 Heparin Sodium (Porcine) (Heparin Inj) 10,000 units STK-MED ONCE .ROUTE ; Start 02/12/17 at 17:07; Stop 02/12/17 at 17:08; Status DC Heparin Sodium (Porcine) (Heparin Inj) 10,000 units STK-MED ONCE .ROUTE ; Start 02/12/17 at 17:10; Stop 02/12/17 at 17:11; Status DC Heparin Sodium (Porcine) (Heparin Inj) 10,000 units STK-MED ONCE .ROUTE ; Start 02/12/17 at 17:10; Stop 02/12/17 at 17:11; Status DC Protamine Sulfate (Protamine Sulfate Inj) 50 mg STK-MED ONCE .ROUTE ; Start at 17:10; Stop 02/12/17 at 17:11; Status DC Heparin Sodium (Porcine) (Heparin Inj) 10,000 units STK-MED ONCE .ROUTE ; Start 02/12/17 at 17:47; Stop 02/12/17 at 17:48; Status DC Miscellaneous Information ALL NURSING DEPARTME... UNSCH PRN .XX SEE LABEL COMMENTS; Start 02/12/17 at 20:12; Stop 02/13/17 at 20:11; Status DC Clopidogrel Bisulfate (Plavix) 75 mg DAILY PO Last administered on 02/14/17 08 :22; Start 02/13/17 at 09:00 Cefazolin Sodium 1000 mg/Sodium Chloride 100 ml @ 200 mls/hr Q8H IV Last administered on 02/13/17 17:47; Start 02/13/17 at 02:00; Stop 02/13/17 at 18:29 ; Status DC Sodium Chloride 500 ml @ 0 mls/hr UNSCH ONCE IV Last administered on 21:15; Start 02/12/17 at 21:15; Stop 02/12/17 at 21:16; Status DC Potassium Chloride 100 ml @ 50 mls/hr Q2H PRN IV For Potassium 2.8 - 3.2 mEq/L ; Start 02/12/17 at 21:45 Potassium Chloride 100 ml @ 50 mls/hr Q2H PRN IV For Potassium 2.8 - 3.2 mEq/L ; Start 02/12/17 at 21:45 Potassium Bicarb/ Potassium Chloride (K-Lyte Cl Eff) 50 meq UNSCH PRN PO For Potassium 3.3 - 3.5 mEq/L; Start 02/12/17 at 21:45 Potassium Chloride 100 ml @ 25 mls/hr UNSCH PRN IV For Potassium 3.3 - 3.5 mEq /L; Start 02/12/17 at 21:45 Potassium Chloride 100 ml @ 50 mls/hr Q2H PRN IV For Potassium 3.3 - 3.5 mEq/L ; Start 02/12/17 at 21:45 Magnesium Sulfate 4 gm/Sodium Chloride 100 ml @ 50 mls/hr UNSCH PRN IV For Magnesium 0.9 - 1.1 mg/dL; Start 02/12/17 at 21:45 Magnesium Oxide (Mag-Ox) 800 mg UNSCH PRN PO For Magnesium 1.2 - 1.6 mg/dL; Start 02/12/17 at 21:45 Magnesium Sulfate 2 gm/Sodium Chloride 100 ml @ 50 mls/hr UNSCH PRN IV For Magnesium 1.2 - 1.6 mg/dL; Start 02/12/17 at 21:45 Potassium Phosphate (K-Phos) 2,000 mg Q4H PRN PO For Phosphorus < 2.5 mg/dL; Start 02/12/17 at 21:45 Sodium Phosphate 30 mmol/Sodium Chloride 250 ml @ 42 mls/hr UNSCH PRN IV For Phosphorus < 2.5 mg/dL; Start 02/12/17 at 21:45 Potassium Phosphate (K-Phos) 2,000 mg UNSCH PRN PO/TUBE SEE LABEL COMMENTS; Start 02/12/17 at 21:45 Potassium Phosphate 30 mmol/ Sodium Chloride 260 ml @ 42 mls/hr UNSCH PRN IV SEE LABEL COMMENTS; Start 02/12/17 at 21:45 Heparin Sodium (Porcine) (Heparin Inj) 5,000 units Q8HR SQ Last administered on 02/14/17t 05:22; Start 02/12/17 at 22:00 Albuterol/ Ipratropium (Duoneb Neb) 1 ampule Q6HR NEB PRN NEB SHORTNESS OF BREATH; Start 02/12/17 at 22:30 Enoxaparin Sodium (Lovenox Inj) 30 mg Q12H SQ ; Start 02/13/17 at 11:00; Stop at 11:02; Status DC A/P Problem List: (1) Common bile duct dilation ICD Code: K83.8 - Other specified diseases of biliary tract (2) Elevated liver function tests ICD Code: R79.89 - Other specified abnormal findings of blood chemistry Status: Acute (3) Chest pain ICD Code: R07.9 - Chest pain, unspecified Status: Acute (4) Leukocytosis ICD Code: D72.829 - Elevated white blood cell count, unspecified Assessment and Plan Ileus/ Colon mass The pt has been constipated and nauseous. CT indicative of ileus. KUB with stability. Pt with increasing pain. NGT recommended by GI. Pt refusing. Barium study showed: Focal obstruction at the level of the proximal transverse colon with ill-defined, masslike structure measuring up to at least 5 cm; This is of concern for colon cancer. Colorectal surgery was consulted. S/p exploratory laparotomy of the ascending/transverse colectomy 02/09/17. - further management per CRS. -Status post Zosyn treatment. - Patient on mechanical soft diet. Decreased PO intake due to weight loss and dentures not fitting anymore. Will get a dietitian and speech therapy to see patient. Will supplement with ensure. Peripheral arterial disease with occlusion of the distal left femoral artery -CTA runoff showed occlusion of the distal left femoral artery. Consulted vascular surgeon Dr. Stahl. -Status post left femoral-popliteal bypass and endarterectomy on 02/12/2017. -Patient needs to ambulate and if clear by health care consultant can start Plavix on discharge. Choledocholithiasis -Dilated common bile duct with stone on imaging with elevated liver enzyme. GI specialist following, status post ERCP and stone extraction. S/p Zosyn. Chest pain/ CHF Reported to ED physician. Trop peaked at 0.09. S/p cardiology evaluation. Echo with severely reduced EF. Appreciate cardiology follow-up. - continuous cardiac telemetry to monitor for arrhythmias. - continue cardiac regimen. - outpt follow-up with cardiology. Right leg itching Chronic. - Benadryl cream added. Seems resolved. Weight loss -Due to colon cancer. See treatment as above. Hypokalemia Likely secondary to ileus. - Replete and monitor. Hypernatremia The pt has not been eating much lately. -Resolved. Once patient able to tolerate oral intake better will discontinue IV fluids. DVT prophylaxis: SCDs/TEDs Discharge Planning Patient can be transferred to Med/Surg. Poor oral intake. Will need better oral intake before transfer to SNF. Problem Qualifiers (1) Chest pain: Qualified Codes: R07.9 - Chest pain, unspecified Eli Nguyen MD Feb 14, 2017 12:59
--- NOTE | 2017-02-14 15:21 | HHI.PR ---
Subjective Remarks C/R Surg POD afebrile, VSS UO good agitated at times, tired now Objective - Vital Signs Date Time Temp Pulse Resp B/P (MAP) Pulse Ox O2 Delivery O2 Flow Rate FiO2 02/14/17 12:00 98.0 80 22 145/94 (111) 98 02/14/17 08:18 21 02/14/17 07:00 Room Air 02/13/17 20:45 2.00 Result Diagram: 02/14/17 0537 02/14/17 0537 Objective Remarks PE alert Abd - soft, wound clean, dry no BM A/P Assessment and Plan Imp: OOB resp tx start PO slowly, await BM follow urine output Gustavo Farfan MD Feb 14, 2017 15:21
[2017-02-14] MEDS: 1/2 NS + KCL 20 MEQ INJ 1,000 ML IV SCH (16:38)
[2017-02-14] MEDS: LATANOPROST 0.005% OPHT SOLN 2.5 ML BTL EACH EYE SCH (21:44)
[2017-02-15] VITALS (10 sets, daily range): BP systolic 113–160; BP diastolic 63–85; PULSE 76–88; RESP 16–26; TEMP 97.6–98.4; O2SAT 94–99
[2017-02-15] MEDS: ACETAMINOPHEN 1000 MG/100 ML 100 ML IV SCH ×4 (03:54→23:25)
[2017-02-15] MEDS: HEPARIN SODIUM - SQ 10,000 UNITS/ML VIAL SQ SCH ×3 (05:35→23:25)
[2017-02-15] MEDS: 1/2 NS + KCL 20 MEQ INJ 1,000 ML IV SCH (05:36)
[2017-02-15 05:45] LABS: MEAN CELL VOLUME 94.9 FL (80.0-100.0); MEAN CORPUSCULAR HEMOGLOBIN 31.5 PG (27.0-34.0); MEAN CORPUSCULAR HGB CONC 33.2 % (32.0-36.0); PLATELET COUNT 206 TH/MM3 (150-450); RED BLOOD COUNT 3.06 MIL/MM3 (4.50-5.90); RED CELL DISTRIBUTION WIDTH 14.8 % (11.6-17.2); REVIEW FLAG FINAL; WHITE BLOOD COUNT 12.6 TH/MM3 (4.0-11.0)
[2017-02-15 06:15] LABS: BICARBONATE 26.5 MEQ/L (21.0-32.0); POTASSIUM 3.6 MEQ/L (3.5-5.1)
[2017-02-15 06:34] LABS: CALCIUM-PROTEIN CORRECTED 8.9 MG/DL (8.5-10.1)
[2017-02-15] MEDS ORDERED: BISACODYL 10 MG SUPP RECTAL ONE (07:15)
[2017-02-15] MEDS: SODIUM CHLORIDE 0.9% FLUSH 5 ML FLUSH IVF SCH ×2 (09:00→19:51)
[2017-02-15] MEDS: CLOPIDOGREL 75 MG TAB PO SCH (09:24)
[2017-02-15] MEDS: PANTOPRAZOLE SOD 40 MG DELAYED RELEASE TAB PO SCH (09:24)
[2017-02-15] MEDS: FUROSEMIDE 20 MG/2 ML VIAL IV PUSH SCH ×2 (09:25→23:24)
[2017-02-15] MEDS: METOCLOPRAMIDE HCL 10 MG/2 ML VIAL IVS SCH ×2 (09:26→19:50)
[2017-02-15] MEDS: SODIUM CHLORIDE 0.9% FLUSH 10 ML FLUSH IV FLUSH SCH ×2 (09:26→19:50)
[2017-02-15] MEDS: PANTOPRAZOLE SODIUM 40 MG VIAL IVP SCH (09:27)
--- NOTE | 2017-02-15 13:11 | PD.CAR.PN ---
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 Patient did well until this morning when he started complaining about pain in his left leg On exam patient has left palpable femoral pulse very weak popliteal pulse by Doppler in no pulses beyond this. Dorsalis pedis and posterior tibial arteries on the left cannot be detected either by palpation or Doppler Foot is cold and pale and pulseless without capillary refill and with decreased sensation over the dorsum and plantar surfaces. 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 Nonetheless something happened in the last 24 hours that occluded his blood flow and it may be the combination of previous vascular occlusive disease and low cardiac output, so everything came to grinding halt Likely an acute occlusion superimposed on previous chronic vasculo-occlusive changes. I have discussed this with patient and family and explained the fairly significant risk of any additional surgery as well as the risk of losing the leg if no procedure is undertaken Family therefore understands the risks and benefits as explained to them and patient will be taken to the operating room for revascularization of the left leg emergently Full consult to follow Thanks Liliam 02/14/17 Patient doing very well at this time As noted yesterday patient is excellent femoral-popliteal dissolves pedis posterior tibial pulses bilateral and now the operated left leg pulses are stronger than on the right Incisions clean and dry Leave open to air Patient can go to the floor any time in ambulate as much as possible Patient can be discharged on Plavix from my point when okay with other medical and surgical subspecialists 02/15/17 Patient stable from vascular point Incisions in the groin and the left popliteal fossa are clean and dry Patient has excellent Doppler signal in the graft and posterior tibial and dorsalis pedis arteries Both feet are warm and left is not even better than the right with normal capillary refill Nothing to add from vascular point Patient should probably stay on Plavix indefinitely Objective: Vital Signs Date Time Temp Pulse Resp B/P (MAP) Pulse Ox O2 Delivery O2 Flow Rate FiO2 02/15/17 08:09 96 21 02/15/17 08:00 97.9 76 21 133/63 (86) 97 02/15/17 08:00 76 02/15/17 07:00 97 Room Air 02/15/17 04:00 88 02/15/17 04:00 97.6 88 25 128/66 (86) 97 02/15/17 00:00 97.6 82 25 121/67 (85) 96 02/15/17 00:00 82 02/14/17 21:28 97 21 02/14/17 20:00 97.8 84 26 142/65 (90) 97 02/14/17 20:00 84 02/14/17 19:00 97 Room Air 02/14/17 16:00 97.6 82 25 143/66 (91) 97 02/14/17 16:00 82 Labs: Laboratory Tests Test 02/15/17 04:51 White Blood Count 12.6 TH/MM3 (4.0-11.0) Red Blood Count 3.06 MIL/MM3 (4.50-5.90) Hemoglobin 9.6 GM/DL (13.0-17.0) Hematocrit 29.0 % (39.0-51.0) Mean Corpuscular Volume 94.9 FL (80.0-100.0) Mean Corpuscular Hemoglobin 31.5 PG (27.0-34.0) Mean Corpuscular Hemoglobin Concent 33.2 % (32.0-36.0) Red Cell Distribution Width 14.8 % (11.6-17.2) Platelet Count 206 TH/MM3 (150-450) Mean Platelet Volume 8.2 FL (7.0-11.0) Blood Urea Nitrogen 15 MG/DL (7-18) Creatinine 0.79 MG/DL (0.60-1.30) Random Glucose 80 MG/DL (74-106) Total Protein 4.3 GM/DL (6.4-8.2) Calcium Level 7.3 MG/DL (8.5-10.1) Sodium Level 136 MEQ/L (136-145) Potassium Level 3.6 MEQ/L (3.5-5.1) Chloride Level 104 MEQ/L (98-107) Carbon Dioxide Level 26.5 MEQ/L (21.0-32.0) Anion Gap 6 MEQ/L (5-15) Estimat Glomerular Filtration Rate 93 ML/MIN (>89) Protein Corrected Calcium 8.9 MG/DL (8.5-10.1) Result Diagram: 02/15/17 0451 02/15/17 0451 Rupert Stahl MD Feb 15, 2017 13:11
--- NOTE | 2017-02-15 13:17 | MP ---
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 OPERATIVE PROCEDURE Right femoral endarterectomy, right femoral-popliteal bypass and thromboembolectomy of the superficial femoral artery. SURGEON Dr. Onofre ANESTHESIA General ESTIMATED BLOOD LOSS 200 cc PROCEDURE The patient prepped and draped in the usual fashion. A left groin incision made, deepened down. Common femoral, deep femoral and superficial femoral artery isolated. The vessel loops were placed around them and the area explored. The patient has bounding external iliac and common femoral pulse and in the deep femoral artery has a weak pulse. The superficial femoral artery has no pulse in it from the origin down. The left popliteal artery is now accessed by making a median incision just level round the knee and above it, deepened down to the neurovascular bundle and popliteal artery, isolated proximally and distally and then Vesseloops placed around it. The vessel is very soft, but absolutely no flow in it. The patient was given 5000 units of heparin and then a profunda clamp is applied to the deep femoral artery and a Satinsky small clamp to the common femoral/external iliac artery. The vessel was opened longitudinally with Fraser scissors. There is minimal back bleeding. A #4 Sammy catheter is now passed down and it goes all the way down even further than the knee taking the course of the posterior tibial artery. It is withdrawn and there is a huge amount of thromboembolic material on it which is sent for pathology. This is clearly coming from the superficial femoral artery. However, there is a very tight narrowing of the superficial femoral artery at the very origin which is arteriosclerotic and nearly occluding the vessel. The catheter also gets stuck somewhere in the distal third of the superficial femoral artery so I believe while the catheter is passing distally, the clot is actually filling the vessel in the middle. This clot is now all removed and the vessel was flushed with heparinized saline and it goes only that far. The popliteal artery is felt as the catheter passes down and again it is held up just proximal to the popliteal somewhere in the adductor canal where it is difficult to pass the catheter through. 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 The baby profunda clamps were placed proximally and then the Vesseloop is cinched distally. The vessel was opened longitudinal about an inch in length and it appears to be very clean. There is some back bleeding actually. The PTFE graft is now in an under oblique angle and sewn in with a running 6-0 Prolene. The graft is now flushed with heparinized saline and a clamp is applied to the graft of the vessel. The vessel clamps were removed. The proximal area is now attended again. Vessel is prepared and then graft is cut to size in a very oblique angle in the form of sort of a patch graft. It is sewn in with a running 5-0 Prolene and then blood flow was reestablished. The patient now has a bounding pulse in the deep femoral artery and popliteal artery. The posterior tibial and anterior tibial arteries are easily Dopplerable, very strong and foot readily warms up. Due to patient positioning on the table, completion angiogram cannot be performed. The area is irrigated with copious amounts of saline and meticulous hemostasis was obtained. Then the incision was closed with 0 Vicryl in layers and 4-0 Monocryl for the skin. A dressing applied. The patient tolerated the procedure well. At the end of the procedure, the patient has bounding proximal and distal pulses and strong Doppler signal. Edvin AGOSTO /8:30 PM /1:03 PM BRIDGER
--- NOTE | 2017-02-15 15:51 | HHI.PR ---
Subjective Remarks Follow for surgery Patient stated he is doing a lot better. His nurse is at the bedside during the interview. He is a poor historian Pain is improving. Patient appetite is better today. Denies any nausea or vomiting today. No other complaints. Objective Vitals Vital Signs Date Time Temp Pulse Resp B/P (MAP) Pulse Ox O2 Delivery O2 Flow Rate FiO2 02/15/17 12:00 97.6 83 24 134/73 (93) 98 02/15/17 12:00 83 02/15/17 08:09 96 21 02/15/17 08:00 97.9 76 21 133/63 (86) 97 02/15/17 08:00 76 02/15/17 07:00 97 Room Air 02/15/17 04:00 88 02/15/17 04:00 97.6 88 25 128/66 (86) 97 02/15/17 00:00 97.6 82 25 121/67 (85) 96 02/15/17 00:00 82 02/14/17 21:28 97 21 02/14/17 20:00 97.8 84 26 142/65 (90) 97 02/14/17 20:00 84 02/14/17 19:00 97 Room Air 02/14/17 16:00 97.6 82 25 143/66 (91) 97 02/14/17 16:00 82 I/O 02/14/17 02/14/17 02/14/17 02/15/17 02/15/17 02/15/17 07:00 15:00 23:00 07:00 15:00 23:00 Intake Total 987 ml 1272 ml Output Total 850 ml 900 ml 600 ml Balance -850 ml 87 ml 672 ml Intake Oral 240 ml 200 ml IV Total 747 ml 1072 ml Output Urine Total 850 ml 900 ml 600 ml Stool Total 0 ml # Voids 1 3 Result Diagram: 02/15/17 0451 02/15/17 0451 Objective Remarks GENERAL:in NAD CARDIOVASCULAR: Regular rate and rhythm without murmurs, gallops, or rubs. RESPIRATORY: Breath sounds equal bilaterally. No accessory muscle use. GASTROINTESTINAL: Abdomen soft, non-tender, nondistended. MUSCULOSKELETAL: Bilateral leg warm. +2 DP pulses bilaterally. Left leg wound incision dry clean and intact. + 1 LE edema PELVIC: scrotum and penis edematous no erythema. Procedures Exploratory laparotomy, ascending/transverse colectomy (02/09/17). Medications and IVs Current Medications Sodium Chloride (NS Flush) 2 ml UNSCH PRN IVF FLUSH AFTER USING IV ACCESS; Start 02/01/17 at 17:45; Stop 02/01/17 at 21:22; Status DC Morphine Sulfate (Morphine Inj) 2 mg ONCE ONCE IV PUSH Last administered on 18:01; Start 02/01/17 at 18:00; Stop 02/01/17 at 18:01; Status DC Ondansetron HCl (Zofran Inj) 4 mg ONCE ONCE IV PUSH Last administered on 18:01; Start 02/01/17 at 18:00; Stop 02/01/17 at 18:01; Status DC Piperacillin Sod/ Tazobactam Sod 50 ml @ 100 mls/hr ONCE ONCE IV Last administered on 02/01/17 20:35; Start 02/01/17 at 19:45; Stop 02/01/17 at 20:14; Status DC Vancomycin HCl 1000 mg/Sodium Chloride 250 ml @ 250 mls/hr ONCE ONCE IV Last administered on 02/01/17 20:57; Start 02/01/17 at 19:45; Stop 02/01/17 at 20:44; Status DC Aspirin (Aspirin Chew) 162 mg ONCE ONCE CHEW Last administered on 02/01/17 20: 34; Start 02/01/17 at 19:45; Stop 02/01/17 at 19:46; Status DC Nitroglycerin (Nitroglycerin 2% Oint) 1 inch ONCE ONCE TOPICAL Last administered on 02/01/17 20:35; Start 02/01/17 at 19:45; Stop 02/01/17 at 19:46; Status DC Sodium Chloride 500 ml @ 500 mls/hr BOLUS ONCE IV Last administered on 20:34; Start 02/01/17 at 19:45; Stop 02/01/17 at 20:44; Status DC Iohexol (Omnipaque 350 Inj) 75 ml STK-MED ONCE IVCONTRAST Last administered on 02/01/17 19:00; Start 02/01/17 at 19:00; Stop 02/01/17 at 20:00; Status DC Sodium Chloride (NS Flush) 2 ml UNSCH PRN IV FLUSH FLUSH AFTER USING IV ACCESS Last administered on 02/11/17 21:11; Start 02/01/17 at 21:00 Sodium Chloride (NS Flush) 2 ml BID IV FLUSH Last administered on 02/15/17 09: 26; Start 02/01/17 at 21:00 Naloxone HCl (Narcan Inj) 0.4 mg UNSCH PRN IV SEE LABEL COMMENTS; Start at 21:00 Piperacillin Sod/ Tazobactam Sod 100 ml @ 200 mls/hr Q6H IV Last administered on 02/07/17 08:20; Start 02/02/17 at 02:00; Stop 02/07/17 at 10:04; Status DC Morphine Sulfate (Morphine Inj) 2 mg Q6H PRN IV PUSH pain >5; Start 02/01/17 at 23:15; Stop 02/09/17 at 10:35; Status DC Metoprolol Tartrate (Lopressor) 25 mg DAILY PO ; Start 02/02/17 at 09:00; Status Future Hold Lisinopril (Prinivil) 2.5 mg DAILY PO ; Start 02/02/17 at 09:00; Status Future Hold Miscellaneous (Pill Splitter) 1 ea UNSCH PRN OTHER SEE LABEL COMMENTS; Start at 09:00 Sodium Chloride 250 ml @ 250 mls/hr BOLUS ONCE IV Last administered on 13:45; Start 02/02/17 at 13:45; Stop 02/02/17 at 14:44; Status DC Sodium Chloride 1,000 ml @ 84 mls/hr [id number] IV Last administered on 01:56; Start 02/02/17 at 13:45; Stop 02/06/17 at 10:29; Status DC Latanoprost (Xalatan 0.005% Opt Soln) 1 drop HS EACH EYE Last administered on 02/14/17 21:44; Start 02/02/17 at 21:00 Miscellaneous Information ALL NURSING DEPARTME... UNSCH PRN .XX SEE LABEL COMMENTS; Start 02/03/17 at 14:15; Stop 02/04/17 at 14:14; Status DC Propofol (Diprivan 200 Mg/20 ml Inj) 300 mg STK-MED ONCE IV ; Start 02/03/17 at 12:46; Stop 02/03/17 at 15:06; Status DC Glucagon (Glucagon Inj) 0.4 mg STK-MED ONCE IV ; Start 02/03/17 at 12:00; Stop at 10:38; Status DC Sodium Chloride 500 ml @ As Directed STK-MED ONCE IV ; Start 02/03/17 at 12:00; Stop 02/04/17 at 10:38; Status DC Iohexol (OMNIPAQUE 300 INJ (Rad CT)) 100 ml STK-MED ONCE OTHER ; Start 02/03/17 at 12:00; Stop 02/04/17 at 10:43; Status DC Lactulose (Lactulose Liq) 30 ml ONCE ONCE PO Last administered on 02/05/17 14: 04; Start 02/05/17 at 13:30; Stop 02/05/17 at 13:31; Status DC Sodium Biphosphate/ Sodium Phosphate (Fleets Enema (Adult)) 133 ml ONCE ONCE RECTAL Last administered on 02/05/17 16:30; Start 02/05/17 at 16:30; Stop at 16:31; Status DC Bisacodyl (Dulcolax Supp) 10 mg ONCE ONCE RECTAL ; Start 02/05/17 at 16:30; Stop 02/05/17 at 16:31; Status DC Ondansetron HCl (Zofran Inj) 4 mg Q6HR PRN IV PUSH NAUSEA OR VOMITING Last administered on 02/08/17 10:24; Start 02/05/17 at 22:45 Bisacodyl (Dulcolax Supp) 10 mg ONCE ONCE RECTAL Last administered on 23:35; Start 02/05/17 at 22:45; Stop 02/05/17 at 22:53; Status DC Potassium Bicarb/ Potassium Chloride (K-Lyte Cl Eff) 50 meq ONCE ONCE PO Last administered on 02/06/17 10:30; Start 02/06/17 at 10:30; Stop 02/06/17 at 10:31; Status DC Sodium Biphosphate/ Sodium Phosphate (Fleets Enema (Adult)) 133 ml ONCE ONCE RECTAL Last administered on 02/06/17 10:45; Start 02/06/17 at 10:45; Stop 03/15 at 10:46; Status DC Metoclopramide HCl (Reglan Inj) 5 mg Q8HR IM Last administered on 02/08/17 14: 00; Start 02/06/17 at 14:00; Stop 02/08/17 at 16:01; Status DC Diphenhydramine HCl (Benadryl 2% Cream) 1 applic TID PRN TOPICAL ITCHING Last administered on 02/07/17 21:26; Start 02/06/17 at 10:45 Diphenhydramine HCl (Benadryl 2% Cream) 1 applic ONCE ONCE TOPICAL Last administered on 02/06/17 12:00; Start 02/06/17 at 12:00; Stop 02/06/17 at 12:01 ; Status DC Potassium Bicarb/ Potassium Chloride (K-Lyte Cl Eff) 50 meq ONCE ONCE PO Last administered on 02/07/17 10:30; Start 02/07/17 at 10:30; Stop 02/07/17 at 10:31; Status DC Dextrose/Sodium Chloride 1,000 ml @ 75 mls/hr [id number] IV Last administered on 02/08/17 00:20; Start 02/07/17 at 10:30; Stop 02/08/17 at 10:20; Status DC Potassium Bicarb/ Potassium Chloride (K-Lyte Cl Eff) 50 meq ONCE ONCE PO Last administered on 02/08/17 10:30; Start 02/08/17 at 10:30; Stop 02/08/17 at 10:31; Status DC Diatrizoate Meglum/ Diatrizoate Sod ( Gastroview Liq) 960 ml STK-MED ONCE RECTAL Last administered on 02/08/17 11:15; Start 02/08/17 at 11:15; Stop 05/15 at 11:57; Status DC Potassium Chloride/Dextrose/ Sod Cl 1,000 ml @ 75 mls/hr [id number] IV Last administered on 02/08/17 16:00; Start 02/08/17 at 16:00; Stop 02/09/17 at 11:12 ; Status DC Cefazolin Sodium 1000 mg/Sodium Chloride 100 ml @ 200 mls/hr STORE ADMINISTRATIVE ASSISTANT IV Last administered on 02/09/17 12:46; Start 02/08/17 at 16:00; Stop 02/11/17 at 15:59 ; Status DC Metronidazole 100 ml @ 100 mls/hr ONCE ONCE IV Last administered on 16:00; Start 02/08/17 at 16:00; Stop 02/08/17 at 16:59; Status DC Benzonatate (Tessalon) 100 mg TID PRN PO cough; Start 02/09/17 at 09:00 Tramadol HCl (Ultram) 50 mg Q6H PRN PO pain 6-10; Start 02/09/17 at 10:45 Dextrose 1,000 ml @ 75 mls/hr [id number] IV ; Start 02/09/17 at 11:15; Stop at 16:22; Status DC Potassium Bicarb/ Potassium Chloride (K-Lyte Cl Eff) 25 meq ONCE ONCE PO ; Start 02/09/17 at 11:15; Stop 02/09/17 at 11:16; Status DC Piperacillin Sod/ Tazobactam Sod 100 ml @ 200 mls/hr Q6H IV Last administered on 02/11/17 08:56; Start 02/09/17 at 14:00; Stop 02/11/17 at 12:04; Status DC Acetaminophen 100 ml @ As Directed STK-MED ONCE IV ; Start 02/09/17 at 12:58; Stop 02/09/17 at 12:59; Status DC Famotidine (Pepcid Inj) 20 mg STK-MED ONCE .ROUTE Last administered on 13:11; Start 02/09/17 at 13:13; Stop 02/09/17 at 13:14; Status DC Ketamine HCl (Ketalar Inj) 500 mg STK-MED ONCE .ROUTE ; Start 02/09/17 at 13:18 ; Stop 02/09/17 at 13:19; Status DC Metronidazole 100 ml @ As Directed STK-MED ONCE IV Last administered on 13:55; Start 02/09/17 at 13:57; Stop 02/09/17 at 13:58; Status DC Hydromorphone HCl (Dilaudid Pf Inj) 2 mg STK-MED ONCE .ROUTE ; Start 02/09/17 at 14:11; Stop 02/09/17 at 14:12; Status DC Sugammadex Sodium (Bridion Inj) 200 mg STK-MED ONCE IV PUSH ; Start 02/09/17 at 15:29; Stop 02/09/17 at 15:30; Status DC Potassium Chloride/Dextrose/ Sod Cl 1,000 ml @ 175 mls/hr [id number] IV Last administered on 02/10/17 03:55; Start 02/09/17 at 16:15; Stop 02/10/17 at 10:05 ; Status DC IV Flush (NS Flush) 2 ml UNSCH PRN IVF FLUSH AFTER USING IV ACCESS; Start 02/09 at 16:15 IV Flush (NS Flush) 2 ml BID IVF Last administered on 02/13/17 20:04; Start at 21:00 Cefazolin Sodium 1000 mg/Sodium Chloride 100 ml @ 200 mls/hr Q8H IV Last administered on 02/10/17 12:35; Start 02/09/17 at 20:00; Stop 02/10/17 at 12:29 ; Status DC Metronidazole 100 ml @ 200 mls/hr Q8H IV Last administered on 02/10/17 16:37 ; Start 02/10/17 at 00:00; Stop 02/10/17 at 16:29; Status DC Miscellaneous Information (Post-op Orders (for Pharmacy)) STAT ONCE XX ; Start 02/09/17 at 16:15; Stop 02/09/17 at 16:58; Status DC Acetaminophen/ Hydrocodone Bitart ([place] 5-325 Mg) 1 tab Q4H PRN PO PAIN SCALE 1 TO 4 Last administered on 02/13/17 01:11; Start 02/09/17 at 16:15 Acetaminophen/ Hydrocodone Bitart ([place] 5-325 Mg) 2 tab Q4H PRN PO PAIN SCALE 5 TO 10; Start 02/09/17 at 16:15; Stop 02/10/17 at 15:52; Status DC Ketorolac Tromethamine (Toradol Inj) 30 mg Q6H PRN IVP PAIN SCALE 1 TO 10 Last administered on 02/09/17 17:21; Start 02/09/17 at 16:15; Stop 02/12/17 at 16:14 ; Status DC Acetaminophen (Tylenol) 650 mg Q4H PRN PO Pain > 3 or Temperature > 101F; Start 02/09/17 at 16:15 Pantoprazole Sodium (Protonix Inj) 40 mg DAILY IVP Last administered on 09:27; Start 02/10/17 at 09:00 Pantoprazole Sodium (Protonix) 40 mg DAILY PO Last administered on 02/15/17 09 :24; Start 02/10/17 at 09:00 Metoclopramide HCl (Reglan Inj) 10 mg Q12HR IVS Last administered on 02/15/17 09:26; Start 02/09/17 at 21:00 Ondansetron HCl (Zofran Inj) 4 mg Q6H PRN IV NAUSEA; Start 02/09/17 at 16:15 Enalaprilat (Vasotec Inj) 1.25 mg Q4H PRN IV SYS BP GREATER THAN 160 MMHG; Start 02/09/17 at 16:15 Enalaprilat (Vasotec Inj) 2.5 mg Q6H PRN IV SYS BP GREATER THAN 160 MMHG; Start 02/09/17 at 16:15 Benzocaine/Menthol (Chloraseptic Jeanna) 1 lozenge UNSCH PRN BUCCAL SORE THROAT; Start 02/09/17 at 16:15 Potassium Chloride 100 ml @ 50 mls/hr UNSCH PRN IV POTASSIUM 3 TO 3.5 Last administered on 02/12/17 21:56; Start 02/09/17 at 16:15 Potassium Chloride 100 ml @ 25 mls/hr UNSCH PRN IV POTASSIUM LESS THAN 3; Start 02/09/17 at 16:15 Miscellaneous Information 1 ONCE ONCE XX ; Start 02/09/17 at 16:15; Stop at 16:56; Status DC Naloxone HCl (Narcan Inj) 0.4 mg UNSCH PRN IV RESPIRATORY RATE LESS THAN 10; Start 02/09/17 at 16:15; Stop 02/11/17 at 09:50; Status DC Morphine Sulfate (Morphine 1 Mg/ ml MORTGAGE LENDER) 30 mg UNSCH IV Last administered on 17:21; Start 02/09/17 at 16:15; Stop 02/11/17 at 09:50; Status DC MORTGAGE LENDER Dosage Infused (Pha) 1 Q8HR .XX Last administered on 02/11/17 06:30; Start 02/09/17 at 16:15; Stop 02/11/17 at 09:50; Status DC Miscellaneous Information ALL NURSING DEPARTME... UNSCH PRN .XX SEE LABEL COMMENTS; Start 02/09/17 at 16:42; Stop 02/10/17 at 16:41; Status DC Dextrose/Sodium Chloride 1,000 ml @ 100 mls/hr Q10H IV Last administered on 11:28; Start 02/10/17 at 10:15; Stop 02/10/17 at 15:31; Status DC Dextrose 1,000 ml @ 50 mls/hr Q20H IV Last administered on 02/13/17 20:03; Start 02/10/17 at 15:30; Stop 02/14/17 at 15:24; Status DC Furosemide (Lasix Inj) 10 mg Q12HR IV PUSH Last administered on 02/15/17 09:25 ; Start 02/11/17 at 10:30 Acetaminophen 100 ml @ 400 mls/hr Q6H IV Last administered on 02/15/17 09:28 ; Start 02/11/17 at 10:00 Lorazepam (Ativan Inj) 0.5 mg Q6HR PRN IV PUSH AGITATION AND/OR HALLUCINATION; Start 02/11/17 at 10:00 Potassium Bicarb/ Potassium Chloride (K-Lyte Cl Eff) 50 meq ONCE ONCE PO Last administered on 02/11/17 16:00; Start 02/11/17 at 11:15; Stop 02/11/17 at 13:08; Status DC Piperacillin Sod/ Tazobactam Sod 100 ml @ 200 mls/hr Q6H IV Last administered on 02/12/17 09:38; Start 02/11/17 at 15:00; Stop 02/12/17 at 10:46; Status DC Iohexol (Omnipaque 350 Inj) 100 ml STK-MED ONCE IV PUSH Last administered on 12:46; Start 02/12/17 at 12:46; Stop 02/12/17 at 12:47; Status DC Cefazolin Sodium/ Dextrose 50 ml @ 100 mls/hr STORE ADMINISTRATIVE ASSISTANT IV ; Start 02/12/17 at 17:15; Stop 02/15/17 at 17:14 Heparin Sodium (Porcine) (Heparin Inj) 10,000 units STK-MED ONCE .ROUTE ; Start 02/12/17 at 17:07; Stop 02/12/17 at 17:08; Status DC Heparin Sodium (Porcine) (Heparin Inj) 10,000 units STK-MED ONCE .ROUTE ; Start 02/12/17 at 17:10; Stop 02/12/17 at 17:11; Status DC Heparin Sodium (Porcine) (Heparin Inj) 10,000 units STK-MED ONCE .ROUTE ; Start 02/12/17 at 17:10; Stop 02/12/17 at 17:11; Status DC Protamine Sulfate (Protamine Sulfate Inj) 50 mg STK-MED ONCE .ROUTE ; Start at 17:10; Stop 02/12/17 at 17:11; Status DC Heparin Sodium (Porcine) (Heparin Inj) 10,000 units STK-MED ONCE .ROUTE ; Start 02/12/17 at 17:47; Stop 02/12/17 at 17:48; Status DC Miscellaneous Information ALL NURSING DEPARTME... UNSCH PRN .XX SEE LABEL COMMENTS; Start 02/12/17 at 20:12; Stop 02/13/17 at 20:11; Status DC Clopidogrel Bisulfate (Plavix) 75 mg DAILY PO Last administered on 02/15/17 09 :24; Start 02/13/17 at 09:00 Cefazolin Sodium 1000 mg/Sodium Chloride 100 ml @ 200 mls/hr Q8H IV Last administered on 02/13/17 17:47; Start 02/13/17 at 02:00; Stop 02/13/17 at 18:29 ; Status DC Sodium Chloride 500 ml @ 0 mls/hr UNSCH ONCE IV Last administered on t 21:15; Start 02/12/17 at 21:15; Stop 02/12/17 at 21:16; Status DC Potassium Chloride 100 ml @ 50 mls/hr Q2H PRN IV For Potassium 2.8 - 3.2 mEq/L ; Start 02/12/17 at 21:45 Potassium Chloride 100 ml @ 50 mls/hr Q2H PRN IV For Potassium 2.8 - 3.2 mEq/L ; Start 02/12/17 at 21:45 Potassium Bicarb/ Potassium Chloride (K-Lyte Cl Eff) 50 meq UNSCH PRN PO For Potassium 3.3 - 3.5 mEq/L; Start 02/12/17 at 21:45 Potassium Chloride 100 ml @ 25 mls/hr UNSCH PRN IV For Potassium 3.3 - 3.5 mEq /L; Start 02/12/17 at 21:45 Potassium Chloride 100 ml @ 50 mls/hr Q2H PRN IV For Potassium 3.3 - 3.5 mEq/L ; Start 02/12/17 at 21:45 Magnesium Sulfate 4 gm/Sodium Chloride 100 ml @ 50 mls/hr UNSCH PRN IV For Magnesium 0.9 - 1.1 mg/dL; Start 02/12/17 at 21:45 Magnesium Oxide (Mag-Ox) 800 mg UNSCH PRN PO For Magnesium 1.2 - 1.6 mg/dL; Start 02/12/17 at 21:45 Magnesium Sulfate 2 gm/Sodium Chloride 100 ml @ 50 mls/hr UNSCH PRN IV For Magnesium 1.2 - 1.6 mg/dL; Start 02/12/17 at 21:45 Potassium Phosphate (K-Phos) 2,000 mg Q4H PRN PO For Phosphorus < 2.5 mg/dL; Start 02/12/17 at 21:45 Sodium Phosphate 30 mmol/Sodium Chloride 250 ml @ 42 mls/hr UNSCH PRN IV For Phosphorus < 2.5 mg/dL; Start 02/12/17 at 21:45 Potassium Phosphate (K-Phos) 2,000 mg UNSCH PRN PO/TUBE SEE LABEL COMMENTS; Start 02/12/17 at 21:45 Potassium Phosphate 30 mmol/ Sodium Chloride 260 ml @ 42 mls/hr UNSCH PRN IV SEE LABEL COMMENTS; Start 02/12/17 at 21:45 Heparin Sodium (Porcine) (Heparin Inj) 5,000 units Q8HR SQ Last administered on 02/15/17t 14:18; Start 02/12/17 at 22:00 Albuterol/ Ipratropium (Duoneb Neb) 1 ampule Q6HR NEB PRN NEB SHORTNESS OF BREATH; Start 02/12/17 at 22:30 Enoxaparin Sodium (Lovenox Inj) 30 mg Q12H SQ ; Start 02/13/17 at 11:00; Stop at 11:02; Status DC Potassium Chloride/Sodium Chloride 1,000 ml @ 75 mls/hr [id number] IV Last administered on 02/15/17 05:36; Start 02/14/17 at 15:30 Bisacodyl (Dulcolax Supp) 10 mg ONCE ONCE RECTAL Last administered on 09:26; Start 02/15/17 at 07:15; Stop 02/15/17 at 07:16; Status DC Multivitamins/ Minerals Therapeutic (Theragran M Tab) 1 tab DAILY PO ; Start at 09:00 A/P Problem List: (1) Common bile duct dilation ICD Code: K83.8 - Other specified diseases of biliary tract (2) Elevated liver function tests ICD Code: R79.89 - Other specified abnormal findings of blood chemistry Status: Acute (3) Chest pain ICD Code: R07.9 - Chest pain, unspecified Status: Acute (4) Leukocytosis ICD Code: D72.829 - Elevated white blood cell count, unspecified Assessment and Plan Ileus/ Colon mass The pt has been constipated and nauseous. CT indicative of ileus. KUB with stability. Pt with increasing pain. NGT recommended by GI. Pt refusing. Barium study showed: Focal obstruction at the level of the proximal transverse colon with ill-defined, masslike structure measuring up to at least 5 cm; This is of concern for colon cancer. Colorectal surgery was consulted. S/p exploratory laparotomy of the ascending/transverse colectomy 02/09/17. - further management per CRS. -Status post Zosyn treatment. - Dietitian consulted and recommend supplementing with Enlive 3 times a day multivitamin. Order placed. -Continue with pured and liquid diet. Due to surgery will need to slowly increase amount of intake. Peripheral arterial disease with occlusion of the distal left femoral artery -CTA runoff showed occlusion of the distal left femoral artery. Consulted vascular surgeon Dr. Stahl. -Status post left femoral-popliteal bypass and endarterectomy on 02/12/2017. -On Plavix. + LE edema and scrotal edema -Will discontinue IV fluids. Increase Lasix to 20 mg IV twice a day. -Strict ins and outs. Avoid nephrotoxins. Choledocholithiasis -Dilated common bile duct with stone on imaging with elevated liver enzyme. GI specialist following, status post ERCP and stone extraction. S/p Zosyn. Chest pain/ CHF Reported to ED physician. Trop peaked at 0.09. S/p cardiology evaluation. Echo with severely reduced EF. Appreciate cardiology follow-up. - continuous cardiac telemetry to monitor for arrhythmias. - continue cardiac regimen. - outpt follow-up with cardiology. Right leg itching Chronic. - Benadryl cream added. Seems resolved. Weight loss -Due to colon cancer. See treatment as above. Hypokalemia Likely secondary to ileus. - Replete and monitor. Hypernatremia The pt has not been eating much lately. -Resolved. DVT prophylaxis: SCDs/TEDs Discharge Planning Patient can be transferred to Med/Surg. Poor oral intake. Will need better oral intake before transfer to SNF. Problem Qualifiers (1) Chest pain: Qualified Codes: R07.9 - Chest pain, unspecified Eli Nguyen MD Feb 15, 2017 15:51
[2017-02-15] MEDS: LATANOPROST 0.005% OPHT SOLN 2.5 ML BTL EACH EYE SCH (20:05)
--- NOTE | 2017-02-15 20:40 | HHI.PR ---
Subjective Remarks C/R Surg POD afebrile, VSS UO good +BM Objective - Vital Signs Date Time Temp Pulse Resp B/P (MAP) Pulse Ox O2 Delivery O2 Flow Rate FiO2 02/15/17 20:00 97.9 83 22 160/72 (101) 98 02/15/17 08:09 21 02/15/17 07:00 Room Air 02/13/17 20:45 2.00 Result Diagram: 02/15/17 04502/15/17 045 Objective Remarks PE alert Abd - soft, wound clean, dry sutures ok A/P Assessment and Plan Imp: OOB resp tx start PO slowly, reg diet follow urine output dc plans Gustavo Farfan MD Feb 15, 2017 20:40
[2017-02-16] MEDS: ACETAMINOPHEN 1000 MG/100 ML 100 ML IV SCH ×4 (04:00→22:12)
[2017-02-16 04:45] VITALS: BP 145/73; PULSE 92; RESP 16; TEMP 98.3; O2SAT 98
[2017-02-16] MEDS: HEPARIN SODIUM - SQ 10,000 UNITS/ML VIAL SQ SCH ×3 (05:55→22:12)
[2017-02-16 08:00] VITALS: BP 128/68; PULSE 92; RESP 18; TEMP 97.5; O2SAT 99
[2017-02-16] MEDS: PANTOPRAZOLE SODIUM 40 MG VIAL IVP SCH (08:49)
[2017-02-16] MEDS: SODIUM CHLORIDE 0.9% FLUSH 5 ML FLUSH IVF SCH ×2 (08:49→22:12)
[2017-02-16] MEDS: CLOPIDOGREL 75 MG TAB PO SCH (09:23)
[2017-02-16] MEDS: METOCLOPRAMIDE HCL 10 MG/2 ML VIAL IVS SCH (09:25)
[2017-02-16] MEDS: FUROSEMIDE 20 MG/2 ML VIAL IV PUSH SCH ×2 (09:27→22:12)
[2017-02-16] MEDS: MULTIVITAMINS/MINERALS THERAPEUTIC TAB PO SCH (09:27)
[2017-02-16] MEDS: SODIUM CHLORIDE 0.9% FLUSH 10 ML FLUSH IV FLUSH SCH ×2 (09:28→21:25)
[2017-02-16] MEDS: PANTOPRAZOLE SOD 40 MG DELAYED RELEASE TAB PO SCH (09:28)
--- NOTE | 2017-02-16 10:22 | PD.CAR.PN ---
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 Patient did well until this morning when he started complaining about pain in his left leg On exam patient has left palpable femoral pulse very weak popliteal pulse by Doppler in no pulses beyond this. Dorsalis pedis and posterior tibial arteries on the left cannot be detected either by palpation or Doppler Foot is cold and pale and pulseless without capillary refill and with decreased sensation over the dorsum and plantar surfaces. 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 Nonetheless something happened in the last 24 hours that occluded his blood flow and it may be the combination of previous vascular occlusive disease and low cardiac output, so everything came to grinding halt Likely an acute occlusion superimposed on previous chronic vasculo-occlusive changes. I have discussed this with patient and family and explained the fairly significant risk of any additional surgery as well as the risk of losing the leg if no procedure is undertaken Family therefore understands the risks and benefits as explained to them and patient will be taken to the operating room for revascularization of the left leg emergently Full consult to follow Jonny Ricketts 02/14/17 Patient doing very well at this time As noted yesterday patient is excellent femoral-popliteal dissolves pedis posterior tibial pulses bilateral and now the operated left leg pulses are stronger than on the right Incisions clean and dry Leave open to air Patient can go to the floor any time in ambulate as much as possible Patient can be discharged on Plavix from my point when okay with other medical and surgical subspecialists 02/15/17 Patient stable from vascular point Incisions in the groin and the left popliteal fossa are clean and dry Patient has excellent Doppler signal in the graft and posterior tibial and dorsalis pedis arteries Both feet are warm and left is not even better than the right with normal capillary refill Nothing to add from vascular point Patient should probably stay on Plavix indefinitely 02/16/17 Incisions clean and dry Excellent distal pulses status post femoropopliteal bypass Capillary refill intact Nothing to add from vascular point Objective: Vital Signs Date Time Temp Pulse Resp B/P (MAP) Pulse Ox O2 Delivery O2 Flow Rate FiO2 02/16/17 08:00 97.5 92 18 128/68 (88) 99 02/16/17 04:45 98.3 92 16 145/73 (97) 98 02/15/17 23:27 Room Air 02/15/17 23:15 98.1 86 16 131/67 (88) 97 02/15/17 21:15 98.4 84 16 113/85 (94) 94 02/15/17 20:19 77 02/15/17 20:00 97.9 83 22 160/72 (101) 98 02/15/17 20:00 83 02/15/17 16:00 97.6 86 26 138/65 (89) 99 02/15/17 16:00 86 02/15/17 12:00 97.6 83 24 134/73 (93) 98 02/15/17 12:00 83 Result Diagram: 02/15/17 0451 02/15/17 0451 Rupert Stahl MD Feb 16, 2017 10:22
[2017-02-16 12:00] VITALS: BP 131/60; PULSE 91; RESP 18; TEMP 96; O2SAT 95
--- NOTE | 2017-02-16 13:33 | HHI.PR ---
Subjective Remarks Patient stated that he feels alone nauseous and has been spitting up. Dealt with patient's nurse Yamileth and she stated that patient had no emesis and that he is coughing which is making him spit. He feels like he is doing better today. He has no complaints. He remains afebrile. Objective Vitals Vital Signs Date Time Temp Pulse Resp B/P (MAP) Pulse Ox O2 Delivery O2 Flow Rate FiO2 02/16/17 08:00 97.5 92 18 128/68 (88) 99 02/16/17 04:45 98.3 92 16 145/73 (97) 98 02/15/17 23:27 Room Air 02/15/17 23:15 98.1 86 16 131/67 (88) 97 02/15/17 21:15 98.4 84 16 113/85 (94) 94 02/15/17 20:19 77 02/15/17 20:00 97.9 83 22 160/72 (101) 98 02/15/17 20:00 83 02/15/17 16:00 97.6 86 26 138/65 (89) 99 02/15/17 16:00 86 I/O 02/15/17 02/15/17 02/15/17 02/16/17 02/16/17 02/16/17 07:00 15:00 23:00 07:00 15:00 23:00 Intake Total 1272 ml 1435 ml 200 ml Output Total 600 ml 1325 ml 750 ml Balance 672 ml 110 ml -550 ml Intake Oral 200 ml 720 ml 0 ml IV Total 1072 ml 715 ml 200 ml Output Urine Total 600 ml 1325 ml 750 ml # Voids 3 4 # Bowel Movements 1 0 Result Diagram: 02/15/17 0451 02/15/17 0451 Objective Remarks GENERAL:in NAD CARDIOVASCULAR: Regular rate and rhythm without murmurs, gallops, or rubs. RESPIRATORY: Breath sounds equal bilaterally. No accessory muscle use. GASTROINTESTINAL: Abdomen soft, non-tender, nondistended. MUSCULOSKELETAL: Bilateral leg warm. +2 DP pulses bilaterally. Left leg wound incision dry clean and intact. + 1 LE edema PELVIC: scrotum and penis edematous no erythema but has improved. Procedures Exploratory laparotomy, ascending/transverse colectomy (02/09/17). Medications and IVs Current Medications Sodium Chloride (NS Flush) 2 ml UNSCH PRN IVF FLUSH AFTER USING IV ACCESS; Start 02/01/17 at 17:45; Stop 02/01/17 at 21:22; Status DC Morphine Sulfate (Morphine Inj) 2 mg ONCE ONCE IV PUSH Last administered on 18:01; Start 02/01/17 at 18:00; Stop 02/01/17 at 18:01; Status DC Ondansetron HCl (Zofran Inj) 4 mg ONCE ONCE IV PUSH Last administered on 18:01; Start 02/01/17 at 18:00; Stop 02/01/17 at 18:01; Status DC Piperacillin Sod/ Tazobactam Sod 50 ml @ 100 mls/hr ONCE ONCE IV Last administered on 02/01/17 20:35; Start 02/01/17 at 19:45; Stop 02/01/17 at 20:14; Status DC Vancomycin HCl 1000 mg/Sodium Chloride 250 ml @ 250 mls/hr ONCE ONCE IV Last administered on 02/01/17 20:57; Start 02/01/17 at 19:45; Stop 02/01/17 at 20:44; Status DC Aspirin (Aspirin Chew) 162 mg ONCE ONCE CHEW Last administered on 02/01/17 20: 34; Start 02/01/17 at 19:45; Stop 02/01/17 at 19:46; Status DC Nitroglycerin (Nitroglycerin 2% Oint) 1 inch ONCE ONCE TOPICAL Last administered on 02/01/17 20:35; Start 02/01/17 at 19:45; Stop 02/01/17 at 19:46; Status DC Sodium Chloride 500 ml @ 500 mls/hr BOLUS ONCE IV Last administered on 20:34; Start 02/01/17 at 19:45; Stop 02/01/17 at 20:44; Status DC Iohexol (Omnipaque 350 Inj) 75 ml STK-MED ONCE IVCONTRAST Last administered on 02/01/17 19:00; Start 02/01/17 at 19:00; Stop 02/01/17 at 20:00; Status DC Sodium Chloride (NS Flush) 2 ml UNSCH PRN IV FLUSH FLUSH AFTER USING IV ACCESS Last administered on 02/11/17 21:11; Start 02/01/17 at 21:00 Sodium Chloride (NS Flush) 2 ml BID IV FLUSH Last administered on 02/16/17 09: 28; Start 02/01/17 at 21:00 Naloxone HCl (Narcan Inj) 0.4 mg UNSCH PRN IV SEE LABEL COMMENTS; Start at 21:00 Piperacillin Sod/ Tazobactam Sod 100 ml @ 200 mls/hr Q6H IV Last administered on 02/07/17 08:20; Start 02/02/17 at 02:00; Stop 02/07/17 at 10:04; Status DC Morphine Sulfate (Morphine Inj) 2 mg Q6H PRN IV PUSH pain >5; Start 02/01/17 at 23:15; Stop 02/09/17 at 10:35; Status DC Metoprolol Tartrate (Lopressor) 25 mg DAILY PO ; Start 02/02/17 at 09:00; Status Future Hold Lisinopril (Prinivil) 2.5 mg DAILY PO ; Start 02/02/17 at 09:00; Status Future Hold Miscellaneous (Pill Splitter) 1 ea UNSCH PRN OTHER SEE LABEL COMMENTS; Start at 09:00 Sodium Chloride 250 ml @ 250 mls/hr BOLUS ONCE IV Last administered on 13:45; Start 02/02/17 at 13:45; Stop 02/02/17 at 14:44; Status DC Sodium Chloride 1,000 ml @ 84 mls/hr [id number] IV Last administered on 01:56; Start 02/02/17 at 13:45; Stop 02/06/17 at 10:29; Status DC Latanoprost (Xalatan 0.005% Opth Soln) 1 drop HS EACH EYE Last administered on 02/15/17 20:05; Start 02/02/17 at 21:00 Miscellaneous Information ALL NURSING DEPARTME... UNSCH PRN .XX SEE LABEL COMMENTS; Start 02/03/17 at 14:15; Stop 02/04/17 at 14:14; Status DC Propofol (Diprivan 200 Mg/20 ml Inj) 300 mg STK-MED ONCE IV ; Start 02/03/17 at 12:46; Stop 02/03/17 at 15:06; Status DC Glucagon (Glucagon Inj) 0.4 mg STK-MED ONCE IV ; Start 02/03/17 at 12:00; Stop at 10:38; Status DC Sodium Chloride 500 ml @ As Directed STK-MED ONCE IV ; Start 02/03/17 at 12:00; Stop 02/04/17 at 10:38; Status DC Iohexol (OMNIPAQUE 300 INJ (Rad CT)) 100 ml STK-MED ONCE OTHER ; Start 02/03/17 at 12:00; Stop 02/04/17 at 10:43; Status DC Lactulose (Lactulose Liq) 30 ml ONCE ONCE PO Last administered on 02/05/17 14: 04; Start 02/05/17 at 13:30; Stop 02/05/17 at 13:31; Status DC Sodium Biphosphate/ Sodium Phosphate (Fleets Enema (Adult)) 133 ml ONCE ONCE RECTAL Last administered on 02/05/17 16:30; Start 02/05/17 at 16:30; Stop at 16:31; Status DC Bisacodyl (Dulcolax Supp) 10 mg ONCE ONCE RECTAL ; Start 02/05/17 at 16:30; Stop 02/05/17 at 16:31; Status DC Ondansetron HCl (Zofran Inj) 4 mg Q6HR PRN IV PUSH NAUSEA OR VOMITING Last administered on 02/08/17 10:24; Start 02/05/17 at 22:45 Bisacodyl (Dulcolax Supp) 10 mg ONCE ONCE RECTAL Last administered on 23:35; Start 02/05/17 at 22:45; Stop 02/05/17 at 22:53; Status DC Potassium Bicarb/ Potassium Chloride (K-Lyte Cl Eff) 50 meq ONCE ONCE PO Last administered on 02/06/17 10:30; Start 02/06/17 at 10:30; Stop 02/06/17 at 10:31; Status DC Sodium Biphosphate/ Sodium Phosphate (Fleets Enema (Adult)) 133 ml ONCE ONCE RECTAL Last administered on 02/06/17 10:45; Start 02/06/17 at 10:45; Stop 03/15 at 10:46; Status DC Metoclopramide HCl (Reglan Inj) 5 mg Q8HR IM Last administered on 02/08/17 14: 00; Start 02/06/17 at 14:00; Stop 02/08/17 at 16:01; Status DC Diphenhydramine HCl (Benadryl 2% Cream) 1 applic TID PRN TOPICAL ITCHING Last administered on 02/07/17 21:26; Start 02/06/17 at 10:45 Diphenhydramine HCl (Benadryl 2% Cream) 1 applic ONCE ONCE TOPICAL Last administered on 02/06/17 12:00; Start 02/06/17 at 12:00; Stop 02/06/17 at 12:01 ; Status DC Potassium Bicarb/ Potassium Chloride (K-Lyte Cl Eff) 50 meq ONCE ONCE PO Last administered on 02/07/17 10:30; Start 02/07/17 at 10:30; Stop 02/07/17 at 10:31; Status DC Dextrose/Sodium Chloride 1,000 ml @ 75 mls/hr [id number] IV Last administered on 02/08/17 00:20; Start 02/07/17 at 10:30; Stop 02/08/17 at 10:20; Status DC Potassium Bicarb/ Potassium Chloride (K-Lyte Cl Eff) 50 meq ONCE ONCE PO Last administered on 02/08/17 10:30; Start 02/08/17 at 10:30; Stop 02/08/17 at 10:31; Status DC Diatrizoate Meglum/ Diatrizoate Sod ( Gastrokyaw Liq) 960 ml STK-MED ONCE RECTAL Last administered on 02/08/17 11:15; Start 02/08/17 at 11:15; Stop 05/15 at 11:57; Status DC Potassium Chloride/Dextrose/ Sod Cl 1,000 ml @ 75 mls/hr [id number] IV Last administered on 02/08/17 16:00; Start 02/08/17 at 16:00; Stop 02/09/17 at 11:12 ; Status DC Cefazolin Sodium 1000 mg/Sodium Chloride 100 ml @ 200 mls/hr ASSISTANT PROFESSOR OF BUSINESS IV Last administered on 02/09/17 12:46; Start 02/08/17 at 16:00; Stop 02/11/17 at 15:59 ; Status DC Metronidazole 100 ml @ 100 mls/hr ONCE ONCE IV Last administered on 16:00; Start 02/08/17 at 16:00; Stop 02/08/17 at 16:59; Status DC Benzonatate (Tessalon) 100 mg TID PRN PO cough; Start 02/09/17 at 09:00 Tramadol HCl (Ultram) 50 mg Q6H PRN PO pain 6-10; Start 02/09/17 at 10:45 Dextrose 1,000 ml @ 75 mls/hr [id number] IV ; Start 02/09/17 at 11:15; Stop at 16:22; Status DC Potassium Bicarb/ Potassium Chloride (K-Lyte Cl Eff) 25 meq ONCE ONCE PO ; Start 02/09/17 at 11:15; Stop 02/09/17 at 11:16; Status DC Piperacillin Sod/ Tazobactam Sod 100 ml @ 200 mls/hr Q6H IV Last administered on 02/11/17 08:56; Start 02/09/17 at 14:00; Stop 02/11/17 at 12:04; Status DC Acetaminophen 100 ml @ As Directed STK-MED ONCE IV ; Start 02/09/17 at 12:58; Stop 02/09/17 at 12:59; Status DC Famotidine (Pepcid Inj) 20 mg STK-MED ONCE .ROUTE Last administered on 13:11; Start 02/09/17 at 13:13; Stop 02/09/17 at 13:14; Status DC Ketamine HCl (Ketalar Inj) 500 mg STK-MED ONCE .ROUTE ; Start 02/09/17 at 13:18 ; Stop 02/09/17 at 13:19; Status DC Metronidazole 100 ml @ As Directed STK-MED ONCE IV Last administered on 13:55; Start 02/09/17 at 13:57; Stop 02/09/17 at 13:58; Status DC Hydromorphone HCl (Dilaudid Pf Inj) 2 mg STK-MED ONCE .ROUTE ; Start 02/09/17 at 14:11; Stop 02/09/17 at 14:12; Status DC Sugammadex Sodium (Bridion Inj) 200 mg STK-MED ONCE IV PUSH ; Start 02/09/17 at 15:29; Stop 02/09/17 at 15:30; Status DC Potassium Chloride/Dextrose/ Sod Cl 1,000 ml @ 175 mls/hr [id number] IV Last administered on 02/10/17 03:55; Start 02/09/17 at 16:15; Stop 02/10/17 at 10:05 ; Status DC IV Flush (NS Flush) 2 ml UNSCH PRN IVF FLUSH AFTER USING IV ACCESS; Start 02/09 at 16:15 IV Flush (NS Flush) 2 ml BID IVF Last administered on 02/15/17 19:51; Start at 21:00 Cefazolin Sodium 1000 mg/Sodium Chloride 100 ml @ 200 mls/hr Q8H IV Last administered on 02/10/17 12:35; Start 02/09/17 at 20:00; Stop 02/10/17 at 12:29 ; Status DC Metronidazole 100 ml @ 200 mls/hr Q8H IV Last administered on 02/10/17 16:37 ; Start 02/10/17 at 00:00; Stop 02/10/17 at 16:29; Status DC Miscellaneous Information (Post-op Orders (for Pharmacy)) STAT ONCE XX ; Start 02/09/17 at 16:15; Stop 02/09/17 at 16:58; Status DC Acetaminophen/ Hydrocodone Bitart ([place] 5-325 Mg) 1 tab Q4H PRN PO PAIN SCALE 1 TO 4 Last administered on 02/13/17 01:11; Start 02/09/17 at 16:15 Acetaminophen/ Hydrocodone Bitart ([place] 5-325 Mg) 2 tab Q4H PRN PO PAIN SCALE 5 TO 10; Start 02/09/17 at 16:15; Stop 02/10/17 at 15:52; Status DC Ketorolac Tromethamine (Toradol Inj) 30 mg Q6H PRN IVP PAIN SCALE 1 TO 10 Last administered on 02/09/17 17:21; Start 02/09/17 at 16:15; Stop 02/12/17 at 16:14 ; Status DC Acetaminophen (Tylenol) 650 mg Q4H PRN PO Pain > 3 or Temperature > 101F; Start 02/09/17 at 16:15 Pantoprazole Sodium (Protonix Inj) 40 mg DAILY IVP Last administered on 09:27; Start 02/10/17 at 09:00 Pantoprazole Sodium (Protonix) 40 mg DAILY PO Last administered on 02/16/17 09 :28; Start 02/10/17 at 09:00 Metoclopramide HCl (Reglan Inj) 10 mg Q12HR IVS Last administered on 02/16/17 09:25; Start 02/09/17 at 21:00 Ondansetron HCl (Zofran Inj) 4 mg Q6H PRN IV NAUSEA; Start 02/09/17 at 16:15 Enalaprilat (Vasotec Inj) 1.25 mg Q4H PRN IV SYS BP GREATER THAN 160 MMHG; Start 02/09/17 at 16:15 Enalaprilat (Vasotec Inj) 2.5 mg Q6H PRN IV SYS BP GREATER THAN 160 MMHG; Start 02/09/17 at 16:15 Benzocaine/Menthol (Chloraseptic Jeanna) 1 lozenge UNSCH PRN BUCCAL SORE THROAT; Start 02/09/17 at 16:15 Potassium Chloride 100 ml @ 50 mls/hr UNSCH PRN IV POTASSIUM 3 TO 3.5 Last administered on 02/12/17 21:56; Start 02/09/17 at 16:15 Potassium Chloride 100 ml @ 25 mls/hr UNSCH PRN IV POTASSIUM LESS THAN 3; Start 02/09/17 at 16:15 Miscellaneous Information 1 ONCE ONCE XX ; Start 02/09/17 at 16:15; Stop at 16:56; Status DC Naloxone HCl (Narcan Inj) 0.4 mg UNSCH PRN IV RESPIRATORY RATE LESS THAN 10; Start 02/09/17 at 16:15; Stop 02/11/17 at 09:50; Status DC Morphine Sulfate (Morphine 1 Mg/ ml AIR GUN OPERATOR) 30 mg UNSCH IV Last administered on 17:21; Start 02/09/17 at 16:15; Stop 02/11/17 at 09:50; Status DC AIR GUN OPERATOR Dosage Infused (Pha) 1 Q8HR .XX Last administered on 02/11/17 06:30; Start 02/09/17 at 16:15; Stop 02/11/17 at 09:50; Status DC Miscellaneous Information ALL NURSING DEPARTME... UNSCH PRN .XX SEE LABEL COMMENTS; Start 02/09/17 at 16:42; Stop 02/10/17 at 16:41; Status DC Dextrose/Sodium Chloride 1,000 ml @ 100 mls/hr Q10H IV Last administered on 11:28; Start 02/10/17 at 10:15; Stop 02/10/17 at 15:31; Status DC Dextrose 1,000 ml @ 50 mls/hr Q20H IV Last administered on 02/13/17 20:03; Start 02/10/17 at 15:30; Stop 02/14/17 at 15:24; Status DC Furosemide (Lasix Inj) 10 mg Q12HR IV PUSH Last administered on 02/15/17 09:25 ; Start 02/11/17 at 10:30; Stop 02/15/17 at 15:49; Status DC Acetaminophen 100 ml @ 400 mls/hr Q6H IV Last administered on 02/16/17 10:24 ; Start 02/11/17 at 10:00 Lorazepam (Ativan Inj) 0.5 mg Q6HR PRN IV PUSH AGITATION AND/OR HALLUCINATION; Start 02/11/17 at 10:00 Potassium Bicarb/ Potassium Chloride (K-Lyte Cl Eff) 50 meq ONCE ONCE PO Last administered on 02/11/17 16:00; Start 02/11/17 at 11:15; Stop 02/11/17 at 13:08; Status DC Piperacillin Sod/ Tazobactam Sod 100 ml @ 200 mls/hr Q6H IV Last administered on 02/12/17 09:38; Start 02/11/17 at 15:00; Stop 02/12/17 at 10:46; Status DC Iohexol (Omnipaque 350 Inj) 100 ml STK-MED ONCE IV PUSH Last administered on 12:46; Start 02/12/17 at 12:46; Stop 02/12/17 at 12:47; Status DC Cefazolin Sodium/ Dextrose 50 ml @ 100 mls/hr ASSISTANT PROFESSOR OF BUSINESS IV ; Start 02/12/17 at 17:15; Stop 02/15/17 at 17:14; Status DC Heparin Sodium (Porcine) (Heparin Inj) 10,000 units STK-MED ONCE .ROUTE ; Start 02/12/17 at 17:07; Stop 02/12/17 at 17:08; Status DC Heparin Sodium (Porcine) (Heparin Inj) 10,000 units STK-MED ONCE .ROUTE ; Start 02/12/17 at 17:10; Stop 02/12/17 at 17:11; Status DC Heparin Sodium (Porcine) (Heparin Inj) 10,000 units STK-MED ONCE .ROUTE ; Start 02/12/17 at 17:10; Stop 02/12/17 at 17:11; Status DC Protamine Sulfate (Protamine Sulfate Inj) 50 mg STK-MED ONCE .ROUTE ; Start at 17:10; Stop 02/12/17 at 17:11; Status DC Heparin Sodium (Porcine) (Heparin Inj) 10,000 units STK-MED ONCE .ROUTE ; Start 02/12/17 at 17:47; Stop 02/12/17 at 17:48; Status DC Miscellaneous Information ALL NURSING DEPARTME... UNSCH PRN .XX SEE LABEL COMMENTS; Start 02/12/17 at 20:12; Stop 02/13/17 at 20:11; Status DC Clopidogrel Bisulfate (Plavix) 75 mg DAILY PO Last administered on 02/16/17 09 :23; Start 02/13/17 at 09:00 Cefazolin Sodium 1000 mg/Sodium Chloride 100 ml @ 200 mls/hr Q8H IV Last administered on 02/13/17 17:47; Start 02/13/17 at 02:00; Stop 02/13/17 at 18:29 ; Status DC Sodium Chloride 500 ml @ 0 mls/hr UNSCH ONCE IV Last administered on 21:15; Start 02/12/17 at 21:15; Stop 02/12/17 at 21:16; Status DC Potassium Chloride 100 ml @ 50 mls/hr Q2H PRN IV For Potassium 2.8 - 3.2 mEq/L ; Start 02/12/17 at 21:45 Potassium Chloride 100 ml @ 50 mls/hr Q2H PRN IV For Potassium 2.8 - 3.2 mEq/L ; Start 02/12/17 at 21:45 Potassium Bicarb/ Potassium Chloride (K-Lyte Cl Eff) 50 meq UNSCH PRN PO For Potassium 3.3 - 3.5 mEq/L; Start 02/12/17 at 21:45 Potassium Chloride 100 ml @ 25 mls/hr UNSCH PRN IV For Potassium 3.3 - 3.5 mEq /L; Start 02/12/17 at 21:45 Potassium Chloride 100 ml @ 50 mls/hr Q2H PRN IV For Potassium 3.3 - 3.5 mEq/L ; Start 02/12/17 at 21:45 Magnesium Sulfate 4 gm/Sodium Chloride 100 ml @ 50 mls/hr UNSCH PRN IV For Magnesium 0.9 - 1.1 mg/dL; Start 02/12/17 at 21:45 Magnesium Oxide (Mag-Ox) 800 mg UNSCH PRN PO For Magnesium 1.2 - 1.6 mg/dL; Start 02/12/17 at 21:45 Magnesium Sulfate 2 gm/Sodium Chloride 100 ml @ 50 mls/hr UNSCH PRN IV For Magnesium 1.2 - 1.6 mg/dL; Start 02/12/17 at 21:45 Potassium Phosphate (K-Phos) 2,000 mg Q4H PRN PO For Phosphorus < 2.5 mg/dL; Start 02/12/17 at 21:45 Sodium Phosphate 30 mmol/Sodium Chloride 250 ml @ 42 mls/hr UNSCH PRN IV For Phosphorus < 2.5 mg/dL; Start 02/12/17 at 21:45 Potassium Phosphate (K-Phos) 2,000 mg UNSCH PRN PO/TUBE SEE LABEL COMMENTS; Start 02/12/17 at 21:45 Potassium Phosphate 30 mmol/ Sodium Chloride 260 ml @ 42 mls/hr UNSCH PRN IV SEE LABEL COMMENTS; Start 02/12/17 at 21:45 Heparin Sodium (Porcine) (Heparin Inj) 5,000 units Q8HR SQ Last administered on 02/16/17t 05:55; Start 02/12/17 at 22:00 Albuterol/ Ipratropium (Duoneb Neb) 1 ampule Q6HR NEB PRN NEB SHORTNESS OF BREATH; Start 02/12/17 at 22:30 Enoxaparin Sodium (Lovenox Inj) 30 mg Q12H SQ ; Start 02/13/17 at 11:00; Stop at 11:02; Status DC Potassium Chloride/Sodium Chloride 1,000 ml @ 75 mls/hr [id number] IV Last administered on 02/15/17 05:36; Start 02/14/17 at 15:30; Stop 02/15/17 at 15:48 ; Status DC Bisacodyl (Dulcolax Supp) 10 mg ONCE ONCE RECTAL Last administered on 09:26; Start 02/15/17 at 07:15; Stop 02/15/17 at 07:16; Status DC Multivitamins/ Minerals Therapeutic (Theragran M Tab) 1 tab DAILY PO Last administered on 02/16/17 09:27; Start 02/16/17 at 09:00 Furosemide (Lasix Inj) 20 mg Q12HR IV PUSH Last administered on 02/16/17 09:27 ; Start 02/15/17 at 21:00 A/P Problem List: (1) Common bile duct dilation ICD Code: K83.8 - Other specified diseases of biliary tract (2) Elevated liver function tests ICD Code: R79.89 - Other specified abnormal findings of blood chemistry Status: Acute (3) Chest pain ICD Code: R07.9 - Chest pain, unspecified Status: Acute (4) Leukocytosis ICD Code: D72.829 - Elevated white blood cell count, unspecified Assessment and Plan 82-year-old male who present with a colonic mass Colon mass -CT indicative of ileus. KUB with stability. Barium study showed: Focal obstruction at the level of the proximal transverse colon with ill-defined, masslike structure measuring up to at least 5 cm. -S/p exploratory laparotomy of the ascending/transverse colectomy 02/09/17. - further management per CRS. -Status post Zosyn treatment. - Dietitian consulted recommended supplementing with Enlive 3 times a day multivitamin. -Continue with pured and liquid diet. Due to surgery will need to slowly increase amount of intake. Peripheral arterial disease with occlusion of the distal left femoral artery -CTA runoff showed occlusion of the distal left femoral artery. Consulted vascular surgeon Dr. Stahl. -Status post left femoral-popliteal bypass and endarterectomy on 02/12/2017. -On Plavix. + LE edema and scrotal edema -Improving. -Fluids already discontinued. on Lasix to 20 mg IV twice a day. -Strict ins and outs. Avoid nephrotoxins. Choledocholithiasis -Dilated common bile duct with stone on imaging with elevated liver enzyme. GI specialist following, status post ERCP and stone extraction. S/p Zosyn. Chest pain/ CHF Reported to ED physician. Trop peaked at 0.09. S/p cardiology evaluation. Echo with severely reduced EF. Appreciate cardiology follow-up. - continuous cardiac telemetry to monitor for arrhythmias. - continue cardiac regimen. - outpt follow-up with cardiology. Right leg itching Chronic. - Benadryl cream added. Seems resolved. Weight loss -Due to colon cancer. See treatment as above. Hypokalemia Likely secondary to ileus. - Replete and monitor. Hypernatremia The pt has not been eating much lately. -Resolved. DVT prophylaxis: SCDs/TEDs Discharge Planning Once patient has better oral intake can be discharged to SNF. Problem Qualifiers (1) Chest pain: Qualified Codes: R07.9 - Chest pain, unspecified Eli Nguyen MD Feb 16, 2017 13:33
[2017-02-16 14:44] LABS: POTASSIUM 3.6 MEQ/L (3.5-5.1)
[2017-02-16] MEDS ORDERED: PLAV75TA29 PO (15:56)
[2017-02-16 16:00] VITALS: BP 102/52; PULSE 91; RESP 18; TEMP 97.5; O2SAT 100
[2017-02-16] MEDS ORDERED: METOCLOPRAMIDE HCL 10 MG/2 ML VIAL IVS PRN (16:00)
[2017-02-16 16:30] VITALS: BP 121/58; PULSE 80; RESP 18; TEMP 98.2; O2SAT 98
[2017-02-16 19:30] VITALS: BP 140/64; PULSE 82; RESP 20; TEMP 98.4; O2SAT 97
[2017-02-16] MEDS: LATANOPROST 0.005% OPHT SOLN 2.5 ML BTL EACH EYE SCH (22:12)
--- NOTE | 2017-02-16 23:23 | HHI.PR ---
Subjective Remarks C/R Surg POD afebrile, VSS UO good +BM PO angel Objective - Vital Signs Date Time Temp Pulse Resp B/P (MAP) Pulse Ox O2 Delivery O2 Flow Rate FiO2 02/16/17 22:17 Room Air 02/16/17 19:30 98.4 82 20 140/64 (89) 97 02/15/17 08:09 21 02/13/17 20:45 2.00 Result Diagram: 02/15/17 0451 02/16/17 1400 Objective Remarks PE alert Abd - soft, wound clean, dry min tympany A/P Assessment and Plan Imp: OOB start PO slowly, reg diet follow urine output dc plans -rehab Gustavo Farfan MD Feb 16, 2017 23:23
[2017-02-17] VITALS (7 sets, daily range): BP systolic 118–136; BP diastolic 57–73; PULSE 71–89; RESP 16–18; TEMP 97.3–98.5; O2SAT 95–98
[2017-02-17] MEDS: ACETAMINOPHEN 1000 MG/100 ML 100 ML IV SCH ×4 (04:00→21:36)
[2017-02-17] MEDS: HEPARIN SODIUM - SQ 10,000 UNITS/ML VIAL SQ SCH ×3 (06:00→21:39)
--- NOTE | 2017-02-17 07:51 | HHI.PR ---
Subjective Remarks C/R Surg POD afebrile, VSS UO good -?? +BM PO angel Objective - Vital Signs Date Time Temp Pulse Resp B/P (MAP) Pulse Ox O2 Delivery O2 Flow Rate FiO2 02/17/17 04:58 97.9 86 16 118/57 (77) 96 02/16/17 22:17 Room Air 02/15/17 08:09 21 02/13/17 20:45 2.00 Result Diagram: 02/15/17 0451 02/16/17 1400 Objective Remarks PE alert Abd - soft, wound clean, dry min tympany A/P Assessment and Plan Imp: OOB start PO slowly, reg diet follow urine output dc plans -rehab Gustavo Allen MD Feb 17, 2017 07:51
[2017-02-17] MEDS: PANTOPRAZOLE SODIUM 40 MG VIAL IVP SCH (08:25)
[2017-02-17] MEDS: MULTIVITAMINS/MINERALS THERAPEUTIC TAB PO SCH (08:26)
[2017-02-17] MEDS: CLOPIDOGREL 75 MG TAB PO SCH (08:26)
[2017-02-17] MEDS: PANTOPRAZOLE SOD 40 MG DELAYED RELEASE TAB PO SCH (08:26)
[2017-02-17] MEDS: FUROSEMIDE 20 MG/2 ML VIAL IV PUSH SCH ×2 (08:26→21:38)
[2017-02-17] MEDS: SODIUM CHLORIDE 0.9% FLUSH 10 ML FLUSH IV FLUSH SCH (08:27)
[2017-02-17] MEDS: SODIUM CHLORIDE 0.9% FLUSH 5 ML FLUSH IVF SCH ×2 (09:00→21:00)
[2017-02-17 09:15] LABS: BICARBONATE 23.6 MEQ/L (21.0-32.0); POTASSIUM 4.3 MEQ/L (3.5-5.1)
[2017-02-17] MEDS: traMADol HCL 50 MG TAB PO PRN (10:47)
--- NOTE | 2017-02-17 11:14 | HHI.PR ---
Subjective Remarks Pt complains that no one puts ointments on his incisions. Not very pleasant. Denies any pain, but per daughter, does have pain w ambulation on the left lower extremity but she would rather him not be on narcotics but is agreeable for him to take tramadol. Per daughter, pt not eating well. Only had his eggs and 2 sips of the ensure. Last night didn't eat anything, not sure he ate much for lunch yesterday but did eat his eggs yesterday morning. Per RN, pt not eating much Objective Vitals Vital Signs Date Time Temp Pulse Resp B/P (MAP) Pulse Ox O2 Delivery O2 Flow Rate FiO2 02/17/17 08:10 Room Air 02/17/17 08:00 97.3 78 18 120/58 (78) 98 02/17/17 04:58 97.9 86 16 118/57 (77) 96 02/17/17 00:10 97.9 89 16 136/63 (87) 98 02/16/17 22:17 Room Air 02/16/17 19:30 98.4 82 20 140/64 (89) 97 02/16/17 16:30 98.2 80 18 121/58 (79) 98 02/16/17 16:00 97.5 91 18 102/52 (69) 100 02/16/17 16:00 Room Air 02/16/17 12:00 Room Air 02/16/17 12:00 96.0 91 18 131/60 (83) 95 I/O 02/16/17 02/16/17 02/16/17 02/17/17 02/17/17 02/17/17 07:00 15:00 23:00 07:00 15:00 23:00 Intake Total 200 ml 820 ml 0 ml Output Total 750 ml 750 ml Balance -550 ml 820 ml -750 ml Intake Oral 0 ml 720 ml 0 ml IV Total 200 ml 100 ml Output Urine Total 750 ml 750 ml # Voids 1 # Bowel Movements 0 3 0 Result Diagram: 02/15/17 0451 02/17/17 0627 Imaging Last Impressions Aorta w/Runoff CTA 02/12/17 0000 Signed Impressions: Service Date/Time: Sunday, February 12, 2017 12:23 - CONCLUSION: 1. No significant aortic occlusive disease or aneurysm. 2. Occlusion of the distal left common femoral artery extending to the origin of the profunda and SFA. Profunda reconstitutes near the origin and SFA reconstitutes in the mid thigh. 3. 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 4. No significant outflow stenosis on the right. 5. Heavily calcified runoff vessels bilaterally. There is likely limited two-vessel runoff on the left with occlusion of the anterior tibial artery in the proximal calf. 6. Postsurgical features of probable recent right hemicolectomy with moderate amount of free intraperitoneal air. 7. Findings consistent with mild adynamic ileus. 8. Pneumobilia likely secondary to recent sphincterotomy. 9. Small amount of ascites. Yemi Simons MD Enema w/Water Soluble 02/08/17 0000 Signed Impressions: Service Date/Time: Wednesday, February 08, 2017 10:58 - CONCLUSION: Focal obstruction at the level of the proximal transverse colon with ill-defined masslike structure measuring up to at least 5 cm. This is of concern for colon cancer. Sunil Reich MD Abdomen X-Ray 02/07/17 0600 Signed Impressions: Service Date/Time: Tuesday, February 07, 2017 03:16 - CONCLUSION: 1. Stable gaseous distention of small and large bowel compared with February 06. Jason Yu MD Chest X-Ray 02/07/17 0000 Signed Impressions: Service Date/Time: Tuesday, February 07, 2017 10:30 - CONCLUSION: 1. Basilar and dependent atelectasis with underlying pulmonary fibrotic changes. No focal dense consolidation or effusion. Jason uY MD GI Procedure 02/03/17 0000 Signed Impressions: Service Date/Time: January 12:40 - CONCLUSION: ERCP as above. Alice Zeng MD Gall Bladder Ultrasound 02/01/17 1940 Signed Impressions: Service Date/Time: Wednesday, February 01, 2017 20:02 - CONCLUSION: 1. Dilated common bile duct. Distal common duct not well visualized. No stones identified within the gallbladder. Jason Yu MD Aorta CTA 02/01/17 5384 Signed Impressions: Service Date/Time: Wednesday, February 01, 2017 19:31 - CONCLUSION: 1. Negative for aortic dissection or aneurysm. 2. Gallstone in distal common duct measured up to 14 mm in diameter with biliary ductal dilatation up to about 2 cm. Jason Yu MD Objective Remarks GENERAL:laying in bed, sleeping but arousable. prefers to keep eyes closed w talking to me and yells at daughter when she asks him to open his eyes. CARDIOVASCULAR: Regular rate and rhythm without murmurs RESPIRATORY: Breath sounds equal bilaterally. No accessory muscle use. GASTROINTESTINAL: Abdomen soft, non-tender, nondistended. stables in place. MUSCULOSKELETAL: Left leg wound incision dry clean and intact. + 1 LE edema mainly on the left PELVIC: scrotum and penis edematous no erythema which has been present. Procedures Exploratory laparotomy, ascending/transverse colectomy (02/09/17). A/P Problem List: (1) Common bile duct dilation ICD Code: K83.8 - Other specified diseases of biliary tract (2) Elevated liver function tests ICD Code: R79.89 - Other specified abnormal findings of blood chemistry Status: Acute (3) Chest pain ICD Code: R07.9 - Chest pain, unspecified Status: Acute (4) Leukocytosis ICD Code: D72.829 - Elevated white blood cell count, unspecified Assessment and Plan 82-year-old male who present with a colonic mass Colon mass -CT indicative of ileus. KUB with stability. Barium study showed: Focal obstruction at the level of the proximal transverse colon with ill-defined, masslike structure measuring up to at least 5 cm. -S/p exploratory laparotomy of the ascending/transverse colectomy 02/09/17. - further management per CRS. diet has been advanced however pt not eating much. Reviewed recs from on 02/15/17. I will place a consult for calory count as per daughter pt not eating much. Pt states that he is eating which contradicts what daughter and nursing staff are saying. Pt is a difficult pt. -Status post Zosyn treatment. - continue to encourage pt to drink his Enlive 3 times a day multivitamin. -Continue with pured and liquid diet. Due to surgery will need to slowly increase amount of intake and this has been explained to patient. Peripheral arterial disease with occlusion of the distal left femoral artery -CTA runoff showed occlusion of the distal left femoral artery. Consulted vascular surgeon Dr. Stahl. -Status post left femoral-popliteal bypass and endarterectomy on 02/12/2017. -On Plavix. + LE edema and scrotal edema -Improving. -Fluids already discontinued. on Lasix to 20 mg IV twice a day. -Strict ins and outs. Avoid nephrotoxins. -protein levels are low. encourage pt to eat Choledocholithiasis -Dilated common bile duct with stone on imaging with elevated liver enzyme. GI specialist following, status post ERCP and stone extraction. S/p Zosyn. Chest pain/ CHF Reported to ED physician. Trop peaked at 0.09. S/p cardiology evaluation. Echo with severely reduced EF. Appreciate cardiology follow-up. - continuous cardiac telemetry to monitor for arrhythmias. - continue cardiac regimen. - outpt follow-up with cardiology. Right leg itching Chronic. - Benadryl cream added. resolved Weight loss -Due to colon cancer. See treatment as above. Hypokalemia Likely secondary to ileus. - Replete and monitor. Hypernatremia The pt has not been eating much lately. -Resolved. DVT prophylaxis: SCDs/TEDs Discharge Planning Once patient has better oral intake can be discharged to SNF. Calory count to be started per RD. Daughter concerned about pt's PO intake. Problem Qualifiers (1) Chest pain: Qualified Codes: R07.9 - Chest pain, unspecified Pamela Draper MD Feb 17, 2017 11:14
[2017-02-17 14:16] LABS: HEMATOCRIT 28.1 % (39.0-51.0); MEAN CELL VOLUME 95.6 FL (80.0-100.0); MEAN CORPUSCULAR HEMOGLOBIN 31.4 PG (27.0-34.0); MEAN CORPUSCULAR HGB CONC 32.9 % (32.0-36.0); PLATELET COUNT 278 TH/MM3 (150-450); RED BLOOD COUNT 2.94 MIL/MM3 (4.50-5.90); RED CELL DISTRIBUTION WIDTH 14.8 % (11.6-17.2); REVIEW FLAG FINAL; WHITE BLOOD COUNT 12.8 TH/MM3 (4.0-11.0)
[2017-02-17] MEDS: LATANOPROST 0.005% OPHT SOLN 2.5 ML BTL EACH EYE SCH (21:38)
[2017-02-18] MEDS: ACETAMINOPHEN 1000 MG/100 ML 100 ML IV SCH ×4 (03:19→21:18)
[2017-02-18 05:18] VITALS: BP 130/63; PULSE 78; RESP 16; TEMP 98.1; O2SAT 97
[2017-02-18] MEDS: traMADol HCL 50 MG TAB PO PRN ×2 (05:18→15:29)
[2017-02-18] MEDS: HEPARIN SODIUM - SQ 10,000 UNITS/ML VIAL SQ SCH ×3 (05:20→21:20)
[2017-02-18 08:00] VITALS: BP 137/66; PULSE 80; RESP 16; TEMP 97.3; O2SAT 97
[2017-02-18] MEDS: PANTOPRAZOLE SOD 40 MG DELAYED RELEASE TAB PO SCH (08:52)
[2017-02-18] MEDS: CLOPIDOGREL 75 MG TAB PO SCH (08:52)
[2017-02-18] MEDS: SODIUM CHLORIDE 0.9% FLUSH 5 ML FLUSH IVF SCH ×2 (08:52→21:00)
[2017-02-18] MEDS: PANTOPRAZOLE SODIUM 40 MG VIAL IVP SCH (08:52)
[2017-02-18] MEDS: MULTIVITAMINS/MINERALS THERAPEUTIC TAB PO SCH (08:52)
[2017-02-18] MEDS: FUROSEMIDE 20 MG/2 ML VIAL IV PUSH SCH ×2 (08:54→21:19)
[2017-02-18] MEDS: BENZOCAINE 6 MG/MENTHOL 10 MG LOZENGE BUCCAL PRN (09:07)
[2017-02-18 12:00] VITALS: BP 139/73; PULSE 87; RESP 17; TEMP 97.4; O2SAT 97
--- NOTE | 2017-02-18 12:49 | HHI.PR ---
Subjective Remarks The patient was sitting up in a chair. He said his thigh was hurting him. He said he is eating as much as he can. He says his penis is still swollen. He was to get out of the hospital soon. Discussed with his daughter at the bedside. Objective Vitals Vital Signs Date Time Temp Pulse Resp B/P (MAP) Pulse Ox O2 Delivery O2 Flow Rate FiO2 02/18/17 08:00 97.3 80 16 137/66 (89) 97 02/18/17 07:20 Room Air 02/18/17 06:26 18 02/18/17 05:18 98.1 78 16 130/63 (85) 97 02/18/17 04:00 Room Air 02/18/17 00:00 Room Air 02/17/17 23:24 98.0 71 16 125/73 (90) 95 02/17/17 21:30 Room Air 02/17/17 21:17 98.5 83 16 119/62 (81) 97 02/17/17 16:00 97.7 83 18 125/60 (81) 98 I/O 02/17/17 02/17/17 02/17/17 02/18/17 02/18/17 02/18/17 07:00 15:00 23:00 07:00 15:00 23:00 Intake Total 0 ml 100 ml 480 ml Output Total 750 ml 1260 ml Balance -750 ml 100 ml -780 ml Intake Oral 0 ml 480 ml IV Total 100 ml Output Urine Total 750 ml 1260 ml # Bowel Movements 0 0 Result Diagram: 02/17/17 1330 02/17/17 0627 Imaging Last Impressions Aorta w/Runoff CTA 02/12/17 0000 Signed Impressions: Service Date/Time: Sunday, February 12, 2017 12:23 - CONCLUSION: 1. No significant aortic occlusive disease or aneurysm. 2. Occlusion of the distal left common femoral artery extending to the origin of the profunda and SFA. Profunda reconstitutes near the origin and SFA reconstitutes in the mid thigh. 3. 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 4. No significant outflow stenosis on the right. 5. Heavily calcified runoff vessels bilaterally. There is likely limited two-vessel runoff on the left with occlusion of the anterior tibial artery in the proximal calf. 6. Postsurgical features of probable recent right hemicolectomy with moderate amount of free intraperitoneal air. 7. Findings consistent with mild adynamic ileus. 8. Pneumobilia likely secondary to recent sphincterotomy. 9. Small amount of ascites. Yemi Simons MD Enema w/Water Soluble 02/08/17 0000 Signed Impressions: Service Date/Time: Wednesday, February 08, 2017 10:58 - CONCLUSION: Focal obstruction at the level of the proximal transverse colon with ill-defined masslike structure measuring up to at least 5 cm. This is of concern for colon cancer. Sunil Reich MD Abdomen X-Ray 02/07/17 0600 Signed Impressions: Service Date/Time: Tuesday, February 07, 2017 03:16 - CONCLUSION: 1. Stable gaseous distention of small and large bowel compared with February 06. Jason Yu MD Chest X-Ray 02/07/17 0000 Signed Impressions: Service Date/Time: Tuesday, February 07, 2017 10:30 - CONCLUSION: 1. Basilar and dependent atelectasis with underlying pulmonary fibrotic changes. No focal dense consolidation or effusion. Jason Yu MD GI Procedure 02/03/17 0000 Signed Impressions: Service Date/Time: January 12:40 - CONCLUSION: ERCP as above. Alice Zeng MD Gall Bladder Ultrasound 02/01/17 1940 Signed Impressions: Service Date/Time: Wednesday, February 01, 2017 20:02 - CONCLUSION: 1. Dilated common bile duct. Distal common duct not well visualized. No stones identified within the gallbladder. Jason Yu MD Aorta CTA 02/01/17 1764 Signed Impressions: Service Date/Time: Wednesday, February 01, 2017 19:31 - CONCLUSION: 1. Negative for aortic dissection or aneurysm. 2. Gallstone in distal common duct measured up to 14 mm in diameter with biliary ductal dilatation up to about 2 cm. Jason Yu MD Objective Remarks GENERAL: This is a pale elderly male patient, in no apparent distress. SKIN: No rashes, ecchymoses or lesions. Cool and dry. Wound on left thigh healing well. HEAD: Atraumatic. Normocephalic. EYES: Pupils equal round and reactive. No injection or drainage. ENT: Nose without bleeding, purulent drainage or septal hematoma. NECK: Trachea midline. No JVD. CARDIOVASCULAR: Regular rate and rhythm with grade 2 systolic murmur appreciated. RESPIRATORY: Clear to auscultation. Breath sounds equal bilaterally. No wheezes , rales, or rhonchi. GASTROINTESTINAL: Abdomen soft, tender, dressing in place. No guarding. : Penile and scrotal edema noted. MUSCULOSKELETAL: Extremities without clubbing, cyanosis, or edema. No back tenderness to palpation. NEUROLOGICAL: Awake and alert. Motor and sensory grossly within normal limits. Normal speech. PSYCH: Mildly agitated. Procedures Exploratory laparotomy, ascending/transverse colectomy (02/09/17). Medications and IVs Current Medications Medications (Trade) Dose Ordered Sig/Radha Route Start Time Stop Time Status Last Admin (Narcan Inj) 0.4 mg UNSCH PRN IV 02/01/17 21:00 (Lopressor) 25 mg DAILY PO 02/02/17 09:00 Future Hold (Prinivil) 2.5 mg DAILY PO 02/02/17 09:00 Future Hold (Pill Splitter) 1 ea UNSCH PRN OTHER 02/02/17 09:00 (Xalatan 0.005% Opth Soln) 1 drop HS EACH EYE 02/02/17 21:00 02/17/17 21:38 (Benadryl 2% Cream) 1 applic TID PRN TOPICAL 02/06/17 10:45 02/07/17 21:26 (Tessalon) 100 mg TID PRN PO 02/09/17 09:00 (Ultram) 50 mg Q6H PRN PO 02/09/17 10:45 02/18/17 05:18 (NS Flush) 2 ml UNSCH PRN IVF 02/09/17 16:15 (NS Flush) 2 ml BID IVF 02/09/17 21:00 02/18/17 08:52 (Tylenol) 650 mg Q4H PRN PO 02/09/17 16:15 (Protonix Inj) 40 mg DAILY IVP 02/10/17 09:00 02/18/17 08:52 (Protonix) 40 mg DAILY PO 02/10/17 09:00 02/18/17 08:52 (Vasotec Inj) 1.25 mg Q4H PRN IV 02/09/17 16:15 (Vasotec Inj) 2.5 mg Q6H PRN IV 02/09/17 16:15 (Chloraseptic Jeanna) 1 lozenge UNSCH PRN BUCCAL 02/09/17 16:15 02/18/17 09:07 Potassium Chloride 100 ml @ 50 mls/hr UNSCH PRN IV 02/09/17 16:15 02/12/17 21:56 Potassium Chloride 100 ml @ 25 mls/hr UNSCH PRN IV 02/09/17 16:15 Acetaminophen 100 ml @ 400 mls/hr Q6H IV 02/11/17 10:00 02/18/17 08:52 (Ativan Inj) 0.5 mg Q6HR PRN IV PUSH 02/11/17 10:00 (Plavix) 75 mg DAILY PO 02/13/17 09:00 02/18/17 08:52 (Heparin Inj) 5,000 units Q8HR SQ 02/12/17 22:00 02/18/17 05:20 (Duoneb Neb) 1 ampule Q6HR NEB PRN NEB 02/12/17 22:30 (Theragran M Tab) 1 tab DAILY PO 02/16/17 09:00 02/18/17 08:52 (Lasix Inj) 20 mg Q12HR IV PUSH 02/15/17 21:00 02/18/17 08:54 (Reglan Inj) 10 mg Q12HR PRN IVS 02/16/17 16:00 A/P Problem List: (1) Common bile duct dilation ICD Code: K83.8 - Other specified diseases of biliary tract (2) Elevated liver function tests ICD Code: R79.89 - Other specified abnormal findings of blood chemistry Status: Acute (3) Chest pain ICD Code: R07.9 - Chest pain, unspecified Status: Acute (4) Leukocytosis ICD Code: D72.829 - Elevated white blood cell count, unspecified Assessment and Plan Colon mass CT indicative of ileus. KUB with stability. Barium study showed: Focal obstruction at the level of the proximal transverse colon with ill-defined, masslike structure measuring up to at least 5 cm. S/p exploratory laparotomy of the ascending/transverse colectomy 02/09/17. - further management per CRS. diet has been advanced however pt not eating much. Reviewed recs from on 02/15/17. I will place a consult for calory count as per daughter pt not eating much. Pt states that he is eating which contradicts what daughter and nursing staff are saying. Calorie count to be completed on 02/20. -Status post Zosyn treatment. - continue to encourage pt to drink his Enlive 3 times a day multivitamin. -Continue with pured and liquid diet. Due to surgery will need to slowly increase amount of intake and this has been explained to patient. Peripheral arterial disease with occlusion of the distal left femoral artery -CTA runoff showed occlusion of the distal left femoral artery. Consulted vascular surgeon Dr. Stahl. -Status post left femoral-popliteal bypass and endarterectomy on 02/12/2017. -On Plavix. + LE edema and scrotal edema -Improving. -Fluids already discontinued. On Lasix to 20 mg IV twice a day. Continue. -Strict ins and outs. Avoid nephrotoxins. -protein levels are low. encourage pt to eat Choledocholithiasis -Dilated common bile duct with stone on imaging with elevated liver enzyme. GI specialist following, status post ERCP and stone extraction. - S/p Zosyn. Chest pain/ CHF Reported to ED physician. Trop peaked at 0.09. S/p cardiology evaluation. Echo with severely reduced EF. Appreciate cardiology follow-up. - continuous cardiac telemetry to monitor for arrhythmias. - continue cardiac regimen. - outpt follow-up with cardiology. Right leg itching Chronic. - Benadryl cream added. resolved Weight loss -Due to colon cancer. See treatment as above. Hypokalemia Likely secondary to ileus. - Replete and monitor. Hypernatremia The pt has not been eating much lately. -Resolved. DVT prophylaxis: SCDs/TEDs Discharge Planning Awaiting calorie count Problem Qualifiers (1) Chest pain: Qualified Codes: R07.9 - Chest pain, unspecified Sunil Hanks DO Feb 18, 2017 12:49
[2017-02-18 16:00] VITALS: BP 127/68; PULSE 83; RESP 17; TEMP 97.2; O2SAT 97
[2017-02-18 20:28] VITALS: BP 133/74; PULSE 94; RESP 16; TEMP 98.4; O2SAT 98
[2017-02-18] MEDS: LATANOPROST 0.005% OPHT SOLN 2.5 ML BTL EACH EYE SCH (21:21)
--- NOTE | 2017-02-18 22:00 | HHI.PR ---
Subjective Remarks C/R Surg POD afebrile, VSS UO good -?? +BM PO angel better Objective - Vital Signs Date Time Temp Pulse Resp B/P (MAP) Pulse Ox O2 Delivery O2 Flow Rate FiO2 02/18/17 20:28 98.4 94 16 133/74 (93) 98 02/18/17 07:20 Room Air 02/15/17 08:09 21 Result Diagram: 02/17/17 1330 02/17/17 0627 Objective Remarks PE alert Abd - soft, wound clean, dry min tympany A/P Assessment and Plan Imp: OOB start PO slowly, reg diet dc plans -rehab dc tiny - done Gustavo Farfan MD Feb 18, 2017 22:00
[2017-02-19 00:03] VITALS: BP 109/63; PULSE 72; RESP 16; TEMP 97.5; O2SAT 96
[2017-02-19] MEDS: ACETAMINOPHEN 1000 MG/100 ML 100 ML IV SCH ×4 (03:23→21:26)
[2017-02-19 04:22] VITALS: BP 105/63; PULSE 76; RESP 16; TEMP 97.6; O2SAT 94
[2017-02-19] MEDS: HEPARIN SODIUM - SQ 10,000 UNITS/ML VIAL SQ SCH ×3 (05:19→21:26)
[2017-02-19 08:00] VITALS: BP 118/61; PULSE 78; RESP 18; TEMP 97.9; O2SAT 94
[2017-02-19] MEDS: FUROSEMIDE 20 MG/2 ML VIAL IV PUSH SCH ×2 (08:43→21:27)
[2017-02-19] MEDS: BENZOCAINE 6 MG/MENTHOL 10 MG LOZENGE BUCCAL PRN (08:43)
[2017-02-19] MEDS: CLOPIDOGREL 75 MG TAB PO SCH (08:44)
[2017-02-19] MEDS: PANTOPRAZOLE SOD 40 MG DELAYED RELEASE TAB PO SCH (08:44)
[2017-02-19] MEDS: PANTOPRAZOLE SODIUM 40 MG VIAL IVP SCH (08:44)
[2017-02-19] MEDS: MULTIVITAMINS/MINERALS THERAPEUTIC TAB PO SCH (08:44)
[2017-02-19] MEDS: SODIUM CHLORIDE 0.9% FLUSH 5 ML FLUSH IVF SCH ×2 (08:45→21:00)
[2017-02-19 12:00] VITALS: BP 115/58; PULSE 78; RESP 18; TEMP 97.9; O2SAT 96
--- NOTE | 2017-02-19 14:07 | HHI.PR ---
Subjective Remarks The patient was resting in bed comfortably. He had significant pain in his leg incision site. He is hoping to leave the hospital soon. He says his penis is still swollen. Family at the bedside. Their questions were answered. Objective Vitals Vital Signs Date Time Temp Pulse Resp B/P (MAP) Pulse Ox O2 Delivery O2 Flow Rate FiO2 02/19/17 12:00 97.9 78 18 115/58 (77) 96 02/19/17 08:00 97.9 78 18 118/61 (80) 94 02/19/17 07:00 Room Air 02/19/17 04:22 97.6 76 16 105/63 (77) 94 02/19/17 04:00 Room Air 02/19/17 00:03 97.5 72 16 109/63 (78) 96 02/19/17 00:00 Room Air 02/18/17 21:20 Room Air 02/18/17 20:28 98.4 94 16 133/74 (93) 98 02/18/17 16:00 97.2 83 17 127/68 (87) 97 I/O 02/18/17 02/18/17 02/18/17 02/19/17 02/19/17 02/19/17 07:00 15:00 23:00 07:00 15:00 23:00 Intake Total 480 ml 100 ml 820 ml 340 ml Output Total 1260 ml 1260 ml Balance -780 ml 100 ml 820 ml -920 ml Intake Oral 480 ml 720 ml 240 ml IV Total 100 ml 100 ml 100 ml Output Urine Total 1260 ml 1260 ml # Voids 4 # Bowel Movements 0 1 0 Result Diagram: 02/17/17 1330 02/17/17 0627 Imaging Last Impressions Aorta w/Runoff CTA 02/12/17 0000 Signed Impressions: Service Date/Time: Sunday, February 12, 2017 12:23 - CONCLUSION: 1. No significant aortic occlusive disease or aneurysm. 2. Occlusion of the distal left common femoral artery extending to the origin of the profunda and SFA. Profunda reconstitutes near the origin and SFA reconstitutes in the mid thigh. 3. 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 4. No significant outflow stenosis on the right. 5. Heavily calcified runoff vessels bilaterally. There is likely limited two-vessel runoff on the left with occlusion of the anterior tibial artery in the proximal calf. 6. Postsurgical features of probable recent right hemicolectomy with moderate amount of free intraperitoneal air. 7. Findings consistent with mild adynamic ileus. 8. Pneumobilia likely secondary to recent sphincterotomy. 9. Small amount of ascites. Yemi Simons MD Enema w/Water Soluble 02/08/17 0000 Signed Impressions: Service Date/Time: Wednesday, February 08, 2017 10:58 - CONCLUSION: Focal obstruction at the level of the proximal transverse colon with ill-defined masslike structure measuring up to at least 5 cm. This is of concern for colon cancer. Sunil Reich MD Abdomen X-Ray 02/07/17 0600 Signed Impressions: Service Date/Time: Tuesday, February 07, 2017 03:16 - CONCLUSION: 1. Stable gaseous distention of small and large bowel compared with February 06. Jason Yu MD Chest X-Ray 02/07/17 0000 Signed Impressions: Service Date/Time: Tuesday, February 07, 2017 10:30 - CONCLUSION: 1. Basilar and dependent atelectasis with underlying pulmonary fibrotic changes. No focal dense consolidation or effusion. Jason Yu MD GI Procedure 02/03/17 0000 Signed Impressions: Service Date/Time: January 12:40 - CONCLUSION: ERCP as above. Alice Zeng MD Gall Bladder Ultrasound 02/01/17 1940 Signed Impressions: Service Date/Time: Wednesday, February 01, 2017 20:02 - CONCLUSION: 1. Dilated common bile duct. Distal common duct not well visualized. No stones identified within the gallbladder. Jason Yu MD Aorta CTA 02/01/17 0471 Signed Impressions: Service Date/Time: Wednesday, February 01, 2017 19:31 - CONCLUSION: 1. Negative for aortic dissection or aneurysm. 2. Gallstone in distal common duct measured up to 14 mm in diameter with biliary ductal dilatation up to about 2 cm. Jason Yu MD Objective Remarks GENERAL: This is a pale elderly male patient, in no apparent distress. SKIN: No rashes, ecchymoses or lesions. Cool and dry. Wound on left thigh healing well. HEAD: Atraumatic. Normocephalic. EYES: Pupils equal round and reactive. No injection or drainage. ENT: Nose without bleeding, purulent drainage or septal hematoma. NECK: Trachea midline. No JVD. CARDIOVASCULAR: Regular rate and rhythm with grade 2 systolic murmur appreciated. RESPIRATORY: Clear to auscultation. Breath sounds equal bilaterally. No wheezes , rales, or rhonchi. GASTROINTESTINAL: Abdomen soft, tender, dressing in place. No guarding. : Penile and scrotal edema noted. MUSCULOSKELETAL: Extremities without clubbing, cyanosis, or edema. No back tenderness to palpation. NEUROLOGICAL: Awake and alert. Motor and sensory grossly within normal limits. Normal speech. PSYCH: Calm. Procedures Exploratory laparotomy, ascending/transverse colectomy (02/09/17). Medications and IVs Current Medications Medications (Trade) Dose Ordered Sig/Radha Route Start Time Stop Time Status Last Admin (Narcan Inj) 0.4 mg UNSCH PRN IV 02/01/17 21:00 (Lopressor) 25 mg DAILY PO 02/02/17 09:00 Future Hold (Prinivil) 2.5 mg DAILY PO 02/02/17 09:00 Future Hold (Pill Splitter) 1 ea UNSCH PRN OTHER 02/02/17 09:00 (Xalatan 0.005% Opth Soln) 1 drop HS EACH EYE 02/02/17 21:00 02/18/17 21:21 (Benadryl 2% Cream) 1 applic TID PRN TOPICAL 02/06/17 10:45 02/07/17 21:26 (Tessalon) 100 mg TID PRN PO 02/09/17 09:00 (Ultram) 50 mg Q6H PRN PO 02/09/17 10:45 02/18/17 15:29 (NS Flush) 2 ml UNSCH PRN IVF 02/09/17 16:15 (NS Flush) 2 ml BID IVF 02/09/17 21:00 02/19/17 08:45 (Tylenol) 650 mg Q4H PRN PO 02/09/17 16:15 (Protonix Inj) 40 mg DAILY IVP 02/10/17 09:00 02/18/17 08:52 (Protonix) 40 mg DAILY PO 02/10/17 09:00 02/19/17 08:44 (Vasotec Inj) 1.25 mg Q4H PRN IV 02/09/17 16:15 (Vasotec Inj) 2.5 mg Q6H PRN IV 02/09/17 16:15 (Chloraseptic Jeanna) 1 lozenge UNSCH PRN BUCCAL 02/09/17 16:15 02/19/17 08:43 Potassium Chloride 100 ml @ 50 mls/hr UNSCH PRN IV 02/09/17 16:15 02/12/17 21:56 Potassium Chloride 100 ml @ 25 mls/hr UNSCH PRN IV 02/09/17 16:15 Acetaminophen 100 ml @ 400 mls/hr Q6H IV 02/11/17 10:00 02/19/17 08:53 (Ativan Inj) 0.5 mg Q6HR PRN IV PUSH 02/11/17 10:00 (Plavix) 75 mg DAILY PO 02/13/17 09:00 02/19/17 08:44 (Heparin Inj) 5,000 units Q8HR SQ 02/12/17 22:00 02/18/17 21:20 (Duoneb Neb) 1 ampule Q6HR NEB PRN NEB 02/12/17 22:30 (Theragran M Tab) 1 tab DAILY PO 02/16/17 09:00 02/19/17 08:44 (Lasix Inj) 20 mg Q12HR IV PUSH 02/15/17 21:00 02/19/17 08:43 (Reglan Inj) 10 mg Q12HR PRN IVS 02/16/17 16:00 A/P Problem List: (1) Common bile duct dilation ICD Code: K83.8 - Other specified diseases of biliary tract (2) Elevated liver function tests ICD Code: R79.89 - Other specified abnormal findings of blood chemistry Status: Acute (3) Chest pain ICD Code: R07.9 - Chest pain, unspecified Status: Acute (4) Leukocytosis ICD Code: D72.829 - Elevated white blood cell count, unspecified Assessment and Plan Colon mass CT indicative of ileus. KUB with stability. Barium study showed: Focal obstruction at the level of the proximal transverse colon with ill-defined, masslike structure measuring up to at least 5 cm. S/p exploratory laparotomy of the ascending/transverse colectomy 02/09/17. - further management per CRS. diet has been advanced however pt not eating much. Reviewed recs from RD on 02/15/17. I will place a consult for calory count as per daughter pt not eating much. Pt states that he is eating which contradicts what daughter and nursing staff are saying. Calorie count to be completed on 02/20. Status post Zosyn treatment. - continue to encourage pt to drink his Enlive 3 times a day multivitamin. - Continue with pured and liquid diet. Due to surgery will need to slowly increase amount of intake and this has been explained to patient. Peripheral arterial disease with occlusion of the distal left femoral artery CTA runoff showed occlusion of the distal left femoral artery. Consulted vascular surgeon Dr. Stahl. Status post left femoral-popliteal bypass and endarterectomy on 02/12/2017. - On Plavix. LE edema and scrotal edema Improving. Fluids already discontinued. - On Lasix to 20 mg IV twice a day. Continue. - Strict ins and outs. Avoid nephrotoxins. - protein levels are low. Encouraged pt to eat. Choledocholithiasis Dilated common bile duct with stone on imaging with elevated liver enzyme. GI specialist following, status post ERCP and stone extraction. - S/p Zosyn. Chest pain/ CHF Reported to ED physician. Trop peaked at 0.09. S/p cardiology evaluation. Echo with severely reduced EF. Appreciate cardiology follow-up. - continuous cardiac telemetry to monitor for arrhythmias. - continue cardiac regimen. - outpt follow-up with cardiology. Right leg itching Chronic. - Benadryl cream added. resolved Weight loss Due to colon cancer. - See treatment as above. Hypokalemia Likely secondary to ileus. - Replete and monitor. Hypernatremia The pt has not been eating much lately. - Resolved. DVT prophylaxis: SCDs/TEDs Discharge Planning Awaiting calorie count Problem Qualifiers (1) Chest pain: Qualified Codes: R07.9 - Chest pain, unspecified Sunil Hanks DO Feb 19, 2017 14:07
[2017-02-19 16:00] VITALS: BP 143/55; PULSE 90; RESP 20; TEMP 97.5; O2SAT 95
[2017-02-19] MEDS: traMADol HCL 50 MG TAB PO PRN (17:58)
[2017-02-19 20:00] VITALS: BP 100/57; PULSE 85; RESP 16; TEMP 98.7; O2SAT 96
[2017-02-19] MEDS: LATANOPROST 0.005% OPHT SOLN 2.5 ML BTL EACH EYE SCH (21:27)
[2017-02-20] VITALS: BP 112/77; PULSE 78; RESP 16; TEMP 97.6; O2SAT 96
[2017-02-20 04:00] VITALS: BP 132/64; PULSE 74; RESP 16; TEMP 97.5; O2SAT 97
[2017-02-20] MEDS: ACETAMINOPHEN 1000 MG/100 ML 100 ML IV SCH ×2 (05:30→09:35)
[2017-02-20] MEDS: HEPARIN SODIUM - SQ 10,000 UNITS/ML VIAL SQ SCH ×3 (05:31→20:08)
[2017-02-20 08:00] VITALS: BP 141/63; PULSE 65; RESP 18; TEMP 97.5; O2SAT 93
[2017-02-20 08:07] LABS: AUTOMATED NEUTROPHIL # 9.1 TH/MM3 (1.8-7.7); BASOPHIL # 0.1 TH/MM3 (0-0.2); BASOPHIL % 0.7 % (0.0-2.0); EOSINOPHIL # 0.2 TH/MM3 (0-0.4); EOSINOPHIL % 2.1 % (0.0-4.0); HEMO FLAGS DIFF FINAL; LYMPH % 11.1 % (9.0-44.0); LYMPHOCYTE # 1.3 TH/MM3 (1.0-4.8); MEAN CELL VOLUME 95.8 FL (80.0-100.0); MEAN CORPUSCULAR HEMOGLOBIN 32.2 PG (27.0-34.0); MEAN CORPUSCULAR HGB CONC 33.6 % (32.0-36.0); MONO % 7.5 % (0.0-8.0); NEUT % 78.6 % (16.0-70.0); PLATELET COUNT 296 TH/MM3 (150-450); RED BLOOD COUNT 3.03 MIL/MM3 (4.50-5.90); RED CELL DISTRIBUTION WIDTH 15.5 % (11.6-17.2); WHITE BLOOD COUNT 11.5 TH/MM3 (4.0-11.0)
[2017-02-20] MEDS: SODIUM CHLORIDE 0.9% FLUSH 5 ML FLUSH IVF SCH ×2 (09:00→20:08)
[2017-02-20] MEDS: PANTOPRAZOLE SODIUM 40 MG VIAL IVP SCH (09:00)
[2017-02-20] MEDS: MULTIVITAMINS/MINERALS THERAPEUTIC TAB PO SCH (09:34)
[2017-02-20] MEDS: PANTOPRAZOLE SOD 40 MG DELAYED RELEASE TAB PO SCH (09:34)
[2017-02-20] MEDS: FUROSEMIDE 20 MG/2 ML VIAL IV PUSH SCH ×2 (09:34→20:09)
[2017-02-20] MEDS: CLOPIDOGREL 75 MG TAB PO SCH (09:35)
[2017-02-20] MEDS: BENZOCAINE 6 MG/MENTHOL 10 MG LOZENGE BUCCAL PRN (09:46)
--- NOTE | 2017-02-20 10:07 | HHI.PR ---
Subjective Remarks The patient wants to leave the hospital soon. He said his pain in his left leg is much better. He ate a good amount of his breakfast today. Family at the bedside. Objective Vitals Vital Signs Date Time Temp Pulse Resp B/P (MAP) Pulse Ox O2 Delivery O2 Flow Rate FiO2 02/20/17 08:00 97.5 65 18 141/63 (89) 93 02/20/17 04:00 97.5 74 16 132/64 (86) 97 02/20/17 04:00 Room Air 02/20/17 00:00 Room Air 02/20/17 00:00 97.6 78 16 112/77 (89) 96 02/19/17 20:00 Room Air 02/19/17 20:00 98.7 85 16 100/57 (71) 96 02/19/17 16:00 97.5 90 20 143/55 (84) 95 02/19/17 12:00 97.9 78 18 115/58 (77) 96 I/O 02/19/17 02/19/17 02/19/17 02/20/17 02/20/17 02/20/17 07:00 15:00 23:00 07:00 15:00 23:00 Intake Total 340 ml 580 ml 340 ml Output Total 1260 ml 1700 ml Balance -920 ml 580 ml -1360 ml Intake Oral 240 ml 480 ml 240 ml IV Total 100 ml 100 ml 100 ml Output Urine Total 1260 ml 1700 ml # Voids 3 # Bowel Movements 0 1 Result Diagram: 02/20/17 0735 02/17/17 0627 Imaging Last Impressions Aorta w/Runoff CTA 02/12/17 0000 Signed Impressions: Service Date/Time: Sunday, February 12, 2017 12:23 - CONCLUSION: 1. No significant aortic occlusive disease or aneurysm. 2. Occlusion of the distal left common femoral artery extending to the origin of the profunda and SFA. Profunda reconstitutes near the origin and SFA reconstitutes in the mid thigh. 3. 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 4. No significant outflow stenosis on the right. 5. Heavily calcified runoff vessels bilaterally. There is likely limited two-vessel runoff on the left with occlusion of the anterior tibial artery in the proximal calf. 6. Postsurgical features of probable recent right hemicolectomy with moderate amount of free intraperitoneal air. 7. Findings consistent with mild adynamic ileus. 8. Pneumobilia likely secondary to recent sphincterotomy. 9. Small amount of ascites. Yemi Simons MD Enema w/Water Soluble 02/08/17 0000 Signed Impressions: Service Date/Time: Wednesday, February 08, 2017 10:58 - CONCLUSION: Focal obstruction at the level of the proximal transverse colon with ill-defined masslike structure measuring up to at least 5 cm. This is of concern for colon cancer. Sunil Reich MD Abdomen X-Ray 02/07/17 0600 Signed Impressions: Service Date/Time: Tuesday, February 07, 2017 03:16 - CONCLUSION: 1. Stable gaseous distention of small and large bowel compared with February 06. Jason Yu MD Chest X-Ray 02/07/17 0000 Signed Impressions: Service Date/Time: Tuesday, February 07, 2017 10:30 - CONCLUSION: 1. Basilar and dependent atelectasis with underlying pulmonary fibrotic changes. No focal dense consolidation or effusion. Jason Yu MD GI Procedure 02/03/17 0000 Signed Impressions: Service Date/Time: January 12:40 - CONCLUSION: ERCP as above. Alice Zeng MD Gall Bladder Ultrasound 02/01/17 194 Signed Impressions: Service Date/Time: Wednesday, February 01, 2017 20:02 - CONCLUSION: 1. Dilated common bile duct. Distal common duct not well visualized. No stones identified within the gallbladder. Jason Yu MD Aorta CTA 02/01/17 4430 Signed Impressions: Service Date/Time: Wednesday, February 01, 2017 19:31 - CONCLUSION: 1. Negative for aortic dissection or aneurysm. 2. Gallstone in distal common duct measured up to 14 mm in diameter with biliary ductal dilatation up to about 2 cm. Jason Yu MD Objective Remarks GENERAL: This is a pale elderly male patient, in no apparent distress. SKIN: No rashes, ecchymoses or lesions. Cool and dry. Wound on left thigh healing well. HEAD: Atraumatic. Normocephalic. EYES: Pupils equal round and reactive. No injection or drainage. ENT: Nose without bleeding, purulent drainage or septal hematoma. NECK: Trachea midline. No JVD. CARDIOVASCULAR: Regular rate and rhythm with grade 2 systolic murmur appreciated. RESPIRATORY: Clear to auscultation. Breath sounds equal bilaterally. No wheezes , rales, or rhonchi. GASTROINTESTINAL: Abdomen soft, tender, dressing in place. No guarding. : Penile and scrotal edema noted. MUSCULOSKELETAL: Extremities without clubbing, cyanosis, or edema. No back tenderness to palpation. NEUROLOGICAL: Awake and alert. Motor and sensory grossly within normal limits. Normal speech. PSYCH: Calm. Procedures Exploratory laparotomy, ascending/transverse colectomy (02/09/17). Medications and IVs Current Medications Medications (Trade) Dose Ordered Sig/Radha Route Start Time Stop Time Status Last Admin (Narcan Inj) 0.4 mg UNSCH PRN IV 02/01/17 21:00 (Lopressor) 25 mg DAILY PO 02/02/17 09:00 Future Hold (Prinivil) 2.5 mg DAILY PO 02/02/17 09:00 Future Hold (Pill Splitter) 1 ea UNSCH PRN OTHER 02/02/17 09:00 (Xalatan 0.005% Opth Soln) 1 drop HS EACH EYE 02/02/17 21:00 02/19/17 21:27 (Benadryl 2% Cream) 1 applic TID PRN TOPICAL 02/06/17 10:45 02/07/17 21:26 (Tessalon) 100 mg TID PRN PO 02/09/17 09:00 (Ultram) 50 mg Q6H PRN PO 02/09/17 10:45 02/19/17 17:58 (NS Flush) 2 ml UNSCH PRN IVF 02/09/17 16:15 (NS Flush) 2 ml BID IVF 02/09/17 21:00 02/20/17 09:00 (Tylenol) 650 mg Q4H PRN PO 02/09/17 16:15 (Protonix Inj) 40 mg DAILY IVP 02/10/17 09:00 02/18/17 08:52 (Protonix) 40 mg DAILY PO 02/10/17 09:00 02/20/17 09:34 (Vasotec Inj) 1.25 mg Q4H PRN IV 02/09/17 16:15 (Vasotec Inj) 2.5 mg Q6H PRN IV 02/09/17 16:15 (Chloraseptic Jeanna) 1 lozenge UNSCH PRN BUCCAL 02/09/17 16:15 02/20/17 09:46 Potassium Chloride 100 ml @ 50 mls/hr UNSCH PRN IV 02/09/17 16:15 02/12/17 21:56 Potassium Chloride 100 ml @ 25 mls/hr UNSCH PRN IV 02/09/17 16:15 (Ativan Inj) 0.5 mg Q6HR PRN IV PUSH 02/11/17 10:00 (Plavix) 75 mg DAILY PO 02/13/17 09:00 02/20/17 09:35 (Heparin Inj) 5,000 units Q8HR SQ 02/12/17 22:00 02/20/17 05:31 (Duoneb Neb) 1 ampule Q6HR NEB PRN NEB 02/12/17 22:30 (Theragran M Tab) 1 tab DAILY PO 02/16/17 09:00 02/20/17 09:34 (Lasix Inj) 20 mg Q12HR IV PUSH 02/15/17 21:00 02/20/17 09:34 (Reglan Inj) 10 mg Q12HR PRN IVS 02/16/17 16:00 A/P Problem List: (1) Common bile duct dilation ICD Code: K83.8 - Other specified diseases of biliary tract (2) Elevated liver function tests ICD Code: R79.89 - Other specified abnormal findings of blood chemistry Status: Acute (3) Chest pain ICD Code: R07.9 - Chest pain, unspecified Status: Acute (4) Leukocytosis ICD Code: D72.829 - Elevated white blood cell count, unspecified Assessment and Plan Colon mass CT indicative of ileus. KUB with stability. Barium study showed: Focal obstruction at the level of the proximal transverse colon with ill-defined, masslike structure measuring up to at least 5 cm. S/p exploratory laparotomy of the ascending/transverse colectomy 02/09/17. - further management per CRS. diet has been advanced however pt not eating much. Reviewed recs from RD on 02/15/17. I will place a consult for calory count as per daughter pt not eating much. Pt states that he is eating which contradicts what daughter and nursing staff are saying. Calorie count to be completed on 02/20. Status post Zosyn treatment. - continue to encourage pt to drink his Enlive 3 times a day multivitamin. - d/c standing Tylenol. - Continue with pured and liquid diet. Due to surgery will need to slowly increase amount of intake and this has been explained to patient. Peripheral arterial disease with occlusion of the distal left femoral artery CTA runoff showed occlusion of the distal left femoral artery. Consulted vascular surgeon Dr. Stahl. Status post left femoral-popliteal bypass and endarterectomy on 02/12/2017. - On Plavix. - PT. - pain control with a bowel regimen. LE edema and scrotal edema Improving. Fluids already discontinued. - On Lasix to 20 mg IV twice a day. Continue. Switch to PO on discharge. - Strict ins and outs. Avoid nephrotoxins. - protein levels are low. Encouraged pt to eat. Choledocholithiasis Dilated common bile duct with stone on imaging with elevated liver enzyme. GI specialist following, status post ERCP and stone extraction. - S/p Zosyn. Chest pain/ CHF Reported to ED physician. Trop peaked at 0.09. S/p cardiology evaluation. Echo with severely reduced EF. Appreciate cardiology follow-up. - continuous cardiac telemetry to monitor for arrhythmias. - continue cardiac regimen. - outpt follow-up with cardiology. Weight loss Due to colon cancer. - See treatment as above. Hypokalemia Likely secondary to ileus. - Replete and monitor. Hypernatremia The pt has not been eating much lately. - Resolved. DVT prophylaxis: SCDs/TEDs Discharge Planning Awaiting calorie count. Anticipate discharge to SNF in 1-2 days. Problem Qualifiers (1) Chest pain: Qualified Codes: R07.9 - Chest pain, unspecified Sunil Hanks DO Feb 20, 2017 10:07
[2017-02-20 12:00] VITALS: BP 133/59; PULSE 84; RESP 18; TEMP 97.5; O2SAT 95
[2017-02-20 16:00] VITALS: BP 109/56; PULSE 80; RESP 18; TEMP 97.3; O2SAT 97
[2017-02-20 20:00] VITALS: BP 103/57; PULSE 86; RESP 16; TEMP 97.5; O2SAT 96
[2017-02-20] MEDS: LATANOPROST 0.005% OPHT SOLN 2.5 ML BTL EACH EYE SCH (20:08)
[2017-02-20] MEDS: traMADol HCL 50 MG TAB PO PRN (20:09)
[2017-02-21] VITALS: BP 120/65; PULSE 86; RESP 18; TEMP 97.5; O2SAT 96
[2017-02-21 04:00] VITALS: BP 124/62; PULSE 80; RESP 16; TEMP 97.7; O2SAT 96
[2017-02-21] MEDS: HEPARIN SODIUM - SQ 10,000 UNITS/ML VIAL SQ SCH ×2 (06:27→14:27)
[2017-02-21 08:00] VITALS: BP 125/68; PULSE 80; RESP 18; TEMP 97.1; O2SAT 97
[2017-02-21] MEDS: CLOPIDOGREL 75 MG TAB PO SCH (08:28)
[2017-02-21] MEDS: FUROSEMIDE 20 MG/2 ML VIAL IV PUSH SCH (08:29)
[2017-02-21] MEDS: MULTIVITAMINS/MINERALS THERAPEUTIC TAB PO SCH (08:29)
[2017-02-21] MEDS: PANTOPRAZOLE SOD 40 MG DELAYED RELEASE TAB PO SCH (08:29)
[2017-02-21] MEDS: SODIUM CHLORIDE 0.9% FLUSH 5 ML FLUSH IVF SCH (08:30)
[2017-02-21] MEDS: PANTOPRAZOLE SODIUM 40 MG VIAL IVP SCH (08:30)
[2017-02-21] MEDS ORDERED: POTA-163 PO (09:31)
[2017-02-21] MEDS ORDERED: FURO1TAB62 PO (09:31)
[2017-02-21] MEDS ORDERED: ULTR50TA5 PO (09:31)
[2017-02-21] MEDS ORDERED: LATA.005%O EACH EYE (09:31)
--- NOTE | 2017-02-21 09:33 | HHI.DCPOC ---
Discharge Care Plan Diagnosis: (1) Peripheral vascular disease (2) Malnutrition (3) Colon cancer (4) Abdominal pain (5) Choledocholithiasis (6) Chest pain Goals to Promote Your Health * To prevent worsening of your condition and complications * To maintain your health at the optimal level Directions to Meet Your Goals Take your medications as prescribed Follow your dietary instruction Follow activity as directed Keep your appointments as scheduled Take your immunizations and boosters as scheduled If your symptoms worsen call your PCP, if no PCP go to Urgent Care Center or Emergency Room Smoking is Dangerous to Your Health. Avoid second hand smoke Call the 24-hour hour crisis hotline for domestic abuse at Sunil Hanks DO Feb 21, 2017 09:33
--- NOTE | 2017-02-21 10:01 | HHI.DS ---
Discharge Summary Admission Date Feb 01, 2017 at 20:10 Discharge Date: Feb 21, 2017 Admitting Diagnosis Chest pain, h/o CAD, abdominal pain, elevated lfts, leukocytosis (1) Common bile duct dilation ICD Code: K83.8 - Other specified diseases of biliary tract (2) Elevated liver function tests ICD Code: R79.89 - Other specified abnormal findings of blood chemistry Status: Acute (3) Chest pain ICD Code: R07.9 - Chest pain, unspecified Status: Acute (4) Leukocytosis ICD Code: D72.829 - Elevated white blood cell count, unspecified (5) Colon cancer ICD Code: C18.9 - Malignant neoplasm of colon, unspecified Diagnosis: Principal (6) Malnutrition ICD Code: E46 - Unspecified protein-calorie malnutrition (7) Peripheral vascular disease ICD Code: I73.9 - Peripheral vascular disease, unspecified Procedures Exploratory laparotomy, ascending/transverse colectomy (02/09/17) Left femoral-popliteal bypass and endarterectomy (02/12/2017) Brief History - From Admission Written by Sheri Wyman, acting as scribe for Dr. العراقي on 02/01/17 at 22:49. Frequent cough with heavy, dwyer sputum accompanied by all over body aches. Symptom duration: 2 weeks. Reports poor appetite over the past couple of days. Complains of abdominal and back pain without nausea or vomiting but with constipation. Denies diarrhea. Uses a warm water enema for constipation at home. Denies fever, chills, black or red stool, hematuria, falls, chest pain, or shortness of breath. (chest pain reported to ED physician) CBC/BMP: 02/20/17 0735 02/17/17 0627 Significant Findings Laboratory Tests Test 02/20/17 07:35 White Blood Count 11.5 TH/MM3 (4.0-11.0) Red Blood Count 3.03 MIL/MM3 (4.50-5.90) Hemoglobin 9.8 GM/DL (13.0-17.0) Hematocrit 29.0 % (39.0-51.0) Neutrophils (%) (Auto) 78.6 % (16.0-70.0) Neutrophils # (Auto) 9.1 TH/MM3 (1.8-7.7) Imaging Last Impressions Aorta w/Runoff CTA 02/12/17 0000 Signed Impressions: Service Date/Time: Sunday, February 12, 2017 12:23 - CONCLUSION: 1. No significant aortic occlusive disease or aneurysm. 2. Occlusion of the distal left common femoral artery extending to the origin of the profunda and SFA. Profunda reconstitutes near the origin and SFA reconstitutes in the mid thigh. 3. 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 4. No significant outflow stenosis on the right. 5. Heavily calcified runoff vessels bilaterally. There is likely limited two-vessel runoff on the left with occlusion of the anterior tibial artery in the proximal calf. 6. Postsurgical features of probable recent right hemicolectomy with moderate amount of free intraperitoneal air. 7. Findings consistent with mild adynamic ileus. 8. Pneumobilia likely secondary to recent sphincterotomy. 9. Small amount of ascites. Yemi Simons MD Enema w/Water Soluble 02/08/17 0000 Signed Impressions: Service Date/Time: Wednesday, February 08, 2017 10:58 - CONCLUSION: Focal obstruction at the level of the proximal transverse colon with ill-defined masslike structure measuring up to at least 5 cm. This is of concern for colon cancer. Sunil Reich MD Abdomen X-Ray 02/07/17 0600 Signed Impressions: Service Date/Time: Tuesday, February 07, 2017 03:16 - CONCLUSION: 1. Stable gaseous distention of small and large bowel compared with February 06. Jason Yu MD Chest X-Ray 02/07/17 0000 Signed Impressions: Service Date/Time: Tuesday, February 07, 2017 10:30 - CONCLUSION: 1. Basilar and dependent atelectasis with underlying pulmonary fibrotic changes. No focal dense consolidation or effusion. Jason Yu MD GI Procedure 02/03/17 0000 Signed Impressions: Service Date/Time: January 12:40 - CONCLUSION: ERCP as above. Alice Zeng MD Gall Bladder Ultrasound 02/01/17 1940 Signed Impressions: Service Date/Time: Wednesday, February 01, 2017 20:02 - CONCLUSION: 1. Dilated common bile duct. Distal common duct not well visualized. No stones identified within the gallbladder. Jason Yu MD Aorta CTA 02/01/17 7532 Signed Impressions: Service Date/Time: Wednesday, February 01, 2017 19:31 - CONCLUSION: 1. Negative for aortic dissection or aneurysm. 2. Gallstone in distal common duct measured up to 14 mm in diameter with biliary ductal dilatation up to about 2 cm. Jason Yu MD PE at Discharge GENERAL: This is a pale elderly male patient, in no apparent distress. SKIN: No rashes, ecchymoses or lesions. Cool and dry. Wound on left thigh healing well. HEAD: Atraumatic. Normocephalic. EYES: Pupils equal round and reactive. No injection or drainage. ENT: Nose without bleeding, purulent drainage or septal hematoma. NECK: Trachea midline. No JVD. CARDIOVASCULAR: Regular rate and rhythm with grade 2 systolic murmur appreciated. RESPIRATORY: Clear to auscultation. Breath sounds equal bilaterally. No wheezes , rales, or rhonchi. GASTROINTESTINAL: Abdomen soft, tender, dressing in place. No guarding. : Penile and scrotal edema noted. MUSCULOSKELETAL: Extremities without clubbing, cyanosis, or edema. No back tenderness to palpation. NEUROLOGICAL: Awake and alert. Motor and sensory grossly within normal limits. Normal speech. PSYCH: Calm. Pt update on day of discharge The pt couldn't wait to be discharged. He said he was not happy with his breakfast. He otherwise had no acute complaints. Discussed with case management. Hospital Course Colon mass CT was indicative of an ileus. KUB showed stability. Gastroenterology was consulted. Barium study showed: Focal obstruction at the level of the proximal transverse colon with ill-defined, masslike structure measuring up to at least 5 cm. Colorectal surgery was consulted. S/p exploratory laparotomy and ascending /transverse colectomy 02/09/17. He was managed by [facility]. He received pain medications including standing IV Tylenol. Diet has been advanced, however, pt not eating much. The pt had a calorie count performed and nutrition recommendations were provided. He would benefit from an appetite stimulant. He will follow up with [facility] as an outpt. Peripheral arterial disease with occlusion of the distal left femoral artery CTA runoff showed occlusion of the distal left femoral artery. Vascular surgery was consulted. Status post left femoral-popliteal bypass and endarterectomy on 02/12/2017. He was started on Plavix. He worked with PT. He received pain control with a bowel regimen. He will follow up with vascular surgery as an outpt. LE edema and scrotal edema He was started on Lasix 20 mg IV twice a day. Edema improved. He will be discharged on Lasix 20 mg BID along with KCl supplementation. Choledocholithiasis Dilated common bile duct with stone on imaging, along with elevated liver enzyme. GI was consulted and performed ERCP and stone extraction. The pt is s/ p a course of Zosyn. He will follow up with GI as an outpt. Chest pain/ CHF Reported to ED physician. Trop peaked at 0.09. S/p cardiology evaluation. Echo with severely reduced EF. He was placed on continuous cardiac telemetry. He was continued on his cardiac regimen. He will have outpt follow-up with cardiology. Pt Condition on Discharge: Stable Discharge Disposition: Discharge to SNF Discharge Time: > 30 minutes Discharge Instructions DIET: Follow Instructions for: As Tolerated, No Restrictions Speech Therapy-Diet Recommends: Pureed Additional Diet Instructions: Enlive shakes with all meals Activities you can perform: Weight Bearing as Isaac Follow up Referrals: Appointment for Follow Up - 1 Week with Gustavo Farfan MD Cardiology - [address] Yu Gastroenterology - 2 Weeks with Sophie Mars MD PCP Follow-up - 1 Week Vascular Surgery - 1 Week with Rupert Stahl MD New Orders: COMP MET PROF (CMP) - 3-5 Days New Medications: Furosemide (Lasix) 20 Mg Tab 20 MG PO BID for Swelling, #60 TAB 0 Refills Potassium Chloride ER (Potassium Chloride ER) 20 Meq Tab 20 MEQ PO BID for Electrolyte Replacement, #60 TAB 0 Refills Clopidogrel (Plavix) 75 Mg Tab 75 MG PO DAILY for Blood Clot Prevention MDD 75, #30 TAB 0 Refills Latanoprost Opth Drops (Xalatan Opth Drops) 0.005% Drops 1 DROP EACH EYE HS for Eyes for 30 Days, #1 BOTTLE Tramadol (Ultram) 50 Mg Tab 50 MG PO Q6H PRN for PAIN SCALE 1 TO 10, #12 TAB Continued Medications: Lisinopril (Lisinopril) 2.5 Mg Tab 2.5 MG PO DAILY, #30 TAB 0 Refills Lovastatin (Lovastatin) 40 Mg Tab 40 MG PO HS for Cholesterol Management, #30 TAB 0 Refills Metoprolol Tartrate (Metoprolol Tartrate) 25 Mg Tab 25 MG PO DAILY, #30 TAB 0 Refills Pantoprazole (Pantoprazole) 40 Mg Tab 40 MG PO DAILY for Reflux, #30 TAB 0 Refills Sunil Hanks DO Feb 21, 2017 10:01
[2017-02-21 12:00] VITALS: BP 111/53; PULSE 116; RESP 18; TEMP 97.6; O2SAT 94
== END 2017-02-21 15:00 | DRG 330 ==
LOC: NEPE 16:59 → NEDA 20:10 → NEDH 02-02 00:10 → HCIS 02-02 08:48 → N07A 02-11 20:38 → N03B 02-12 17:31 → N03A 02-12 21:03 → N04B 02-15 21:11
PROVIDERS: ADMIT Hospitalist; ATTEND Hospitalist
PROC: 0FC98ZZ Extirpation of Matter from Common Bile Duct, Via Natural or Artificial Opening Endoscopic (ICD-10-PCS; 2017-02-03)
PROC: 0DTF0ZZ Resection of Right Large Intestine, Open Approach (ICD-10-PCS; principal; 2017-02-09 13:16)
PROC: 041L0JL Bypass Left Femoral Artery to Popliteal Artery with Synthetic Substitute, Open Approach (ICD-10-PCS; 2017-02-12)
PROC: 04CL0ZZ Extirpation of Matter from Left Femoral Artery, Open Approach (ICD-10-PCS; 2017-02-12)
PROC: 30233N1 Transfusion of Nonautologous Red Blood Cells into Peripheral Vein, Percutaneous Approach (ICD-10-PCS; 2017-02-12)
DX: C18.4 Malignant neoplasm of transverse colon (principal); K80.31 Calculus of bile duct with cholangitis, unspecified, with obstruction; J84.9 Interstitial pulmonary disease, unspecified; I75.022 Atheroembolism of left lower extremity; E46 Unspecified protein-calorie malnutrition; E87.0 Hyperosmolality and hypernatremia; I50.9 Heart failure, unspecified; I11.0 Hypertensive heart disease with heart failure; K56.7 Ileus, unspecified; I82.812 Embolism and thrombosis of superficial veins of left lower extremity; I70.202 Unspecified atherosclerosis of native arteries of extremities, left leg; I49.1 Atrial premature depolarization; D64.9 Anemia, unspecified; I25.5 Ischemic cardiomyopathy; I25.10 Atherosclerotic heart disease of native coronary artery without angina pectoris; I25.2 Old myocardial infarction; K59.00 Constipation, unspecified; N50.89 Other specified disorders of the male genital organs; I49.3 Ventricular premature depolarization; E78.5 Hyperlipidemia, unspecified; E87.6 Hypokalemia; I08.0 Rheumatic disorders of both mitral and aortic valves; H40.9 Unspecified glaucoma; H91.90 Unspecified hearing loss, unspecified ear; Z68.21 Body mass index [BMI] 21.0-21.9, adult; Z82.49 Family history of ischemic heart disease and other diseases of the circulatory system; Z86.718 Personal history of other venous thrombosis and embolism; Z86.711 Personal history of pulmonary embolism; Z87.891 Personal history of nicotine dependence; Z95.5 Presence of coronary angioplasty implant and graft
CPT/HCPCS: 36430; 71010; 71275; 74000; 74174; 74270; 74330; 75635; 76000; 76705; 76937; 80048; 80053; 80076; 81001; 82105; 82378; 82550; 82552; 83605; 83690; 83735; 83880; 84100; 84155; 84443; 84484; 85025; 85027; 85610; 85730; 86301; 86850; 86900; 86901; 86920; 87040; 87641; 88304; 88309; 88311; 93005; 93306; 94002; 94150; 96374; 96375; C1757; C1768; C1769; C9113; J0131; J0330; J0360; J0690; J1100; J1170; J1610; J1644; J1885; J1940; J2250; J2270; J2370; J2405; J2543; J2710; J2720; J2765; J3010; J3370; J3480; J7030; J7040; J7042; J7050; J7070; P9016; Q9963; Q9967

== ENCOUNTER 2017-04-21 17:25 | Emergency (ER) | payer MEDICARE, OTHER ==
[~2017-04-21] VITALS: Ht 172.7 cm; Wt 51.0 kg
[~2017-04-21 17:25] MED LIST changes: -ALPR2TAB3 PO; -ASPI81TA82 PO; -ESCI10TA PO; +FURO1TAB62 PO; -HYDR12.56 PO; +LATA.005%O EACH EYE; +LISI2.5T3 PO; -LISI2.5T55 PO; +METO25TA3 PO; -OMEG5CAP PO; -PANT40IN3 PO; +PANT40TA3 PO; +PLAV75TA29 PO; +POTA-163 PO; -TAB-TAB PO; +TRAM50 PO; -XALA0.00 EACH EYE
[2017-04-21 17:28] VITALS: BP 143/61; PULSE 88; RESP 16; TEMP 97.5; O2SAT 95
--- NOTE | 2017-04-21 18:10 | PD ---
HPI Chief Complaint: Numbness/Tingling Time Seen by Provider: 17:33 Travel History International Travel<30 days: No Contact w/Intl Traveler<30days: No Traveled to known affect area: No History of Present Illness HPI 82-year-old male presents to the emergency department for evaluation of numbness and tingling to the bilateral lower extremities as well as the family noticed the left foot was pale her than the right foot. During previous admission in January, patient had a CTA runoff completed during last admission in January which showed occlusion of the distal left femoral artery. Patient underwent left femoral-popliteal bypass and endarterectomy on February 13, 2000 and was started on Plavix. Family members are at bedside are concerned that he may have had reocclusion as he has paleness to that left foot. He also reports some tingling to the right toes. Patient has past medical history of coronary artery disease status post stenting, hypertension, colon cancer. Severity is moderate. No exacerbating or alleviating factors. PFSH Past Medical History Blood Disorders: No Anxiety: Yes Depression: Yes Heart Rhythm Problems: No Cancer: No Cardiac Catheterization: Yes Cardiovascular Problems: Yes High Cholesterol: Yes Chest Pain: Yes Congestive Heart Failure: Yes Diabetes: No Diminished Hearing: No Endocrine: No Gastrointestinal Disorders: Yes (acid reflux) GERD: Yes Genitourinary: No Hypertension: Yes Immune Disorder: No Musculoskeletal: Yes (arthritis) Neurologic: No Psychiatric: Yes Reproductive: No Respiratory: No Myocardial Infarction: Yes (X2) Past Surgical History Coronary Stent: Yes (X4 STENTS) Other Surgery: Yes Social History Alcohol Use: Yes (1-2 BEER ONCE IN A WHILE) Tobacco Use: Yes (PIPE SMOKER/ QUIT IN 1980) Substance Use: Yes Allergies-Medications (Allergen,Severity, Reaction): Coded Allergies: doxycycline (Verified Allergy, Unknown, 04/21/17) levofloxacin (Verified Allergy, Unknown, 04/21/17) niacin (Verified Allergy, Unknown, 04/21/17) sulfamethoxazole (Verified Allergy, Unknown, 04/21/17) trimethoprim (Verified Allergy, Unknown, 04/21/17) No Known Allergies (Unverified Adverse Reaction, Unknown, 04/21/17) Reported Meds & Prescriptions Reported Meds & Active Scripts Active Potassium Chloride ER (Potassium Chloride) 20 Meq Tab 20 Meq PO BID Lasix (Furosemide) 20 Mg Tab 20 Mg PO BID Plavix (Clopidogrel Bisulfate) 75 Mg Tab 75 Mg PO DAILY MDD 75 Reported Multi Vitamin Daily (Multiple Vitamin) 1 Tab Tab Marinol (Dronabinol) 2.5 Mg Cap 2.5 Mg PO BID Pantoprazole (Pantoprazole Sodium) 40 Mg Tab 40 Mg PO DAILY Review of Systems Except as stated in HPI: all other systems reviewed are Neg Physical Exam Narrative GENERAL: Well-nourished, well-developed elderly male patient, afebrile SKIN: Focused skin assessment warm/dry. HEAD: Normocephalic. Atraumatic EYES: No scleral icterus. No injection or drainage. NECK: Supple, trachea midline. No JVD or lymphadenopathy. CARDIOVASCULAR: Regular rate and rhythm without murmurs, gallops, or rubs. Right pedal pulses found with Doppler. Left posterior tibial pulses found with Doppler. RESPIRATORY: Breath sounds equal bilaterally. No accessory muscle use. Lungs sounds are clear to auscultation. GASTROINTESTINAL: Abdomen soft, non-tender, nondistended. MUSCULOSKELETAL: No cyanosis, or edema. BACK: Nontender without obvious deformity. No CVA tenderness. Data Data Last Documented VS Vital Signs Date Time Temp Pulse Resp B/P (MAP) Pulse Ox O2 Delivery O2 Flow Rate FiO2 04/21/17 20:09 114 20 103/56 (72) 98 Room Air 04/21/17 17:28 97.5 Orders Orders Cta Runoff W Iv Contrast W 3d (04/21/17 ) Iv Access Insert/Monitor (04/21/17 17:52) Complete Blood Count With Diff (04/21/17 17:52) Comprehensive Metabolic Panel (04/21/17 17:52) Prothrombin Time / Inr (Pt) (04/21/17 17:52) Act Partial Throm Time (Ptt) (04/21/17 17:52) Magnesium (Mg) (04/21/17 17:52) Iohexol 350 Inj (Omnipaque 350 Inj) (04/21/17 20:09) Labs Laboratory Tests Test 04/21/17 18:15 White Blood Count 6.6 TH/MM3 Red Blood Count 2.71 MIL/MM3 Hemoglobin 9.6 GM/DL Hematocrit 26.4 % Mean Corpuscular Volume 97.4 FL Mean Corpuscular Hemoglobin 35.5 PG Mean Corpuscular Hemoglobin Concent 36.4 % Red Cell Distribution Width 16.2 % Platelet Count 320 TH/MM3 Mean Platelet Volume 7.7 FL Neutrophils (%) (Auto) 66.7 % Lymphocytes (%) (Auto) 17.2 % Monocytes (%) (Auto) 12.9 % Eosinophils (%) (Auto) 2.1 % Basophils (%) (Auto) 1.1 % Neutrophils # (Auto) 4.4 TH/MM3 Lymphocytes # (Auto) 1.1 TH/MM3 Monocytes # (Auto) 0.9 TH/MM3 Eosinophils # (Auto) 0.1 TH/MM3 Basophils # (Auto) 0.1 TH/MM3 CBC Comment AUTO DIFF Differential Comment AUTO DIFF CONFIRMED Platelet Estimate NORMAL Platelet Morphology Comment NORMAL Ovalocytes 1+ Prothrombin Time 10.9 SEC Prothromb Time International Ratio 1.0 RATIO Activated Partial Thromboplast Time 27.6 SEC Blood Urea Nitrogen 24 MG/DL Creatinine 1.06 MG/DL Random Glucose 143 MG/DL Total Protein 7.1 GM/DL Albumin 2.8 GM/DL Calcium Level 8.6 MG/DL Magnesium Level 1.8 MG/DL Alkaline Phosphatase 77 U/L Aspartate Amino Transf (AST/SGOT) 31 U/L Alanine Aminotransferase (ALT/SGPT) 19 U/L Total Bilirubin 0.3 MG/DL Sodium Level 136 MEQ/L Potassium Level 4.4 MEQ/L Chloride Level 101 MEQ/L Carbon Dioxide Level 30.2 MEQ/L Anion Gap 5 MEQ/L Estimat Glomerular Filtration Rate 67 ML/MIN MDM Medical Decision Making Medical Screen Exam Complete: Yes Emergency Medical Condition: Yes Medical Record Reviewed: Yes Interpretation(s) Last Impressions Aorta w/Runoff CTA 04/21/17 0000 Signed Impressions: Service Date/Time: March 19:45 - CONCLUSION: 1. No significant aortic occlusive disease or aneurysm. 2. Resolution of previous occlusion of the left common femoral artery and superficial femoral artery. 3. 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 4. Stable pneumobilia. Constipation. Inferior vena cava filter present. Small amount of free fluid in the abdomen and pelvis. 5. Trifurcation disease bilaterally with multiple stenoses as above similar to prior examination from February 12. Jason Yu MD Differential Diagnosis Arterial occlusion versus muscle strain versus electrolyte abnormality versus PVD Narrative Course 82-year-old male presents to the emergency department for evaluation of bilateral leg pain and paresthesias with history of PVD. IV access established. CBC, CMP, magnesium, PTT, PT/INR, CTA runoff with IV contrast of the lower extremities are ordered and pending. CBC shows no acute abnormality. CMP shows no acute abnormality. Magnesium is 1.8. Coags are unremarkable. CTA shows no significant aortic occlusive disease or aneurysm; resolution of previous occlusion of the left common femoral artery and superficial femoral artery; Mild aneurysmal dilatation of the common iliac arteries with mild stenosis; Stable pneumobilia. Constipation. Inferior vena cava filter present. Small amount of free fluid in the abdomen and pelvis; Trifurcation disease bilaterally with multiple stenoses as above similar to prior examination from February 12. Imaging studies are reassuring. Discussed with the family and the patient. 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 Patient is stable for discharge home. The patient was discharged in stable condition with instructions, including return instructions and follow up instructions. Diagnosis Primary Impression: Leg pain Qualified Codes: M79.604 - Pain in right leg; M79.605 - Pain in left leg Referrals: Primary Care Physician call for appointment Patient Instructions: General Instructions, Leg Pain (ED) Additional Instructions: Follow-up with your primary care physician. Return to the emergency department for any acute worsening of symptoms. Med/Other Pt SpecificInfo: No Change to Meds Disposition: 01 DISCHARGE HOME Condition: Stable Prachi Tang JAE Apr 21, 2017 18:10
[2017-04-21 18:24] LABS: AUTOMATED NEUTROPHIL # 4.4 TH/MM3 (1.8-7.7); BASOPHIL # 0.1 TH/MM3 (0-0.2); BASOPHIL % 1.1 % (0.0-2.0); EOSINOPHIL # 0.1 TH/MM3 (0-0.4); EOSINOPHIL % 2.1 % (0.0-4.0); HEMATOCRIT 26.4 % (39.0-51.0); LYMPH % 17.2 % (9.0-44.0); LYMPHOCYTE # 1.1 TH/MM3 (1.0-4.8); MEAN CELL VOLUME 97.4 FL (80.0-100.0); MEAN CORPUSCULAR HEMOGLOBIN 35.5 PG (27.0-34.0); MONO % 12.9 % (0.0-8.0); NEUT % 66.7 % (16.0-70.0); PLATELET COUNT 320 TH/MM3 (150-450); RED BLOOD COUNT 2.71 MIL/MM3 (4.50-5.90); RED CELL DISTRIBUTION WIDTH 16.2 % (11.6-17.2); WHITE BLOOD COUNT 6.6 TH/MM3 (4.0-11.0)
[2017-04-21 18:25] LABS: HEMO FLAGS AUTO DIFF; MEAN CORPUSCULAR HGB CONC 36.4 % (32.0-36.0)
[2017-04-21 18:36] LABS: APTT (PATIENT) 27.6 SEC (24.3-30.1); PROTHROMBIN TIME - PATIENT 10.9 SEC (9.8-11.6)
[2017-04-21 18:38] LABS: ALT (GPT) 19 U/L (12-78)
[2017-04-21 18:40] LABS: ALKALINE PHOSPHATASE 77 U/L (45-117); TOTAL BILIRUBIN ADULT 0.3 MG/DL (0.2-1.0)
[2017-04-21 18:41] LABS: ANION GAP 5 MEQ/L (5-15); AST (GOT) 31 U/L (15-37); BICARBONATE 30.2 MEQ/L (21.0-32.0); BLOOD UREA NITROGEN 24 MG/DL (7-18); CHLORIDE 101 MEQ/L (98-107); GLOMERULAR FILTRATION RATE 67 ML/MIN (>89); MAGNESIUM 1.8 MG/DL (1.5-2.5); POTASSIUM 4.4 MEQ/L (3.5-5.1); SODIUM (NA) 136 MEQ/L (136-145)
--- NOTE | 2017-04-21 18:47 | PD ---
Physical Exam Date Seen by Provider: Apr 21, 2017 Narrative Patient is here with bilateral foot pain and tingling. He has had previous vascular bypass surgery. Data Data Last Documented VS Vital Signs Date Time Temp Pulse Resp B/P (MAP) Pulse Ox O2 Delivery O2 Flow Rate FiO2 04/21/17 17:28 97.5 88 16 143/61 (88) 95 Room Air Orders Orders Cta Runoff W Iv Contrast W 3d (04/21/17 ) Iv Access Insert/Monitor (04/21/17 17:52) Complete Blood Count With Diff (04/21/17 17:52) Comprehensive Metabolic Panel (04/21/17 17:52) Prothrombin Time / Inr (Pt) (04/21/17 17:52) Act Partial Throm Time (Ptt) (04/21/17 17:52) Magnesium (Mg) (04/21/17 17:52) Labs Laboratory Tests Test 04/21/17 18:15 White Blood Count 6.6 TH/MM3 Red Blood Count 2.71 MIL/MM3 Hemoglobin 9.6 GM/DL Hematocrit 26.4 % Mean Corpuscular Volume 97.4 FL Mean Corpuscular Hemoglobin 35.5 PG Mean Corpuscular Hemoglobin Concent 36.4 % Red Cell Distribution Width 16.2 % Platelet Count 320 TH/MM3 Mean Platelet Volume 7.7 FL Neutrophils (%) (Auto) 66.7 % Lymphocytes (%) (Auto) 17.2 % Monocytes (%) (Auto) 12.9 % Eosinophils (%) (Auto) 2.1 % Basophils (%) (Auto) 1.1 % Neutrophils # (Auto) 4.4 TH/MM3 Lymphocytes # (Auto) 1.1 TH/MM3 Monocytes # (Auto) 0.9 TH/MM3 Eosinophils # (Auto) 0.1 TH/MM3 Basophils # (Auto) 0.1 TH/MM3 CBC Comment AUTO DIFF Prothrombin Time 10.9 SEC Prothromb Time International Ratio 1.0 RATIO Activated Partial Thromboplast Time 27.6 SEC Blood Urea Nitrogen 24 MG/DL Creatinine 1.06 MG/DL Random Glucose 143 MG/DL Total Protein 7.1 GM/DL Albumin 2.8 GM/DL Calcium Level 8.6 MG/DL Magnesium Level 1.8 MG/DL Alkaline Phosphatase 77 U/L Aspartate Amino Transf (AST/SGOT) 31 U/L Alanine Aminotransferase (ALT/SGPT) 19 U/L Total Bilirubin 0.3 MG/DL Sodium Level 136 MEQ/L Potassium Level 4.4 MEQ/L Chloride Level 101 MEQ/L Carbon Dioxide Level 30.2 MEQ/L Anion Gap 5 MEQ/L Estimat Glomerular Filtration Rate 67 ML/MIN MDM Supervised Visit with [facility]: Yes Narrative Course I, Dr. Woods, have reviewed the advance practice practitioner's documentation and am in agreement, met with the patient face to face, made the diagnosis, and the medical decision making was done by me. *My assessment and Findings: Patient is awake and alert. His feet are cool to the touch. I cannot palpate pedal pulses. CT angiogram of his lower extremities is pending. Please see Prachi Tang NP's note for laboratory and radiology results, final diagnosis and disposition Jennie Woods MD Apr 21, 2017 18:47
[2017-04-21] MEDS ORDERED: MULT1TAB46 (18:50)
[2017-04-21] MEDS ORDERED: DRON2.5 PO (18:50)
[2017-04-21 19:13] LABS: OVALOCYTES 1+ (NORMAL); PLATELET ESTIMATE SMEAR NORMAL (NORMAL); PLATELET MORPHOLOGY NORMAL (NORMAL); SCAN/DIFF AUTO DIFF CONFIRMED
[2017-04-21 20:09] VITALS: BP 103/56; PULSE 114; RESP 20; O2SAT 98
[2017-04-21] MEDS ORDERED: IOHEXOL 350 MG/ML 10 ML VIAL (for RAD DIAG) IVCONTRAST ONE (20:09)
--- NOTE | 2017-04-21 21:11 | RADRPT ---
EXAM DATE/TIME: 04/21/2017 19:45 [facility] COMPARISON: No previous studies available for comparison. INDICATIONS : Leg numbness. IV CONTRAST: 100 cc Omnipaque 350 (iohexol) IV RADIATION DOSE: 10.18 CTDIvol (mGy) MEDICAL HISTORY : Cardiovascular disease. SURGICAL HISTORY : None. ENCOUNTER: Initial ACUITY: 1 day PAIN SCALE: 0/10 LOCATION: Bilateral leg TECHNIQUE: Volumetric scanning was performed using a multi-row detector CT scanner. The data was post processed with a variety of visualization algorithms including full volume maximum intensity projection, multi -planar sliding thin slab reformation, curved planar reformation, and surface rendering techniques. Using automated exposure control and adjustment of the mA and/or kV according to patient size, radiat ion dose was kept as low as reasonably achievable to obtain optimal diagnostic quality images. DICO M format image data is available electronically for review and comparison. FINDINGS: Comparison is February 12. Inferior vena cava filter again noted. Again seen is no significant aorti c occlusive disease or aneurysm. Mildly aneurysmal right common iliac artery to 1.6 cm is stable. Mild to moderate stenosis proximal r ight common iliac artery. Diffusely calcified right superficial femoral artery with mild stenoses in the mid to distal thigh. Heavily calcified bifurcation vessels on the right with mild to moderate deshawn noses of the anterior tibial and posterior tibial arteries in the proximal calf. On the left side there is mild stenosis of the left common iliac artery origin. Left internal iliac i s patent. Left external iliac is patent. Previous occlusion of the common femoral artery on the left has resolved. Small caliber heavily calcified trifurcation vessels again noted. Anterior tibial arter y is heavily calcified in the proximal to mid calf and likely occluded. Posterior tibial artery exten ds to the plantar arch. . CONCLUSION: 1. No significant aortic occlusive disease or aneurysm. 2. Resolution of previous occlusion of the left common femoral artery and superficial femoral artery. 3. 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 4. Stable pneumobilia. Constipation. Inferior vena cava filter present. Small amount of free fluid in the abdomen and pelvis. 5. Trifurcation disease bilaterally with multiple stenoses as above similar to prior examination from February 12. Jason Yu MD on April 21, 2017 at 21:00 Board Certified Radiologist. This report was verified electronically.
== END 2017-04-21 22:17 | disposition home or self-care (01) ==
LOC: NEPE 17:25
DX: M79.672 Pain in left foot (principal); M79.671 Pain in right foot; R20.2 Paresthesia of skin; K59.00 Constipation, unspecified; F41.9 Anxiety disorder, unspecified; F32.9 Major depressive disorder, single episode, unspecified; E78.00 Pure hypercholesterolemia, unspecified; I11.0 Hypertensive heart disease with heart failure; I50.9 Heart failure, unspecified
CPT/HCPCS: 75635; 80053; 83735; 85025; 85610; 85730; 99285; Q9967

== ENCOUNTER → 2017-10-13 | Outpatient (CLI) | payer MEDICARE, OTHER ==
[~2017-10-13] MED LIST changes: +DRON2.5 PO; -LATA.005%O EACH EYE; -LISI2.5T3 PO; -LOVA40TA PO; -METO25TA3 PO; +MULT1TAB46; -TRAM50 PO
[2017-10-13 11:03] LABS: BILIRUBIN, URINE NEG (NEG); BLOOD, URINE NEG (NEG); GLUCOSE,URINE NEG (NEG); KETONE, URINE NEG (NEG); MUCUS URINE FEW /lpf (OCC); NITRITE,URINE NEG (NEG); PH, URINE 7.5 (5.0-8.5); URINE COLOR YELLOW (YELLW/STRAW); URINE LEUKOCYTE ESTERASE NEG (NEG)
== END ==
LOC: HREF 08:30
PROVIDERS: ATTEND Family Medicine
DX: I11.0 Hypertensive heart disease with heart failure (principal); R82.99 Other abnormal findings in urine
CPT/HCPCS: 81001; 87086